=== PATIENT | female | born 1945 | race Caucasian/White ===

== ENCOUNTER 2025-03-27 14:20 | Observation (INO) | payer OTHER, MEDICARE ==
--- OUTSIDE RECORDS SUMMARY | 2025-03-27 14:30 | XMS REPORT | Continuity of Care Document ---
Author Name Unknown Address [address] [facility] [address] [place] [address] [facility] [address] [facility] [address] [place] [address] Care Team Providers Care Chief Of Party Name Role Phone Marva Rice DO Primary Care Physician [phone] Praveena Garcia Attending Clinician Unavail able Doctor Unassigned, [facility] [place] Attending Clinician U BACILIO Villegas Attending Clinician Unavailable JUAN RAMON WELCH Attending Clinician UnavailBacilio Flowers MD Attending Clinician [phone] Belinda Chang RN Attending Clinician Unavailable LILIANA PÉREZ Attending Clinician Unavailable Wale Corey DO Attending Clinician [phone] Liliana Pérez DO Attending Clinician [phone] Sydni Perez MD Attending Clinician [phone] SYDNI PEREZ Attending Clinician UnavailSYDNI Carson Attending Clinician Unavailabl e Doctor Unassigned, [facility] [place] Attending Clinician U JOSH Iglesias Attending Clinician Unavailable Josh Norwood MD Attending Clinician [phone] CARITO DOYLE Attending Clinician Unavailable Jason [employer]BER, Rosie Attending Clinician [phone] Juvenal HERMOSILLO, Mac Pino Attending Clinician [phone] Carito Doyle MD Attending Clinician [phone], [facility] Attending Clinician Unavailable Shanel Jefferson Attending Clinician [phone] Dakota FOSTER, Juancarlos Hagan Attending Clinician Unavail able SELIN BALES Attending Clinician Unavailable Garfield Bower MD Attending Clinician [phone] Selin Bales MD Attending Clinician [phone] Jasvir HERMOSILLO, Asha Attending Clinician [phone] SHANEL CANDELARIO Attending Clinician Unavailable ROSELINE GAVIN Attending Clinician Unavailab Roseline Howell Attending Clinician GHAZALA PENN Attending Clinician Unavailab Ghazala Chavez DO Attending Clinician [phone] Brandon Taylor MD Attending Clinician [phone] Nicholas HERMOSILLO, Jenn Ornelas Attending Clinician + Andrey Alvarado MD Attendin g Clinician Yessenia HERMOSILLO, Osman Davis Attending Clinician + Petrona HERMOSILLO, Tello Nova Attending Clinici an Geramine Nagel MD Attending Clinician [phone] Shani Han MD Attending Clinician [phone] Deloris Hoffman MD Attending Clinician [phone] SHANI HAN Attending Clinician Unavailable Physician, No Primary or Family Admitting Clinic marco Unavailable MARVA RICE Admitting Clinician Unavailable LILIANA PÉREZ Admitting Clinician Unavailable Liliana Pérez DO Admitting Clinician [phone] JOSH NORWOOD Admitting Clinician Unavailable MYRA RO Admitting Clinician Unavailable CARITO DOYLE Admitting Clinician Unavailable Yanira HERMOSILLO, Carito Admitting Clinician [phone] SELIN BALES Admitting Clinician Unavailable Selin Bales MD Admitting Clinician [phone] BACILIO DELEON Admitting Clinician Unavailable ROSELINE GAVIN Admitting Clinician Unavailab GHAZALA Chavez Admitting Clinician Unavailab shan Casas MD, Osman Davis Admitting Clinician + Petrona HERMOSILLO, Tello Nova Admitting Clinici an Deloris Hoffman MD Admitting Clinician [phone] DELORIS HOFFMAN Admitting Clinician Unavailable Payers Payer Name Policy Type Policy Number Effective Date Expirati on Date Source MEDICARE PART A \\T\\ B [id number] 1999 00:00:00 [facility] MEDICARE SUPPLEMENT [id number] 2010 00:00:00 Problems Condition Name Condition Details Condition Category Status Onset Date Resolution Date Last Treatment Date Treating Clinician Comments Source Primary hypertensi on Primary hypertensi on Disease Active 04-25 00:00: 00 [facility] 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 Problem Active 04-20 00:00: 00 [facility] Atrophic vaginitis Atrophic Vaginitis Problem Active 04-20 00:00: 00 [facility] Spinal stenosis of lumbar region Spinal Stenosis of Lumbar Region Problem Active 04-20 00:00: 00 [facility] Incontinen ce of feces Incontinen ce of Feces Problem Active 04-20 00:00: 00 [facility] Diarrhea Diarrhea Problem Active 04-20 00:00: 00 [facility] Urge incontinen ce of urine Urge Incontinen ce of Urine Problem Active 04-20 00:00: 00 [facility] Spinal stenosis Spinal Stenosis Problem Active 04-18 00:00: 00 [facility] Low back pain Low Back Pain Problem Active 04-18 00:00: 00 [facility] Hyperlipid emia Hyperlipid emia Problem Active 2024-0 6-05 00:00: 00 [facility] Neuropathy Neuropathy Problem Active 6-05 00:00: 00 [facility] Myocardial infarction Myocardial Infarction Problem Active 6-05 00:00: 00 [facility] Gastroesop hageal reflux disease Gastroesop hageal Reflux Disease Problem Active 6-05 00:00: 00 [facility] UTI (urinary tract infection) UTI (urinary tract infection) Disease Active 2-13 00:00: 00 [facility] Weakness of left lower extremity Weakness of left lower extremity Disease Active 2022-11 2-11 00:00: 00 [facility] Troponin I above reference range Troponin I above reference range Disease Active 2022-11 2- 00:00: 00 [facility] KALYN (acute kidney injury) KALYN (acute kidney injury) Disease Active 2022-11 2- 00:00: 00 [facility] KALYN (acute kidney injury) KALYN (acute kidney injury) Disease Active 2022-11 2- 00:00: 00 [facility] Syncope and collapse Syncope and collapse Disease Active 2022-11 2- 00:00: 00 [facility] LOC (loss of consciousn ess) LOC (loss of consciousn ess) Disease Active 2022-11 2- 00:00: 00 [facility] Pulmonary hypertensi on Pulmonary hypertensi on Disease Active 2022-11 00:00: 00 [facility] HFrEF (heart failure with reduced ejection fraction) HFrEF (heart failure with reduced ejection fraction) Disease Active 2022-11 00:00: 00 [facility] JARRELL (obstructi ve sleep apnea) JARRELL (obstructi ve sleep apnea) Disease Active 2022-11 00:00: 00 [facility] Chest pain, unspecifie d type Chest pain, unspecifie d type Disease Active 07-20 00:00: 00 [facility] NSTEMI (non-ST elevated myocardial infarction ) NSTEMI (non-ST elevated myocardial infarction ) Disease Active 07-20 00:00: 00 [facility] Stenosis of left carotid artery Stenosis of left carotid artery Disease Active 2020-11 0-18 00:00: 00 [facility] Weak pulse Weak pulse Disease Active 3- 00:00: 00 [facility] Morbid obesity Morbid obesity Disease Active 3 00:00: 00 [facility] Coronary artery disease involving [place] coronary artery of [place] heart without angina pectoris Coronary artery disease involving [place] coronary artery of [place] heart without angina pectoris Disease Active 01-20 00:00: 00 [facility] Coronary artery disease involving [place] coronary artery of [place] heart without angina pectoris Coronary artery disease involving [place] coronary artery of [place] heart without angina pectoris Disease Active 01-20 00:00: 00 [facility] Chronic heart failure with preserved ejection fraction Chronic heart failure with preserved ejection fraction Disease Active 01-20 00:00: 00 [facility] PVT (paroxysma l ventricula r tachycardi a) PVT (paroxysma l ventricula r tachycardi a) Disease Active 01-20 00:00: 00 [facility] Chest pain, musculoske letal Chest pain, musculoske letal Disease Active 2019-11 0 00:00: 00 [facility] History of myocardial infarction History of myocardial infarction Disease Active 2019-11 024 00:00: 00 [facility] 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 Disease Active 2019-11 024 00:00: 00 [facility] Chest pain Chest pain Disease Active 2019-11 0 00:00: 00 [facility] Non-sustai bo ventricula r tachycardi a Non-sustai bo ventricula r tachycardi a Disease Active 2019-11 0- 00:00: 00 [facility] Edema, unspecifie d Edema, unspecifie d Disease Active 2019-11 008 00:00: 00 [facility] Chronic kidney disease, stage 3 unspecifie d Chronic kidney disease, stage 3 unspecifie d Disease Active 2019-11 0- 00:00: 00 [facility] Cough Cough Disease Active 2019-11 0 00:00: 00 [facility] Candidiasi s, unspecifie d Candidiasi s, unspecifie d Disease Active 08-11 00:00: 00 [facility] Pain, unspecifie d Pain, unspecifie d Disease Active 9 00:00: 00 [facility] Nausea with vomiting, unspecifie d Nausea with vomiting, unspecifie d Disease Active 08-04 00:00: 00 [facility] Allergic rhinitis, unspecifie d Allergic rhinitis, unspecifie d Disease Active 18 00:00: 00 [facility] Constipati on, unspecifie d Constipati on, unspecifie d Disease Active 08-01 00:00: 00 [facility] Essential (primary) hypertensi on Essential (primary) hypertensi on Disease Active 08-01 00:00: 00 [facility] Gastro-eso phageal reflux disease without esophagiti s Gastro-eso phageal reflux disease without esophagiti s Disease Active 08-01 00:00: 00 [facility] Hyperlipid emia, unspecifie d Hyperlipid emia, unspecifie d Disease Active 08-01 00:00: 00 [facility] Other specified disorders of bladder Other specified disorders of bladder Disease Active 08-01 00:00: 00 [facility] Urinary tract infection, site not specified Urinary tract infection, site not specified Disease Active 08-01 00:00: 00 [facility] Body mass index (BMI) 45.0-49.9, adult Body mass index (BMI) 45.0-49.9, adult Disease Active 07-31 00:00: 00 [facility] Muscle weakness (generaliz ed) Muscle weakness (generaliz ed) Disease Active 07-31 00:00: 00 [facility] Other abnormalit ies of gait and mobility Other abnormalit ies of gait and mobility Disease Active 07-31 00:00: 00 [facility] Other lack of coordinati on Other lack of coordinati on Disease Active 07-31 00:00: 00 [facility] Age-relate d osteoporos is without current pathologic al fracture Age-relate d osteoporos is without current pathologic al fracture Disease Active 07-26 00:00: 00 [facility] Anemia, unspecifie d Anemia, unspecifie d Disease Active 07-26 00:00: 00 [facility] Cardiac arrest due to underlying cardiac condition Cardiac arrest due to underlying cardiac condition Disease Active 07-26 00:00: 00 [facility] Chronic pain disorder Chronic pain disorder Disease Active 07-26 00:00: 00 [facility] Fibromyalg ia Fibromyalg ia Disease Active 07-26 00:00: 00 [facility] 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 Disease Active 07-26 00:00: 00 [facility] Encounter for surgical aftercare following surgery on the placement specialist y system Encounter for surgical aftercare following surgery on the placement specialist y system Disease Active 07-26 00:00: 00 [facility] Hypertensi ve heart and chronic kidney disease with heart failure and stage 1 through stage 4 chronic kidney disease, or unspecifie d chronic kidney disease Hypertensi ve heart and chronic kidney disease with heart failure and stage 1 through stage 4 chronic kidney disease, or unspecifie d chronic kidney disease Disease Active 07-26 00:00: 00 [facility] Klebsiella pneumoniae (k. pneumoniae ) as the cause of diseases classified elsewhere Klebsiella pneumoniae (k. pneumoniae ) as the cause of diseases classified elsewhere Disease Active 07-26 00:00: 00 [facility] Lymphedema , not elsewhere classified Lymphedema , not elsewhere classified Disease Active 07-26 00:00: 00 [facility] Peptic ulcer, site unspecifie d, unspecifie d as acute or chronic, without hemorrhage or perforatio n Peptic ulcer, site unspecifie d, unspecifie d as acute or chronic, without hemorrhage or perforatio n Disease Active 07-26 00:00: 00 [facility] Rheumatoid arthritis, unspecifie d Rheumatoid arthritis, unspecifie d Disease Active 07-26 00:00: 00 [facility] Secondary osteoarthr itis, right shoulder Secondary osteoarthr itis, right shoulder Disease Active 07-26 00:00: 00 [facility] Spinal stenosis, site unspecifie d Spinal stenosis, site unspecifie d Disease Active 07-26 00:00: 00 [facility] STEMI (ST elevation myocardial infarction ) STEMI (ST elevation myocardial infarction ) Disease Active 07-26 00:00: 00 [facility] Choledocho lithiasis Choledocho lithiasis Disease Active 03-31 00:00: 00 [facility] 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 Disease Active 18 00:00: 00 [facility] Deep vein thrombosis Deep vein thrombosis Disease Active 2015-11 0 00:00: 00 [facility] Leg pain Leg pain Disease Active 08-13 00:00: 00 [facility] Allergies, Adverse Reactions, Alerts Allergy Name Allergy Type Status Severity Reaction(s) Onset Date Inactive Date Treating Clinician Comments Source Penicill ins DA Active SV 06-11 00:00: 00 [facility] codeine DA Active SV 06-11 00:00: 00 [facility] Penicill ins DA Active SV RASH 06-11 00:00: 00 [facility] codeine DA Active SV SHORTNESS OF BREATH 06-11 00:00: 00 [facility] CODEINE DRUG INGREDI Active SOB 05-28 00:00: 00 [facility] PENICILL IN DRUG INGREDI Active Rash 05-28 00:00: 00 [facility] Codeine Propensi ty to adverse reaction s Active Shortness of Breath 05-28 00:00: 00 [facility] Penicill in Propensi ty to adverse reaction s Active Rash 05-28 00:00: 00 [facility] PENICILL INS Allergy to substanc e Active [facility] Social History Social Habit Start Date Stop Date Quantity Comments Source [facility] History of Social function 2024-04-25 00:00:00 2024-04-25 00:00:00 [facility] Exposure to SARS-CoV-2 (event) 2023-02-14 00:00:00 2023-02-24 09:06:00 Not sure [facility] Tobacco use and exposure 2016-08-13 00:00:00 2016-08-13 00:00:00 Smokeless tobacco non-user [facility] Sex assigned at 1945 00:00:00 1945 00:00:00 [facility] Smoking Status Start Date Stop Date Source Never smoked tobacco [facility] Medications Ordered Medication Name Filled Medication Name Start Date Stop Date Current Medication? Ordering Clinician Indication Dosage Frequency Signature (SIG) Comments Components Source mirabegron (MYRBETRIQ) 50 mg tablet 12-29 15:27: 11 Yes 50mg Take 1 tablet by mouth in the morning. [facility] URSODIOL ORAL 12-29 15:27: 11 Yes Take by mouth. [facility] ondansetron (ZOFRAN (PF)) injection 4 mg 12-29 03:08: 13 Yes 4mg 4 mg, Slow IV Push, Q6HPRN, Nausea and Vomiting (N/V), Starting on Tue12/28/23 at 2108
Do ses of ondansetro n 16 mg and above need to be administer ed via IV piggyback. For Dose >=24mg ECG monitoring is advisable.
[facility] atorvastati n (LIPITOR) tablet 40 mg 12-29 03:00: 00 Yes 40mg 40 mg, Oral, QHS, First dose on Tue12/28/23 at 2100, Until Discontinu ed, Routine [facility] NaCl 0.9% (NS) bolus infusion 250 mL 12-28 18:15: 00 12-28 23:15 :00 No 250mL at 50 mL/hr, 250 mL, IV Piggyback, ONCE, 1 dose, On Tue12/28/23 at 1215, STAT [facility] metoprolol succinate XL (TOPROL XL) tablet 50 mg 12-28 15:00: 00 Yes 50mg 50 mg, Oral, DAILY, First dose on Tue12/28/23 at 0900, Until Discontinu ed, Routine [facility] aspirin chewable tablet 81 mg 12-28 15:00: 00 Yes 81mg 81 mg, Oral, DAILY, First dose on Tue12/28/23 at 0900, Until Discontinu ed, Routine [facility] enoxaparin (LOVENOX) injection 40 mg 12-28 15:00: 00 Yes 40mg 40 mg, Subcutaneo us, DAILY, First dose on Tue12/28/23 at 0900, Until Discontinu ed, Routine [facility] cefTRIAXone (ROCEPHIN) 1,000 mg in NaCl 0.9% (NS) 100 mL MINI-BAG 12-28 05:45: 00 01-01 05:44 :00 No 1000mg 1,000 mg, IV Piggyback, Q24H ABX, 4 doses, First dose on Tue12/27/23 at 2345, Last dose on Tue12/30/23 at 2345, Administer over 30 Minutes, 100 mL
Reas on for Anti-Infec tive: Documented Infection< br>Documen angela Infection Site: Urine
D uration of Therapy: 7 days [facility] temazepam (RESTORIL) capsule 15 mg 12-28 04:36: 03 Yes 15mg 15 mg, Oral, QHSPRN, Starting on Tue12/27/23 at 2236, Until Discontinu ed, Routine, Insomnia [facility] HYDROcodone -acetaminop hen (NORCO) 10-325 mg tablet 1 tablet 12-28 04:27: 13 Yes 1{tbl} 1 tablet, Oral, Q6HPRN, Starting on Tue12/27/23 at 2227, Until Discontinu ed, Pain (scale 4-6) [facility] acetaminoph en (TYLENOL) tablet 650 mg 12-28 00:27: 53 Yes 650mg 650 mg, Oral, Q6HPRN, Starting on Tue12/27/23 at 1827, Until Discontinu ed, Routine, Pain (scale 1-3) [facility] methocarbam oL (ROBAXIN) tablet 500 mg 12-28 00:00: 00 12-27 23:18 :00 No 500mg 500 mg, Oral, ONCE, 1 dose, On Tue12/27/23 at 1800, Routine [facility] HYDROcodone -acetaminop hen (NORCO) 10-325 mg tablet 1 tablet 12-28 00:00: 00 12-27 23:18 :00 No 1{tbl} 1 tablet, Oral, ONCE, 1 dose, On Tue12/27/23 at 1800, Routine [facility] piperacilli n-tazobacta m (ZOSYN) 3.375 g in NaCl 0.9% (NS) 100 mL MINI-BAG 12-27 23:00: 00 12-27 23:51 :00 No 3.375g 3.375 g, IV Piggyback, ONCE, 1 dose, On Tue12/27/23 at 1700, Administer over 30 Minutes, 100 mL
Reas on for Anti-Infec tive: Empiric Therapy for Suspected Infection< br>Empiric Therapy Site: Urine
D uration of therapy: Once (ED) [facility] mirabegron (MYRBETRIQ) 50 mg tablet 12-27 22:29: 16 Yes 50mg Take 1 tablet by mouth in the morning. [facility] URSODIOL ORAL 12-27 22:29: 16 Yes Take by mouth. [facility] triamcinolo ne acetonide (KENALOG) injection 40 mg 12-21 21:30: 00 12-21 20:45 :00 No [id number] 40mg [facility] acetaminoph en (TYLENOL) tablet 650 mg 11-26 06:30: 00 11-26 06:41 :00 No 650mg 650 mg, Oral, ONCE, 1 dose, On Tue11/26/23 at 0030, MIRNA [facility] atorvastati n (LIPITOR) tablet 40 mg 2022-11 03:00: 00 Yes 40mg 40 mg, Oral, QHS, First dose on Tue10/24/23 at 2100, Until Discontinu ed, [facility] enoxaparin (LOVENOX) injection 30 mg 2022-11 23:00: 00 Yes 30mg 30 mg, Subcutaneo us, DAILY, First dose on Tue10/24/23 at 1700, Until Discontinu ed, Routine [facility] URSODIOL ORAL 2022-11 17:16: 48 Yes Take by mouth. [facility] mirabegron (MYRBETRIQ) 50 mg tablet 2022-11 17:16: 48 Yes 50mg Take 1 tablet by mouth in the morning. [facility] sulfur hexafluorid e microsphr (LUMASON) injection 5 mL 2022-11 16:30: 00 10-24 16:30 :00 No [id number] 5mL 5 mL, Intravenou s, ONCE, 1 dose, On Tue10/24/23 at 1030, Routine
multiple launch rocket system crewmember approving Restricted medication : EVANS THOMAS [facility] aspirin chewable tablet 81 mg 2022-11 15:00: 00 Yes 81mg 81 mg, Oral, DAILY, First dose on Tue10/24/23 at 0900, Until Discontinu ed, Routine [facility] docusate (COLACE) capsule 100 mg 2022-11 15:00: 00 Yes 100mg 100 mg, Oral, DAILY, First dose on Tue10/24/23 at 0900, Until Discontinu ed, Routine [facility] ursodioL (ACTIGALL) capsule 300 mg 2022-11 14:00: 00 Yes 300mg 300 mg, Oral, BID, First dose on Tue10/24/23 at 0800, Until Discontinu ed [facility] NaCl 0.9% (NS) IV infusion 1,000 mL 2022-11 07:15: 00 Yes 1000mL at 50 mL/hr, IV Infusion, CONTINUOUS , Starting on Tue10/24/23 at 0115, Until Discontinu ed, Routine [facility] ondansetron (ZOFRAN (PF)) injection 4 mg 2022-11 06:56: 14 Yes 4mg 4 mg, Slow IV Push, Q6HPRN, Starting on Tue10/24/23 at 0056, Until Discontinu ed, Routine, Nausea and Vomiting (N/V) [facility] FENTanyl PF (SUBLIMAZE (PF)) injection 25 mcg 2022-11 06:56: 05 10-25 06:55 :05 No 25ug 25 mcg, Slow IV Push, Q6HPRN, Starting on Tue10/24/23 at 0056, Until Tue10/25/23 at 0055, Routine, Pain (scale 7-10) [facility] HYDROcodone -acetaminop hen (NORCO 5) 5-325 mg tablet 1 tablet 2022-11 06:55: 56 10-26 06:54 :56 No 1{tbl} 1 tablet, Oral, Q6HPRN, Starting on Tue10/24/23 at 0055, Until Tue10/26/23 at 0054, Routine, Pain (scale 4-6) [facility] acetaminoph en (TYLENOL) tablet 650 mg 2022-11 06:55: 47 Yes 650mg 650 mg, Oral, Q6HPRN, Starting on Tue10/24/23 at 0055, Until Discontinu ed, Routine, Pain (scale 1-3) [facility] zolpidem (AMBIEN CR) 12.5 mg CR tablet 2022-11 06:51: 58 10-24 00:00 :00 No 12.5mg Take 12.5 mg by mouth at bedtime as needed for Sleep. [facility] sodium chloride (NS) injection 5 mL 2022-11 2-11 03:14: 32 Yes 5mL 5 mL, Intravenou s, PRN, Starting on Tue10/23/23 at 2114, Until Discontinu ed, Routine, IV line flushing [facility] zolpidem (AMBIEN CR) 12.5 mg CR tablet 07-24 15:24: 28 Yes 12.5mg Take 12.5 mg by mouth at bedtime as needed for Sleep. [facility] mirabegron (MYRBETRIQ) 50 mg tablet 07-24 15:24: 28 Yes 1{tbl} Take 1 tablet by mouth daily. [facility] URSODIOL ORAL 07-24 15:24: 28 Yes Take by mouth. [facility] LORazepam 1 mg tablet 07-24 13:21: 57 07-24 00:00 :00 No 1mg Take 1 mg by mouth. [facility] heparin (porcine) injection 5,000 Units 07-24 12:30: 00 Yes 5000U 5,000 Units, Subcutaneo us, Q8H, First dose on Tue07/24/23 at 0730, Until Discontinu ed, Routine [facility] OMEPRAZOLE, BULK, MISC 07-24 12:24: 45 07-24 00:00 :00 No 40{tbl} 40 tablets 2 (two) times daily. [facility] magnesium sulfate in water 2 gram/50 mL (4 %) infusion 2 g 07-24 12:00: 00 07-24 15:27 :00 No 2g 2 g, IV Piggyback, Administer over 60 Minutes, ONCE, 1 dose, On Tue07/24/23 at 0700, Routine [facility] KCL (KLOR-CON M20) tablet 40 mEq 07-24 12:00: 00 07-24 13:59 :00 No 40meq 40 mEq, Oral, ONCE, 1 dose, On Tue07/24/23 at 0700, Routine [facility] LOR[facility]epam 1 mg tablet 07-24 00:00: 00 10-24 00:00 :00 No 1mg Take 1 tablet by mouth at bedtime as needed for Anxiety or Agitation. [facility] clopidogreL (PLAVIX) 300 mg tablet 300 mg 07-23 22:00: 00 07-23 21:55 :00 No 300mg 300 mg, Oral, ONCE NOW, 1 dose, On 07/23/23 at 1700, Routine [facility] pantoprazol e (PROTONIX) EC tablet 40 mg 07-23 14:00: 00 Yes 40mg 40 mg, Oral, DAILY, First dose on 07/23/23 at 0900, Until Discontinu ed, Routine [facility] KCL (KLOR-CON M20) tablet 20 mEq 07-23 12:30: 00 07-23 13:41 :00 No 20meq 20 mEq, Oral, ONCE, 1 dose, On [facility] 07/23/23 at 0730, Routine [facility] furosemide (LASIX) injection 40 mg 07-23 01:00: 00 Yes 40mg 40 mg, Slow IV Push, Q12H, First dose on Tue07/22/23 at 2000, Until Discontinu ed, Routine [facility] furosemide (LASIX) injection 40 mg 07-22 13:00: 00 07-22 14:51 :07 No 40mg 40 mg, Slow IV Push, TID, First dose on Tue07/22/23 at 0800, Until Discontinu ed, MIRNA [facility] ticagrelor (BRILINTA) tablet 90 mg 07-22 01:00: 00 Yes 90mg 90 mg, Oral, BID, First dose on Jackelyn 07/21/23 at 2000, Until Discontinu ed, Routine [facility] sulfur hexafluorid e microsphr (LUMASON) injection 5 mL 07-21 20:45: 00 07-21 20:45 :00 No [id number] 5mL 5 mL, Intravenou s, ONCE, 1 dose, On Jackelyn 9/7/23 at 1545, Routine
multiple launch rocket system crewmember approving Restricted medication : JOCELYNE DENTON [facility] [facility] iodixanol (VISIPAQUE 320-100 mL) injection 07-21 18:49: 28 07-21 19:18 :22 No ONCE INTRA PROCEDURE, Starting on Jackelyn 07/21/23 at 1349, Until Jackelyn 07/21/23 at 1418, Routine, CV Intraproce dure [facility] adenosine 6 mg/1000 mL INTRACORONA RY injection for LOSS PREVENTION SUPERVISOR 07-21 18:04: 22 07-21 19:18 :22 No ONCE INTRA PROCEDURE, Starting on Jackelyn 07/21/23 at 1304, Until Jackelyn 07/21/23 at 1418, Routine, [facility]ce [facility] nitroglycer in (TRIDIL) 2 mg in 10 mL D5W for Cardiac Cath 07-21 17:56: 07 07-21 19:18 :22 No ONCE INTRA PROCEDURE, Starting on Jackelyn 07/21/23 at 1256, Until Jackelyn 07/21/23 at 1418, Routine, CV Intraproce dure [facility] ticagrelor (BRILINTA) tablet 07-21 17:38: 42 07-21 19:18 :22 No ONCE INTRA PROCEDURE, Starting on Jackelyn 07/21/23 at 1238, Until Jackelyn 07/21/23 at 1418, Routine, CV [facility] heparin 1,000 unit/mL injection 07-21 17:18: 00 07-21 19:18 :22 No ONCE INTRA PROCEDURE, Starting on Jackelyn 07/21/23 at 1218, Until Jackelyn 07/21/23 at 1418, Routine, CV Intraproce dure [facility] lidocaine 1% (PF) (XYLOCAINE) injection 07-21 16:18: 46 07-21 19:18 :22 No ONCE INTRA PROCEDURE, Starting on Jackelyn 07/21/23 at 1118, Until Jackelyn 07/21/23 at 1418, Routine, CV Intraproce dure [facility] midazolam (VERSED) injection 07-21 16:05: 12 07-21 19:18 :22 No ONCE INTRA PROCEDURE, Starting on Jackelyn 07/21/23 at 1105, Until Jackelyn 07/21/23 at 1418, Routine, CV Intraproce dure [facility] FENTanyl PF (SUBLIMAZE (PF)) injection 07-21 16:05: 01 07-21 19:18 :22 No ONCE INTRA PROCEDURE, Starting on Jackelyn 07/21/23 at 1105, Until Jackelyn 07/21/23 at 1418, Routine, CV Intraproce dure [facility] Lidocaine (LIDOCARE) 4 % patch 1 Patch 07-21 14:45: 00 07-22 08:00 :00 No 1{patch } 1 Patch, Topical, Administer over 12 Hours, ONCE, 1 dose, On Jackelyn 07/21/23 at 0945, Routine [facility] methocarbam oL (ROBAXIN) tablet 500 mg 07-21 14:15: 00 Yes 500mg 500 mg, Oral, BID, First dose (after last modificati on) on Jackelyn 07/21/23 at 0915, Until Discontinu ed, Routine [facility] docusate (COLACE) capsule 100 mg 07-21 14:00: 00 Yes 100mg 100 mg, Oral, DAILY, First dose on Jackelyn 07/21/23 at 0900, Until Discontinu ed, Routine [facility] sennosides- docusate sodium (SENOKOT-S) 8.6-50 mg per tablet 1 tablet 07-21 14:00: 00 Yes 1{tbl} 1 tablet, Oral, DAILY, First dose on Jackelyn 07/21/23 at 0900, Until Discontinu ed, Routine [facility] aspirin chewable tablet 81 mg 07-21 14:00: 00 Yes 81mg 81 mg, Oral, DAILY, First dose on Jackelyn 07/21/23 at 0900, Until Discontinu ed, Routine [facility] omeprazole (PRILOSEC) capsule 20 mg 07-21 14:00: 00 07-22 14:55 :38 No 20mg 20 mg, Oral, DAILY, First dose on Tue07/21/23 at 0900, Until Discontinu ed, Routine [facility] HYDROcodone -acetaminop hen (NORCO) 10-325 mg tablet 1 tablet 07-21 13:34: 58 Yes 1{tbl} 1 tablet, Oral, Q6HPRN, Starting on Tue07/21/23 at 0834, Until Discontinu ed, Routine, Pain (scale 7-10), Pain (scale 4-6) [facility] mirtazapine (REMERON) tablet 15 mg 07-21 06:17: 35 Yes 15mg 15 mg, Oral, QHSPRN, Starting on Tue07/21/23 at 0117, Until Discontinu ed, Routine, Insomnia, sleeping difficulti es [facility] acetaminoph en-codeine (TYLENOL #3) 300-30 mg tablet 1 tablet 07-21 02:03: 52 07-21 13:35 :18 No 1{tbl} 1 tablet, Oral, Q6HPRN, Starting on Tue07/20/23 at 2103, Until Tue07/21/23 at 0835, Routine, Pain (scale 4-6) [facility] acetaminoph en (TYLENOL) tablet 650 mg 07-21 02:03: 49 Yes 650mg 650 mg, Oral, Q6HPRN, Starting on Tue07/20/23 at 2103, Until Discontinu ed, Routine, Pain (scale 1-3) [facility] FENTanyl PF (SUBLIMAZE (PF)) injection 12.5 mcg 07-21 00:00: 00 07-20 23:06 :00 No 12.5ug 12.5 mcg, Slow IV Push, ONCE, 1 dose, On Tue07/20/23 at 1900, STAT [facility] iopamidol (ISOVUE 370-500 mL) injection 80 mL 07-20 22:15: 00 07-20 22:20 :00 No [id number] 80mL 80 mL, Intravenou s, ONCE, 1 dose, On Tue07/20/23 at 1715, Routine [facility] zolpidem (AMBIEN CR) 12.5 mg CR tablet 07-20 21:05: 26 Yes 12.5mg Take 12.5 mg by mouth at bedtime as needed for Sleep. [facility] mirabegron (MYRBETRIQ) 50 mg tablet 07-20 21:05: 26 Yes 1{tbl} Take 1 tablet by mouth daily. [facility] URSODIOL ORAL 07-20 21:05: 26 Yes Take by mouth. [facility] OMEPRAZOLE, BULK, MISC 07-20 21:05: 26 Yes 40{tbl} 40 tablets 2 (two) times daily. [facility] LORazepam 1 mg tablet 07-20 21:05: 26 Yes 1mg Take 1 mg by mouth. [facility] HEPARIN SODIUM (PORCINE) 1,000 UNIT/ML BOLUS ACS ORDER SET 07-20 20:30: 00 07-20 23:31 :00 No 4000U 4,000 Units, IV Push, ONCE, 1 dose, On Tue07/20/23 at 1530, [facility] heparin 25,000 Units/250 mL (Premixed Bag) in 0.45 % NS 07-20 20:21: 20 07-22 13:53 :49 No 0U/h 0-3,200 Units/hr (0-32 mL/hr), IV Infusion, TITRATE, Parameters in Admin. Instr., Starting on Tue07/20/23 at 1521
In itiate dosing:&nb sp; & nbsp;&nbsp ; -Patient 83 kg or under: 1,000 Units/hr (Calculate d dose at 12 units/kg/h r) &n bsp; &nbs p; -Patient over 83 k,000 units/hr&n bsp;DO NOT Exceed the MAXIMUM 1,000 units/hr for initiation of heparin drip.&nbsp ; CAU TION - If LMWH given in ER, AVOID bolus and start next dose/drip 12 hrs after ER dosage.&nb sp; M ust program rate using programmab le infusion pump.&nbsp ; Leanne ck with the ordering provider first prior to any administra tion should the patient be on existing/a dditional anticoagul ant therapy.&n bsp; Range, Dosing and Testing&nb sp; - aPTT < 40: & nbsp;Bolus 3000 units, increase rate 100 units/hr.& nbsp;- aPTT 40-49:&nbs p; In crease rate 50 units/hr. - aPTT 50-70:&nbs p; NO CHANGE.&nb sp;- aPTT 71-85:&nbs p; De crease rate 50 units/hr.& nbsp;- aPTT 86-100:&nb sp; H old 30 minutes, decrease rate 100 units/hr.& nbsp;- aPTT 101-150:&n bsp; Hold 60 minutes, decrease rate 150 units/hr.& nbsp;- aPTT > 150: Hold 60 minutes, decrease rate 300 units/hr.& nbsp;&nbsp ;Check aPTT 6 hours after initiation , then Q6H after every change, aPTT Q12H once therapeuti c levels are reached.&n bsp; DO NOT ADJUST INITIAL BOLUS OR INITIAL INFUSION RATE.
[facility] heparin (1,000 unit/mL, 10 mL vial) for Rebolusing 07-20 20:21: 15 Yes 3000U FOR REBOLUSING , Starting on Tue07/20/23 at 1521, Until Discontinu ed, Routine
Dosing based on aPPT testing parameters (refer to continuous heparin drip order).
[facility] ondansetron (ZOFRAN (PF)) injection 4 mg 07-20 18:45: 00 07-20 18:07 :00 No 4mg 4 mg, Slow IV Push, ONCE, 1 dose, On Tue07/20/23 at 1345, [facility] FENTanyl PF (SUBLIMAZE (PF)) injection 75 mcg 07-20 18:45: 00 07-20 18:07 :00 No 75ug 75 mcg, Slow IV Push, ONCE, 1 dose, On Tue07/20/23 at 1345, STAT [facility] sulfur hexafluorid e microsphr (LUMASON) injection 5 mL 07-06 17:00: 00 07-06 16:53 :00 No [id number] 02 5mL 5 mL, Intravenou s, ONCE, 1 dose, On Tue07/06/23 at 1200, Routine
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 [facility] NaCl 0.9% (NS) bolus infusion 1,000 mL 02-24 15:15: 00 02-24 17:05 :00 No 1000mL at 999 mL/hr, 1,000 mL, IV Infusion, ONCE, 1 dose, On Tue02/24/23 at 1015, [facility] zolpidem (AMBIEN CR) 12.5 mg CR tablet 04-22 14:53: 25 Yes 12.5mg Take 12.5 mg by mouth at bedtime as needed for Sleep. [facility] OMEPRAZOLE, BULK, MISC 04-22 14:53: 25 Yes 40{tbl} 40 tablets 2 (two) times daily. [facility] LORazepam 1 mg tablet 04-22 14:53: 25 Yes 1mg Take 1 mg by mouth. [facility] mirabegron (MYRBETRIQ) 50 mg tablet 2020-11 11:01: 54 Yes 1{tbl} Take 1 tablet by mouth daily. [facility] HYDROcodone -acetaminop hen (NORCO) 10-325 mg tablet 2020-11 11:01: 54 Yes 1{tbl} Take 1 tablet by mouth every 6 (six) hours. [facility] URSODIOL ORAL 01-20 14:09: 48 Yes Take by mouth. [facility] aspirin 81 mg chewable tablet 08-01 00:00: 00 Yes 81mg Take 1 tablet by mouth in the morning. [facility] atorvastati n 40 mg tablet atorvastati n 40 mg tablet No atorvastat in 40 mg tablet [facility] cefdinir 300 mg capsule cefdinir 300 mg capsule No cefdinir 300 mg capsule [facility] celecoxib 200 mg capsule celecoxib 200 mg capsule No celecoxib 200 mg capsule [facility] ciprofloxac in 500 mg tablet ciprofloxac in 500 mg tablet No ciprofloxa nba 500 mg tablet [facility] clopidogrel 75 mg tablet clopidogrel 75 mg tablet No clopidogre l 75 mg tablet [facility] estradiol 0.01% (0.1 mg/gram) vaginal cream Insert 0.5 g 3 times a week by vaginal route at bedtime for 90 days. estradiol 0.01% (0.1 mg/gram) vaginal cream Insert 0.5 g 3 times a week by vaginal route at bedtime for 90 days. No .5g Q56H estradiol 0.01% (0.1 mg/gram) vaginal cream Insert 0.5 g 3 times a week by vaginal route at bedtime for 90 days. [facility] estradiol 10 mcg vaginal tablet estradiol 10 mcg vaginal tablet No estradiol 10 mcg vaginal tablet [facility] fluconazole 150 mg tablet fluconazole 150 mg tablet No fluconazol e 150 mg tablet [facility] folic acid 1 mg tablet folic acid 1 mg tablet No folic acid [address] [facility] furosemide 20 mg tablet furosemide 20 mg tablet No furosemide 20 mg tablet [facility] furosemide 40 mg tablet furosemide 40 mg tablet No furosemide 40 mg tablet [facility] gabapentin 800 mg tablet gabapentin 800 mg tablet No gabapentin 800 mg tablet [facility] hydrocodone 7.5 mg-acetamin ophen 325 mg tablet hydrocodone 7.5 mg-acetamin ophen 325 mg tablet No hydrocodon e 7.5 mg-acetami nophen 325 mg tablet [facility] ketoconazol e 2 % topical cream ketoconazol e 2 % topical cream No ketoconazo le 2 % topical cream [facility] lorazepam 0.5 mg tablet lorazepam 0.5 mg tablet No lorazepam 0.5 mg tablet [facility] Macrobid 100 mg capsule Take 1 capsule every day by oral route for 90 days. Macrobid 100 mg capsule Take 1 capsule every day by oral route for 90 days. No 1capsul e(s) Q1D Macrobid 100 mg capsule Take 1 capsule every day by oral route for 90 days. [facility] metoprolol succinate ER 25 mg tablet,exte nded release 24 hr metoprolol succinate ER 25 mg tablet,exte nded release 24 hr No metoprolol succinate ER 25 mg tablet,ext ended release 24 hr [facility] Myrbetriq 50 mg tablet,exte nded release Take 1 tablet every day by oral route for 30 days. Myrbetriq 50 mg tablet,exte nded release Take 1 tablet every day by oral route for 30 days. No 1 Q1D Myrbetriq 50 mg tablet,ext ended release Take 1 tablet every day by oral route for 30 days. [facility] omeprazole omeprazole No omeprazole [facility] omeprazole 40 mg capsule,del ayed release omeprazole 40 mg capsule,del ayed release No omeprazole 40 mg capsule,de layed release [facility] prednisone 10 mg tablet prednisone 10 mg tablet No prednisone 10 mg tablet [facility] Restasis 0.05 % eye drops in a dropperette Restasis 0.05 % eye drops in a dropperette No Restasis 0.05 % eye drops in a dropperett e [facility] sulfamethox azole 800 mg-trimetho prim 160 mg tablet sulfamethox azole 800 mg-trimetho prim 160 mg tablet No sulfametho xazole 800 mg-trimeth oprim 160 mg tablet [facility] tazarotene tazarotene No tazarotene [facility] trazodone 50 mg tablet trazodone 50 mg tablet No trazodone 50 mg tablet [facility] triamcinolo ne acetonide 0.1 % topical ointment triamcinolo ne acetonide 0.1 % topical ointment No triamcinol one acetonide 0.1 % topical ointment [facility] Immunizations Ordered Immunization Name Filled Immunization Name Date Status Comments Source Zoster Vaccine Recombinant 2019-11-08 00:00:00 Completed [facility] Zoster Vaccine Recombinant 2019-11-08 00:00:00 Completed [facility] Zoster Vaccine Recombinant 2019-11-08 00:00:00 Completed [facility] Zoster Vaccine Recombinant 2019-11-08 00:00:00 Completed [facility] Zoster Vaccine Recombinant 2019-11-08 00:00:00 Completed [facility] Zoster Vaccine Recombinant 2019-11-08 00:00:00 Completed [facility] Zoster Vaccine Recombinant 2019-11-08 00:00:00 Completed [facility] Zoster Vaccine Recombinant 2019-11-08 00:00:00 Completed [facility] Zoster Vaccine Recombinant 2019-11-08 00:00:00 Completed [facility] Zoster Vaccine Recombinant 2019-11-08 00:00:00 Completed [facility] Zoster Vaccine Recombinant 2019-11-08 00:00:00 Completed [facility] Zoster Vaccine Recombinant 2019-11-08 00:00:00 Completed [facility] Zoster Vaccine Recombinant 2019-11-08 00:00:00 Completed [facility] Zoster Vaccine Recombinant 2019-11-08 00:00:00 Completed [facility] Zoster Vaccine Recombinant 2019-11-08 00:00:00 Completed [facility] Zoster Vaccine Recombinant 2019-11-08 00:00:00 Completed [facility] Zoster Vaccine Recombinant 2019-11-08 00:00:00 Completed [facility] Zoster Vaccine Recombinant 2019-11-08 00:00:00 Completed [facility] Zoster Vaccine Recombinant 2019-11-08 00:00:00 Completed [facility] Zoster Vaccine Recombinant 2019-11-08 00:00:00 Completed Pneumococcal Polysaccharide, PPSV23 (PNEUMOVAX) 2019-08-25 00:00:00 Completed [facility] Zoster Vaccine Recombinant 2019-08-25 00:00:00 Completed [facility] Pneumococcal Polysaccharide, PPSV23 (PNEUMOVAX) 2019-08-25 00:00:00 Completed [facility] Zoster Vaccine Recombinant 2019-08-25 00:00:00 Completed [facility] Pneumococcal Polysaccharide, PPSV23 (PNEUMOVAX) 2019-08-25 00:00:00 Completed [facility] Zoster Vaccine Recombinant 2019-08-25 00:00:00 Completed [facility] Pneumococcal Polysaccharide, PPSV23 (PNEUMOVAX) 2019-08-25 00:00:00 Completed [facility] Zoster Vaccine Recombinant 2019-08-25 00:00:00 Completed [facility] Pneumococcal Polysaccharide, PPSV23 (PNEUMOVAX) 2019-08-25 00:00:00 Completed [facility] Zoster Vaccine Recombinant 2019-08-25 00:00:00 Completed [facility] Pneumococcal Polysaccharide, PPSV23 (PNEUMOVAX) 2019-08-25 00:00:00 Completed [facility] Zoster Vaccine Recombinant 2019-08-25 00:00:00 Completed [facility] Pneumococcal Polysaccharide, PPSV23 (PNEUMOVAX) 2019-08-25 00:00:00 Completed [facility] Zoster Vaccine Recombinant 2019-08-25 00:00:00 Completed [facility] Pneumococcal Polysaccharide, PPSV23 (PNEUMOVAX) 2019-08-25 00:00:00 Completed [facility] Zoster Vaccine Recombinant 2019-08-25 00:00:00 Completed [facility] Pneumococcal Polysaccharide, PPSV23 (PNEUMOVAX) 2019-08-25 00:00:00 Completed [facility] Zoster Vaccine Recombinant 2019-08-25 00:00:00 Completed [facility] Pneumococcal Polysaccharide, PPSV23 (PNEUMOVAX) 2019-08-25 00:00:00 Completed [facility] Zoster Vaccine Recombinant 2019-08-25 00:00:00 Completed [facility] Pneumococcal Polysaccharide, PPSV23 (PNEUMOVAX) 2019-08-25 00:00:00 Completed [facility] Zoster Vaccine Recombinant 2019-08-25 00:00:00 Completed [facility] Pneumococcal Polysaccharide, PPSV23 (PNEUMOVAX) 2019-08-25 00:00:00 Completed [facility] Zoster Vaccine Recombinant 2019-08-25 00:00:00 Completed [facility] Pneumococcal Polysaccharide, PPSV23 (PNEUMOVAX) 2019-08-25 00:00:00 Completed [facility] Zoster Vaccine Recombinant 2019-08-25 00:00:00 Completed [facility] Pneumococcal Polysaccharide, PPSV23 (PNEUMOVAX) 2019-08-25 00:00:00 Completed [facility] Zoster Vaccine Recombinant 2019-08-25 00:00:00 Completed [facility] Pneumococcal Polysaccharide, PPSV23 (PNEUMOVAX) 2019-08-25 00:00:00 Completed [facility] Zoster Vaccine Recombinant 2019-08-25 00:00:00 Completed [facility] Pneumococcal Polysaccharide, PPSV23 (PNEUMOVAX) 2019-08-25 00:00:00 Completed [facility] Zoster Vaccine Recombinant 2019-08-25 00:00:00 Completed [facility] Pneumococcal Polysaccharide, PPSV23 (PNEUMOVAX) 2019-08-25 00:00:00 Completed [facility] Zoster Vaccine Recombinant 2019-08-25 00:00:00 Completed [facility] Pneumococcal Polysaccharide, PPSV23 (PNEUMOVAX) 2019-08-25 00:00:00 Completed [facility] Zoster Vaccine Recombinant 2019-08-25 00:00:00 Completed [facility] Pneumococcal Polysaccharide, PPSV23 (PNEUMOVAX) 2019-08-25 00:00:00 Completed [facility] Zoster Vaccine Recombinant 2019-08-25 00:00:00 Completed [facility] Pneumococcal Polysaccharide, PPSV23 (PNEUMOVAX) 2019-08-25 00:00:00 Completed [facility] Zoster Vaccine Recombinant 2019-08-25 00:00:00 Completed Pneumococcal Polysaccharide, PPSV23 (PNEUMOVAX) Unknown Completed [facility] Zoster Vaccine Recombinant Unknown Completed [facility] Pneumococcal Polysaccharide, PPSV23 (PNEUMOVAX) Unknown Completed [facility] Zoster Vaccine Recombinant Unknown Completed [facility] Pneumococcal Polysaccharide, PPSV23 (PNEUMOVAX) Unknown Completed [facility] Zoster Vaccine Recombinant Unknown Completed [facility] Pneumococcal Polysaccharide, PPSV23 (PNEUMOVAX) Unknown Completed [facility] Zoster Vaccine Recombinant Unknown Completed [facility] Pneumococcal Polysaccharide, PPSV23 (PNEUMOVAX) Unknown Completed [facility] Zoster Vaccine Recombinant Unknown Completed [facility] Pneumococcal Polysaccharide, PPSV23 (PNEUMOVAX) Unknown Completed [facility] Zoster Vaccine Recombinant Unknown Completed [facility] Pneumococcal Polysaccharide, PPSV23 (PNEUMOVAX) Unknown Completed [facility] Zoster Vaccine Recombinant Unknown Completed [facility] Pneumococcal Polysaccharide, PPSV23 (PNEUMOVAX) Unknown Completed [facility] Zoster Vaccine Recombinant Unknown Completed [facility] Pneumococcal Polysaccharide, PPSV23 (PNEUMOVAX) Unknown Completed [facility] Zoster Vaccine Recombinant Unknown Completed [facility] Pneumococcal Polysaccharide, PPSV23 (PNEUMOVAX) Unknown Completed [facility] Zoster Vaccine Recombinant Unknown Completed [facility] Pneumococcal Polysaccharide, PPSV23 (PNEUMOVAX) Unknown Completed [facility] Zoster Vaccine Recombinant Unknown Completed [facility] Pneumococcal Polysaccharide, PPSV23 (PNEUMOVAX) Unknown Completed [facility] Zoster Vaccine Recombinant Unknown Completed [facility] Pneumococcal Polysaccharide, PPSV23 (PNEUMOVAX) Unknown Completed [facility] Zoster Vaccine Recombinant Unknown Completed [facility] Pneumococcal Polysaccharide, PPSV23 (PNEUMOVAX) Unknown Completed [facility] Zoster Vaccine Recombinant Unknown Completed [facility] Pneumococcal Polysaccharide, PPSV23 (PNEUMOVAX) Unknown Completed [facility] Zoster Vaccine Recombinant Unknown Completed [facility] Pneumococcal Polysaccharide, PPSV23 (PNEUMOVAX) Unknown Completed [facility] Zoster Vaccine Recombinant Unknown Completed [facility] Pneumococcal Polysaccharide, PPSV23 (PNEUMOVAX) Unknown Completed [facility] Zoster Vaccine Recombinant Unknown Completed [facility] Pneumococcal Polysaccharide, PPSV23 (PNEUMOVAX) Unknown Completed [facility] Zoster Vaccine Recombinant Unknown Completed [facility] Pneumococcal Polysaccharide, PPSV23 (PNEUMOVAX) Unknown Completed [facility] Zoster Vaccine Recombinant Unknown Completed [facility] Pneumococcal Polysaccharide, PPSV23 (PNEUMOVAX) Unknown Completed [facility] Zoster Vaccine Recombinant Unknown Completed [facility] Pneumococcal Polysaccharide, PPSV23 (PNEUMOVAX) Unknown Completed [facility] Zoster Vaccine Recombinant Unknown Completed [facility] Vital Signs Vital Name Observation Time Observation Value Comments S ource Systolic blood pressure 2024-04-25 15:50:00 113 mm[Hg] [facility] Diastolic blood pressure 2024-04-25 15:50:00 63 mm[Hg] [facility] Heart rate 2024-04-25 15:50:00 47 /min [facility] Respiratory rate 2024-04-25 15:50:00 17 /min [facility] Body height 2024-04-25 15:50:00 160 cm [facility] Body weight 2024-04-25 15:50:00 99.338 kg [facility] BMI 2024-04-25 15:50:00 38.79 kg/m2 [facility] Oxygen saturation in Arterial blood by Pulse oximetry 2024-04-25 15:50:00 99 /min [facility] BP Systolic 2024-04-18 00:00:00 141 mm[Hg] [facility] Body Weight 2024-04-18 00:00:00 224 [lb_av] [facility] BP Diastolic 2024-04-18 00:00:00 97 mm[Hg] [facility] Systolic blood pressure 2023-12-29 17:25:00 118 mm[Hg] [facility] Diastolic blood pressure 2023-12-29 17:25:00 63 mm[Hg] [facility] Heart rate 2023-12-29 17:25:00 62 /min [facility] Body temperature 2023-12-29 17:25:00 36.28 Ceci [facility] Respiratory rate 2023-12-29 17:25:00 16 /min [facility] Oxygen saturation in Arterial blood by Pulse oximetry 2023-12-29 17:25:00 99 /min [facility] Body weight 2023-12-29 09:12:00 105.461 kg [facility] BMI 2023-12-29 09:12:00 39.89 kg/m2 [facility] Body height 2023-12-28 03:42:00 162.6 cm [facility] Body height 2023-12-21 20:26:00 160 cm [facility] Body weight 2023-12-21 20:26:00 114.76 kg [facility] BMI 2023-12-21 20:26:00 44.82 kg/m2 [facility] Systolic blood pressure 2023-12-14 15:58:00 131 mm[Hg] [facility] Diastolic blood pressure 2023-12-14 15:58:00 76 mm[Hg] [facility] Heart rate 2023-12-14 15:58:00 70 /min [facility] Respiratory rate 2023-12-14 15:58:00 22 /min [facility] Body height 2023-12-14 15:58:00 160 cm [facility] Body weight 2023-12-14 15:58:00 114.76 kg [facility] BMI 2023-12-14 15:58:00 44.82 kg/m2 [facility] Oxygen saturation in Arterial blood by Pulse oximetry 2023-12-14 15:58:00 100 /min [facility] Systolic blood pressure 2023-11-26 09:00:00 116 mm[Hg] [facility] Diastolic blood pressure 2023-11-26 09:00:00 50 mm[Hg] [facility] Heart rate 2023-11-26 09:00:00 70 /min [facility] Respiratory rate 2023-11-26 09:00:00 18 /min [facility] [facility] in Arterial blood by Pulse oximetry 2023-11-26 09:00:00 91 /min [facility] Body temperature 2023-11-26 06:16:00 36.83 Ceci [facility] Body height 2023-11-26 06:16:00 160 cm [facility] Body weight 2023-11-26 06:16:00 115.214 kg [facility] BMI 2023-11-26 06:16:00 44.99 kg/m2 [facility] Heart rate 2023-10-24 17:27:00 50 /min [facility] Oxygen saturation in Arterial blood by Pulse oximetry 2023-10-24 17:27:00 97 /min [facility] Systolic blood pressure 2023-10-24 17:26:00 109 mm[Hg] [facility] Diastolic blood pressure 2023-10-24 17:26:00 46 mm[Hg] [facility] Body temperature 2023-10-24 17:26:00 36.17 Cec[facility] Respiratory rate 2023-10-24 13:22:00 18 /min [facility] Body weight 2023-10-24 09:07:00 118.48 kg [facility] BMI 2023-10-24 09:07:00 46.27 kg/m2 [facility] Body height 2023-10-24 06:29:00 160 cm [facility] Systolic blood pressure 2023-09-14 14:52:00 106 mm[Hg] [facility] Diastolic blood pressure 2023-09-14 14:52:00 64 mm[Hg] [facility] Heart rate 2023-09-14 14:52:00 69 /min [facility] Body height 2023-09-14 14:52:00 165.1 cm [facility] Body weight 2023-09-14 14:52:00 116.484 kg [facility] BMI 2023-09-14 14:52:00 42.73 kg/m2 [facility] Oxygen saturation in Arterial blood by Pulse oximetry 2023-09-14 14:52:00 92 /min [facility] Body temperature 2023-07-24 17:14:00 36.44 Ceci [facility] Respiratory rate 2023-07-24 17:14:00 18 /min [facility] Systolic blood pressure 2023-07-24 17:12:00 115 mm[Hg] [facility] Diastolic blood pressure 2023-07-24 17:12:00 67 mm[Hg] [facility] Heart rate 2023-07-24 11:58:00 64 /min [facility] Oxygen saturation in Arterial blood by Pulse oximetry 2023-07-24 11:58:00 96 /min [facility] Body height 2023-07-21 01:54:00 160 cm [facility] Body weight 2023-07-21 01:54:00 130.5 kg [facility] BMI 2023-07-21 01:54:00 50.96 kg/m2 [facility] Systolic blood pressure 2023-07-21 17:30:21 134 mm[Hg] [facility] Diastolic blood pressure 2023-07-21 17:30:21 69 mm[Hg] [facility] Respiratory rate 2023-07-21 17:30:21 16 /min [facility] Oxygen saturation in Arterial blood by Pulse oximetry 2023-07-21 17:30:21 99 /min [facility] Heart rate 2023-07-21 15:59:39 73 /min [facility] Body temperature 2023-07-21 12:27:00 37.17 Ceci [facility] Body height 2023-07-21 01:54:00 160 cm [facility] Body weight 2023-07-21 01:54:00 130.5 kg [facility] BMI 2023-07-21 01:54:00 50.96 kg/m2 [facility] Body height 2023-06-01 18:14:00 162.6 cm [facility] Body weight 2023-06-01 18:14:00 124.286 kg [facility] BMI 2023-06-01 18:14:00 47.03 kg/m2 [facility] Systolic blood pressure 2023-05-17 18:03:51 173 mm[Hg] [facility] Diastolic blood pressure 2023-05-17 18:03:51 87 mm[Hg] [facility] Heart rate 2023-05-17 18:03:51 73 /min [facility] Respiratory rate 2023-05-17 18:03:51 15 /min [facility] Oxygen saturation in Arterial blood by Pulse oximetry 2023-05-17 18:03:51 98 /min [facility] Body temperature 2023-05-17 16:30:00 36.17 Ceci [facility] Body height 2023-05-17 16:30:00 162.6 cm [facility] Body weight 2023-05-17 16:30:00 124.286 kg [facility] BMI 2023-05-17 16:30:00 47.03 kg/m2 [facility] Systolic blood pressure 2023-04-25 18:58:00 122 mm[Hg] [facility] Diastolic blood pressure 2023-04-25 18:58:00 76 mm[Hg] [facility] Heart rate 2023-04-25 18:58:00 73 /min [facility] Body temperature 2023-04-25 18:58:00 35.56 Ceci [facility] Respiratory rate 2023-04-25 18:58:00 18 /min [facility] Body height 2023-04-25 18:58:00 160 cm [facility] Body weight 2023-04-25 18:58:00 124.15 kg [facility] BMI 2023-04-25 18:58:00 48.48 kg/m2 [facility] Oxygen saturation in Arterial blood by Pulse oximetry 2023-04-25 18:58:00 96 /min [facility] Respiratory rate 2023-02-24 17:00:00 21 /min [facility] Oxygen saturation in Arterial blood by Pulse oximetry 2023-02-24 17:00:00 95 /min [facility] Systolic blood pressure 2023-02-24 16:22:00 119 mm[Hg] [facility] Diastolic blood pressure 2023-02-24 16:22:00 59 mm[Hg] [facility] Heart rate 2023-02-24 16:22:00 74 /min [facility] Body temperature 2023-02-24 14:09:00 36.94 Ceci [facility] Body height 2023-02-24 14:09:00 160 cm [facility] Body weight 2023-02-24 14:09:00 124.286 kg [facility] BMI 2023-02-24 14:09:00 48.54 kg/m2 [facility] Systolic blood pressure 2022-04-22 19:57:00 170 mm[Hg] [facility] Diastolic blood pressure 2022-04-22 19:57:00 89 mm[Hg] [facility] Heart rate 2022-04-22 19:57:00 63 /min [facility] Oxygen saturation in Arterial blood by Pulse oximetry 2022-04-22 19:57:00 93 /min [facility] Body temperature 2022-04-22 19:55:00 35.89 Ceci [facility] Respiratory rate 2022-04-22 19:55:00 16 /min [facility] Body height 2022-04-22 19:55:00 162.6 cm [facility] Body weight 2022-04-22 19:55:00 128.141 kg [facility] BMI 2022-04-22 19:55:00 48.49 kg/m2 [facility] Procedures Procedure Date / Time Performed Performing Clinician Source EKG (SCANNED DOCUMENTS) 2024-12-04 18:22:33 Doct or Unassigned, [facility] US, transvaginal 2024-04-20 00:00:00 [facility] US TRANSVAGINAL 2024-04-20 00:00:[address], abdomen + pelvis, w/wo contrast 2024-04-18 00:00:00 [facility] (SCANNED) DOCUMENTS 2024-03-13 17:48:20 Doctor Unassigned, [facility] MAGNESIUM 2023-12-29 09:43:00 Isabel Tejeda [facility] BASIC METABOLIC PANEL (NA, K, CL, CO2, GLUCOSE, BUN, CREATININE, CA) 2023-12-29 09:43:00 Isbael Tejeda [facility] LACTIC ACID WHOLE BLOOD 2023-12-28 03:43:00 Lillian Sanford mmad [facility] LACTIC ACID WHOLE BLOOD 2023-12-27 23:04:00 [facility] URINE CULTURE 2023-12-27 22:59:00 Singer [facility] XR CHEST 1 VW 2023-12-27 22:09:18 Singer [facility] URINALYSIS 2023-12-27 22:03:00 [facility] LACTIC ACID WHOLE BLOOD 2023-12-27 20:14:00 , [facility] COMP. METABOLIC PANEL (19968) 2023-12-27 20:13:00 Singer [facility] CBC WITH DIFF 2023-12-27 20:13:00 Singer [facility] AUTHORIZATION TO RELEASE PHI TO [facility] 2023-12-14 06:01:00 Doctor Unassigned, [facility] BASIC METABOLIC PANEL (NA, K, CL, CO2, GLUCOSE, BUN, CREATININE, CA) 2023-11-26 06:56:00 Josh Norwood [facility] CBC WITH DIFF 2023-11-26 06:56:00 Josh [facility] HOME HEALTH - OTHER 2023-11-02 06:01:00 Doctor Keli mancuso, [facility] POCT GLUCOSE (AUTOMATED) 2023-10-24 17:18:00 Cornelius Doyle [facility] TRANSTHORACIC ECHO (TTE) COMPLETE W/ CONTRAST 2023-10-24 15:25:00 Mac Sanford [facility] POCT GLUCOSE (AUTOMATED) 2023-10-24 13:55:00 Rhonda Sanford [facility] PHOSPHORUS 2023-10-24 12:49:00 Mac Sanford Uni [facility] FREE T4 2023-10-24 12:49:00 Mac Sanford [facility] BASIC METABOLIC PANEL (NA, K, CL, CO2, GLUCOSE, BUN, CREATININE, CA) 2023-10-24 12:49:00 Brittnee Vazquez [facility] IRON PANEL 2023-10-24 12:49:00 [facility] 2023-10-24 12:47:00 Mac Sanford [facility] URIC ACID 2023-10-24 12:47:00 Mac Sanford Uni [facility] MAGNESIUM 2023-10-24 12:47:00 Mac Sanford [facility] FERRITIN SERUM 2023-10-24 12:47:00 [facility] VITAMIN B12, LEVEL 2023-10-24 12:47:00 Mac Sanford [facility] FOLATE 2023-10-24 12:47:00 Mac Sanford [facility] TROPONIN I 2023-10-24 12:47:00 Mac Sanford [facility] THYROID STIMULATING HORMONE 2023-10-24 12:47:00 Mac Sanford [facility] LIPID PANEL (14347)(TOTAL CHOLESTEROL, TRIGLYCERIDES, HDL) 2023-10-24 12:47:00 Mac Sanford [facility] RETICULOCYTES AUTOMATED 2023-10-24 12:47:00 Lillian Sanford mmad [facility] N-TERMINAL PRO-BNP 2023-10-24 12:47:00 Mac Sanford [facility] CT TRAUMA HEAD WO CONTRAST 2023-10-24 03:59:08 Kary Gomez [facility] XR CHEST 1 VW 2023-10-24 03:49:00 [facility] NOTICE OF PRIVACY PRACTICES 2023-10-24 03:30:24 Doctor Unassigned, [facility] CONSENT/REFUSAL FOR DIAGNOSIS AND TREATMENT 2023-10-24 03:28:45 Doctor Unassigned, [facility] LIPASE 2023-10-24 03:19:[facility]23-10-24 03:19:00 Rosie Gomez [facility] COMP. METABOLIC PANEL ([id number]) 2023-10-24 03:19:00 Rosie Gomez [facility] CBC WITH DIFF 2023-10-24 03:19:00 Rosie Gomez [facility] N-TERMINAL PRO-BNP 2023-10-24 03:19:00 Jason [facility] CT HEAD WO CONTRAST 2023-07-24 16:59:07 [facility] 2023-07-24 09:21:00 Jose Martin [facility] BASIC METABOLIC PANEL (NA, K, CL, CO2, GLUCOSE, BUN, CREATININE, CA) 2023-07-24 09:21:00 Jose Martin [facility] CBC WITH DIFF 2023-07-24 09:21:00 Jose Martin [facility] N-TERMINAL PRO-BNP 2023-07-24 09:21:00 Liliana Keen [facility] MAGNESIUM 2023-07-23 09:01:00 [facility]OLIC PANEL (NA, K, CL, CO2, GLUCOSE, BUN, CREATININE, CA) 2023-07-23 09:01:00 [facility] WITH DIFF 2023-07-23 09:01:00 Fabio Rivera [facility] ACTIVATED PARTIAL THRMPLAS VILMA 2023-07-22 15:05:00 Wili Anderson [facility] ACTIVATED PARTIAL THRMPLAS VILMA 2023-07-22 15:05:00 Wili Anderson [facility] HB ECG ROUTINE & RHYTHM STRIP 2023-07-22 13:39:06 Jenn Santoro [facility] MAGNESIUM 2023-07-22 05:41:00 Jono Morris [facility] BASIC METABOLIC PANEL (NA, K, CL, CO2, GLUCOSE, BUN, CREATININE, CA) 2023-07-22 05:41:00 Arturo, Leander [facility] CBC WITHOUT DIFF 2023-07-22 05:41:00 Rudy Morris [facility] ACTIVATED PARTIAL THRMPLAS VILMA 2023-07-22 05:41:00 Wili Anderson [facility] MAGNESIUM 2023-07-22 05:41:00 Jono Morris [facility] BASIC METABOLIC PANEL (NA, K, CL, CO2, GLUCOSE, BUN, CREATININE, CA) 2023-07-22 05:41:00 Leander Morris [facility] CBC WITHOUT DIFF 2023-07-22 05:41:00 Rudy Morris [facility] ACTIVATED PARTIAL THRMPLAS VILMA 2023-07-22 05:41:00 [facility] TRANSTHORACIC ECHO (TTE) LIMITED W/ CONTRAST 2023-07-21 20:43:39 [facility] TRANSTHORACIC ECHO (TTE) LIMITED W/ CONTRAST 2023-07-21 20:43:39 Wili Anderson [facility] CARDIAC CATHETERIZATION 2023-07-21 18:55:36 Albaeni, A [facility] CARDIAC CATHETERIZATION 2023-07-21 18:55:36 Albaeni, A [facility] CARDIAC CATHETERIZATION 2023-07-21 18:55:36 Albaeni, A [facility] CARDIAC CATHETERIZATION 2023-07-21 18:55:36 Albaeni, A [facility] CARDIAC CATHETERIZATION 2023-07-21 18:55:36 Albaeni, A [facility] CARDIAC CATHETERIZATION 2023-07-21 18:55:36 Albaeni, A [facility] CARDIAC CATHETERIZATION 2023-07-21 18:55:36 Albaeni, A [facility] CARDIAC CATHETERIZATION 2023-07-21 18:55:36 Albaeni, A [facility] CARDIAC CATHETERIZATION 2023-07-21 18:55:36 Albaeni, A [facility] CARDIAC CATHETERIZATION 2023-07-21 18:55:36 Albaeni, A [facility] CARDIAC CATHETERIZATION 2023-07-21 18:55:36 Albaeni, A [facility] CARDIAC CATHETERIZATION 2023-07-21 18:55:36 Amairani, Bentley [facility] CARDIAC CATHETERIZATION 2023-07-21 18:55:36 Amairani, Bentley [facility] CARDIAC CATHETERIZATION 2023-07-21 18:55:36 Amairani, Bentley [facility] CARDIAC CATHETERIZATION 2023-07-21 18:55:36 Amairani, Bentley [facility] CARDIAC CATHETERIZATION 2023-07-21 18:55:36 Amairnai, Bentley [facility] POCT ACT LOW RANGE 2023-07-21 18:46:00 Amairani [facility] POCT ACT LOW RANGE 2023-07-21 18:46:00 Amairani [facility] POCT ACT LOW RANGE 2023-07-21 18:17:00 Amairani [facility] POCT ACT LOW RANGE 2023-07-21 18:17:00 Amairani [facility] POCT ACT LOW RANGE 2023-07-21 17:21:00 Amairani [facility] POCT ACT LOW RANGE 2023-07-21 17:21:00 Amairani [facility] HB ECG ROUTINE & RHYTHM STRIP 2023-07-21 13:12:30 [facility] HB ECG ROUTINE & RHYTHM STRIP 2023-07-21 13:12:30 [facility] TROPONIN I 2023-07-21 13:10:00 Wili Anderson [facility] ACTIVATED PARTIAL THRMPLAS VILMA 2023-07-21 13:10:00 [facility] TROPONIN I 2023-07-21 13:10:00 [facility] ACTIVATED PARTIAL THRMPLAS VILMA 2023-07-21 13:10:00 [facility] MAGNESIUM 2023-07-21 06:05:00 Wili Anderson [facility] TROPONIN I 2023-07-21 06:05:00 Wili Anderson [facility] BASIC METABOLIC PANEL (NA, K, CL, CO2, GLUCOSE, BUN, CREATININE, CA) 2023-07-21 06:05:00 Wili Anderson [facility] CBC WITH DIFF 2023-07-21 06:05:00 Wili Anderson [facility] ACTIVATED PARTIAL THRMPLAS VILMA 2023-07-21 06:05:00 [facility] MAGNESIUM 2023-07-21 06:05:00 Wili Anderson [facility] TROPONIN I 2023-07-21 06:05:00 Wili Anderson [facility] BASIC METABOLIC PANEL (NA, K, CL, CO2, GLUCOSE, BUN, CREATININE, CA) 2023-07-21 06:05:00 [facility] CBC WITH DIFF 2023-07-21 06:05:00 Wili Anderson [facility] ACTIVATED PARTIAL THRMPLAS VILMA 2023-07-21 06:05:00 [facility] HB ECG ROUTINE & RHYTHM STRIP 2023-07-21 05:50:57 [facility] HB ECG ROUTINE & RHYTHM STRIP 2023-07-21 05:50:57 [facility] MAGNESIUM 2023-07-20 23:04:00 Wili Anderson [facility] TROPONIN I 2023-07-20 23:04:00 Garfield [facility]ower [facility] MAGNESIUM 2023-07-20 23:04:00 Wili Anderson [facility] TROPONIN I 2023-07-20 23:04:00 Garfield [facility]ower [facility] CT ABDOMEN PELVIS W CONTRAST 2023-07-20 22:44:00 Garfield Bower [facility] CT ABDOMEN PELVIS W CONTRAST 2023-07-20 22:44:00 Garfield Bower [facility] CT ANGIOGRAM CHEST 2023-07-20 22:29:38 Garfield Bower [facility] CT ANGIOGRAM CHEST 2023-07-20 22:29:38 Garfield Bower [facility] COVID-19 (ID NOW RAPID TESTING) 2023-07-20 20:24:00 Garfield Bower [facility] LAB ONLY COVID INTERPRETATION 2023-07-20 20:24:00 Garfield Bower [facility] COVID-19 (ID NOW RAPID TESTING) 2023-07-20 20:24:00 Garfield Bower [facility] LAB ONLY COVID INTERPRETATION 2023-07-20 20:24:00 Garfield Bower [facility] LIPASE 2023-07-20 19:02:00 Garfield Boewr [facility] COMP. METABOLIC PANEL ([id number]) 2023-07-20 19:02:00 Garfield Bower [facility] CBC WITH DIFF 2023-07-20 19:02:00 Garfield Bower [facility] PROTHROMBIN TIME / INR 2023-07-20 19:02:00 Surya Bower [facility] ACTIVATED PARTIAL THRMPLAS VILMA 2023-07-20 19:02:00 Garfield Bower [facility] LIPASE 2023-07-20 19:02:00 Garfield Bower [facility] COMP. METABOLIC PANEL ([id number]) 2023-07-20 19:02:00 Garfield Bower [facility] CBC WITH DIFF 2023-07-20 19:02:00 Garfield Bower [facility] PROTHROMBIN TIME / INR 2023-07-20 19:02:00 Surya Bower [facility] ACTIVATED PARTIAL THRMPLAS VILMA 2023-07-20 19:02[facility]-20 18:06:00 Garfield Bower [facility] N-TERMINAL PRO-BNP 2023-07-20 18:06:00 Garfield Bower [facility] TROPONIN I 2023-07-20 18:06:00 Garfield Bower [facility] N-TERMINAL PRO-BNP 2023-07-20 18:06:00 Garfield Bower [facility] XR CHEST 1 VW 2023-07-20 17:47:50 Garfield Bower [facility] XR CHEST 1 VW 2023-07-20 17:47:50 Garfield Bower [facility] HB ECG ROUTINE & RHYTHM STRIP 2023-07-20 17:21:23 Garfield Bower [facility] HB ECG ROUTINE & RHYTHM STRIP 2023-07-20 17:21:23 Garfield Bower [facility] CRITICAL CARE 2023-07-20 17:17:00 Garfield Bower [facility] CRITICAL CARE 2023-07-20 17:17:00 Garfield Bower [facility] HOSPITAL ADMISSION 2023-07-20 05:01:00 Doctor Un assigned, [facility] TRANSTHORACIC ECHO (TTE) COMPLETE W/ CONTRAST 2023-07-06 17:08:00 Bacilio Deleon [facility] XR SHOULDER 2+ VW RIGHT 2023-06-01 18:32:58 Fariha Candelario [facility] CONSENT/REFUSAL FOR DIAGNOSIS AND TREATMENT 2023-04-25 18:48:10 Doctor Unassigned, [facility] EKG-12 LEAD 2023-02-24 15:59:56 [facility] 2023-02-24 15:05:18 Criss Penn ra [facility] CT TRAUMA CERVICAL SPINE WO CONTRAST 2023-02-24 15:05:18 Ghazala Penn [facility] URINALYSIS 2023-02-24 14:49:00 Ghazala Penn [facility] TROPONIN I 2023-02-24 14:27:00 Ghazala Penn [facility] COMP. METABOLIC PANEL ([id number]) 2023-02-24 14:27:00 Ghazala Penn [facility] CBC WITH DIFF 2023-02-24 14:27:00 [facility] LACT[facility] WHOLE BLOOD 2023-02-24 14:26:00 Ghazala Penn [facility] Total Hysterectomy with Removal of Both Tubes and Ovaries 1993-02-12 00:00:00 [facility] Stapling of Stomach 1979-11-14 00:00:00 [facility] En[facility] Start Date/Time End Date/Time Encounter Type Admission Type Attending Clinicians Care Facility Care Department Encounter ID Source 2021-09-12 00:16:52 Emergency [facility] [id number] [facility] 2021-09-11 17:12:50 Emergency [facility] [id number] [facility] 2019-11-23 07:00:00 Inpatient Praveena Garcia [facility] ENDO [id number] [facility] 2024-12-04 00:00:00 2024-12-29 06:16:37 Orders Only Doctor Unassigned, [place] Doctor Unassigned, [facility] [id number] [id number] [id number] [facility] 2024-03-13 00:00:00 2024-12-29 02:08:46 Orders Only Doctor Unassigned, [facility] [place] Doctor Unassigned, [facility] [place] [facility] [id number] [id number] [id number] [id number] [facility] 2024-10-25 14:00:00 2024-10-25 14:00:00 Outpatient BACILIO RAMESH [facility] [id number] [facility] 2024-05-22 00:00:00 2024-05-22 00:00:00 Outpatient JUAN RAMON FUNES [facility] [id number] [facility] 2024-04-30 00:00:00 2024-04-30 00:00:00 SACHIN Moya: [address] [place] [address] Dr [address], [place] [address], [place] [address] , Ph. [facility] - GC_GCBZW_[facility]* [id number] [facility] 2024-04-27 00:00:00 2024-04-27 00:00:00 Outpatient JUAN RAMON FUNES [facility] [id number] [facility] 2024-04-25 11:00:00 2024-04-25 11:05:28 Outpatient BACILIO RAMESH [facility] [id number] [facility] 2024-04-25 11:00:00 2024-04-25 11:05:28 [facility] [id number] [id number] 4.2.7.2.686 [id number] [facility] 2024-04-20 00:00:00 2024-04-20 00:00:00 Juan Ramon Welch MD: [address], [facility] [address] [id number] , Ph. [facility] - GC[facility]BZW_[facility]* [id number] [facility] 2024-04-18 00:00:00 2024-04-18 00:00:00 Juan Ramon Welch MD: [address], [facility] [address], [place] [phone] , Ph. [facility] - GC[facility]BZ[facility]* [id number] [facility] 2024-03-26 00:00:00 2024-03-26 00:00:00 Outpatient R [facility] [id number] [facility] 2024-03-22 00:00:00 2024-03-22 00:00:00 Outpatient R [facility] [id number] [facility] 2024-03-12 00:00:00 2024-03-12 00:00:00 [facility]phone [facility] [id number] 350.1.13.10 4.2.7.2.686 [id number] [facility] 2024-03-09 00:00:00 2024-03-09 00:00:00 [facility]phone [facility] [id number] 350.1.13.10 4.2.7.2.686 [id number] [facility] 2024-03-09 00:00:00 2024-03-09 00:00:00 Telephone Pancho [facility] BUILDING [id number] 350.1.13.10 4.2.7.2.686 [id number] [facility] 2024-03-05 00:00:00 2024-03-05 00:00:00 [facility] [id number] 350.1.13.10 4.2.7.2.686 [id number] [facility] 2023-12-30 00:00:00 2023-12-30 00:00:00 Transition of Care Belinda Chang [facility] [id number] 350.1.13.10 4.2.7.2.686 [id number] [facility] 2023-12-27 13:30:00 2023-12-29 15:03:00 Outpatient X LILIANA P[facility]REZ [facility] [id number] [facility] 2023-12-27 13:30:00 2023-12-29 15:03:00 Emergency Wale Corey [facility] [id number] 350.1.13.10 4.2.7.2.686 [id number] [facility] 2023-12-21 14:36:46 2023-12-21 23:59:00 Hospital Encounter Sydni Perez [facility] [id number] 350.1.13.10 4.2.7.2.686 [id number] [facility] 2023-12-21 14:30:00 2023-12-21 15:08:25 Outpatient R SYDNI PEREZ CRAIG [facility] [id number] [facility] 2023-12-21 14:30:00 2023-12-21 15:08:25 Office Visit Sydni Perez [facility] 1.2.840.114 350.1.13.10 4.2.7.2.686 [id number] [facility] 2023-12-14 10:00:00 2023-12-14 10:17:57 Outpatient R PANCHO [facility] [id number] [facility] 2023-12-14 10:00:00 2023-12-14 10:17:57 Office Visit Pancoh [facility] 1.2.840.114 350.1.13.10 4.2.7.2.686 [id number] 059 [id number] [facility] 2023-12-14 00:00:00 2023-12-14 00:00:00 [facility] 1.2.840.114 350.1.13.10 4.2.7.2.686 [id number] [facility] 2023-12-14 00:00:00 2023-12-14 00:00:00 Orders Only Doctor Unassigned, [facility] 1.2.840.114 350.1.13.10 4.2.7.2.686 [id number] [facility] 2023-12-08 13:15:00 2023-12-08 13:15:00 Outpatient R SYDNI PEREZ CRAIG [facility] [id number] [facility] 2023-11-26 00:26:00 2023-11-26 04:18:00 Emergency X JOSH NORWOOD [facility] ERT [id number] [facility] 2023-11-26 00:26:00 2023-11-26 04:18:00 Emergency Josh Norwood [facility] 1.2.840.114 350.1.13.10 4.2.7.2.686 [id number] [facility] 2023-11-26 00:19:00 2023-11-26 00:19:00 Emergency X [facility] ERT [id number] [facility] 2023-11-24 14:00:00 2023-11-24 14:00:00 Outpatient R SYDNI PEREZ [facility] [id number] [facility] 2023-11-18 11:00:00 2023-11-18 11:00:00 Outpatient R SYDNI PREEZ [facility] [id number] [facility] 2023-11-17 00:00:00 2023-11-17 00:00:00 Outpatient R JOR[facility]FORM[facility] [id number] [facility] 2023-11-16 00:00:00 2023-11-16 00:00:00 [facility] 1..840.114 350.1.13.10 4.2.7.2.686 [id number] [facility] 2023-11-02 00:00:00 2023-11-02 00:00:00 Outpatient R [facility] [id number] [facility] 2023-11-02 00:00:00 2023-11-02 00:00:00 Orders Only Doctor Unassigned, [facility] 1..840.114 350.1.13.10 4.2.7.2.686 [id number] [facility] 2023-10-23 21:02:00 2023-10-24 16:30:00 Inpatient X RENZO DOYLELANI [facility] JOSÉ MIGUEL [id number] [facility] 2023-10-23 21:02:00 2023-10-24 16:30:00 Hospital Encounter Rosie Gomez Mohammad A. Oville, Carito [facility] 1.2.840.114 350.1.13.10 4.2.7.2.686 [id number] 081 [id number] [facility] 2023-09-15 00:00:00 2023-09-15 00:00:00 Telephone Pancho [facility] BUILDING 1.2.840.114 350.1.13.10 4.2.7.2.686 [id number] [facility] 2023-09-14 10:30:00 2023-09-14 10:38:04 [employer] Visit 2, Adc Lab Pancho [facility] BUILDING 1.2.840.114 350.1.13.10 4.2.7.2.686 [id number] [facility] 2023-09-14 10:00:00 2023-09-14 10:09:30 Outpatient R [facility] [id number] [facility] 2023-09-14 10:00:00 2023-09-14 10:09:30 Office Visit Pancho [facility] 1.2.840.114 350.1.13.10 4.2.7.2.686 [id number] [facility] 2023-09-09 00:00:00 2023-09-09 00:00:00 Shanel Gamboa [facility] 1.2.840.114 350.1.13.10 4.2.7.2.686 [id number] [facility] 2023-08-05 15:40:00 2023-08-05 15:40:00 Outpatient R PANCHO [facility] [id number] [facility] 2023-08-04 00:00:00 2023-08-04 00:00:00 [facility]phone [facility] 1.2.840.114 350.1.13.10 4.2.7.2.686 [id number] [facility] 2023-07-29 00:00:00 2023-07-29 00:00:00 Telephone Pancho [facility] 1.2.840.114 350.1.13.10 4.2.7.2.686 [id number] 059 [id number] [facility] 2023-07-26 00:00:00 2023-07-26 00:00:00 Transition of Care Juancarlos [facility] 1.2.840.114 350.1.13.10 4.2.7.2.686 [id number] [facility] 2023-07-20 12:20:00 2023-07-24 15:24:00 [id number] 2023-07-20 12:20:00 2023-07-24 15:24:00 [facility] 1.2.840.114 350.1.13.10 4.2.7.2.686 [id number] [facility] 2023-07-21 10:35:00 2023-07-21 12:35:00 Surgery Jasvir, jorge [facility] 1.2.840.114 350.1.13.10 4.2.7.2.686 [id number] [facility] 2023-07-07 00:00:00 2023-07-07 00:00:00 Telephone Pancho [facility] 1.2.840.114 350.1.13.10 4.2.7.2.686 [id number] [facility] 2023-07-06 11:00:00 2023-07-06 23:59:00 Outpatient R PANCHO [facility] [id number] [facility] 2023-07-06 11:00:00 2023-07-06 23:59:00 Hospital Encounter Pancho [facility] BUILDING 1..840.114 350.1.13.10 4.2.7.2.686 [id number] [facility] 2023-06-27 00:00:00 2023-06-27 00:00:00 Telephone Pancho [facility] BUILDING 1..840.114 350.1.13.10 4.2.7.2.686 [id number] [facility] 2023-06-01 13:22:39 2023-06-01 23:59:00 Outpatient R [facility]REE [facility] [id number] [facility] 2023-06-01 13:22:39 2023-06-01 23:59:00 [facility] 1.2.840.114 350.1.13.10 4.2.7.2.686 [id number] [facility] 2023-06-01 13:30:00 2023-06-01 14:00:00 Office Visit Andree [facility] 1..840.114 350.1.13.10 4.2.7.2.686 [id number] [facility] 2023-05-17 11:32:00 2023-05-17 13:55:00 Emergency X ROSELINE GAVIN [facility] ERT [id number] [facility] 2023-05-17 11:32:00 2023-05-17 13:55:00 Emergency Roseline Gavin [facility] 1.2840.114 350.1.13.10 4.2.7.2.686 [id number] [facility] 2023-05-12 13:00:00 2023-05-12 13:00:00 Outpatient R JORGE [facility]ONFORMERLY [facility] [id number] [facility] 2023-05-12 00:00:00 2023-05-12 00:00:00 Telephone Pancho [facility] BUILDING 1.2840.114 350.1.13.10 4.2.7.2.686 [id number] [facility] 2023-04-25 14:00:00 2023-04-25 14:13:34 Outpatient R PANCHO [facility] [id number] [facility] 2023-04-25 14:00:00 2023-04-25 14:13:34 Office Visit Pancho [facility] 1.2840.114 350.1.13.10 4.2.7.2.686 [id number] [facility] 2023-04-25 00:00:00 2023-04-25 00:00:00 Orders Only Doctor Unassigned, [facility] 1.2840.114 350.1.13.10 4.2.7.2.686 [id number] [facility] 2023-02-24 09:07:00 2023-02-24 13:04:00 Emergency X GHAZALA PENN [facility] ERT [id number] [facility] 2023-02-24 09:07:00 2023-02-24 13:04:00 Emergency Ghazala Penn [facility] 1.2840.114 350.1.13.10 4.2.7.2.686 [id number] [facility] 2022-12-09 00:00:00 2022-12-09 00:00:00 [facility] 1.2.840.114 350.1.13.10 4.2.7.2.686 [id number] [facility] 2022-12-07 00:00:00 2022-12-07 00:00:00 [facility] 1.2.840.114 350.1.13.10 4.2.7.2.686 [id number] [id number] [facility] 2022-12-07 00:00:00 2022-12-07 00:00:00 [facility] 1.2.840.114 350.1.13.10 4.2.7.2.686 [id number] [facility] 2022-11-01 00:00:00 2022-11-01 00:00:00 [facility] 1.2.840.114 350.1.13.10 4.2.7.2.686 [id number] [facility] 2022-05-31 11:00:00 2022-05-31 11:00:00 [facility] [id number] [facility] 2022-05-31 11:00:00 2022-05-31 11:00:00 [facility] [id number] [facility] 2022-05-10 14:00:00 2022-05-10 23:59:00 [facility] [id number] [facility] 2022-04-22 14:40:00 2022-04-22 15:00:00 [facility] 1.2.840.114 350.1.13.10 4.2.7.2.686 [id number] [facility] 2022-04-22 14:40:00 2022-04-22 14:40:00 Outpatient R PANCHO, [facility]FORMERLY [facility] [id number] [facility] 2022-04-22 14:40:00 2022-04-22 14:40:00 Outpatient R PANCHO, [facility]FORMERLY [facility] [id number] [facility] 2022-04-22 14:40:00 2022-04-22 14:40:00 Outpatient R PAN[facility] [id number] [facility] 2022-04-22 00:00:00 2022-04-22 00:00:00 Orders Only Doctor Unassigned, [facility] 1.2.840.114 350.1.13.10 4.2.7.2.686 [id number] [facility] 2022-03-18 00:00:00 2022-03-18 00:00:00 Telephone Pancho [facility] 1.2.840.114 350.1.13.10 4.2.7.2.686 [id number] [facility] 2021-08-31 10:51:10 2021-08-31 11:31:17 Office Visit Pancho [facility] 1.2.840.114 350.1.13.10 4.2.7.2.686 [id number] [facility] 2021-08-31 11:00:00 2021-08-31 11:00:00 Outpatient R JORGE [facility]ONFORMERLY [facility] [id number] [facility] 2021-07-31 00:00:00 2021-07-31 00:00:00 [facility] 1.2.840.114 350.1.13.10 4.2.7.2.686 [id number] [facility] 2021-03-12 00:00:00 2021-03-12 00:00:00 [facility] 1.2840.114 350.1.13.10 4.2.7.2.686 [id number] [id number] [facility] 2021-01-23 13:00:00 2021-01-23 13:00:00 Outpatient R [facility]OR[facility]FORM[facility] [id number] [facility] 2021-01-21 13:00:00 2021-01-21 13:00:00 Outpatient R JORGE [facility]ONFORM[facility]LY [facility] [id number] [facility] 2021-01-20 13:18:39 2021-01-20 14:29:08 [facility] 1.2840.114 350.1.13.10 4.2.7.2.686 [id number] [facility] 2021-01-20 13:20:00 2021-01-20 13:20:00 Outpatient R JORGE [facility]FORM[facility] [id number] [facility] 2021-01-20 00:00:00 2021-01-20 00:00:00 Orders Only Doctor Unassigned, [facility] 1.2840.114 350.1.13.10 4.2.7.2.686 [id number] [facility] 2020-10-20 10:56:53 2020-10-20 11:45:51 [facility] 1.2840.114 350.1.13.10 4.2.7.2.686 [id number] [facility] 2020-10-20 11:00:00 2020-10-20 11:00:00 Outpatient R BACILIO DELEON [facility] [id number] [facility] 2020-09-26 00:00:00 2020-09-26 00:00:00 Outpatient [facility] [id number] [facility] 2020-09-26 00:00:00 2020-09-26 00:00:00 Orders Only Doctor Unassigned, [facility] 1.2840.114 350.1.13.10 4.2.7.2.686 [id number] [facility] 2020-09-17 00:00:00 2020-09-17 00:00:00 Orders Only Doctor Unassigned, [facility] 1.2.840.114 350.1.13.10 4.2.7.2.686 [id number] [facility] 2020-09-09 00:00:00 2020-09-09 00:00:00 Transition of Care Chang BelindaRosendo [address] 1.2840.114 350.1.13.10 4.2.7.2.686 [id number] [facility] 2020-09-03 14:15:00 2020-09-07 13:38:00 Hospital Encounter Garfield Bower, Garfield Bryant, Andrey Vasquez, Os[facility] 1.2840.114 350.1.13.10 4.2.7.2.686 [id number] [facility] 2020-09-03 00:00:00 2020-09-03 00:00:00 Telephone [facility] 1.2840.114 350.1.13.10 4.2.7.2.686 [id number] [facility] 2020-08-28 00:00:00 2020-08-28 00:00:00 [facility] 1.2.840.114 350.1.13.10 4.2.7.2.686 [id number] [id number] [facility] 2020-08-20 13:35:30 2020-08-20 14:32:43 [facility] 1.2.840.114 350.1.13.10 4.2.7.2.686 [id number] [facility] 2020-08-20 13:40:00 2020-08-20 13:40:00 Outpatient R [facility] [id number] [facility] 2020-08-20 00:00:00 2020-08-20 00:00:00 [facility] 1.2.840.114 350.1.13.10 4.2.7.2.686 [id number] 059 [id number] [facility] 2020-08-14 00:00:00 2020-08-14 00:00:00 Orders Only Doctor Unassigned, [facility] 1.2.840.114 350.1.13.10 4.2.7.2.686 [id number] [facility] 2020-07-26 12:05:00 2020-07-31 19:15:00 Hospital Encounter Garfield Bower, [facility] 1.2.840.114 350.1.13.10 4.2.7.2.686 [id number] [facility] 2020-06-19 00:00:00 2020-06-19 00:00:00 Orders Only Doctor Unassigned, [facility] 1.2.840.114 350.1.13.10 4.2.7.2.686 [id number] [facility] 2020-04-23 00:00:00 2020-04-23 00:00:00 Orders Only Doctor Unassigned, [facility] 1.2.840.114 350.1.13.10 4.2.7.2.686 [id number] [facility] 2020-04-04 00:00:00 2020-04-04 00:00:00 Transition of Care Belinda Chang 1.2.840.114 350.1.13.10 4.2.7.2.686 [id number] [facility] 2020-03-30 18:29:50 2020-04-03 16:09:00 Hospital Encounter Germaine Nagel Mukaila Hoffman, Deloris Gonzales [facility] 1.2.840.114 350.1.13.10 4.2.7.2.686 [id number] [facility] 2020-03-30 18:29:50 2020-04-03 16:09:00 Inpatient X SHANI HAN [facility] [id number] [facility] Results Test Description Test Time Test Comments Results Resul t Comments Source EKG (SCANNED DOCUMENTS) 2024-12-04 18:22:33 Ordered by an unspecified provider. [facility] HOME HEALTH (SCANNED) DOCUMENTS 2024-03-13 17:48:20 [facility] by an unspecified provider. [facility] (NA, K, CL, CO2, GLUCOSE, BUN, CREATININE, CA)2023-12-29 11:08:03* Test Item Value Reference Range Interpretation Comme nts NA (test code = 4665100621) 133 mmol/L 135-145 L K (test code = 1379735953) 4.3 mmol/L 3.5-5.0 CL (test code = 0528349603) 105 mmol/L 98-108 CO2 TOTAL (test code = 4335725366) 22 mmol/L 23-31 L AGAP (test code = 8777886960) 6 2-16 BUN (test code = 9804863916) 26 mg/dL 7-23 H GLUCOSE (test code = 7023750322) 96 mg/dL 70-110 CREATININE (test code = 2160-0) 1.57 mg/dL 0.50-1.04 H CALCIUM (test code = 7811801916) 8.2 mg/dL 8.6-10.6 L eGFR (test code = 63602-9) 33.4 mL/min/1.73m2 CKD-EPI eGFR (2020). Assuming creatinine has been stable day-to-day for at least three months, the eGFR indicates Category G3b (30 - 44 mL/min/1.73 m2) Lab Interpretation (test code = 13903-7) Abnormal [facility] Whole [id number] 03:54:52* Test Item Value Reference Range Interpretation Comme nts LACTIC ACID (test code = 3511382794) 2.27 mmol/L 0.50-2.20 H Lab Interpretation (test cod e = 07093-3) [facility]normal [facility] 1 [id number] 23:25:46EXAM: XR CHEST 1 VW COMPARISON: Chest x-ray on 10/23/2023 HISTORY: shortness of breath FINDINGS:Lungs: Decreased aeration of right lung. Elevation of the righthemidiaphragm, unchanged. No focal opacities or pleural abnormality. Heart/Mediastinum: The cardiac silhouette appears normal accounting fortechnique and degree of inspiration. Calcified aortic knob. Bones and soft tissues: No osseous abnormality is visualized. Surgicalstaples are present in the left lateral chest wall.[facility] CenterL[facility] Whole Blood 2023-12-27 23:11:50* Test Item Value Reference Range Interpretation Comme nts LACTIC ACID (test code = 0994168601) 2.33 mmol/L 0.50-2.20 H Lab Interpretation (test cod e = 28843-0) Abnormal [facility] CenterL[facility] Whole [id number] 20:20:27* Test Item Value Reference Range Interpretation Comme nts LACTIC ACID (test code = 5260002696) 3.04 mmol/L 0.50-2.20 H Lab Interpretation (test cod e = 85518-9) Abnormal [facility] Center[facility]an[facility] echo (TTE)2023-10-24 18:35:55* Test Item Value Reference Range Interpretation Comme nts Height (test code = 1860089508) 63 in Weight (test code = 8756907018) 269 lbs Systolic BP (test code = 2103818440) 114 mmHg Diastolic BP (test code = 4096860897) 47 mmHg Heart Rate (test code = 8202239141) 55 bpm BSA (test code = 3148743867) 2.19 m2 Ao root diam (test code = 4993941373) 3.00 cm Aortic root (test code = 7039017066) 3.0 cm Ao root annulus (test code = 1860107254) 3.0 cm LVOT diameter (test code = 4156605805) 1.96 cm LVOT area (test code = 7273690969) 3.00 cm2 LA size (test code = 6743227358) 4.6 cm Pulmonic Regurgitant End Max Velocity (test code = 4889632076) 107.5 cm/s LAV(MOD-sp4) (test code = 1214459678) 86.20 mL E wave decelartion time (test code = 2630353617) 0.31 s MV Peak E Kenyatta (test code = 0921290181) 96.6 cm/s MV stenosis pressure 1/2 time (test code = 0422737972) 94.5 ms MV Peak A Kenyatta (test code = 6424269545) 114.1 cm/s E/A ratio (test code = 0600075428) 0.85 ratio MV Prop V (test code = 4220238043) 53.90 cm/s MV E/e' septal (test code = 7445595933) 10.2 cm/s TR Peak Kenyatta (test code = 1609356810) 255.1 cm/s Triscuspid Valve Regurgitation Peak Gradient (test code = 9011924005) 26.0 mmHg Tapse (test code = 7754490897) 2.44 cm LVOT stroke volume (test code = 6959319440) 103.40 cm3 LVOT peak kenyatta (test code = 3068861654) 162.7 cm/s LVOT mn grad (test code = 6049037602) 4.9 mmHg AV LVOT peak gradient (test code = 9255340600) 10.6 mmHg LVOT peak VTI (test code = 2867661019) 34.3 cm LV V1 mean (test code = 4558903322) 103.60 cm/s Aortic valve mean velocity (test code = 8289306012) 158.6 cm/s Ao peak kenyatta (test code = 1459697996) 244.8 cm/s Ao VTI (test code = 7558104109) 54.2 cm AV area by cont VTI (test code = 5660078944) 1.9 cm2 AV area peak kenyatta (test code = 0068029368) 2.0 cm2 Ao max PG (test code = 3250298099) 24.00 mm[Hg] AV peak gradient (test code = 3934055761) 24.0 mmHg AV valve area (test code = 2706207379) 1.91 cm2 AV mean gradient (test code = 1795514914) 11.2 mmHg AV regurgitation pressure 1/2 time (test code = 2975761671) 445.3 ms AI dec slope (test code = 7969093145) 235.00 cm/s2 AI max kenyatta (test code = 3570602732) 357.40 cm/s AI max PG (test code = 1867885337) 51.10 mm[Hg] LVIDD (test code = 1089874047) 3.90 cm Left Ventricular End Diastolic Volume by Teichholz Method (test code = 0492385) 66.0 mL IVS (test code = 7850254968) 1.39 cm Interventricular Septum Diastolic Thickness by 2D (test code = 6832352) 1.39 cm LVPWD (test code = 9179828675) 1.37 cm PW (test code = 4348069477) 1.37 cm 0.6-1.1 EF(Teich) (test code = 5398271854) 48.70 % LVIDS (test code = 2735165201) 3.00 cm Left Ventricular End Systolic Volume by Teichholz Method (test code = 8663294) 33.8 mL FS (test code = 2473814892) 24 % EF - 2D (test code = 59264501) 48.70 % Radiology Study observation (narrative) (test code = 54783-2) DARIUS (test code = DARIUS) ?Left?Ventricle: Left ventricle size is normal. Mildly increased wall thickness. See diagram for wall motion findings. Moderately reduced systolic function with a visually estimated EF of 40 - 45%. Unable to assess diastolic function due to limited study. ?Left?Atrium: Left atrium is mildly dilated. ?Tricuspid?Valve: Mild transvalvular regurgitation. Right ventricular systolic pressure is 25-30 mmHg. ?RA pressure is 0-5 mmHg. ?Mitral?Valve: Mild transvalvular regurgitation. Left VentricleLeft ventricle size is normal. Mildly increased wall thickness. See diagram for wall motion findings. Moderately reduced systolic function with a visually estimated EF of 40 - 45%. Unable to assess diastolic function due to limited study.Right VentricleRight ventricle size is normal. Normal systolic function.Left AtriumLeft atrium is mildly dilated.Right AtriumRight atrium size is normal.IVC/SVCRA pressure is 0-5 mmHg.Mitral ValveMild mitral annular calcification. Mild transvalvular regurgitation.Tricusp id ValveTricuspid valve structure is normal. Mild transvalvular regurgitation. Right ventricular systolic pressure is 25-30 mmHg. RA pressure is 0-5 mmHg.Aortic ValveAortic valve opens well. Trace transvalvular regurgitation.Pulmoni c ValveNot well visualized. Trace transvalvular regurgitation.Ascendi ng AortaNormal sized aortic root.PericardiumNo pericardial effusion.Study DetailsStudy quality was adequate. A complete echocardiogram was performed using 2D, color flow Doppler and spectral Doppler. 5 mL of Lumason ultrasound enhancing agent used.Wall Scoring BaselineScore Index: 2.63The following segments are akinetic: mid anteroseptal, mid inferoseptal, apical anterior, apical septal and apex.The following segments are hypokinetic: basal inferoseptal, mid inferior and apical inferior.Other segments could not be evaluated. [facility] GLUCOSE (AUTOMATED)2023-10-24 17:19:35* Test Item Value Reference Range Interpretation [facility] POCT GLU (test code = 4965042342) 89 mg/dL 70-110 Lab Interpretation (test cod e = 02279-6) Normal [facility] GLUCOSE (AUTOMATED)2023-10-24 13:56:17* Test Item Value Reference Range Interpretation Comme nts POCT GLU (test code = 2907320196) 89 mg/dL 70-110 Lab Interpretation (test cod e = 99592-0) Normal [facility] ACT LOW [id number] 18:55:03* Test Item Value Reference Range Interpretation Comme nts ACTLR (test code = 3925176505) 230 See_Comment H [Automated messa ge] The system which generated this result transmitted reference range: 89 - 169 Seconds. The reference range was not used to interpret this result as normal/abnormal. Lab Interpretation (test code = 31263-1) Abnormal [facility] ACT LOW [id number] 18:55:03* Test Item Value Reference Range Interpretation Comme nts ACTLR (test code = [id number]) 230 See_Comment H [Automated messa ge] The system which generated this result transmitted reference range: 89 - 169 Seconds. The reference range was not used to interpret this result as normal/abnormal. Lab Interpretation (test code = 86776-4) Abnormal [facility] ACT LOW [id number] 18:38:28* Test Item Value Reference Range Interpretation Comme nts ACTLR (test code = [id number]) 239 See_Comment H [Automated messa ge] The system which generated this result transmitted reference range: 89 - 169 Seconds. The reference range was not used to interpret this result as normal/abnormal. Lab Interpretation (test code = 23424-0) Abnormal [facility] ACT LOW [id number] 18:38:28* Test Item Value Reference Range Interpretation Comme nts ACTLR (test code = [id number]) 239 See_Comment H [Automated messa ge] The system which generated this result transmitted reference range: 89 - 169 Seconds. The reference range was not used to interpret this result as normal/abnormal. Lab Interpretation (test code = 39082-0) Abnormal [facility] ACT LOW [id number] 17:27:45* Test Item Value Reference Range Interpretation Comme nts ACTLR (test code = 6783634015) 327 See_Comment H [Automated messa ge] The system which generated this result transmitted reference range: 89 - 169 Seconds. The reference range was not used to interpret this result as normal/abnormal. Lab Interpretation (test code = 78257-3) [facility] [id number] 17:27:45* Test Item Value Reference Range Interpretation Comme nts ACTLR (test code = 7608472014) 327 See_Comment H [Automated messa ge] The system which generated this result transmitted reference range: 89 - 169 Seconds. The reference range was not used to interpret this result as normal/abnormal. Lab Interpretation (test code = 45873-6) [facility]14[facility]47* Test Item Value Reference Range Interpretation Comme nts MAGNESIUM (test code = 5497278843) 1.9 mg/dL 1.7-2.4 Lab Interpretation (test cod e = 51225-4) Normal [facility]2023-09-07 03:14:47* Test Item Value Reference Range Interpretation Comme nts MAGNESIUM (test code = 8684933430) 1.9 mg/dL 1.7-2.4 Lab Interpretation (test cod e = 44622-5) Normal [facility] [id number] 00:19:19* Test Item Value Reference Range Interpretation Comme nts TROPONIN I (test code = 5390778356) 0.043 ng/mL <=0.034 H DARIUS (test code = DARIUS) Reference (Normal) Range (defined by the 99th percentile reference limit): <= 0.034 ng/mL Note: Cardiac troponin begins to rise 3-4 hours after the onset of ischemia. Repeat in 4-6 hours if the sample was drawn within 3-4 hours of the onset of the symptom and found normal. Diagnosis of myocardial injury is made with acute changes in cTn concentrations with at least one serial sample above the 99th percentile upper reference limit (URL), taken together with the patient's clinical presentation. Biotin has been reported to cause a negative bias, interpret results relative to patient's use of biotin. Lab Interpretation (test code = 44232-6) Abnormal [facility] [id number] 00:19:19* Test Item Value Reference Range Interpretation Comme nts TROPONIN I (test code = 8360495724) 0.043 ng/mL <=0.034 H DARIUS (test code = DARIUS) Reference (Normal) Range (defined by the 99th percentile reference limit): <= 0.034 ng/mL Note: Cardiac troponin begins to rise 3-4 hours after the onset of ischemia. Repeat in 4-6 hours if the sample was drawn within 3-4 hours of the onset of the symptom and found normal. Diagnosis of myocardial injury is made with acute changes in cTn concentrations with at least one serial sample above the 99th percentile upper reference limit (URL), taken together with the patient's clinical presentation. Biotin has been reported to cause a negative bias, interpret results relative to patient's use of biotin. Lab Interpretation (test code = 48215-5) Abnormal [facility] WITH [id number] 19:59:28* Test Item Value Reference Range Interpretation Comme nts WBC (test code = 6690-2) 10.98 See_Comment [Automated message] The system which generated this result transmitted reference range: 4.30 - 11.10 10*3/?L. The reference range was not used to interpret this result as normal/abnormal. RBC (test code = 789-8) 3.65 See_Comment L [Automated message] The system which generated this result transmitted reference range: 3.93 - 5.25 10*6/?L. The reference range was not used to interpret this result as normal/abnormal. HGB (test code = 718-7) 11.3 g/dL 11.6-15.0 L HCT (test code = 4544-3) 36.0 % 35.7-45.2 MCV (test code = 787-2) 98.6 fL 80.6-95.5 H MCH (test code = 785-6) 31.0 pg 25.9-32.8 MCHC (test code = 786-4) 31.4 g/dL 31.6-35.1 L RDW-SD (test code = 94596-7) 53.0 fL 39.0-49.9 H RDW-CV (test code = 788-0) 14.6 % 12.0-15.5 PLT (test code = 777-3) 201 See_Comment [Automated message] The system which generated this result transmitted reference range: 166 - 358 10*3/?L. The reference range was not used to interpret this result as normal/abnormal. MPV (test code = 98917-9) 9.9 fL 9.5-12.9 NRBC/100 WBC (test code = 0382055081) 0.0 See_Comment [Automated message] The system which generated this result transmitted reference range: 0.0 - 10.0 /100 WBCs. The reference range was not used to interpret this result as normal/abnormal. NRBC x10^3 (test code = 4463908457) See_Comment [Automated message] The system which generated this result transmitted reference range: 10*3/?L. The reference range was not used to interpret this result as normal/abnormal. GRAN MAT (NEUT) % (test code = 770-8) 96.6 % IMM GRAN % (test code = 2055160128) 0.30 % LYMPH % (test code = 736-9) 1.7 % MONO % (test code = 5905-5) 1.1 % EOS % (test code = 713-8) 0.1 % BASO % (test code = 706-2) 0.2 % GRAN MAT x10^3(ANC) (test code = 1073877966) 10.61 10*3/uL 1.88-7.09 H IMM GRAN x10^3 (test code = 8133501113) 0.03 10*3/uL 0.00-0.06 LYMPH x10^3 (test code = 731-0) 0.19 10*3/uL 1.32-3.29 L MONO x10^3 (test code = 742-7) 0.12 10*3/uL 0.33-0.92 L EOS x10^3 (test code = 711-2) 0.03-0.39 L BASO x10^3 (test code = 704-7) 0.01-0.07 BANDS (test code = 2486114883) Increased A TOXIC CHANGES (test code = 803-7) Present A Lab Interpretation (test code = 80870-8) Abnormal [facility] WITH [id number] 19:59:28* Test Item Value Reference Range Interpretation Comme nts WBC (test code = 6690-2) 10.98 See_Comment [Automated message] The system which generated this result transmitted reference range: 4.30 - 11.10 10*3/?L. The reference range was not used to interpret this result as normal/abnormal. RBC (test code = 789-8) 3.65 See_Comment L [Automated message] The system which generated this result transmitted reference range: 3.93 - 5.25 10*6/?L. The reference range was not used to interpret this result as normal/abnormal. HGB (test code = 718-7) 11.3 g/dL 11.6-15.0 L HCT (test code = 4544-3) 36.0 % 35.7-45.2 MCV (test code = 787-2) 98.6 fL 80.6-95.5 H MCH (test code = 785-6) 31.0 pg 25.9-32.8 MCHC (test code = 786-4) 31.4 g/dL 31.6-35.1 L RDW-SD (test code = 29416-8) 53.0 fL 39.0-49.9 H RDW-CV (test code = 788-0) 14.6 % 12.0-15.5 PLT (test code = 777-3) 201 See_Comment [Automated message] The system which generated this result transmitted reference range: 166 - 358 10*3/?L. The reference range was not used to interpret this result as normal/abnormal. MPV (test code = 93537-6) 9.9 fL 9.5-12.9 NRBC/100 WBC (test code = 4535818207) 0.0 See_Comment [Automated message] The system which generated this result transmitted reference range: 0.0 - 10.0 /100 WBCs. The reference range was not used to interpret this result as normal/abnormal. NRBC x10^3 (test code = 7585129900) See_Comment [Automated message] The system which generated this result transmitted reference range: 10*3/?L. The reference range was not used to interpret this result as normal/abnormal. GRAN MAT (NEUT) % (test code = 770-8) 96.6 % IMM GRAN % (test code = 0817365931) 0.30 % LYMPH % (test code = 736-9) 1.7 % MONO % (test code = 5905-5) 1.1 % EOS % (test code = 713-8) 0.1 % BASO % (test code = 706-2) 0.2 % GRAN MAT x10^3(ANC) (test code = 5432907164) 10.61 10*3/uL 1.88-7.09 H IMM GRAN x10^3 (test code = 5726077931) 0.03 10*3/uL 0.00-0.06 LYMPH x10^3 (test code = 731-0) 0.19 10*3/uL 1.32-3.29 L MONO x10^3 (test code = 742-7) 0.12 10*3/uL 0.33-0.92 L EOS x10^3 (test code = 711-2) 0.03-0.39 L BASO x10^3 (test code = 704-7) 0.01-0.07 BANDS (test code = 5721149803) Increased A TOXIC CHANGES (test code = 803-7) Present A Lab Interpretation (test code = 87643-9) [facility] [id number] 19:54:19* Test Item Value Reference Range Interpretation Comme [facility] (test code = 3173-2) 25 See_Comment [Automated message] The system which generated this result transmitted reference range: 23 - 38 Seconds. The reference range was not used to interpret this result as normal/abnormal. DARIUS (test code = DARIUS) The [facility] patient population mean normal value for aPTT is 30 seconds. Lab Interpretation (test code = 06312-8) Normal [facility] [id number] 19:54:19* Test Item Value Reference Range Interpretation Comme nts APTT Patient (test code = 3173-2) 25 See_Comment [Automated message] The system which generated this result transmitted reference range: 23 - 38 Seconds. The reference range was not used to interpret this result as normal/abnormal. DARIUS (test code = DARIUS) The [facility] patient population mean normal value for aPTT is 30 seconds. Lab Interpretation (test code = 34768-4) Normal [facility] / [id number] 19:52:19* Test Item Value Reference Range Interpretation Comme [facility] PROTIME PATIENT (test code = 5964-2) 13.2 See_Comment [Automated MyClasses[employer] Diversion] The system which generated this result transmitted reference range: 12.0 - 14.7 Seconds. The reference range was not used to interpret this result as normal/abnormal. INR (test code = 6301-6) 1.1 Normal INR <1.1; Warfarin Therapeutic range 2.0 to 3.0 or 2.5 to 3.5, depending upon the indications. Lab Interpretation (test code = 06998-8) Normal [facility] / [id number] 19:52:19* Test Item Value Reference Range Interpretation Comme nts PROTIME PATIENT (test code = 5964-2) 13.2 See_Comment [Automated [employer] Diversion] The system which generated this result transmitted reference range: 12.0 - 14.7 Seconds. The reference range was not used to interpret this result as normal/abnormal. INR (test code = 6301-6) 1.1 Normal INR <1.1; Warfarin Therapeutic range 2.0 to 3.0 or 2.5 to 3.5, depending upon the indications. Lab Interpretation (test code = 96329-7) Normal [facility]OL[facility] (82704)2023-07-20 19:43:31* Test Item Value Reference Range Interpretation Comme nts NA (test code = 9215384783) 138 mmol/L 135-145 K (test code = 3483778441) 4.2 mmol/L 3.5-5.0 CL (test code = 6484993597) 104 mmol/L 98-108 CO2 TOTAL (test code = 8621437964) 29 mmol/L 23-31 AGAP (test code = 3447657528) 5 2-16 BUN (test code = 3669705034) 24 mg/dL 7-23 H GLUCOSE (test code = 3590196306) 127 mg/dL 70-110 H CREATININE (test code = 1699772009) 1.30 mg/dL 0.50-1.04 H TOTAL BILI (test code = 0527029134) 0.8 mg/dL 0.1-1.1 CALCIUM (test code = 7635245651) 8.8 mg/dL 8.6-10.6 T PROTEIN (test code = 7614680654) 6.4 g/dL 6.3-8.2 ALBUMIN (test code = 3109153910) 3.3 g/dL 3.5-5.0 L ALK PHOS (test code = 1088608298) 106 U/L 34-122 ALTv (test code = 1742-6) 25 U/L 5-35 AST(SGOT) (test code = 9107636062) 107 U/L 13-40 H eGFR (test code = 2722851119) 39.6 mL/min/1.73m2 DARIUS (test code = DARIUS) Association of Glomerular Filtration Rate (GFR) and Staging of Kidney Disease* + --+ --+ ------+| GFR (mL/min/1.73 m2) ?| With Kidney Damage ?| ?Without Kidney Damage+ --------+ --------+ +| ?>90 ?| ?Stage one ?| ? Normal ?+ ---+ ---+ -------+| ?60-89 ?| ?Stage two ?| ? Decreased GFR ? + --+ --+ ------+| ?30-59 ?| ?Stage three ?| ? Stage three ? + --+ --+ ------+| ?15-29 ?| ?Stage four ? | ? Stage four ?+ ---+ ---+ -------+| ?<15 (or dialysis) ? ?| ?Stage five ? | ? Stage five ?+ ---+ ---+ -------+ *Each stage assumes the associated GFR level has been in effect for at least three months. ?Stages 1 to 5, with or without kidney disease, indicate chronic kidney disease. Notes: Determination of stages one and two (with eGFR >59mL/min/1.73 m2) requires estimation of kidney damage for at least three months as defined by structural or functional abnormalities of the kidney, manifested by either:Pathological abnormalities or Markers of kidney damage (including abnormalities in the composition of the blood or urine or abnormalities in imaging tests). Lab Interpretation (test code = 52022-3) Abnormal [facility]. METABOLIC PANEL (25269)2023-07-20 19:43:31* Test Item Value Reference Range Interpretation Comme nts NA (test code = 6676818042) 138 mmol/L 135-145 K (test code = 7445345953) 4.2 mmol/L 3.5-5.0 CL (test code = 9342819811) 104 mmol/L 98-108 CO2 TOTAL (test code = 3238287531) 29 mmol/L 23-31 AGAP (test code = 5912666958) 5 2-16 BUN (test code = 9594183187) 24 mg/dL 7-23 H GLUCOSE (test code = 9617325416) 127 mg/dL 70-110 H CREATININE (test code = 3724935927) 1.30 mg/dL 0.50-1.04 H TOTAL BILI (test code = 4144728020) 0.8 mg/dL 0.1-1.1 CALCIUM (test code = 4660610151) 8.8 mg/dL 8.6-10.6 T PROTEIN (test code = 6316999924) 6.4 g/dL 6.3-8.2 ALBUMIN (test code = 4490867708) 3.3 g/dL 3.5-5.0 L ALK PHOS (test code = 7802103986) 106 U/L 34-122 ALTv (test code = 1742-6) 25 U/L 5-35 AST(SGOT) (test code = 7638056632) 107 U/L 13-40 H eGFR (test code = 0319213542) 39.6 mL/min/1.73m2 DARIUS (test code = DARIUS) Association of Glomerular Filtration Rate (GFR) and Staging of Kidney Disease* + --+ --+ ------+| GFR (mL/min/1.73 m2) ?| With Kidney Damage ?| ?Without Kidney Damage+ --------+ --------+ +| ?>90 ?| ?Stage one ?| ? Normal ?+ ---+ ---+ -------+| ?60-89 ?| ?Stage two ?| ? Decreased GFR ? + --+ --+ ------+| ?30-59 ?| ?Stage three ?| ? Stage three ? + --+ --+ ------+| ?15-29 ?| ?Stage four ? | ? Stage four ?+ ---+ ---+ -------+| ?<15 (or dialysis) ? ?| ?Stage five ? | ? Stage five ?+ ---+ ---+ -------+ *Each stage assumes the associated GFR level has been in effect for at least three months. ?Stages 1 to 5, with or without kidney disease, indicate chronic kidney disease. Notes: Determination of stages one and two (with eGFR >59mL/min/1.73 m2) requires estimation of kidney damage for at least three months as defined by structural or functional abnormalities of the kidney, manifested by either:Pathological abnormalities or Markers of kidney damage (including abnormalities in the composition of the blood or urine or abnormalities in imaging tests). Lab Interpretation (test code = 94489-4) [facility]normal [facility] 19:43:11* Test Item Value Reference Range Interpretation Comme nts LIPASE (test code = 8579726204) 37 U/L 0-220 Lab Interpretation (test cod e = 09034-9) Normal [facility]2023-09-06 19:43:11* Test Item Value Reference Range Interpretation Comme nts LIPASE (test code = 1122044437) 37 U/L 0-220 Lab Interpretation (test cod e = 45470-5) Normal [facility] [id number] 19:09:29* Test Item Value Reference Range Interpretation Comme nts TROPONIN I (test code = 0830930961) 0.042 ng/mL <=0.034 H DARIUS (test code = DARIUS) Reference (Normal) Range (defined by the 99th percentile reference limit): <= 0.034 ng/mL Note: Cardiac troponin begins to rise 3-4 hours after the onset of ischemia. Repeat in 4-6 hours if the sample was drawn within 3-4 hours of the onset of the symptom and found normal. Diagnosis of myocardial injury is made with acute changes in cTn concentrations with at least one serial sample above the 99th percentile upper reference limit (URL), taken together with the patient's clinical presentation. Biotin has been reported to cause a negative bias, interpret results relative to patient's use of biotin. Lab Interpretation (test code = 44546-1) Abnormal [facility] [id number] 19:09:29* Test Item Value Reference Range Interpretation Comme nts TROPONIN I (test code = 3225472386) 0.042 ng/mL <=0.034 H DARIUS (test code = DARIUS) Reference (Normal) Range (defined by the 99th percentile reference limit): <= 0.034 ng/mL Note: Cardiac troponin begins to rise 3-4 hours after the onset of ischemia. Repeat in 4-6 hours if the sample was drawn within 3-4 hours of the onset of the symptom and found normal. Diagnosis of myocardial injury is made with acute changes in cTn concentrations with at least one serial sample above the 99th percentile upper reference limit (URL), taken together with the patient's clinical presentation. Biotin has been reported to cause a negative bias, interpret results relative to patient's use of biotin. Lab Interpretation (test code = 49852-1) Abnormal [facility] [id number] 19:07:05* Test Item Value Reference Range Interpretation Comme [facility] NT-proBNP (test code = 01689-1) 82632 pg/mL <=125 H DARIUS (test code = DARIUS) Positive: Heart Failure Likely Lab Interpretation (test code = 77469-4) Abnormal [facility] [id number] 19:07:05* Test Item Value Reference Range Interpretation Comme nts NT-proBNP (test code = 78606-2) 41300 pg/mL <=125 H DARIUS (test code = DARIUS) Positive: Heart Failure Likely Lab Interpretation (test code = 29735-7) Abnormal [facility] ([facility]2023-[facility]-07 02:36:18* Test Item Value Reference Range Interpretation Comme nts Height (test code = 3047686832) 64 in Weight (test code = 3246292069) 274 lbs Systolic BP (test code = 9259132847) 108 mmHg Diastolic BP (test code = 2234116650) 66 mmHg Heart Rate (test code = 0714854821) 64 bpm MR max PG (test code = 3137294033) 96.10 mm[Hg] MR max kenyatta (test code = 7029779861) 490.20 cm/s Ao root diam (test code = 7582210815) 2.80 cm Mr max kenyatta (test code = 6499112557) 490.2 m/s Aortic root (test code = 2755478011) 2.8 cm Ao root annulus (test code = 9165239384) 2.8 cm BSA (test code = 8428142050) 2.24 m2 LVOT diameter (test code = 1495074729) 1.95 cm LVOT area (test code = 2001026668) 3.00 cm2 LA size (test code = 8745610142) 4.9 cm ACS (test code = 6096460679) 2.09 cm PV PEAK VELOCITY (test code = 8725433294) 105.3 cm/s PV peak gradient (test code = 9810107775) 4.4 mmHg LAV(MOD-sp4) (test code = 6591364951) 62.60 mL MV E-F slope (test code = 2894593580) 49.80 cm/s MV Peak E Kenyatta (test code = 4070536213) 127.3 cm/s MV valve area p 1/2 method (test code = 5853028042) 2.49 cm2 MV dec slope (test code = 1113545481) 423.50 cm/s2 MV P1/2t max kenyatta (test code = 5731622331) 127.90 cm/s MV Peak A Kenyatta (test code = 8866854099) 63.9 cm/s E/A ratio (test code = 5754975770) 1.99 ratio LVOT stroke volume (test code = 3676455464) 83.10 cm3 LVOT peak kenyatta (test code = 4315347026) 117.4 cm/s LVOT mn grad (test code = 1446203567) 2.6 mmHg AV LVOT peak gradient (test code = 7083116324) 5.5 mmHg LVOT peak VTI (test code = 6646971542) 27.7 cm LV V1 mean (test code = 8432591702) 72.80 cm/s Aortic valve mean velocity (test code = 2723348078) 122.1 cm/s Ao peak kenyatta (test code = 6285990204) 211.6 cm/s Ao VTI (test code = 1306164993) 42.9 cm AV area by cont VTI (test code = 3051437064) 1.9 cm2 AV area peak kenyatta (test code = 1854928455) 1.7 cm2 Ao max PG (test code = 1932603496) 17.90 mm[Hg] AV peak gradient (test code = 4518272241) 17.9 mmHg AV valve area (test code = 2861534218) 1.94 cm2 AV mean gradient (test code = 3633578412) 7.2 mmHg AV regurgitation pressure 1/2 time (test code = 4222050621) 472.1 ms AI dec slope (test code = 7822841083) 208.10 cm/s2 AI max kenyatta (test code = 7556330486) 335.50 cm/s AI max PG (test code = 2323266053) 45.00 mm[Hg] LA Volume Index (BP) (test code = 7547349126) 27.4 mL/m2 LA volume (BP) (test code = 8468269297) 61.3 mL LAV(MOD-sp2) (test code = 6075989728) 57.30 mL LVIDD (test code = 9509198131) 5.80 cm Left Ventricular End Diastolic Volume by Teichholz Method (test code = 3497861) 169.3 mL IVS (test code = 8244812514) 0.96 cm Interventricular Septum Diastolic Thickness by 2D (test code = 3504584) 0.96 cm LVPWD (test code = 7782457896) 0.78 cm PW (test code = 6704010488) 0.78 cm 0.6-1.1 EF(Teich) (test code = 1964914318) 15.80 % LVIDS (test code = 4218671814) 5.40 cm Left Ventricular End Systolic Volume by Teichholz Method (test code = 8382071) 142.6 mL FS (test code = 6927577206) 7 % EF - 2D (test code = 96918842) 15.80 % TR Peak Kenyatta (test code = 1937272942) 405.3 cm/s Triscuspid Valve Regurgitation Peak Gradient (test code = 6647409727) 65.7 mmHg Radiology Study observation (narrative) (test code = 51635-7) DARIUS (test code = DARIUS) ?Left?Ventricle: Left ventricle is mildly dilated. Normal wall thickness. See diagram for wall motion findings. Severely reduced systolic function with a visually estimated EF of 20 - 25%. Diastolic dysfunction. ?Left?Atrium: Left atrium is mildly dilated. ?Right?Ventricle: Mildly reduced systolic function. ?Mitral?Valve: Mild transvalvular regurgitation. ?Tricuspid?Valve: Moderate transvalvular regurgitation. Right ventricular systolic pressure is greater than 60 mmHg. ?RA pressure is 5-10 mmHg. ?Aorta: Borderline enlarged ascending aorta 3.1cm. Left VentricleLeft ventricle is mildly dilated. Normal wall thickness. See diagram for wall motion findings. Severely reduced systolic function with a visually estimated EF of 20 - 25%. Diastolic dysfunction.Right VentricleRight ventricle size is normal. Mildly reduced systolic function.Left AtriumLeft atrium is mildly dilated.Right AtriumRight atrium size is normal.IVC/SVCRA pressure is 5-10 mmHg.Mitral ValveMildly calcified leaflets. Mild mitral annular calcification. Mild transvalvular regurgitation.Tricuspi d ValveTricuspid valve structure is grossly normal. Moderate transvalvular regurgitation. Right ventricular systolic pressure is greater than 60 mmHg. RA pressure is 5-10 mmHg.Aortic ValveMildly calcified cusps.Pulmonic ValveNot well visualized. Trace transvalvular regurgitation.Ascendin g AortaBorderline enlarged ascending aorta 3.1cm.PericardiumNo pericardial effusion.Study DetailsStudy quality was adequate. A complete echocardiogram was performed using 2D, color flow Doppler and spectral Doppler. 5 mL of Lumason ultrasound enhancing agent used.Wall Scoring BaselineScore Index: 2.25The following segments are akinetic: apical septal and apex.The following segments are hypokinetic: mid anteroseptal, mid inferoseptal, mid inferolateral, apical anterior, apical inferior and apical lateral.Other segments could not be evaluated. [facility] CenterL[facility] Whole [id number] 14:34:16* Test Item Value Reference Range Interpretation Comme nts LACTIC ACID (test code = 6173232804) 2.34 mmol/L 0.50-2.20 H Lab Interpretation (test cod e = 52583-3) Abnormal [facility]- XR [id number] 08:25:00Name: KERRY SAMUEL Left Hand : 1945 Age/S: 74 / F [address] Unit #: [id number] Loc: [place] [address] Phys: Praveena Garcia MD Acct: [id number] Dis Date: Status[place] [facility] [place] #: [phone] Exam Date: 11/23/2019 4377 FAX #: Reason: ERCP EXAMS: CPT: [id number] XR ERCP 38831 Fluoro Time: 55 SEC DAP (Gy m2): Air Kerma (mGy): ERCP INDICATION: Common bile duct calculi Comparison to prior from 07/10/2019 Multiple spot intraoperative fluoroscopic images demonstrate retrograde cannulation of the common duct, which is mildly distended. Tapering of the distal CBD noted. Contrast visualized within small bowel loops. Please refer to operative report for further details. Fluoroscopy time utilized 55.9 seconds [id number] Reported and signed by: Oliverio Oates M.D. CC: Praveena Garcia MD PAGE 1 Signed Report Name: KERRY SAMUEL Vivi [facility] : 1945 Age/S: 74 / F [address] Unit #: [id number] Loc: [place] [address] Phys: Praveena Garcia MD Acct: [id number] Dis Date: Status: REG SDCPHONE #: [phone] Exam Date: 11/23/2019 2319 FAX #: Reason: ERCP EXAMS: CPT: [id number] XR ERCP 14371 Fluoro Time: 55 SEC DAP (Gy m2): Air Kerma (mGy): (Continued) Technologist: RT Neda(R) Trnscb Date/Time: 11/23/2019 (824) t.RK5 Orig Print D/T: S: 11/23/2019 (827) PAGE 2 Signed Report- XR [id number] 15:39:00Name: MARK SAMUELANIKET Trinidad [facility] : 1945 Age/S: 73 / F [address] Unit #: [id number] Loc: [place] [address] Phys: Praveena Garcia MD Acct: [id number] Dis Date: Status: REG SDC PHONE #: [phone] Exam Date: 07/10/2019 1350 FAX #: Reason: ERCP EXAMS: CPT: [id number] XR ERCP 39700 Fluoro Time: 142 SEC DAP (Gy m2): Air Kerma (mGy): C3 TIME OF STUDY: 07/10/2019 7:04 AM REASON FOR EXAM: ERCP COMPARISON: ERCP 06/14/2019 FINDINGS: 9 coned-down intraoperative fluoroscopic views of the abdomen demonstrate postoperative changes of ERCP and biliary stent placement The soft tissues and osseous structures are suboptimally evaluated secondary to fluoroscopic technique. Fluoroscopy time: 142 seconds. IMPRESSION: Intraoperative fluoroscopic views of ERCP. Please see operative report. at 1539 Reported and signed by:Hector Eugene M.D. CC: Praveena Garcia MD PAGE 1 Signed Report Name: KERRY SAMUEL NANCYClint [place] : 1945 Age/S: 73 / F [id number] Unit #: [id number] Loc: [place] [address] Phys: Praveena Garcia MD Acct: [id number] Dis Date: Status: REG [employer] PHONE #: [phone] Exam Date: 07/10/2019 1350 FAX #: Reason: ERCP EXAMS: CPT: [id number] XR ERCP [id number] Fluoro Time: 142 SEC DAP (Gy m2): Air Kerma (mGy): (Continued) Technologist: Ifrah Sin RT(R) Trnscb Date/Time: 07/10/2019 (1539) [email or web address] Orig Print D/T: S: 07/10/2019 (0885) PAGE 2 Signed Report- XR [id number] 09:09:00Name: KERRY SAMUEL [facility] : 1945 Age/S: 73 / F [id number] [address] Unit #: [id number] Loc: [place] [address] Phys: Praveena Garcia MD Acct: [id number] Dis Date: Status: REG [employer] PHONE #: [phone] Exam Date: 06/14/2019 0820 FAX #: Reason: ERCP EXAMS: CPT: [id number] XR ERCP 40068 Fluoro Time: 95 SEC DAP (Gy m2): Air Kerma (mGy): ERCP LOCATION: R16 CLINICAL HISTORY: ERCP. COMMENT: The ERCP was performed by Dr. Garcia. Fluoroscopic assistance was provided using a C-arm unit. 10 views from the C-arm unit are available for evaluation. Fluoroscopy time = 95 seconds. In the available views, the common bile duct and common hepatic duct are dilated. A balloon sweep was performed. The cystic duct is not seen. A small amount of contrast is noted in the duodenum. IMPRESSION: Status post balloon sweep. at 0909 Reported and signed by: Parisa Good M.D. CC: Praveena Garcia MD PAGE 1 Signed Report Name: KERRY SAMUEL : 1945 Age/S: 73 / F [id number] [address] Unit #: [id number] Loc: [place] [address] Phys: Praveena Garcia MD Acct: [id number] Dis Date: Status: [place] [facility] [place]ONE #: [phone] Exam Date: 06/14/2019819 FAX #: Reason: ERCP EXAMS: CPT: [id number] XR ERCP [id number] Fluoro Time: 95 SEC DAP (Gy m2): Air Kerma (mGy): (Continued) Technologist: Ifrah Sin, RT(R);Monica Claudio, RT(R) Trnscb Date/Time: 06/14/2019 (908) [email or web address] Orig Print D/T: S: 06/14/2019 (911) PAGE 2 Signed Report Consult Notes Date/Time Note Provider Source 2023-12-28 14:59:30 Associated Order(s): CONSULT ADULT PHYSICAL THERAPY Patient agreeable to working with physical therapy. Patient met semi reclined in bed. Recommend nursing staff utilize mod A to safely assist patient with mobility out of the bed or chair. PHYSICAL THERAPY EVALUATION Consult received, chart reviewed and evaluation complete this date. Patient is referred to PT for evaluation and treatment. Patient is a 78 year old female who presents to hospital for UTI (urinary tract infection) [N39.0] . Discharge Recommendations: Therapy Needs and Potential: Patient would benefit from continued physical therapy services to address: decline in bed mobility decline in transfers decline in gait and/or balance decreased strength decreased range of motion decreased endurance Patient exhibits limited activity tolerance. Pt will benefit from home health PT to improve strength, gait, and balance. Challenges to Home Transition: increased risk of falls decreased caregiver availability decreased safety awareness Equipment recommendations: Patient has or access to necessary equipment Current Functional Status and/or Treatment: AM-PAC 6 Clicks (Raw Score 0=Dependent, 24=Independent; Low function Raw Score 0= Dependent, 32=Independent): Raw Score - Basic Mobility : 12 T-Scale Score - Basic Mobility : 32.23 Bed Mobility: Rolling: Minimal Assistance Bridging: Minimal Assistance Sitting balance Fair+ Scooting to edge of bed: Minimal Assistance Transfers: Sit to stand: Moderate Assistance using Rolling Walker Stand to sit: Moderate Assistance using Rolling Walker Ambulation: Assisted patient with ambulation as follows: 5 feet using Rolling Walker and Maximum Assistance. For safety purposes. Therapeutic exercise: patient educated in Fall prevention and General strengthening. After session, patient semi reclined in bed. Call button provided. PLAN OF CARE: While in the hospital, PT will follow patient at least 2 times per week,once or twice a day, per patient's tolerance and needs. See below for complete details. Admit Date: 12/27/2023 Hospital Diagnosis:UTI (urinary tract infection) [N39.0] PT Diagnosis: Difficulty walking, Weakness, Malaise/fatigue, Pain, and Abnormality of gait and balance Weight Bearing Precaution: WBAT General Precautions: Fall,Purewick catheter, IV Bracing/Cast present or required:N/A PMH: Past Medical History: Diagnosis Date Fibromyalgia Osteoporosis Rheumatoid arthritis Spinal stenosis STEMI (ST elevation myocardial infarction) 07/26/2020 PSH: Past Surgical History: Procedure Laterality Date ENDOSCOPIC RETROGRADE CHOLANGIOPANCRETOGRAPHY N/A 03/31/2020 Surgeon: Jose Armando rWight MD; Location: Endoscopy ([facility]) OR Location [place] ANES NERVE MUSC TENDON FASCIA&BURSA KNEE&/POPLT Right STENT PLACEMENT (SHX) x3 Prior Living Situation: lives with their family and in a house, DME: Rolling Walker Prior level of Mobility: house hold ambulation, ambulates with Rolling Walker Suspected ischemic or hemorraghic stroke:No Subjective: Pt reported coming into the hospital for a UTI. Pt states she fell about a month ago and has been having B LE pain every since. She received an injection in L knee but did not help. She also states she has had 3 R TKA. Patient/Family Goals: Be able to go home. Patient/Family verbalizes understanding of condition: Yes PAIN: -Pain Description: constant -Pain Location: right leg and left leg -Pain rating before treatment: 7, After treatment: 7 -Pain Management: Reports taking pain meds COMMUNICATION Primary Language: Peruvian Able to Verbalize needs: Yes Vision:good; no issues reported Hearing:good; no issues reported ORIENTATION/COGNITION: Oriented to: person, place, date/time, and situation Awake: Yes Alert: Yes Dizzy: No Follows Commands: Yes 1-Step Yes Multi-Step Yes Inconsistent: No NEUROLOGICAL Light Touch: within functional limits bilateral LE BALANCE: Sitting: Static: Good Dynamic: Fair+ Standing: Static: Poor+ Dynamic: Poor+ RANGE OF MOTION: deficit: R >L bilateral LE, STRENGTH: 4-/5 (G-), bilateral LE ENDURANCE: Fair SKIN INTEGRITY: intact PROBLEM LIST: Decline in bed mobility, Decline in gait, Decline in transfers, Decreased strength, Decreased endurance, Decreased balance, and Pain ASSESSMENT: Patient is a 78 year old female seen secondary to the above listed diagnosis. Patient would benefit from continued PT to address the above listed deficits to maximize independence and safety with functional mobility. Rehabilitation Potential: fair Goals: The following goals are to maximize independence and safety with functional mobility to eventually return to prior living situation and prior functional status. Upon discharge, patient and/or family will demonstrate the followin. Rolling: Supervision Bridging: Supervision Sitting balance Good Scooting to edge of bed: Supervision 2. Sit to stand: Minimal Assistance using Rolling Walker Stand to sit: Minimal Assistance using Rolling Walker 3. Minimal Assistance with ambulation, Feet: 20 using least assistive device. 4. Demonstrate or verbalize understanding of home exercise program in order to continue with their rehab on their own. Treatment Plan: Gait training, Therapeutic exercise, Transfer training, Balance training, Bed mobility training, Safety education, patient/caregiver education, and Pain management PATIENT EDUCATION: Patient provided with preferred teaching of verbal information on role of PT, plan of care. Shows readiness to learn. Verbal instruction teaching provided. Individual is able to read and verbalizes understanding of teaching provided and accurately returns demonstration of skill. Total Time Tx Codes in Minutes: 15 min Total Treatment Time in Minutes: 25 min Cammie Hinkle PT [place] PT License [id number] [facility] Rehabilitation Services Department (phone) (fax) [facility] History and Physical Notes Date/Time Note Provider Source 2023-12-27 22:24:33 [facility] Hospitalist Admission H&P Date of Service: 12/27/2023 CHIEF COMPLAINT: Altered mental status HISTORY OF PRESENT ILLNESS Kerry Samuel is a 78 year old female who presents with altered mental status. She states about 3 weeks ago she was told she had a urinary tract infection. She was given antibiotics, but she was getting worse that she started having hallucinations. She also was unable to walk or ambulate to her the kitchen without having difficulty with her gait. She was having difficulty getting her pain medications from her pain specialist, Dr Bradley. She came into the hospital for further evaluation. In the emergency room, patient had urinanalysis which revealed a urinary tract infection. Patient's mentation is improved with IV fluids and antibiotics. PAST MEDICAL HISTORY Past Medical History: Diagnosis Date Fibromyalgia Osteoporosis Rheumatoid arthritis Spinal stenosis STEMI (ST elevation myocardial infarction) 07/26/2020 PAST SURGICAL HISTORY Past Surgical History: Procedure Laterality Date ENDOSCOPIC RETROGRADE CHOLANGIOPANCRETOGRAPHY N/A 03/31/2020 Surgeon: Jose Armando Wright MD; Location: Endoscopy ([facility]) [place] Location [place] ANES NERVE MUSC TENDON FASCIA&BURSA KNEE&/POPLT Right STENT PLACEMENT (SHX) x3 ALLERGIES Allergies Allergen Reactions Codeine Shortness of Breath Penicillin Rash MEDICATIONS Current home medication list reviewed: Current Discharge Medication List STOP taking these medications HYDROcodone-acetaminophen 7.5-325 mg per tablet Comments: Reason for Stopping: LORazepam 0.5 mg tablet Comments: Reason for Stopping: metoprolol succinate XL 25 mg 24 hr tablet Comments: Reason for Stopping: atorvastatin 40 mg tablet Comments: Reason for Stopping: clopidogreL 75 mg tablet Comments: Reason for Stopping: CELECOXIB 200 mg capsule Comments: Reason for Stopping: furosemide 40 mg tablet Comments: Reason for Stopping: aspirin 81 mg chewable tablet Comments: Reason for Stopping: URSODIOL ORAL Comments: Reason for Stopping: gabapentin 800 mg tablet Comments: Reason for Stopping: mirabegron (MYRBETRIQ) 50 mg tablet Comments: Reason for Stopping: FAMILY HISTORY No family history on file. SOCIAL HISTORY Social History Socioeconomic History Marital status: Tobacco Use Smoking status: Never Smokeless tobacco: Never Social History Narrative Patient lives by herself in a house. His son lives in [place] about 20 miles away, but works at a location about 3 miles from her house. Patient reports worsening of her back pain from spinal stenosis since beginning of March 2020. 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 She would like a helper to visit weekly if possible. Social Determinants of Health Financial Resource Strain: Low Risk (10/24/2023) Overall Financial Resource Strain (CARDIA) Difficulty of Paying Living Expenses: Not hard at all Food Insecurity: No Food Insecurity (10/24/2023) Hunger Vital Sign Worried About Running Out of Food in the Last Year: Never true Ran Out of Food in the Last Year: Never true Transportation Needs: No Transportation Needs (10/24/2023) PRAPARE - Transportation Lack of Transportation (Medical): No Lack of Transportation (Non-Medical): No Physical Activity: Inactive (10/24/2023) Exercise Vital Sign Days of Exercise per Week: 0 days Minutes of Exercise per Session: 0 min Social Connections: Unknown (10/24/2023) Social Connection and Isolation Panel [NHANES] Frequency of Communication with Friends and Family: More than three times a week Marital Status: Housing Stability: Low Risk (10/24/2023) Housing Stability Vital Sign Unable to Pay for Housing in the Last Year: No Number of Places Lived in the Last Year: 1 Unstable Housing in the Last Year: No REVIEW OF SYSTEMS 10 systems negative except per HPI PHYSICAL EXAMINATION BP 138/76 | Pulse 75 | Temp 35.5 ?C (95.9 ?F) | Resp 16 | Ht 1.626 m (5' 4.02") | Wt 103.4 kg (228 lb) | SpO2 96% | BMI 39.12 kg/m? General: No acute distress HEENT: Normal oral mucosa, anicteric sclerae, NCAT Cardiovascular: RRR Lungs: Symmetric expansion, clear bilaterally Abdomen: Soft, NTND Musculoskeletal: No synovitis, normal muscle mass Genitourinary: Normal Skin: No rash, no skin lesions Extremities: No clubbing, no cyanosis, no lower extremity edema Neuro: AAOx3, no focal deficits Psych: Normal affect LABS - reviewed pertinent labs as below: CBC BMP PT/INR WBC (10*3/?L) Date Value 12/27/2023 12.03 (H) NA (mmol/L) Date Value 12/27/2023 139 No results found for: "PT" RBC (10*6/?L) Date Value 12/27/2023 4.22 K (mmol/L) Date Value 12/27/2023 4.4 INR (no units) Date Value 07/20/2023 1.1 PLT (10*3/?L) Date Value 12/27/2023 223 CALCIUM (mg/dL) Date Value 12/27/2023 8.8 HGB (g/dL) Date Value 12/27/2023 13.0 CL (mmol/L) Date Value 12/27/2023 108 aPTT HCT (%) Date Value 12/27/2023 41.1 BUN (mg/dL) Date Value 12/27/2023 27 (H) APTT Patient (Seconds) Date Value 07/22/2023 27 CREATININE (mg/dL) Date Value 12/27/2023 1.41 (H) IMAGING - reviewed, pertinent results as below: Hospital Encounter on 12/27/23 XR CHEST 1 VW Narrative EXAM: XR CHEST 1 VW COMPARISON: Chest x-ray on 10/23/2023 HISTORY: shortness of breath FINDINGS: Lungs: Decreased aeration of right lung. Elevation of the right hemidiaphragm, unchanged. No focal opacities or pleural abnormality. Heart/Mediastinum: The cardiac silhouette appears normal accounting for technique and degree of inspiration. Calcified aortic knob. Bones and soft tissues: No osseous abnormality is visualized. Surgical maddie are present in the left lateral chest wall. Impression No radiographic evidence of acute cardiopulmonary process. Preliminary Report Dictated by Resident: Monica Pablo MD., have reviewed this study and agree with the above report. ASSESSMENT: 1. Urinary tract infection 2. Toxic encephalopathy 3. CHF with ejection fraction of 40 to 45% 4. Leukocytosis 5. History of hypertension 6. History of hyperlipidemia 7. History of osteoarthritis 8. History of neuropathy 9. Urinary stress incontinence PLAN: 1. Urinary tract infection with toxic encephalopathy; continue with IV fluids and IV antibiotic therapy. We will need to monitor volume status closely. Patient with a history of congestive heart failure, systolic dysfunction with an ejection fraction of 40 to 45%. Will continue with Lasix for the time being as well. If patient's volume status is appropriate then we can hold off on IV fluids in the morning. 2. History of hypertension; resume antihypertensives 3. History of hyperlipidemia; continue with statin therapy 4. History of urinary stress incontinence; continue with myrbetriq 5. History of osteoarthritis; hold Celebrex pending cardiac workup 6. GI DVT prophylaxis DVT prophylaxis: enoxaparin Stress ulcer prophylaxis: pantoprazole Code status: FULL Advanced Care Planning (Z71.89) Above assessment and plan discussed at length with patient, patient expressed full understanding. Questions and concerned addressed. Surrogate decision maker: NO Level of care expected after discharge: HOME Time spent: 3 minutes discussing the advanced care plan Smoking Cessation: (Z71.6) Tobacco user?: NO Patient will require inpatient stay of 2 midnights or more given high risk of morbidity and mortality. [place] [employer] [address] SQL DEVELOPER was verified during stay Mac Sanford MD [facility] 2023-07-21 10:40:16 Formatting of this n ote might be different from the original. Pre-Procedure Sedation Evaluation Kerry Samuel is a 77 year old female with a PMH of RA, OA, Fibromyalgia, PUD, Lymphedema, GERD, Hx Cardiac arrest, with diffuse CAD who presents with NSTEMI. She is hypervolemic. Plan: RHC/LHC and coronary angiography. Current medications. Allergies were reviewed. NPO Status Solids: >6 hours Clear liquids: >2 hours History History of anesthesia/sedation complications: No History of difficult airway: No History of neck problems, craniofacial abnormalities, head/neck surgery: No Increased risk for airway obstruction, sleep apnea, morbid obesity: No Focused Physical Exam Heart: documented in H&P Normal Lung: documented in H&P Normal Airway Mallampati: II (full visibility of soft palate and part of uvula) Mouth opening: Normal Range of motion neck: Normal Dentition: Normal Assessment: ASA III Plan: Moderate sedation The risks, benefits, and treatment options of sedation were discussed with the patient/guardian and they desire to proceed. The consent form was completed and signed. 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 2023-07-20 21:23:15 Formatting of this n ote is different from the original. ALLYN DE LEÓN Admit H&P PCP: PATIENT DOES NOT HAVE A PCP Date of Service: 07/20/2023 CHIEF COMPLAINT: CP HISTORY OF PRESENT ILLNESS Kerry Samuel is a 77 year old female with a PMH of RA, OA, Fibromyalgia, PUD, Lymphedema, GERD, Hx Cardiac arrest, with diffuse CAD who presents for chest pain. Transferred from [facility]. Patient reports substernal chest pain with radiation to her back starting this morning. EMS was called; patient's pain mildly relieved by nitro x 2. She was loaded with aspirin 324 mg and brought to [facility]. At [facility]: VS: AF, HR 77, BP 145/70, RR 18, 98% on RA. Notable Labs: Troponin 0.042 -> 0.043; NT-proBNP 17,600 (2,050 in 2019); Cr 1.3 (around her baseline) Img: CT chest showed no aortic dissection Interventions: EKG negative for ischemic changes; no STEMI. Did show multiple PVCs. CP not relieved by nitro but relieved with narcotics. Started on heparin gtt. Accepted for transfer to [facility] for further ischemic workup, ACS protocol. Past medical history: has a past medical history of Fibromyalgia, Osteoporosis, Rheumatoid arthritis, Spinal stenosis, and STEMI (ST elevation myocardial infarction) (07/26/2020). Past surgical history: has a past surgical history that includes endoscopic retrograde cholangiopancretography (N/A, 03/31/2020); stent placement (shx); and [address] - [place] ANES NERVE MUSC TENDON FASCIA&BURSA KNEE&/POPLT (Right). Social history: reports that she has never smoked. She has never used smokeless tobacco. Family history: family history is not on file. Allergies: Allergies Allergen Reactions Codeine Shortness of Breath Penicillin Rash MEDICATIONS Prior to Admission medications Medication Sig Start Date End Date Taking? Authorizing Provider celecoxib (CELEBREX) 200 mg capsule Take 1 capsule by mouth in the morning for 90 days. 06/01/23 08/30/23 Shanel Candelario PAC clopidogreL 75 mg tablet Take 1 tablet by mouth in the morning. 12/07/22 Bacilio Deleon MD LORazepam 1 mg tablet Take 1 mg by mouth. Doctor Unassigned, [facility] furosemide 20 mg tablet 40 mg daily as needed for leg swelling 01/20/21 Bacilio Deleon MD OMEPRAZOLE, BULK, MISC 40 tablets 2 (two) times daily. Doctor Unassigned, [facility] aspirin 81 mg chewable tablet Take 1 tablet by mouth in the morning. 08/01/20 Marvin Mancilla MD URSODIOL ORAL Take by mouth. Doctor Unassigned, [facility] gabapentin 800 mg tablet Take 1 tablet by mouth daily. Doctor Unassigned, [facility] mirabegron (MYRBETRIQ) 50 mg tablet Take 1 tablet by mouth daily. Doctor Unassigned, [facility] zolpidem (AMBIEN CR) 12.5 mg CR tablet Take 12.5 mg by mouth at bedtime as needed for Sleep. Doctor Unassigned, [facility] REVIEW OF SYSTEMS (-)=Negative,(+)=Positive General: negative Skin: negative HEENT: negative Neck: negative Heme: negative Resp: negative Cardio: (+) chest pain GI: negative : negative Endo: negative Neuro: negative Back: (+) pain ROMERO: negative Psych: negative PHYSICAL EXAMINATION Vitals: 07/20/23 1800 07/20/23 1806 07/20/23 1830 07/20/23 2054 BP: 101/62 101/62 108/69 103/56 Pulse: 99 91 88 84 Resp: Temp: 36.7 ?C (98.1 ?F) TempSrc: Oral SpO2: 97% 91% Weight: 130.5 kg (287 lb 11.2 oz) Height: 1.6 m (5' 3") General: patient alert and oriented x 4, and in no acute distress Eyes: EOMI Cardiovascular: Heart regular, rate, rhythm, no murmurs; 3+ pitting edema to thighs on LLE; 1+ pitting edema RLE Respiratory: clear to auscultation bilaterally, no respiratory distress Skin: intact and warm, dry Neuro: power grossly intact all over, no focal deficits Psych: cooperative and mood/affect normal LABS - reviewed pertinent labs as below: Recent Results (from the past 24 hour(s)) N-TERMINAL PRO-BNP Collection Time: 07/20/23 1:06 PM Result Value Ref Range NT-proBNP 17,600 (H) <=125 pg/mL TROPONIN I Collection Time: 07/20/23 1:06 PM Result Value Ref Range TROPONIN I 0.042 (H) <=0.034 ng/mL CBC WITH DIFF Collection Time: 07/20/23 2:02 PM Result Value Ref Range WBC 10.98 4.30 - 11.10 10*3/?L RBC 3.65 (L) 3.93 - 5.25 10*6/?L HGB 11.3 (L) 11.6 - 15.0 g/dL HCT 36.0 35.7 - 45.2 % MCV 98.6 (H) 80.6 - 95.5 fL MCH 31.0 25.9 - 32.8 pg MCHC 31.4 (L) 31.6 - 35.1 g/dL RDW-SD 53.0 (H) 39.0 - 49.9 fL RDW-CV 14.6 12.0 - 15.5 % PLT 201 166 - 358 10*3/?L MPV 9.9 9.5 - 12.9 fL NRBC/100 WBC 0.0 0.0 - 10.0 /100 WBCs NRBC x10^3 <0.01 10*3/?L GRAN MAT (NEUT) % 96.6 % IMM GRAN % 0.30 % LYMPH % 1.7 % MONO % 1.1 % EOS % 0.1 % BASO % 0.2 % GRAN MAT x10^3(ANC) 10.61 (H) 1.88 - 7.09 10*3/uL IMM GRAN x10^3 0.03 0.00 - 0.06 10*3/uL LYMPH x10^3 0.19 (L) 1.32 - 3.29 10*3/uL MONO x10^3 0.12 (L) 0.33 - 0.92 10*3/uL EOS x10^3 <0.03 (L) 0.03 - 0.39 10*3/uL BASO x10^3 <0.03 0.01 - 0.07 10*3/uL BANDS Increased (A) TOXIC CHANGES Present (A) PROTHROMBIN TIME / INR Collection Time: 07/20/23 2:02 PM Result Value Ref Range PROTIME PATIENT 13.2 12.0 - 14.7 Seconds INR 1.1 ACTIVATED PARTIAL THRMPLAS VILMA Collection Time: 07/20/23 2:02 PM Result Value Ref Range APTT Patient 25 23 - 38 Seconds COMP. METABOLIC PANEL (88368) Collection Time: 07/20/23 2:02 PM Result Value Ref Range NA 138 135 - 145 mmol/L K 4.2 3.5 - 5.0 mmol/L CL 104 98 - 108 mmol/L CO2 TOTAL 29 23 - 31 mmol/L AGAP 5 2 - 16 BUN 24 (H) 7 - 23 mg/dL GLUCOSE 127 (H) 70 - 110 mg/dL CREATININE 1.30 (H) 0.50 - 1.04 mg/dL TOTAL BILI 0.8 0.1 - 1.1 mg/dL CALCIUM 8.8 8.6 - 10.6 mg/dL T PROTEIN 6.4 6.3 - 8.2 g/dL ALBUMIN 3.3 (L) 3.5 - 5.0 g/dL ALK PHOS 106 34 - 122 U/L ALTv 25 5 - 35 U/L AST(SGOT) 107 (H) 13 - 40 U/L eGFR 39.6 mL/min/1.73m2 LIPASE Collection Time: 07/20/23 2:02 PM Result Value Ref Range LIPASE 37 0 - 220 U/L COVID-19 (ID NOW TESTING) Collection Time: 07/20/23 3:24 PM Specimen: NASOPHARYNGEAL SWAB Result Value Ref Range SARS-CoV-2 Rapid ID NOW Not Detected Not Detected TROPONIN I Collection Time: 07/20/23 6:04 PM Result Value Ref Range TROPONIN I 0.043 (H) <=0.034 ng/mL IMAGING - reviewed, pertinent results as below: Hospital Encounter on 07/20/23 CT ABDOMEN PELVIS W CONTRAST Narrative ORDERING PHYSICIAN: GARFIELD BOWER HISTORY: Acute aortic syndrome (AAS) suspected TECHNIQUE: CT angiography chest, abdomen and pelvis with intravenous contrast. Maximum intensity projections (MIPS) were performed for CTA.. This examination was performed according to ALARA principles. CT ANGIOGRAM CHEST, CT ABDOMEN PELVIS W CONTRAST COMPARISON: None. FINDINGS: Visualized lower neck: Within normal limits. Mediastinum: No lymphadenopathy, cardiomegaly, or pericardial effusion. Coronary artery calcification is present. Vascular: Aorta is within normal limits. No aortic dissection. No filling defects in the pulmonary arteries. Pulmonary arteries are dilated compatible with pulmonary artery hypertension Lungs and pleura: No consolidation, pleural effusion, or pneumothorax. Bones: No acute abnormality. Abdomen and pelvis: Liver is normal in size. There is pneumobilia evident in the setting of prior cholecystectomy. Findings likely relate to prior biliary intervention such as a sphincterotomy. Spleen is normal in size. The pancreas is grossly unremarkable. Adrenal glands are unremarkable. Kidneys are normal in size without hydronephrosis. The urinary bladder is grossly normal. Uterus is surgically absent. No evidence of acute colitis or intestinal obstruction. Hiatal hernia is present. The aorta is normal in caliber. No aortic dissection. Old appearing fracture of the L3 superior endplate is noted. Impression No evidence of aortic dissection. Pneumobilia. This is presumably related to prior cholecystectomy. End of Report ANGIOGRAM CHEST Narrative ORDERING PHYSICIAN: GARFIELD BOWER HISTORY: Acute aortic syndrome (AAS) suspected TECHNIQUE: CT angiography chest, abdomen and pelvis with intravenous contrast. Maximum intensity projections (MIPS) were performed for CTA.. This examination was performed according to ALARA principles. CT ANGIOGRAM CHEST, CT ABDOMEN PELVIS W CONTRAST COMPARISON: None. FINDINGS: Visualized lower neck: Within normal limits. Mediastinum: No lymphadenopathy, cardiomegaly, or pericardial effusion. Coronary artery calcification is present. Vascular: Aorta is within normal limits. No aortic dissection. No filling defects in the pulmonary arteries. Pulmonary arteries are dilated compatible with pulmonary artery hypertension Lungs and pleura: No consolidation, pleural effusion, or pneumothorax. Bones: No acute abnormality. Abdomen and pelvis: Liver is normal in size. There is pneumobilia evident in the setting of prior cholecystectomy. Findings likely relate to prior biliary intervention such as a sphincterotomy. Spleen is normal in size. The pancreas is grossly unremarkable. Adrenal glands are unremarkable. Kidneys are normal in size without hydronephrosis. The urinary bladder is grossly normal. Uterus is surgically absent. No evidence of acute colitis or intestinal obstruction. Hiatal hernia is present. The aorta is normal in caliber. No aortic dissection. Old appearing fracture of the L3 superior endplate is noted. Impression No evidence of aortic dissection. Pneumobilia. This is presumably related to prior cholecystectomy. End of Report CHEST 1 VW Narrative Indication: chest pain Comparison: None RL: [id number] ORDERING PHYSICIAN: GARFIELD BOWER TECHNIQUE: Single view of the chest. FINDINGS: There are interstitial opacities throughout both lungs. There is elevation of the right hemidiaphragm. Cardiomediastinal silhouette is within normal limits. No pneumothorax. The bony structures are intact. Impression 1. Interstitial opacities throughout both lungs could be related to pulmonary edema versus atypical pneumonia. : pending. CHART REVIEW: pertinent information as below: TTE 07/06/23: Left Ventricle Left ventricle is mildly dilated. Normal wall thickness. See diagram for wall motion findings. Severely reduced systolic function with a visually estimated EF of 20 - 25%. Diastolic dysfunction. Right Ventricle Right ventricle size is normal. Mildly reduced systolic function. Left Atrium Left atrium is mildly dilated. Right Atrium Right atrium size is normal. IVC/SVC RA pressure is 5-10 mmHg. Mitral Valve Mildly calcified leaflets. Mild mitral annular calcification. Mild transvalvular regurgitation. Tricuspid Valve Tricuspid valve structure is grossly normal. Moderate transvalvular regurgitation. Right ventricular systolic pressure is greater than 60 mmHg. RA pressure is 5-10 mmHg. Aortic Valve Mildly calcified cusps. Pulmonic Valve Not well visualized. Trace transvalvular regurgitation. Ascending Aorta Borderline enlarged ascending aorta 3.1cm. Pericardium No pericardial effusion. Cor Angio 07/26/2020: FINDINGS: LEFT CORONARYARTERY: Left Main Artery: Patent LAD: Distal 70% stenosis, vessel is very tortuous, proximal 20% Circumflex: Luminal irregularities, no obstructive disease RIGHT CORONARYARTERY: RCA: Proximal to mid ulcerated lesion 95% with thrombus and TIMI1 to 2 flow LV FINDINGS: LVNormal EDP : 8 mmHg LVEDP 8 INTERVENTION IMPRESSION: - STEMI inferior , RCAculprit - Successful PCI of Mid to Proximal RCA with JB's ASSESSMENT/PLAN Kerry Samuel is a 77 year old female with PMH as listed above, admitted to the hospital with: NSTEMI CAD s/p PCI of Mid to Proximal RCA with BJ's (07/2020) Hx Vfib/Arrest w/ ROSC - 2019 HFrEF (20-25%, 06/2023) HLD Morbid Obesity Patient presents with NSTEMI and significant cardiac risk factors, as above. Will benefit from additional ischemic workup and ACS rule-out. Will also benefit from starting on GDMT given reduced EF on recent TTE. - Admit to [facility] - C/w heparin gtt - Holding Plavix - Trend troponins to peak - EKG - Pre-procedure clears past MN for possible stress vs LHC in AM - c/w aspirin 81 mg daily Chronic Issues GERD - omeprazole CKD3b Lymphedema - stable/chronic issues OA - PRN analgesics, as below DIET: PPCLD DVT ppx- on therapeutic AC: Heparin gtt Bowel reg: Sennokot and Docusate GI ppx: Not indicated Therapy: Not indicated PAIN: Tylenol, T3 Code Status: FULL Wili Anderson DO 07/20/2023 9:23 PM Principal Problem: Chest pain, unspecified type Associated attestation - Selin Bales MD - 07/21/2023 3:41 PM CDT I personally examined the patient on the date of service as stated and agree with Dr. Anderson's resident note I actively participated in the decision-making process. Please see the resident's note for additional details. [facility] Procedure Notes Date/Time Note Provider Source 2023-07-21 10:41:43 Formatting of this n ote might be different from the original. Left Heart Cath/Coronary Angiography/PCI/IVUS Date of Service: 07/21/2023 10:41 AM Indication/Diagnosis: 77 y F with PMH of CAD ( possible inf STEMI and VT arrest with PCI to heavily calcified RCA), RA, fibromyalgia, RA who p/w 1 day of CP. Trop 0.6. Of note, she recent had a TTE by Dr Deleon which showed EF 20-25% and severe PH (EF was normal in 2019). She had a CTA done yesterday. Fellow: Dr Hussein Santoro Time out completed: yes Aseptic technique: Chlorprep Local Anesthesia: 1% lidocaine without epinephrine Sedation: fentanyl 100 mcg, Versed 4 mg Access site: right femoral artery Closure Method: Mynx and Perclose Complications: none Procedure Details: RHC 7 Fr RFV TD swan LHC 5 Fr RFA Slightly high access but high bifurcation 5 Fr JL4 to LM 5 Fr Jr4 to LV (LVEDP and pullback across aortic valve), RCA PCI 6 Fr RFA 6 Fr EBU 3.5 RT with finecross able to cross [facility] Intraluminal LAD confirmed with MC injection Predil with 2.0 x 20 NC, 2.5 x 15 angiosculpt did not deliver, 2.5 x 15 NC, 3.0 x 15 NC Angiogram and IVUS showed diffuse disease, distal 2.5, prox 3.5 Wire to D1 Stent with 2.5 x 33 mm xience Postdil with 2.75 x 15 NC, prox with 3.5 x 6 NC IVUS showed MSA 5.1, mid undersized area Postdil with 3.5 x 6 NC again Final angiogram Angioseal RFA Perclose RFV 150 cc contrast Post-Procedure Sedation Addendum Immediately prior to start of sedation, the patient was evaluated and there was no change from the pre-procedure evaluation. I was present and directed medical care. The patient underwent moderate sedation for the procedure. The medications administered were recorded in the MAR; oxygenation, ventilation and circulation were monitored continuously and were recorded in the EMR. I evaluated the patient after the procedure. The patient was evaluated immediately as recovering from sedation. Complications: none Findings: Right Heart Catheterization: RA 14/12 RV 55/2/14 PA 55/21/34 PCWP //18 RA sat 65% PA sat 61% CO/CI (Mignon): 5.6/2.3 CO/CI (Thermodilution): 4.99/2.21 Coronary dominance: right Left main: MLI LAD: Prox LAD 100% ([facility] vs subacute) s/p PCI Post PCI, mid/distal LAD had severe diffuse athero D1: Mild athero LCX: Mid Lcx 30% diffuse OM2: Small sized OM3: Mild athero RCA: Mid RCA 50% ISR Distal RCA 40-50% diffuse PDA: Mild athero LVEDP: 20 Right External Iliac angiogram: EIA MLI ASPARAGUS BUNCHER MLI High bifurcation Impression: Prox LAD 100% calcified ([facility] vs subacute) s/p PCI Mid/distal LAD has residual severe diffuse athero RCA stent patent with 50% mid RCA ISR Mildly elevated left and right sided filling pressures Mildly reduced cardiac index Plan: Bedrest 4 hours Aspirin 81 daily lifelong Ticagrelor 90 bid 1 year (can switch to plavix if affordability is an issue) Aggressive medical Rx and RF modification (consider PCSK9 inhibitor). Findings and plan discussed with pt and primary team (DR Bales). I performed this procedure and supervised the fellow. I was present for the entire duration of the procedure. Asha Tay MD 07/21/2023 10:41 AM IM-INTERVENTIONAL CARDIOLOGY STAFF [facility] Notes Date/Time Note Provider Source 2024-03-12 14:40:59 Client Coordination Note Report received via fax from [facility], signed by Dr Deleon and faxed back to [facility]. Forms scanned into chart along with fax confirmation. Jalyn Baum MA [facility] 2024-03-12 13:42:[address] Deleon. Furosemide 20 mg refill was sent to patient's pharmacy. Patient needs to follow up with PCP regarding her labs for further refills of furosemide. Or can have lab results sent to Dr. Deleon for review. Suzy Prado RN [facility] 2024-03-09 17:04:04 Addended by: SUZY PRADO RN on: 03/09/2024 05:04 PM Modules accepted: Orders T [facility] 2024-03-09 16:58:09 Patient called back stating that Dr. Rice's office is closed today. Unable to get refill of lasix. Spoke with Dr. Deleon and discussed situation. Ok to send one time refill of lasix 20 mg. Patient was advised to call back if swelling does not improve. [facility] 2024-03-09 16:53:49 Copied from [facility] #[id number]. Topic: Clinical - Order >> Mar 09, 2024 4:[address] Tech wrote: Kerry Samuel is a 78 year old female Pt was calling back to see if Dr Deleon could refill her furosemide 40 mg tablet. She said due to her swelling her nurse wants her to take it. Nurse Suzy said she will be asking Dr Deleon for the okay. Abril Overton [facility] 2024-03-09 13:34:39 Spoke with patient and her home health nurse, Carrington who is currently with patient. Reporting leg swelling and weight gain. States that patient ran out of lasix recently and has not been taking. Patient was taking 20 mg lasix daily. Last refilled by PCP (per our chart we have 40 mg). Patient denies any other symptoms. Clarified that Dr. Deleon said to hold lasix only if SBP <90. Patient recently had labs done with PCP. Advised to contact PCP and have labs sent for review or have PCP refill furosemide. Patient was advised to call clinic if no improvement or worsening in symptoms after restarting the lasix. Suzy Prado RN [facility] 2024-03-09 13:20:15 Copied from [facility] #[id number]. Topic: Clinical - Medical Advice >> Mar 09, 2024 1:[address] Tech wrote: Kerry Samuel is a 78 year old female Pt nurse with [facility] calling and states she is with pt at this moment and wanting clarification on rx furosemide 40 mg tablet (LASIX) due to pt having swelling in lower extremities and weight gain. Caller states weight last week was 235.8 and now it is 243.4. BP 122/64 HR 70 Please advise Call pt at [phone] (home) Em Baum [facility] 2024-03-06 13:24:48 Spoke with patient. She verbalized understanding via teach back. Will notify her home health nurse of changes. She also purchased a BP monitor last night and will start keeping a home log. She had no further questions or concerns at this time. Suzy Prado RN [facility] 2024-03-06 09:22:[address] Deleon's instructions. Also to call back to verbalize understanding. We also need nurse information to call them with med updates. Stop metoprolol Hold lasix if BP < 90 F/u PCP closely [facility] 2024-03-05 17:01:47 Stop metoprolol Hold lasix if BP < 90 F/u PCP closely T [facility] 2024-03-05 16:45:49 Spoke with patient. She states for the past couple of months she has been feeling weak and fatigued. She has been having trouble getting around her house and doing her normal activities. This began after hospitalization back in 12/2023 UTI. Symptoms are not worsening over time but she doesn't seem to be improving. She denies pain, shortness of breath, palpitations or other symptoms. I asked patient about her blood pressure and heart rates and she states she does not have a machine to check at home. She states that the 81/30 BP was taken at a doctor's visit last . She states they rechecked and her BP improved and sent her home. She felt very weak at the time. States that she had not been eating and drinking last week due to a stomach bug so possibly was dehydrated. She states her home health nurse checks her BP and hasn't mentioned anything about low BP. She checked vitals on Tuesday and nothing abnormal was noted. I asked patient why she is calling now since symptoms have been going on for >1 month and she states she is primarily calling to notify Dr. Deleon that she is stopping the metoprolol to see if it will help with her symptoms. She does live with her grandson. I strongly advised patient to go to ER for any fevers, low BP, palpitations or chest discomfort, shortness of breath, change in mental status, or weakness and dizziness. She verbalized understanding. Patient did not sound to be in distress on the phone. She is scheduled to see her PCP tomorrow and for labs. She states she has notified her PCP of symptoms as well. [facility] 2024-03-05 16:24:56 Kerry Smauel is a 78 year old female Pt is calling and stating that her Bp has been low last reading was 81/30 having dizziness and extremely tired Gina Evangelista [facility] 2023-12-30 15:22:56 TRANSITIONAL CARE MANAGEMENT ASSESSMENT 12/30/2023 Kerry Samuel [id number] Kerry Samuel is a 78 year old /White female was admitted on 12/27/23 to [facility]. She was discharged on 12/29/23 with discharge disposition of HR- Routine Discharge. Admitting Physician: Liliana Pérez Discharge Diagnosis: Acute toxic encephalopathy Complicated cystitis Weakness Chronic pain syndrome Linked Episodes Type: Episode: Status: Noted: Resolved: Last update: Updated by: TRANSITION OF CARE TCM Active 12/30/2023 12/30/2023 11:44 AM Belinda Chang RN Comments: SONALI Fac-kwke-px-face outreach documentation: Discharge Assessment Chart Assessed: 12/30/23 Future Appointments: Future Appointments Provider Department Dept Phone 04/25/2024 11:00 AM Bacilio Deleon MD [facility] [phone] Transition CM attempted to contact patient x2. CM left a discreet voicemail explaining purpose of call and call back information. Belinda Chang RN, MSN, MEDSURG-BC, CCRN, CCM Transitions of Manager Transportation Proficient [employer] Machinery Service Engineer [employer] Executive Producer Management Office: [phone] [facility] 2023-12-30 11:44:56 CM LVM to return call. Will attempt again at a later time. [facility] 2023-12-29 14:05:53 Problem: Falls, Risk of Goal: Absence of falls Outcome: Adequate for discharge Problem: Skin integrity Impaired (Risk or Actual) Goal: Prevention of new skin breakdown Outcome: Adequate for discharge Problem: Venous Thromboembolism, (actual or risk of) Goal: Absence of venous thromboembolism (Risk) Outcome: Adequate for discharge Problem: Infection Risk Goal: Absence of infection Outcome: Adequate for discharge Problem: Discharge Planning Goal: Adequate for discharge Outcome: Adequate for discharge Goal: Effective communication Outcome: Adequate for discharge Problem: Pain Goal: Control of pain at or below patient's documented comfort goal Outcome: Adequate for discharge Goal: Reduction in pain sensation Outcome: Adequate for discharge IDEA Brown RN [facility] 2023-12-29 02:59:31 Problem: Falls, Risk of Goal: Absence of falls Outcome: Progressing as expected Problem: Skin integrity Impaired (Risk or Actual) Goal: Prevention of new skin breakdown Outcome: Progressing as expected Problem: Venous Thromboembolism, (actual or risk of) Goal: Absence of venous thromboembolism (Risk) Outcome: Progressing as expected Problem: Infection Risk Goal: Absence of infection Outcome: Progressing as expected Problem: Discharge Planning Goal: Adequate for discharge Outcome: Progressing as expected Goal: Effective communication Outcome: Progressing as expected Problem: Pain Goal: Control of pain at or below patient's documented comfort goal Outcome: Progressing as expected Goal: Reduction in pain sensation Outcome: Progressing as expected IDEA Gallardo RN [facility] 2023-12-28 18:08:03 Progressing as expected IDEA Lancaster RN [facility] 2023-12-28 18:06:26 Progressing as expected [facility] 2023-12-28 01:14:24 Patients lactic acid came back at 2.33, pt is a hard stick and refused for us to draw labs again. Dr Sanford notified. IDEA Mckeon RN [facility] 2023-12-28 00:58:08 Problem: Falls, Risk of Goal: Absence of falls Outcome: Progressing as expected Problem: Skin integrity Impaired (Risk or Actual) Goal: Prevention of new skin breakdown Outcome: Progressing as expected Problem: Venous Thromboembolism, (actual or risk of) Goal: Absence of venous thromboembolism (Risk) Outcome: Progressing as expected Problem: Infection Risk Goal: Absence of infection Outcome: Progressing as expected Problem: Discharge Planning Goal: Adequate for discharge Outcome: Progressing as expected Goal: Effective communication Outcome: Progressing as expected Problem: Pain Goal: Control of pain at or below patient's documented comfort goal Outcome: Progressing as expected Goal: Reduction in pain sensation Outcome: Progressing as expected ROCK DRILL OPERATOR [facility] 2023-12-27 20:14:39 Nurse Report Report given to Nikki FOSTER at [facility]. Chief complaint, assessment findings, infusion verify and orders reviewed. Plan of care discussed with nurse. Yara Moyer RN ROCK DRILL OPERATOR Yara Moyer RN [facility] 2023-12-27 15:07:00 Gave report to Comfort FOSTER. ROCK DRILL OPERATOR Ramona Salinas RN [facility] 2023-12-27 14:15:41 RT paged for lactic. IDEA Sneed RN [facility] 2023-12-27 13:27:14 Kerry Samuel is a 78 year old female states her home health nurse saw her yesterday and wanted her to go to ER for her urine infection that has not gone away, pt alert in no distress ROCK DRILL OPERATOR Rasheeda Robertson RN [facility] 2023-12-27 13:22:00 [facility] Emergency Department Note Patient Name: Kerry Samuel Date of : 1945 78 year old female Treatment Room: [address] [place], [place] [address] Primary Care Physician: Marva Rice Patient Escorted by: Family [5] Mode of Arrival: Personal means [1] EMS Treatment Prior to ED Arrival: TRAFFIC LINE PAINTER treatment: None Travel and Exposure Screening: Symptoms Does patient have any of these symptoms?: (not recorded) Exposure Screening Has patient had contact with someone with a communicable disease in the last month?: (not recorded) Diseases exposed to:: (not recorded) Is Patient ?: (not recorded) Exposure Date: (not recorded) Chief Complaint: Chief Complaint Patient presents with Other Sent by PCP ED Triage Notes Rasheeda Robertson, RN 12/27/2023 13:29 Kerry Samuel is a 78 year old female states her home health nurse saw her yesterday and wanted her to go to ER for her urine infection that has not gone away, pt alert in no distress History of Present Illness: Kerry Samuel is a 78 year old female with suspected UTI from home health nurse. No complaints in ED. Reportedly finished abx therapy for UTI previously. Past Medical History/Immunizations: Past Medical History: Diagnosis Date Fibromyalgia Osteoporosis Rheumatoid arthritis Spinal stenosis STEMI (ST elevation myocardial infarction) 07/26/2020 Tetanus received in last 5 years: Yes Allergies: Allergies Allergen Reactions Codeine Shortness of Breath Penicillin Rash Past Social History: Tobacco Use Never smoked or used smokeless tobacco. Past Surgical History: Past Surgical History: Procedure Laterality Date ENDOSCOPIC RETROGRADE CHOLANGIOPANCRETOGRAPHY N/A 03/31/2020 Surgeon: Jose Armando Wright MD; Location: Endoscopy ([facility]) OR Location [place] ANES NERVE MUSC TENDON FASCIA&BURSA KNEE&/POPLT Right STENT PLACEMENT (SHX) x3 Review of Systems: Review of Systems Constitutional: Negative for chills, fatigue and fever. HENT: Negative for sore throat. Eyes: Negative for pain. Respiratory: Negative for cough, chest tightness, shortness of breath and stridor. Breasts: Negative for pain. Cardiovascular: Negative for chest pain and palpitations. Gastrointestinal: Negative for abdominal pain, constipation and diarrhea. Genitourinary: Negative for bladder incontinence and difficulty urinating. Musculoskeletal: Negative for back pain. Skin: Negative for color change. Neurological: Negative for dizziness, seizures, weakness, light-headedness and headaches. Physical Exam: ED Triage Vitals [12/27/23 1328] Weight 115.2 kg (254 lb) Actual or estimated Estimated by patient/family report Height 1.626 m (5' 4") BP 110/78 Pulse 75 Resp 14 Temp 36.8 ?C (98.2 ?F) Temp source Oral SpO2 97 % Measured on Room air Physical Exam Vitals and nursing note reviewed. Constitutional: General: She is not in acute distress. Appearance: She is well-developed. She is not diaphoretic. HENT: Head: Normocephalic and atraumatic. Right Ear: External ear normal. Left Ear: External ear normal. Nose: Nose normal. Eyes: General: No scleral icterus. Conjunctiva/sclera: Conjunctivae normal. Pupils: Pupils are equal, round, and reactive to light. Cardiovascular: Rate and Rhythm: Normal rate and regular rhythm. Heart sounds: Normal heart sounds. Pulmonary: Effort: Pulmonary effort is normal. Breath sounds: Normal breath sounds. Abdominal: General: Bowel sounds are normal. Palpations: Abdomen is soft. Tenderness: There is no abdominal tenderness. Musculoskeletal: General: Normal range of motion. Cervical back: Normal range of motion and neck supple. Skin: General: Skin is warm and dry. Neurological: Mental Status: She is alert and oriented to person, place, and time. Cranial Nerves: No cranial nerve deficit. Deep Tendon Reflexes: Reflexes are normal and symmetric. Psychiatric: Behavior: Behavior normal. Thought Content: Thought content normal. Radiology: XR CHEST 1 VW Final Result EXAM: XR CHEST 1 VW COMPARISON: Chest x-ray on 10/23/2023 HISTORY: shortness of breath FINDINGS: Lungs: Decreased aeration of right lung. Elevation of the right hemidiaphragm, unchanged. No focal opacities or pleural abnormality. Heart/Mediastinum: The cardiac silhouette appears normal accounting for technique and degree of inspiration. Calcified aortic knob. Bones and soft tissues: No osseous abnormality is visualized. Surgical maddie are present in the left lateral chest wall. IMPRESSION No radiographic evidence of acute cardiopulmonary process. Preliminary Report Dictated by Resident: Damien Celis I, Monica Myers MD., have reviewed this study and agree with the above report. Lab Results: Lab Results URINALYSIS - Abnormal Result Value Ref Range APPEARANCE Cloudy (*) Clear COLOR Ruchi (*) Yellow PH 5.0 4.8 - 8.0 SP GRAVITY 1.023 1.003 - 1.030 GLU U QUAL Normal Normal BLOOD 2+ (*) Negative KETONES Negative Negative PROTEIN 30 mg/dL (*) Negative UROBILIN 2.0 mg/dL (*) Normal BILIRUBIN Negative Negative NITRITE Negative Negative LEUK TOSIN 250/uL (*) Negative RBC/HPF 31 (*) 0 - 3 HPF WBC/HPF >182 (*) 0 - 5 HPF BACTERIA Many (*) Negative MUCOUS Marked (*) Negative LPF SQ EPITH 1 HPF WBC CLUMPS 31 (*) <=1 HPF HYAL CAST 4 (*) <=2 LPF CBC WITH DIFF - Abnormal WBC 12.03 (*) 4.30 - 11.10 10*3/?L RBC 4.22 3.93 - 5.25 10*6/?L HGB 13.0 11.6 - 15.0 g/dL HCT 41.1 35.7 - 45.2 % MCV 97.4 (*) 80.6 - 95.5 fL MCH 30.8 25.9 - 32.8 pg MCHC 31.6 31.6 - 35.1 g/dL RDW-SD 59.7 (*) 39.0 - 49.9 fL RDW-CV 16.7 (*) 12.0 - 15.5 % PLT 223 166 - 358 10*3/?L MPV 11.4 9.5 - 12.9 fL NRBC/100 WBC 0.0 0.0 - 10.0 /100 WBCs NRBC x10 3 <0.01 10*3/?L GRAN MAT (NEUT) % 53.1 % IMM GRAN % 0.60 % LYMPH % 32.9 % MONO % 10.2 % EOS % 2.8 % BASO % 0.4 % GRAN MAT x10 3 (ANC) 6.38 1.88 - 7.09 10*3/uL IMM GRAN x10 3 0.07 (*) 0.00 - 0.06 10*3/uL LYMPH x10 3 3.96 (*) 1.32 - 3.29 10*3/uL MONO x10 3 1.23 (*) 0.33 - 0.92 10*3/uL EOS x10 3 0.34 0.03 - 0.39 10*3/uL BASO x10 3 0.05 0.01 - 0.07 10*3/uL COMP. METABOLIC PANEL (53895) - Abnormal NA 139 135 - 145 mmol/L K 4.4 3.5 - 5.0 mmol/L CL 108 98 - 108 mmol/L CO2 TOTAL 26 23 - 31 mmol/L AGAP 5 2 - 16 BUN 27 (*) 7 - 23 mg/dL GLUCOSE 106 70 - 110 mg/dL CREATININE 1.41 (*) 0.50 - 1.04 mg/dL TOTAL BILI 1.4 (*) 0.1 - 1.1 mg/dL CALCIUM 8.8 8.6 - 10.6 mg/dL T PROTEIN 6.5 6.3 - 8.2 g/dL ALBUMIN 3.2 (*) 3.5 - 5.0 g/dL ALK PHOS 69 34 - 122 U/L ALTv 14 5 - 35 U/L AST(SGOT) 41 (*) 13 - 40 U/L eGFR 38.0 mL/min/1.73m2 LACTIC ACID WHOLE BLOOD - Abnormal LACTIC ACID 3.04 (*) 0.50 - 2.20 mmol/L LACTIC ACID WHOLE BLOOD - Abnormal LACTIC ACID 2.33 (*) 0.50 - 2.20 mmol/L URINE CULTURE EKG: If EKG completed, see Procedure Note. Orders and Treatments: Orders Placed This Encounter Procedures XR CHEST 1 VW Urinalysis Cbc with Diff Comp. Metabolic Panel (64752) Lactic Acid Whole Blood Lactic Acid Whole Blood Lactic Acid Whole Blood Urine Culture Lactic Acid Whole Blood Lactic Acid Whole Blood Basic Metabolic Panel (NA, K, CL, CO2, GLUCOSE, BUN, CREATININE, CA) Magnesium Cbc with Diff Consult Adult Physical Therapy Orders Placed This Encounter Medications piperacillin-tazobactam (ZOSYN) 3.375 g in NaCl 0.9% (NS) 100 mL MINI-BAG HYDROcodone-acetaminophen (NORCO) 10-325 mg tablet 1 tablet methocarbamoL (ROBAXIN) tablet 500 mg enoxaparin (LOVENOX) injection 40 mg acetaminophen (TYLENOL) tablet 650 mg aspirin chewable tablet 81 mg atorvastatin (LIPITOR) tablet 40 mg DISCONTD: celecoxib (CELEBREX) capsule 200 mg clopidogreL (PLAVIX) 75 mg tablet 75 mg DISCONTD: furosemide (LASIX) tablet 40 mg gabapentin (NEURONTIN) tablet 800 mg HYDROcodone-acetaminophen (NORCO) 10-325 mg tablet 1 tablet LORazepam (ATIVAN) tablet 0.5 mg metoprolol succinate XL (TOPROL XL) tablet 50 mg DISCONTD: ursodioL (ACTIGALL) capsule 300 mg cefTRIAXone (ROCEPHIN) 1,000 mg in NaCl 0.9% (NS) 100 mL MINI-BAG temazepam (RESTORIL) capsule 15 mg NaCl 0.9% (NS) bolus infusion 250 mL ondansetron (ZOFRAN (PF)) injection 4 mg First Provider Eval: ED Events Date/Time Event User Comments 12/27/23 1346 Medical Screening Begins WALE COREY -- 12/27/23 1346 First Provider Evaluation WALE COREY -- ED COURSE ED Course as of 12/28/232208Dec 27, 2023 1646 BACTERIA(!): Many [PS] 1646 WBC/HPF(!): >182 [PS] 1645 LEUK TOSIN(!): 250/uL [PS] ED Course User Index [PS] Wale Corey DO Diagnosis/Impression as of 12/28/232208 Dysuria Complicated UTI (urinary tract infection) Procedures: Procedures MDM: Medical Decision Making Kerry Samuel is a 78 year old female with complicated UTI. Failed OP tx. Lactic acidosis. Admitted for further evaluation and management. IVF and abx started. Problems Addressed: Complicated UTI (urinary tract infection): acute illness or injury Dysuria: acute illness or injury Amount and/or Complexity of Data Reviewed Labs: ordered. Decision-making details documented in ED Course. Radiology: ordered. Risk Prescription drug management. Flowsheet Documentation: Scoring Tools: No data recorded Disposition/Condition: ED Disposition ED Disposition Admit - Observation Condition -- Comment Treatment Team: [facility] [[id number]] Discharge Medications: Current Discharge Medication List STOP taking these medications HYDROcodone-acetaminophen 7.5-325 mg per tablet Comments: Reason for Stopping: LORazepam 0.5 mg tablet Comments: Reason for Stopping: metoprolol succinate XL 25 mg 24 hr tablet Comments: Reason for Stopping: atorvastatin 40 mg tablet Comments: Reason for Stopping: clopidogreL 75 mg tablet Comments: Reason for Stopping: CELECOXIB 200 mg capsule Comments: Reason for Stopping: furosemide 40 mg tablet Comments: Reason for Stopping: aspirin 81 mg chewable tablet Comments: Reason for Stopping: URSODIOL ORAL Comments: Reason for Stopping: gabapentin 800 mg tablet Comments: Reason for Stopping: mirabegron (MYRBETRIQ) 50 mg tablet Comments: Reason for Stopping: Follow-up: Electronically signed by: Wale Corey DO 12/28/232211 [facility] 2023-12-14 10:48:25 With patient's written consent, patient's granddaughter in law wanted to discuss patient's health history that she wasn't sure if it was discussed during today's appointment. She states patient had a heart attack in 07/2023. At that time patient was informed of abnormal blood count results but had checked herself out AMA. She did not follow up with her doctors after her heart attack. Around 09/2023 patient started to have falls at home so her grandson and have moved in with her and are now assisting with doctors appointments/medications. She states patient has some pain that she sees Dr. Bradley for. However, they are needing medical records. Advised they bo to sign a medical records release through Dr. Bradley's office if they are needing records of hospitalizations. IDEA Prado RN [facility] 2023-11-26 04:16:21 Pt given printed and verbal discharge instructions regarding fall, encouraged hydration, Discussed ibuprofen and to take with food to avoid GI distress. Pt verbalized understanding of instructions, pt awake alert oriented, resp reg unlabored, skin w/d, color appropriate for race, moves all ext well,pt encouraged to follow up with pcp Advised to seek medical attention for new/prolonged/worsening of symptoms No adverse reaction to meds given in ER noted upon discharge PIV d'cd, dressing to site, catheter in tact. Awake, alert oriented, resp reg unlabored, skin w/d, pt leaving on stretcher with [facility], in no apparent distress, IDEA Quesada RN [facility] 2023-11-26 01:15:00 Shannan care done-Purwick applied. Patient voided clear yellow urine. IDEA Hernandez RN [facility] 2023-11-26 00:56:38 Old bruising scattered across thighs, forearms. Patient states they are not from this fall. Patient takes plavix [employer] [facility] 2023-11-26 00:25:00 [facility] Emergency Department Note Patient Name: Kerry Samuel Date of : 1945 78 year old female Treatment Room: [place] [address] Primary Care Physician: PATIENT DOES NOT HAVE A PCP Patient Escorted by: Self [9] Mode of Arrival: EMS - [place] [[id number]] EMS Treatment Prior to ED Arrival: TRAFFIC LINE PAINTER treatment: None Travel and Exposure Screening: Symptoms Does patient have any of these symptoms?: (not recorded) Exposure Screening Has patient had contact with someone with a communicable disease in the last month?: (not recorded) Diseases exposed to:: (not recorded) Is Patient ?: (not recorded) Exposure Date: (not recorded) Chief Complaint: Chief Complaint Patient presents with Fall History of Present Illness: 78 y.o. female with morbid obesity, s/p fall this morning, now via EMS with c/o left knee and left hip pain. Patient reports initially able to walk on it all day, but increased left knee pain tonight, prompting EMS call. Patient also report being on Plavix and "an antibiotic for UTI." Past Medical History/Immunizations: Past Medical History: Diagnosis Date Fibromyalgia Osteoporosis Rheumatoid arthritis Spinal stenosis STEMI (ST elevation myocardial infarction) 07/26/2020 Tetanus received in last 5 years: Unknown Childhood immunizations: Up-to-date Allergies: Allergies Allergen Reactions Codeine Shortness of Breath Penicillin Rash Past Social History: Tobacco Use Never smoked or used smokeless tobacco. Past Surgical History: Past Surgical History: Procedure Laterality Date ENDOSCOPIC RETROGRADE CHOLANGIOPANCRETOGRAPHY N/A 03/31/2020 Surgeon: Jose Armando Wright MD; Location: Endoscopy ([facility]) OR Location [place] ANES NERVE MUSC TENDON FASCIA&BURSA KNEE&/POPLT Right STENT PLACEMENT (SHX) x3 Review of Systems: Review of Systems Constitutional: Negative for chills, diaphoresis, fatigue and fever. HENT: Negative. Eyes: Negative. Respiratory: Negative. Breasts: Negative. Cardiovascular: Negative. Gastrointestinal: Negative. Genitourinary: Negative. Musculoskeletal: Positive for arthralgias and myalgias. Left hip and left knee pain Skin: Negative. Neurological: Negative. Psychiatric/Behavioral: Negative. Endocrine: Endocrine negative Physical Exam: ED Triage Vitals [11/26/23 0016] Weight 115.2 kg (254 lb) Actual or estimated Estimated by patient/family report Height 1.6 m (5' 3") BP (!) 145/63 Pulse 75 Resp 20 Temp 36.8 ?C (98.3 ?F) Temp source Oral SpO2 97 % Measured on Room air Physical Exam Vitals and nursing note reviewed. Constitutional: General: She is not in acute distress. Appearance: Normal appearance. She is not ill-appearing, toxic-appearing or diaphoretic. HENT: Head: Normocephalic. Cardiovascular: Rate and Rhythm: Normal rate. Pulses: Normal pulses. Pulmonary: Effort: Pulmonary effort is normal. No respiratory distress. Abdominal: General: There is no distension. Palpations: Abdomen is soft. Tenderness: There is no abdominal tenderness. There is no guarding. Musculoskeletal: General: Swelling and tenderness present. No deformity or signs of injury. Right lower leg: No edema. Left lower leg: No edema. Comments: Multiple bruises at different stages noted, mild TTP over left hip and +painful ROM left knee. Skin: General: Skin is warm. Capillary Refill: Capillary refill takes less than 2 seconds. Neurological: General: No focal deficit present. Mental Status: She is alert. Psychiatric: Mood and Affect: Mood normal. Behavior: Behavior normal. Radiology: XR KNEE 3 VW LEFT Preliminary Result EXAM: XR KNEE 3 VW LEFT COMPARISON: Radiographs dated 08/28/2015. HISTORY: 78 years old Female with fall, left knee pain FINDINGS: Radiographs of the left knee demonstrate no acute fractures or dislocations. There is severe tricompartmental loss of joint space with [id number] appearance, subchondral sclerosis and marginal osteophytes. The soft tissues appear unremarkable. Osseous demineralization is seen. IMPRESSION No acute fracture or dislocation. Severe tricompartmental osteoarthrosis. Preliminary Report Dictated by Resident: Chapin Colon XR HIPS 3 VW LEFT Preliminary Result EXAM: XR HIPS 3 VW LEFT HISTORY: 78 years old Female with fall, left hip/pelvic pain COMPARISON: CT abdomen and pelvis dated 07/20/2023. FINDINGS: Radiographs of the left hip demonstrate no acute fractures or dislocations. Joint spaces are preserved. Alignment is within normal limits. The soft tissues are unremarkable. Diffuse osseous demineralization. Lumbosacral spine degenerative change. IMPRESSION No acute bony abnormality. Preliminary Report Dictated by Resident: Chapin Colon Lab Results: Lab Results CBC WITH DIFF - Abnormal Result Value Ref Range WBC 7.53 4.30 - 11.10 10*3/?L RBC 3.47 (*) 3.93 - 5.25 10*6/?L HGB 10.8 (*) 11.6 - 15.0 g/dL HCT 34.8 (*) 35.7 - 45.2 % MCV 100.3 (*) 80.6 - 95.5 fL MCH 31.1 25.9 - 32.8 pg MCHC 31.0 (*) 31.6 - 35.1 g/dL RDW-SD 62.4 (*) 39.0 - 49.9 fL RDW-CV 17.3 (*) 12.0 - 15.5 % PLT 148 (*) 166 - 358 10*3/?L MPV 10.0 9.5 - 12.9 fL NRBC/100 WBC 0.0 0.0 - 10.0 /100 WBCs NRBC x10 3 <0.01 10*3/?L GRAN MAT (NEUT) % 50.2 % IMM GRAN % 0.40 % LYMPH % 32.7 % MONO % 13.7 % EOS % 2.3 % BASO % 0.7 % GRAN MAT x10 3 (ANC) 3.79 1.88 - 7.09 10*3/uL IMM GRAN x10 3 0.03 0.00 - 0.06 10*3/uL LYMPH x10 3 2.46 1.32 - 3.29 10*3/uL MONO x10 3 1.03 (*) 0.33 - 0.92 10*3/uL EOS x10 3 0.17 0.03 - 0.39 10*3/uL BASO x10 3 0.05 0.01 - 0.07 10*3/uL BASIC METABOLIC PANEL (NA, K, CL, CO2, GLUCOSE, BUN, CREATININE, CA) - Abnormal NA 138 135 - 145 mmol/L K 5.1 (*) 3.5 - 5.0 mmol/L CL 111 (*) 98 - 108 mmol/L CO2 TOTAL 21 (*) 23 - 31 mmol/L AGAP 6 2 - 16 BUN 26 (*) 7 - 23 mg/dL GLUCOSE 85 70 - 110 mg/dL CREATININE 1.94 (*) 0.50 - 1.04 mg/dL CALCIUM 9.1 8.6 - 10.6 mg/dL eGFR 25.9 mL/min/1.73m2 EKG: If EKG completed, see Procedure Note. Orders and Treatments: Orders Placed This Encounter Procedures XR KNEE 3 VW LEFT XR HIPS 3 VW LEFT Cbc with Diff Basic Metabolic Panel (NA, K, CL, CO2, GLUCOSE, BUN, CREATININE, CA) Orders Placed This Encounter Medications acetaminophen (TYLENOL) tablet 650 mg First Provider Eval: ED Events None ED COURSE Diagnosis/Impression as of 11/26/23 0322 Fall, initial encounter Procedures: Procedures MDM: Medical Decision Making Amount and/or Complexity of Data Reviewed Labs: ordered. Radiology: ordered. Risk OTC drugs. A) Mechanical Fall-subacute(this morning at 0830), Contusions-Left Hip and Left Knee Disposition/Condition: Home, Fall Precautions, Tylenol as needed for pain ED Disposition None Discharge Medications: Patient's Medications START taking these medications No medications on file CONTINUE taking these medications which have NOT CHANGED ASPIRIN 81 MG CHEWABLE TABLET Take 1 tablet by mouth in the morning. ATORVASTATIN 40 MG TABLET Take 1 tablet by mouth at bedtime. CELECOXIB 200 MG CAPSULE TAKE ONE CAPSULE BY MOUTH IN THE MORNING CLOPIDOGREL 75 MG TABLET Take 1 tablet by mouth in the morning. FUROSEMIDE 40 MG TABLET Take 1 tablet by mouth in the morning. GABAPENTIN 800 MG TABLET Take 1 tablet by mouth in the morning. MIRABEGRON (MYRBETRIQ) 50 MG TABLET Take 1 tablet by mouth in the morning. URSODIOL ORAL Take by mouth. START taking Modified Medications as Prescribed No medications on file STOP taking these medications No medications on file Follow-up: PCP Electronically signed by: Josh Norwood MD 11/26/23 0322 [facility] 2023-11-26 00:18:23 Pt to ER via [place] [facility] from home with c/o fall this morning before 8AM after "bending down beside the toilet to get a maxi pad", family help patient up from the floor. Denies hitting head, denies LOC. Takes Plavix. C/O left hip and knee pain. IDEA Sneed RN [facility] 2023-11-16 13:46:01 Patient has a history of heart failure, CAD, and recent hospitalization in 10/2023. Attempted to contact patient to discuss reason for request to change to telehealth appointment. LVM advising her to return call to clinic. If patient is unable to make tomorrow's appointment, we can assist her to reschedule. ROCK DRILL OPERATOR Suzy Prado RN [facility] 2023-11-16 13:22:23 Kerry Samuel is a 78 year old female Patient is calling and asking if her appointment for tomorrow can be a telehealth appointment. Please call at [phone] [facility] 2023-07-29 12:47:16 Formatting of this n ote might be different from the original. Received call from patient regarding missing a medication.Stated that she could not find it after she arrived home. She had picked up her prescriptions but could not find that one. Plavix 90 day rx refilled. Sent to [place], [place] - [address] [facility] 2023-07-26 10:19:26 Formatting of this n ote is different from the original. TRANSITIONAL CARE MANAGEMENT ASSESSMENT 07/26/2023 Kerry Samuel [id number] Kerry Samuel is a 77 year old /White female was admitted on 07/20/[address] She was discharged on 07/24/23 with discharge disposition of HR- Routine Discharge. Admitting Physician: Selin Bales Discharge Diagnosis: NSTEMI Type I s/p PCI of LAD (07/21/23) Linked Episodes Type: Episode: Status: Noted: Resolved: Last update: Updated by: TRANSITION OF CARE TCM Active 07/24/2023 07/26/2023 9:56 AM Juancarlos Duncan RN Comments: TCM Ktd-rgms-br-face outreach documentation: Discharge Assessment Chart Assessed: 07/26/23 TCM Outreach Completed: 07/26/23 Do you have a few minutes to speak with me about how you are doing at home?: Yes ("If it's only a few questions, I'm expecting other calls". Pt states she is "still weak".) Discharge Instructions Do you understand your at-home instructions?: Yes (Denies questions.) Medications Have you filled your prescriptions and do you have them in your home? : See comments (Pt has not picked up yet. States she called [facility], and "they had never heard of me". Called pharmacy. Medications are ready to fruit picker.) Do you know how to take your medications?: Yes Supplies Did you receive applicable home medical supplies/equipment?: N/A Follow Up Appointment Has a follow up appointment been scheduled?: Yes (Pt states she has an outside PCP, but does not know her name.) Do you have any questions about your follow up appointments?: Yes (Reviewed appointment date, time and location. Provided clinic phone number to patient.) Are you able to get to your appointment? Who will be taking you?: Yes (Pt states she may be able to get a ride. Pt encouraged to call the clinic if assistance is needed.) Home Health Assistance Has the home health nurse contacted you since you've been home?: N/A Survey - Recognition Is there anything you would like to share about your recent hospitalization, or anyone you would like to recognize?: Yes (Pt states she had issues with nurse interactions and answering call light. Discussed Patient Services. Pt declined.) Future Appointments: Future Appointments Provider Department Dept Phone 08/05/2023 3:40 PM Bacilio Deleon MD [facility] [phone] 04/25/2024 11:00 AM Bacilio Deleon MD [facility] [phone] Your COVID 19 test results were negative. You may return to work or school when you are feeling better and have not had a fever for 24 hours or more without taking fever reducing medications, such as acetaminophen or ibuprofen. Juancarlos Duncan RN [facility] 2023-07-24 13:14:14 Formatting of this n ote might be different from the original. Problem: Procedure Routine Goal: Absence of post-procedure complications 07/24/20231313 by Shawn Collins RN Outcome: Adequate for discharge 07/24/2023 1054 by Shawn Collins RN Outcome: Progressing as expected Goal: Knowledge of procedure 07/24/20231313 by Shawn Collins RN Outcome: Adequate for discharge 07/24/2023 1054 by Shawn Collins RN Outcome: Progressing as expected Problem: Activity Intolerance Goal: Improved activity tolerance 07/24/20231313 by Shawn Collins RN Outcome: Adequate for discharge 07/24/2023 1054 by Shawn Collins RN Outcome: Progressing as expected Problem: Falls, Risk of Goal: Absence of falls 07/24/20231313 by Shawn Collins RN Outcome: Adequate for discharge 07/24/2023 1054 by Shawn Collins RN Outcome: Progressing as expected Problem: Discharge Planning Goal: Adequate for discharge 07/24/2023 131 by Shawn Collins RN Outcome: Adequate for discharge 07/24/2023 1054 by Shawn Collins RN Outcome: Progressing as expected Goal: Adequate to move to next level of care 07/24/2023 131 by Shawn Collins RN Outcome: Adequate for discharge 07/24/2023 1054 by Shawn Collins RN Outcome: Progressing as expected Problem: Discharge Planning Goal: Adequate for discharge 07/24/2023 1314 by Shawn Collins RN Outcome: Adequate for discharge 07/24/2023 1054 by Shawn Collins RN Outcome: Progressing as expected Goal: Effective communication 07/24/2023 1314 by Shawn Collins RN Outcome: Adequate for discharge 07/24/2023 1054 by Shawn Collins RN Outcome: Progressing as expected Shawn Collins RN [facility] 2023-07-24 06:58:00 Formatting of this n ote might be different from the original. Problem: Procedure Routine Goal: Absence of post-procedure complications Outcome: Progressing as expected Goal: Knowledge of procedure Outcome: Progressing as expected Problem: Activity Intolerance Goal: Improved activity tolerance Outcome: Progressing as expected Problem: Falls, Risk of Goal: Absence of falls Outcome: Progressing as expected Problem: Discharge Planning Goal: Adequate for discharge Outcome: Progressing as expected Goal: Adequate to move to next level of care Outcome: Progressing as expected Problem: Discharge Planning Goal: Adequate for discharge Outcome: Progressing as expected Goal: Effective communication Outcome: Progressing as expected T [facility] 2023-07-23 23:24:10 Formatting of this n ote might be different from the original. Problem: Procedure Routine Goal: Absence of post-procedure complications Outcome: Progressing as expected Goal: Knowledge of procedure Outcome: Progressing as expected Problem: Activity Intolerance Goal: Improved activity tolerance Outcome: Progressing as expected Problem: Falls, Risk of Goal: Absence of falls Outcome: Progressing as expected Problem: Discharge Planning Goal: Adequate for discharge Outcome: Progressing as expected Goal: Adequate to move to next level of care Outcome: Progressing as expected Problem: Discharge Planning Goal: Adequate for discharge Outcome: Progressing as expected Goal: Effective communication Outcome: Progressing as expected Mariana Raya RN [facility] 2023-07-23 12:59:51 Formatting of this n ote might be different from the original. O2 Saturation at REST on Room Air = % O2 Saturation at REST on LPM of Oxygen = % If room air Saturations on Room Air are 88% or below STOP as no further testing is needed EXERTION TEST O2 Saturation at Rest on Room Air = 97% O2 Saturation being Exerted on Room Air = 88% O2 Saturation being Exerted on LPM of Oxygen = % Cathie Babcock RN [facility] 2023-07-23 02:43:01 Formatting of this n ote might be different from the original. Problem: Procedure Routine Goal: Absence of post-procedure complications Outcome: Progressing as expected Goal: Knowledge of procedure Outcome: Progressing as expected Problem: Activity Intolerance Goal: Improved activity tolerance Outcome: Progressing as expected Problem: Falls, Risk of Goal: Absence of falls Outcome: Progressing as expected Problem: Discharge Planning Goal: Adequate for discharge Outcome: Progressing as expected Goal: Adequate to move to next level of care Outcome: Progressing as expected [facility] 2023-07-22 08:08:48 Formatting of this n ote might be different from the original. Problem: Procedure Routine Goal: Absence of post-procedure complications Outcome: Progressing as expected Goal: Knowledge of procedure Outcome: Progressing as expected Problem: Activity Intolerance Goal: Improved activity tolerance Outcome: Progressing as expected Problem: Falls, Risk of Goal: Absence of falls Outcome: Progressing as expected Problem: Discharge Planning Goal: Adequate for discharge Outcome: Progressing as expected Goal: Adequate to move to next level of care Outcome: Progressing as expected [facility] 2023-07-21 19:55:50 Formatting of this n ote might be different from the original. Problem: Procedure Routine Goal: Absence of post-procedure complications Outcome: Progressing as expected Problem: Activity Intolerance Goal: Improved activity tolerance Outcome: Progressing as expected Problem: Falls, Risk of Goal: Absence of falls Outcome: Progressing as expected Problem: Discharge Planning Goal: Adequate for discharge Outcome: Progressing as expected ong Campbell RN [facility] 2023-07-21 14:36:31 Formatting of this n ote might be different from the original. 1800 ambulation time, 1 stent to LAD, right groin site sheath pulled in laborer hoisting Mesha Staley RN [facility] 2023-07-21 08:02:13 Formatting of this n ote might be different from the original. Problem: Procedure Routine Goal: Knowledge of procedure Outcome: Progressing as expected Problem: Activity Intolerance Goal: Improved activity tolerance Outcome: Progressing as expected Problem: Falls, Risk of Goal: Absence of falls Outcome: Progressing as expected Problem: Discharge Planning Goal: Adequate for discharge Outcome: Progressing as expected Goal: Adequate to move to next level of care Outcome: Progressing as expected [facility] 2023-07-20 19:35:46 Formatting of this n ote might be different from the original. Patient transferred to [facility] for diagnosis of Chest pain and NSTEMI. Patient agrees to transfer, discussed plan of care with patient and family. Patient is awake, A&Ox 4, RR even and unlabored on RA. Color appropriate for race. PIV intact x 1. No adverse reaction to medications administered while in ED. Belongings with patient to unit. Yara Jorgensen RN [facility] 2023-07-20 19:10:00 Formatting of this n ote might be different from the original. Pt leaving ED, patient care transferred to EMS staff at this time. [facility] 2023-07-20 19:00:00 Formatting of this n ote might be different from the original. Unable to place second IV at this time. EMS attempting to place second line. [facility] 2023-07-20 18:53:07 Formatting of this n ote might be different from the original. [facility] arrived on scene to transport patient to [facility]. Pt report given to EMS staff at this time. [facility] 2023-07-20 18:32:49 Formatting of this n ote might be different from the original. Called [facility] ambulance @1832, new ETA is 25-[address] [facility] 2023-07-20 17:28:57 Formatting of this n ote might be different from the original. Nurse Report Report given to Evangelina FOSTER. Chief complaint, assessment findings, infusion verify and orders reviewed. Yara Jorgensen RN [facility] 2023-07-20 14:43:56 Formatting of this n ote might be different from the original. Patient mentions to Sathish HERMOSILLO that she does not want to stay and she would like to check out AMA. elementary vocal music teacher at bedside with provider talking to patient about risks of leaving AMA to see if patient changes her mind. Lucero Figueroa RN [facility] 2023-07-20 12:25:00 Formatting of this n ote is different from the original. Patient's name and verified with patient. Chief Complaint Patient presents with Chest Pain Patient brought by EMS, no acute distress while patient is on stretcher. On O2 via nasal cannula 2 LPM for comfort. Patient is conscious and alert, with normal/unlabored breathing, and normal color/tone for ethnicity -oriented to name, time, place, and situation. GCS 15. Patient reports she began feeling chest pain this morning ~0730hrs - pain radiates to mid upper back "between shoulder blades", per patient. Patient also complains of nausea with pain and shortness of breath. Patient denies recent illness, diarrhea, and vomiting. Past Medical History: Diagnosis Date Fibromyalgia Osteoporosis Rheumatoid arthritis Spinal stenosis STEMI (ST elevation myocardial infarction) 07/26/2020 Allergies to penicillin and codeine. Vitals obtained. Assessment performed. IV in place and patent. Placed on continuous spo2/cardiac monitoring, HR 78 Bed low and locked, secured with two rails, call light within reach. Belongings at bedside. Patient aware of plan of care. Lucero Figueroa RN [facility] 2023-07-20 12:23:31 Formatting of this n ote might be different from the original. Pt arrived via [place] [facility] with c/o chest pain that started this morning when she woke up. She received nirto x2 and asa 324mg by ems. Zee Marcus RN [facility] 2023-07-20 12:17:00 Formatting of this n ote is different from the original. EMERGENCY DEPARTMENT ENCOUNTER [facility] Patient Name: Kerry Samuel Date of : 1945 77 year old Exam Room:8/8 Primary Care Physician: PATIENT DOES NOT HAVE A PCP Pre- Hospital Patient Escorted by: Self [9] Mode of Arrival: EMS - [place] [47] EMS Treatment Prior to ED Arrival: SL nitro TRAFFIC LINE PAINTER treatment: Aspirin;NTG TRAFFIC LINE PAINTER treatment comments: see triage note ED Events Date/Time Event User Comments 07/20/23 1226 Medical Screening Begins GARFIELD BOWER MD -- 07/20/23 1226 First Provider Evaluation GARFIELD BOWER MD -- Chief Complaint Chief Complaint Patient presents with Chest Pain ED Triage Notes Zee Marcus RN 07/20/2023 12:25 Pt arrived via [place] [facility] with c/o chest pain that started this morning when she woke up. She received nirto x2 and asa 324mg by ems. HPI History provided by: Patient Chest Pain Pain location: Substernal area Pain quality: pressure Pain radiates to: Mid back Pain severity: Moderate Onset quality: Gradual Duration: 5 hours Timing: Constant Progression: Worsening Chronicity: New Relieved by: Nothing Worsened by: Nothing Ineffective treatments: Nitroglycerin Associated symptoms: diaphoresis and shortness of breath Associated symptoms: no abdominal pain, no cough, no dizziness, no fatigue, no fever, no headache, no nausea, no palpitations and no vomiting Risk factors: coronary artery disease and obesity Past Medical History / Immunizations Past Medical History: Diagnosis Date Fibromyalgia Osteoporosis Rheumatoid arthritis Spinal stenosis STEMI (ST elevation myocardial infarction) 07/26/2020 Tetanus received in last 5 years: No Childhood immunizations: Up-to-date Past Surgical History Past Surgical History: Procedure Laterality Date ENDOSCOPIC RETROGRADE CHOLANGIOPANCRETOGRAPHY N/A 03/31/2020 Surgeon: Jose Armando Wright MD; Location: Endoscopy ([facility]) OR Location [place] ANES NERVE MUSC TENDON FASCIA&BURSA KNEE&/POPLT Right STENT PLACEMENT (SHX) x3 Allergies Allergies Allergen Reactions Codeine Shortness of Breath Penicillin Rash Social History Tobacco Use Never smoked or used smokeless tobacco. Review of Systems Review of Systems Constitutional: Positive for diaphoresis. Negative for chills, fatigue, fever and unexpected weight change. HENT: Negative. Eyes: Negative. Negative for discharge and itching. Respiratory: Positive for shortness of breath. Negative for cough, chest tightness and wheezing. Cardiovascular: Positive for chest pain. Negative for palpitations. Gastrointestinal: Negative. Negative for abdominal distention, abdominal pain, nausea and vomiting. Genitourinary: Negative. Negative for dysuria, urgency, frequency and flank pain. Musculoskeletal: Negative. Skin: Negative. Negative for color change, pallor and wound. Neurological: Negative. Negative for dizziness, syncope, light-headedness and headaches. Psychiatric/Behavioral: Negative. Negative for agitation and behavioral problems. All other systems reviewed and are negative. Endocrine: Endocrine negative Physical Exam ED Triage Vitals [07/20/23 1224] Weight 122.5 kg (270 lb) Actual or estimated Estimated by patient/family report Height 1.6 m (5' 3") BP (!) 145/70 Pulse 77 Resp 18 Temp 36.7 ?C (98 ?F) Temp source Oral SpO2 98 % Measured on On oxygen Physical Exam Vitals reviewed. Constitutional: Appearance: She is well-developed. She is obese. HENT: Head: Normocephalic and atraumatic. Eyes: Conjunctiva/sclera: Conjunctivae normal. Cardiovascular: Rate and Rhythm: Normal rate and regular rhythm. Heart sounds: Normal heart sounds. Pulmonary: Effort: Pulmonary effort is normal. No respiratory distress. Breath sounds: Normal breath sounds. No stridor. No wheezing or rales. Abdominal: General: Bowel sounds are normal. There is no distension. Palpations: Abdomen is soft. Tenderness: There is no abdominal tenderness. There is no guarding or rebound. Musculoskeletal: General: Normal range of motion. Cervical back: Neck supple. Right lower leg: Edema present. Left lower leg: Edema present. Skin: General: Skin is warm and dry. Neurological: Mental Status: She is alert and oriented to person, place, and time. Cranial Nerves: No cranial nerve deficit. Sensory: No sensory deficit. Psychiatric: Behavior: Behavior normal. Thought Content: Thought content normal. Judgment: Judgment normal. Labs Lab Results CBC WITH DIFF - Abnormal Result Value Ref Range WBC 10.98 4.30 - 11.10 10*3/?L RBC 3.65 (*) 3.93 - 5.25 10*6/?L HGB 11.3 (*) 11.6 - 15.0 g/dL HCT 36.0 35.7 - 45.2 % MCV 98.6 (*) 80.6 - 95.5 fL MCH 31.0 25.9 - 32.8 pg MCHC 31.4 (*) 31.6 - 35.1 g/dL RDW-SD 53.0 (*) 39.0 - 49.9 fL RDW-CV 14.6 12.0 - 15.5 % PLT 201 166 - 358 10*3/?L MPV 9.9 9.5 - 12.9 fL NRBC/100 WBC 0.0 0.0 - 10.0 /100 WBCs NRBC x10^3 <0.01 10*3/?L GRAN MAT (NEUT) % 96.6 % IMM GRAN % 0.30 % LYMPH % 1.7 % MONO % 1.1 % EOS % 0.1 % BASO % 0.2 % GRAN MAT x10^3(ANC) 10.61 (*) 1.88 - 7.09 10*3/uL IMM GRAN x10^3 0.03 0.00 - 0.06 10*3/uL LYMPH x10^3 0.19 (*) 1.32 - 3.29 10*3/uL MONO x10^3 0.12 (*) 0.33 - 0.92 10*3/uL EOS x10^3 <0.03 (*) 0.03 - 0.39 10*3/uL BASO x10^3 <0.03 0.01 - 0.07 10*3/uL BANDS Increased (*) TOXIC CHANGES Present (*) COMP. METABOLIC PANEL (43022) - Abnormal NA 138 135 - 145 mmol/L K 4.2 3.5 - 5.0 mmol/L CL 104 98 - 108 mmol/L CO2 TOTAL 29 23 - 31 mmol/L AGAP 5 2 - 16 BUN 24 (*) 7 - 23 mg/dL GLUCOSE 127 (*) 70 - 110 mg/dL CREATININE 1.30 (*) 0.50 - 1.04 mg/dL TOTAL BILI 0.8 0.1 - 1.1 mg/dL CALCIUM 8.8 8.6 - 10.6 mg/dL T PROTEIN 6.4 6.3 - 8.2 g/dL ALBUMIN 3.3 (*) 3.5 - 5.0 g/dL ALK PHOS 106 34 - 122 U/L ALTv 25 5 - 35 U/L AST(SGOT) 107 (*) 13 - 40 U/L eGFR 39.6 mL/min/1.73m2 N-TERMINAL PRO-BNP - Abnormal NT-proBNP 17,600 (*) <=125 pg/mL TROPONIN I - Abnormal TROPONIN I 0.042 (*) <=0.034 ng/mL PROTHROMBIN TIME / INR - Normal PROTIME PATIENT 13.2 12.0 - 14.7 Seconds INR 1.1 ACTIVATED PARTIAL THRMPLAS VILMA - Normal APTT Patient 25 23 - 38 Seconds LIPASE - Normal LIPASE 37 0 - 220 U/L COVID-19 (ID NOW RAPID TESTING) - Normal SARS-CoV-2 Rapid ID NOW Not Detected Not Detected TROPONIN I Imaging CT ABDOMEN PELVIS W CONTRAST Final Result ORDERING PHYSICIAN: GARFIELD BOWER HISTORY: Acute aortic syndrome (AAS) suspected TECHNIQUE: CT angiography chest, abdomen and pelvis with intravenous contrast. Maximum intensity projections (MIPS) were performed for CTA.. This examination was performed according to ALARA principles. CT ANGIOGRAM CHEST, CT ABDOMEN PELVIS W CONTRAST COMPARISON: None. FINDINGS: Visualized lower neck: Within normal limits. Mediastinum: No lymphadenopathy, cardiomegaly, or pericardial effusion. Coronary artery calcification is present. Vascular: Aorta is within normal limits. No aortic dissection. No filling defects in the pulmonary arteries. Pulmonary arteries are dilated compatible with pulmonary artery hypertension Lungs and pleura: No consolidation, pleural effusion, or pneumothorax. Bones: No acute abnormality. Abdomen and pelvis: Liver is normal in size. There is pneumobilia evident in the setting of prior cholecystectomy. Findings likely relate to prior biliary intervention such as a sphincterotomy. Spleen is normal in size. The pancreas is grossly unremarkable. Adrenal glands are unremarkable. Kidneys are normal in size without hydronephrosis. The urinary bladder is grossly normal. Uterus is surgically absent. No evidence of acute colitis or intestinal obstruction. Hiatal hernia is present. The aorta is normal in caliber. No aortic dissection. Old appearing fracture of the L3 superior endplate is noted. IMPRESSION No evidence of aortic dissection. Pneumobilia. This is presumably related to prior cholecystectomy. End of Report ANGIOGRAM CHEST Final Result ORDERING PHYSICIAN: GARFIELD BOWER HISTORY: Acute aortic syndrome (AAS) suspected TECHNIQUE: CT angiography chest, abdomen and pelvis with intravenous contrast. Maximum intensity projections (MIPS) were performed for CTA.. This examination was performed according to ALARA principles. CT ANGIOGRAM CHEST, CT ABDOMEN PELVIS W CONTRAST COMPARISON: None. FINDINGS: Visualized lower neck: Within normal limits. Mediastinum: No lymphadenopathy, cardiomegaly, or pericardial effusion. Coronary artery calcification is present. Vascular: Aorta is within normal limits. No aortic dissection. No filling defects in the pulmonary arteries. Pulmonary arteries are dilated compatible with pulmonary artery hypertension Lungs and pleura: No consolidation, pleural effusion, or pneumothorax. Bones: No acute abnormality. Abdomen and pelvis: Liver is normal in size. There is pneumobilia evident in the setting of prior cholecystectomy. Findings likely relate to prior biliary intervention such as a sphincterotomy. Spleen is normal in size. The pancreas is grossly unremarkable. Adrenal glands are unremarkable. Kidneys are normal in size without hydronephrosis. The urinary bladder is grossly normal. Uterus is surgically absent. No evidence of acute colitis or intestinal obstruction. Hiatal hernia is present. The aorta is normal in caliber. No aortic dissection. Old appearing fracture of the L3 superior endplate is noted. IMPRESSION No evidence of aortic dissection. Pneumobilia. This is presumably related to prior cholecystectomy. End of Report CHEST 1 VW Final Result Indication: chest pain Comparison: None RL: [id number] ORDERING PHYSICIAN: GARFIELD BOWER TECHNIQUE: Single view of the chest. FINDINGS: There are interstitial opacities throughout both lungs. There is elevation of the right hemidiaphragm. Cardiomediastinal silhouette is within normal limits. No pneumothorax. The bony structures are intact. IMPRESSION 1. Interstitial opacities throughout both lungs could be related to pulmonary edema versus atypical pneumonia. Orders and Treatments Orders Placed This Encounter Procedures XR CHEST [address] ABDOMEN PELVIS W CONTRAST CBC WITH DIFF PROTHROMBIN TIME / INR ACTIVATED PARTIAL THRMPLAS VILMA COMP. METABOLIC PANEL (94370) LIPASE N-TERMINAL PRO-BNP TROPONIN I COVID-19 (ID NOW TESTING) LAB ONLY COVID INTERPRETATION TROPONIN I Orders Placed This Encounter Medications FENTanyl PF (SUBLIMAZE (PF)) injection 75 mcg ondansetron (ZOFRAN (PF)) injection 4 mg HEPARIN SODIUM (PORCINE) 1,000 UNIT/ML BOLUS ACS ORDER SET heparin (1,000 unit/mL, 10 mL vial) for Rebolusing heparin 25,000 Units/250 mL (Premixed Bag) in 0.45 % NS iopamidol (ISOVUE 370-500 mL) injection 80 mL FENTanyl PF (SUBLIMAZE (PF)) injection 12.5 mcg Procedures EKG Time 1221 Rate 77 Normal sinus [place] normal Intervals normal ST T wave changes in lateral leads PVC's Abnormal EKG Notes & MDM Patient was evaluated for an emergency medical condition related to Chest Pain . History and/or review of systems is limited by:History limited: None. ED Course as of 07/20/231855Jul 20, 2023 1549 D [DN] 1522 Transfer initiated with PPC [DN] ED Course User Index [DN] Garfield Bower MD Diagnosis/Impression as of 07/20/231855 Chest pain, unspecified type NSTEMI (non-ST elevated myocardial infarction) Medical Decision Making Problems Addressed: Chest pain, unspecified type: acute illness or injury NSTEMI (non-ST elevated myocardial infarction): acute illness or injury Amount and/or Complexity of Data Reviewed Labs: ordered. Decision-making details documented in ED Course. Radiology: ordered and independent interpretation performed. ECG/medicine tests: ordered and independent interpretation performed. Risk Prescription drug management. Parenteral controlled substances. Limitations to patient care and compliance: none. Assessment/Summary: The patient is a 77-year-old female who presents for chest pressure that radiates to her back. She has history of obesity and coronary disease. The patient also has two coronary stents. EKG does not demonstrate a STEMI. She does have multiple PVCs on EKG. The patient's chest pain was not relieved by nitro. She was given narcotics with some improvement of her symptoms. CT of the chest did not demonstrate any dissection. She was given aspirin during EMS transport to the ED. The patient was started on a heparin bolus and drip. Troponin was elevated at 0.042 chemistry studies demonstrated a creatinine 1.3 otherwise labs are within acceptable range. Hematological studies did demonstrated the patient have a bandemia but a normal white count. Patient was excepted by cardiology in [place]. She was transferred in stable condition. History, physical exam findings, results of visit, differential diagnosis, medication regimens and plan of future care have been considered. Additional MDM may be found in the ED course. Differential diagnosis considered and final disposition made based on information gathered during evaluation and may not be completely ruled out or specifically listed. Vital signs were rechecked before final disposition. Diagnosis Final diagnoses: [R07.9] Chest pain, unspecified type (Primary) [I21.4] NSTEMI (non-ST elevated myocardial infarction) Disposition & Follow Up ED Disposition None Patient's Medications START taking these medications No medications on file CONTINUE taking these medications which have NOT CHANGED ASPIRIN 81 MG CHEWABLE TABLET Take 1 tablet by mouth in the morning. CELECOXIB (CELEBREX) 200 MG CAPSULE Take 1 capsule by mouth in the morning for 90 days. CLOPIDOGREL 75 MG TABLET Take 1 tablet by mouth in the morning. FUROSEMIDE 20 MG TABLET 40 mg daily as needed for leg swelling GABAPENTIN 800 MG TABLET Take 1 tablet by mouth daily. LORAZEPAM 1 MG TABLET Take 1 mg by mouth. MIRABEGRON (MYRBETRIQ) 50 MG TABLET Take 1 tablet by mouth daily. OMEPRAZOLE, BULK, MISC 40 tablets 2 (two) times daily. URSODIOL ORAL Take by mouth. ZOLPIDEM (AMBIEN CR) 12.5 MG CR TABLET Take 12.5 mg by mouth at bedtime as needed for Sleep. START taking Modified Medications as Prescribed No medications on file STOP taking these medications No medications on file Future Appointments In 2 weeks Bacilio Deleon MD [facility], [facility] In 9 months Bacilio Deleon MD [facility], [facility] Garfield Bower Jr., MD Clinical Garnisher [facility] Emergency Department [employer] is used frequently and may produce errors. Promptly contact for obvious discrepancies. Garfield Bower MD 07/20/23 1909 [facility] 2023-07-20 12:17:00 Associated Order(s): Critical Care Critical Care Performed by: Garfield Bower MD Authorized by: Garfield Bower MD Critical care provider statement: Critical care time (minutes): 45 Critical care time was exclusive of: Separately billable procedures and treating other patients and teaching time Critical care was necessary to treat or prevent imminent or life-threatening deterioration of the following conditions: Cardiac failure Critical care was time spent personally by me on the following activities: Development of treatment plan with patient or surrogate, evaluation of patient's response to treatment, examination of patient, obtaining history from patient or surrogate, ordering and performing treatments and interventions, ordering and review of laboratory studies, ordering and review of radiographic studies, pulse oximetry, re-evaluation of patient's condition and review of old charts Care discussed with: admitting provider Comments: Due to a high probability of clinically significant, life threatening deterioration, the patient required my highest level of preparedness to intervene emergently and I personally spent this critical care time directly and personally managing the patient. This critical care time included obtaining a history; examining the patient; pulse oximetry; ordering and review of studies; arranging urgent treatment with development of a management plan; evaluation of patient's response to treatment; frequent reassessment; and, discussions with other providers. This critical care time was performed to assess and manage the high probability of imminent, life-threatening deterioration that could result in multi-organ failure. It was exclusive of separately billable procedures and treating other patients. [facility] 2023-07-07 11:00:12 Formatting of this n ote might be different from the original. Images from the original note were not included. Results and recommendations shared with Ms Jimmie Bacilio Deleon MD P Cardiology Nurse Echocardiogram showed severely reduced ejection fraction and severe pulmonary hypertension. Please make a follow-up appointment to discuss heart cath and heart failure medications. Patient has multiple questions, agrees to follow up visit with Dr Deleon to discuss options Routed to [facility] for scheduling Melina Dorsey RN [facility] 2023-06-28 08:12:13 Formatting of this n ote might be different from the original. Contacted patient and scheduled her for 07/06/2023. Mitra Contreras [facility] 2023-06-27 22:36:35 Formatting of this n ote might be different from the original. Ordered [facility] 2023-06-27 09:49:34 Formatting of this n ote might be different from the original. Patient had an order for an echo but it has . She would like to reschedule it but we would need new orders. Please advise. [facility] 2023-04-25 14:00:00 Addended by: BACILIO DELEON MD on: 06/27/2023 10:36 PM Modules accepted: Orders [facility] 2019-11-26 07:32:00 [id number] [place] [address] PATIENT NAME: KERRY SAMUEL ADMIT DATE: 11/23/19 ACCOUNT NO: [id number] ROOM NO: AGE: 74 REPORT TYPE: OPERATIVE REPORT SEX: F ADMITTING PHYSICIAN: ATTENDING PHYSICIAN: Praveena Garcia MD OPERATION DATE: 11/23/2019 PREOPERATIVE DIAGNOSIS: PROCEDURES: 1. ERCP. 2. Stent removal. 3. Dilation of the papilla. 4. Extension of the papillotomy for stone removal. 5. Multiple stone removal. 6. Intraoperative supervision and interpretation of biliary x-ray fluoroscopy, total fluoroscopic time 55 seconds. SURGEON: Praveena Garcia MD SCOW HAND: ANESTHESIA: Administered by department of anesthesia. INDICATION: Preop severe complicated choledocholithiasis, suspected retained stone, stent in situ. COMPLEXITY: Very complex procedure by very nature. TOLERANCE TO ANESTHESIA: Excellent POSTOPERATIVE DIAGNOSES: Gastric retention, gastroparesis, possible esophageal stenosis. PROCEDURE IN DETAIL: Procedure, possible complication, alternatives including but not limited to possibility of very high risk due to patient's body habitus, 5-50% incidence of acute pancreatitis related to the procedure itself, bleeding, tear perforation, infection, sepsis, need for surgery, need for blood transfusion, and anesthesia related complications including but not limited to rare fatalities all explained to the patient and informed consent obtained. Due to severe obesity and comorbid condition, the patient could not be positioned in the appropriate position of ERCP. Therefore, this procedure was done in partial left lateral position. After appropriate level of anesthesia, scope was passed. Esophageal and gastric mucosa is not visualized properly due to side view nature of the scope; however, PATIENT NAME: KERRY SAMUEL she possibly has an esophageal stenosis along with hiatal hernia and gastroparesis with significant gastric retention. This, additionally, limited the visualization in addition to natural limitation of side view ERCP scope. Duodenal bulb, duodenal angle, and duodenal part 2 appeared to be within normal range and in the duodenal part 2, the old stent was noted, which is probably blocked. This was removed with a snare. After this, selective cannulation was obtained. Common bile duct and common hepatic duct was still dilated with multiple filling defect. Intrahepatic ducts have reduced in diameter compared within the past. Drainage was minimal. At this time, deep cannulation was obtained with the help of a guidewire and papillotomy was extended considering more retained stone. This was further dilated; after this balloon was used and with serial balloon passage multiple stone and fragments were removed. At this time, good bile drainage noted. Having done the above procedure in safe, diligent, and satisfactory manner, endoscope and rest of the endoscopic accessories were removed. The patient's oropharyngeal area cleaned out in respectful manner. The patient has been sent in excellent condition to postop recovery, from there to home. IMPRESSION: Severe complicated choledocholithiasis post-stent removal, post-dilation, post-papillotomy extension. COMPLICATIONS: None immediately. The patient tolerated the procedure well. DISPOSITION: As above. Future plan followup in office in 2 weeks. Continue on Sergo, low residue diet due to possible gastroparesis. RECOMMENDATIONS: Future EGD will be considered given above. Dictated By: Praveena Garcia MD WT: OP:L.CHEVY/RAMIREZ/NTS Conf#: [id number]/DID#: [id number] Authenticated by Praveena Garcia MD On 11/29/2019 07:28:29 AM at 0728 PATIENT NAME: KERRY SAMUEL [facility] 2019-11-23 08:49:00 [facility] ([facility]) Post Anesthesia Evaluation REPORT#:[id number] REPORT STATUS: Signed DATE:11/23/19 TIME:0849 PATIENT: KERRY SAMUEL UNIT #: [id number] ROOM/BED: : 44 AGE: 74 SEX: F ATTEND: Praveena Garcia MD ADM AUTHOR: Carmela Mccoy CRNA * ALL edits or amendments must be made on the electronic/computer document * Post Anesthesia Evaluation Anes. changes from pre-op eval ORM Surgeries: Surgery Date and Time: 11/23/2019 0700 Primary Procedure: ENDO RETROGRADE CHOLANGIOPANCREATOGRAPHY Anesthetic: TIVA Date: 11/23/19 Level of consciousness: no change, patient awake, able to answer questions, participate in this eval. Vital signs: Vital Signs: Date Time Temp Pulse Resp B/P B/P Pulse O2 O2 Flow FiO2 Mean Ox Delivery Rate 11/23 814 36.2 63 19 131/62 93 Room air 11/23 809 36.2 62 19 159/67 92 Room air 11/23 807 36.2 70 18 137/62 96 Room air 01/10 0800 63 15 140/62 Room air 11/23 0755 65 24 139/74 Room air 11/23 0750 Nasal 2.657962 cannula 11/23 0750 36.3 66 15 Nasal 2.733687 cannula 11/23 0618 36.2 88 18 138/88 98 Room air Cardiovascular: no change, CV system stable, vital signs stable Respiratory/Airway: respiratory system stable, maintains without support Pain: adequately controlled Hydration: adequate Temp status: normothermic Presence of N/V: no Anesthesia complications: no Other changes requiring f/u: none Conclusions: no apparent anes. issues at 0850 RPT #: [id number] END OF REPORT [facility] 2019-07-10 15:28:00 [facility] ([facility]) Post Anesthesia Evaluation REPORT#:[id number] REPORT STATUS: Signed DATE:07/10/19 TIME:152 PATIENT: KERRY SAMUEL UNIT #: [id number] ROOM/BED: : 44 AGE: 73 SEX: F ATTEND: Praveena Garcia MD ADM AUTHOR: Sujatha Patricia CRNA * ALL edits or amendments must be made on the electronic/computer document * Post Anesthesia Evaluation Anes. changes from pre-op eval Level of consciousness: patient awake Vital signs: Last Documented: Result Date Time Pulse Ox 100 07/10 1424 B/P 157/68 07/10 1424 O2 Delivery Room air 07/10 1424 Temp 36.2 07/10 1424 Pulse 63 07/10 1424 Resp 15 07/10 1424 O2 Flow Rate 3.227715 07/10 1417 BP: [ ] HR: [ ] bpm RR: [ ] / min SP02: [ ] % Respiratory/Airway: maintains without support Pain: adequately controlled Hydration: euvolemic Presence of N/V: no Anesthesia complications: no Other changes requiring f/u: none Conclusions: no apparent anes. issues at 1529 RPT #: [id number] END OF REPORT [facility] 2019-07-10 14:02:00 [id number] [facility] [id number] [place] [id number] PATIENT NAME: KERRY SAMUEL ADMIT DATE: 07/10/19 ACCOUNT NO: [id number] ROOM NO: AGE: 73 REPORT TYPE: OPERATIVE REPORT SEX: F ADMITTING PHYSICIAN: ATTENDING PHYSICIAN: Praveena Garcia MD OPERATION DATE: 07/10/2019 PREOPERATIVE DIAGNOSIS: POSTOPERATIVE DIAGNOSIS: PROCEDURES: 1. ERCP. 2. Extension of papillotomy. 3. Dilation of the papilla. 4. Spyglass direct cholangioscopy. 5. Destruction of stone. 6. Removal of stone by using balloon method. 7. Stent placement 8.5-Spanish 5 cm long. 8. Intraoperative supervision and interpretation of biliary x-ray fluoroscopy. Total fluoroscopic time 1.42 minutes. 9. Anesthesia by department of anesthesia. SURGEON: Praveena Garcia M.D. SCOW HAND: ANESTHESIA: INDICATIONS: 1. Retained and difficult biliary stone. 2. Abnormal papilla. COMPLEXITY: Very complex procedure by nature. PROCEDURE IN DETAIL: Procedure, possible complication, alternatives including 5% to 50% incidence of acute pancreatitis related to procedure itself, bleeding, tear, perforation, infection, sepsis, need for surgery, need for blood transfusion, anesthesia related problem including rare fatality and specifically high risk of all of the above due to patient's body habitus, which leads to lack of positioning and comorbidities were all explained to the patient. She was willing to take the risk. After the patient was placed in left lateral position because she cannot be placed into the left prone position because of her body habitus, side view ERCP scope was passed. Esophageal and gastric mucosa was not visualized properly due to side view of the scope; however, she does have a large hiatal hernia that also makes the procedure difficult. Duodenum mucosa was also redundant and papilla could never be brought enface. At first existing PATIENT NAME: KERRY SAMUEL stent was removed. Injection was achieved. Bile duct diameter of less than before, however, multiple filling defects consistent with stone was noted. At this time, papillotomy extension was done and further extension was done by dilation with a biliary balloon from the biliary side. After this wire was cannulated, SpyGlass cholangioscopy was inserted. After this, multiple stone was located. The largest stone was broken down by using electrohydraulic lithotripsy. After this device was removed and balloon was used and pieces were removed. Due to her difficult anatomy and difficult procedure to ensure biliary drainage and to reduce the risk of cholangitis, a stent was replaced 8.5-Spanish 5 cm leading to very good return and immediate decompression. Having done the above procedure in safe, diligent, and satisfactory manner, rest of the endoscopic accessories were removed. The patient's oropharyngeal area cleaned out in respectful manner. The patient has been sent in excellent condition to postoperative recovery, from there to home. IMPRESSION: Severe choledocholithiasis, difficult anatomy as dictated above. Post-cholangioscopy and see the above procedure. COMPLICATIONS: None. The patient tolerated the procedure well. DISPOSITION: As above. Total fluoroscopic time used 1.42 minutes. Dictated By: Praveena Garcia MD WT: OP:LLESVIA/RAMIREZ/OMID Conf#: [id number]/DID#: [id number] Authenticated by Praveena Garcia MD On 07/11/2019 07:58:34 AM at 0758 PATIENT NAME: KERRY SAMUEL [facility] 2019-06-14 10:04:00 [id number] [address] PATIENT NAME: KERRY SAMUEL ADMIT DATE: 06/14/19 ACCOUNT NO: [id number] ROOM NO: AGE: 73 REPORT TYPE: OPERATIVE REPORT SEX: F ADMITTING PHYSICIAN: ATTENDING PHYSICIAN: Praveena Garcia MD OPERATION DATE: 06/14/2019 PROCEDURES: 1. ERCP. 2. Papillotomy of the pancreatic sphincter. 3. Papillotomy of the biliary sphincter. 4. Stent placement 8.5-Spanish 5 cm. 5. Intraoperative supervision and interpretation of biliary/pancreatic x-ray. PREOPERATIVE DIAGNOSIS: POSTOPERATIVE DIAGNOSIS: SURGEON: SCOW HAND: FLUOROSCOPY: Total fluoroscopic time 1.35 minutes. INDICATION: 1. Dilated biliary tree. 2. Biliary colic. ANESTHESIA: By department of anesthesia. PROCEDURE IN DETAIL: The patient's body habitus was very detrimental to proper positioning. Therefore, in her case left prone position could not be positioned and we had to accept this limitation. She was in left lateral position. After appropriate level of anesthesia, scope was passed. Esophageal and gastric mucosa was not visualized due to side view nature of the scope; however, in the limited visualization there appeared to be some gastritis. Duodenal bulb, duodenal angle, and duodenal part two was also quite redundant. The folds appeared to be quite redundant and the papilla was hidden under redundant fold. This was exposed; however, could never be brought enface. With this limitation cannulation was attempted. Precut papillotomy was done both the pancreatic and biliary sphincter area from the best judgment after this cannulation could be made. Distal part of the pancreas appeared to be within normal range. At this time, the cannula got dislodged. Therefore, consultation was given on selective cannulation of the bile duct and was obtained. The distal area of the common bile duct showed 3 to 4 mm filling defect consistent with stone. Bile duct and common hepatic duct was borderline dilated. The contour was smooth. Intrahepatic ducts appeared to be within normal range. Drainage was PATIENT NAME: KERRY SAMUEL nonexistent. As a result using a regular papillotome, papillotomy was enlarged. However, due to her body habitus and anatomy she is a very risky patient. She needed a lot bigger papillotomy that I do not feel comfortable at this time to make it in one attempt. Instead of that to overcome the blockage an 8.5-Spanish 5 cm stent was placed. Good drainage was noted immediately with decompression. She will be put on Sergo, hopefully this will reduce the stone and SpyGlass cholangioscopy also will be arranged during that time to break up the stone. Having done the above procedure in this risky patient without any problem up until this point, endoscope and rest of the endoscopic accessories were removed. The patient's oropharyngeal area cleaned out in respectful manner. The patient has been sent in excellent condition to postop recovery, from there to home. IMPRESSION: Choledocholithiasis, abnormal anatomy, and abnormal body habitus as elaborated above. COMPLICATIONS: None. The patient tolerated the procedure well. DISPOSITION: As above. Follow up in GI office in 1 to 2 weeks. Dictated By: Praveena Garcia MD WT: OP:LLESVIA/RAMIREZ/NTS Conf#: [id number]/DID#: [id number] Authenticated by Praveena Garcia MD On 06/17/2019 09:36:31 AM at 0936 PATIENT NAME: KERRY SAMUEL [facility] 2019-06-14 08:37:00 [facility] ([facility]) Post Anesthesia Evaluation REPORT#:[id number] REPORT STATUS: Signed DATE:06/14/19 TIME:836 PATIENT: KERRY SAMUEL UNIT #: [id number] ROOM/BED: : 44 AGE: 73 SEX: F ATTEND: Praveena Garcia MD [facility] AUTHOR: Carmela Mccoy CRNA * ALL edits or amendments must be made on the electronic/computer document * Post Anesthesia Evaluation Anes. changes from pre-op eval ORM Surgeries: Surgery Date and Time: 06/14/2019 0730 Proposed Primary Procedure: ENDO RETROGRADE CHOLANGIOPANCREATOGRAPHY Anesthetic: TIVA Date: 06/14/19 Level of consciousness: no change, patient awake, able to answer questions, participate in this eval. Vital signs: Vital Signs: Date Time Temp Pulse Resp B/P B/P Pulse O2 O2 Flow FiO2 Mean Ox Delivery Rate 06/14 0831 60 14 112/68 99 06/14 0829 36.7 81 12 113/55 100 Nasal 2.547603 cannula 06/14 617 36.6 53 18 193/88 99 Room air 0.538442 Cardiovascular: no change, CV system stable, vital signs stable Respiratory/Airway: respiratory system stable, maintains without support Pain: adequately controlled Hydration: adequate Temp status: normothermic Presence of N/V: no Anesthesia complications: no Other changes requiring f/u: none Conclusions: no apparent anes. issues at 0838 RPT #: [id number] END OF REPORT [facility]
[2025-03-27 15:51] LABS: Absolute Basophils 0.3 K/uL (0-0.5); Absolute Lymphocytes (CBC) 4.9 K/uL (0.7-4.9); Absolute Neutrophil 7.6 K/uL (1.8-8.0); Eosinophils % 0.3 % (0-4.4); Hematocrit 40.4 % (36.0-45.0); Hemoglobin 13.3 g/dL (12.0-15.0); Lymphocytes % 35.5 % (15.3-44.8); MCH 33.3 pg (27.0-35.0); MCHC 32.9 g/dL (32.0-36.0); MCV 101.1 fL (80-100); MPV 7.4 fL (7.6-11.3); Monocytes % 7.5 % (3.3-12.3); Neutrophils % 54.7 % (41.7-73.7); Nucleated Red Blood Cells % 0.1 % (0-0); Platelets 302 thou/uL (152-406); Red Cell Distribution Width 14.1 % (12.1-15.2)
--- NOTE | 2025-03-27 16:24 | RAD REPORT ---
EXAMINATION: ONE VIEW CHEST XR CLINICAL INDICATION: Female, 79 years old.,COUGH TECHNIQUE: Frontal chest projection is submitted. Examination is limited by patient positioning and t echnique. COMPARISON: 08/23/2016 FINDINGS: The lungs are well inflated and clear. Elevation of the right hemidiaphragm again seen. No pneumotho rax or sizable effusion. The heart is normal in size. Mediastinal contours are unremarkable. IMPRESSION: No acute intrathoracic abnormalities.
[2025-03-27] MEDS ORDERED: CEFTRIAXONE 1000 MG/VIAL ONE (17:15)
[2025-03-27] MEDS ORDERED: AZITHROMYCIN 500 MG INJ IVPB ONE (17:16)
[2025-03-27] MEDS ORDERED: NA CHLORIDE 0.9% 500 ML ONE (17:16)
[2025-03-27 17:31] LABS: Specific Gravity 1.014 (1.005-1.030); Urine Bilirubin NEGATIVE (Negative); Urine Blood Negative (Negative); Urine Clarity Clear (Clear); Urine Color Light-Yellow (Yellow); Urine Glucose NEGATIVE (Negative); Urine Ketones NEGATIVE (Negative); Urine Microscopic Reflex YN NO UMIC; Urine Nitrite NEGATIVE (Negative); Urine Protein NEGATIVE (Negative); Urine Urobilinogen Normal (Normal); Urine pH 5.5 (5.0-7.0)
[2025-03-27] MEDS ORDERED: ONDANSETRON 4 MG/2 ML VIAL ONE (17:42)
[2025-03-27] MEDS ORDERED: MORPHINE 2 MG/ML SYR ONE (17:42)
[2025-03-27 17:51] LABS: ALT/SGPT < 14 U/L (13-56); AST/SGOT 11 U/L (15-37); Albumin/Globulin Ratio 0.8 (1.1-1.8); Alkaline Phosphatase 73 U/L (45-117); Anion Gap 11.1 mEq/L (5.0-15.0); BUN Blood Urea Nitrogen 18 mg/dL (7-18); Bicarbonate 23 mEq/L (21-32); Bilirubin Direct < 0.2 mg/dL (0-0.2); Bilirubin Indirect, Calculated 0.2 mg/dL (0.2-0.8); Bilirubin Total 0.4 mg/dL (0.2-1.0); Globulin 3.8 g/dL (2.3-3.5); Glomerular Filtration Rate 28 ml/min (=/>90); Glucose Level 101 mg/dL (74-106); Lipase 31 U/L (13-75); NT PRO-BNP 3219 pg/mL (<450); Potassium 4.1 mEq/L (3.5-5.1); Protein, Total 6.8 g/dL (6.4-8.2); Sodium Level 138 mEq/L (136-145); Troponin High Sensitivity 55.9 pg/mL (<58.9)
--- NOTE | 2025-03-27 18:20 | EDPHYS ---
Physician Documentation [facility] Name: Sandra Samuel Age: 79 yrs Sex: Female : 1945 Arrival Date: 03/27/2025 Time: 14:20 Bed 20 Private MD: Brenden Escudero HPI: 03/27 16:35 This 79 yrs old Unknown Female presents to ER via Wheelchair with complaints of Back tracy Pain, Shortness Of Breath. 16:35 The patient presents with pain that is acute, with no known mechanism of injury. The tracy symptoms are located in the low back, thoracic area and lumbar area. Onset: The symptoms/episode began/occurred 2 day(s) ago. The pain does not radiate. Associated signs and symptoms: The patient has no apparent associated signs or symptoms. The problem was sustained from unknown cause. Modifying factors: The patient symptoms are alleviated by nothing, the patient symptoms are aggravated by any movement. Severity of symptoms: At their worst the symptoms were mild, in the emergency department the symptoms are unchanged. The patient has not experienced similar symptoms in the past. Historical: - Allergies: 14:44 PENICILLINS; me1 14:44 Codeine; me1 - PMHx: 14:44 DVT; Myocardial infarction; Coronary atherosclerosis; me1 - PSHx: 14:44 Total abdominal hysterectomy; Ligation of fallopian tube; gastric bypass; Operative me1 procedure on knee; ankle surgery; wrist surgery; - Immunization history:: Adult Immunizations up to date. - Infectious Disease History:: Denies. - Social history:: Smoking status: Patient denies any tobacco usage or history of. - Family history:: not pertinent. ROS: 16:35 Constitutional: Negative for fever, chills, and weight loss, Eyes: Negative for injury, tracy pain, redness, and discharge, ENT: Negative for injury, pain, and discharge, Neck: Negative for injury, pain, and swelling, Cardiovascular: Negative for chest pain, palpitations, and edema, Abdomen/GI: Negative for abdominal pain, nausea, vomiting, diarrhea, and constipation, Back: Negative for injury and pain, : Negative for injury, bleeding, discharge, and swelling, MS/Extremity: Negative for injury and deformity, Skin: Negative for injury, rash, and discoloration, Neuro: Negative for headache, weakness, numbness, tingling, and seizure, Psych: Negative for depression, anxiety, suicide ideation, homicidal ideation, and hallucinations, Allergy/Immunology: Negative for hives, rash, and allergies, Endocrine: Negative for neck swelling, polydipsia, polyuria, polyphagia, and marked weight changes, Hematologic/Lymphatic: Negative for swollen nodes, abnormal bleeding, and unusual bruising, 16:35 Respiratory: Positive for cough, with no reported sputum, Exam: 16:35 Constitutional: This is a well developed, well nourished patient who is awake, alert, tracy and in no acute distress. Head/Face: Normocephalic, atraumatic. Eyes: Pupils equal round and reactive to light, extra-ocular motions intact. Lids and lashes normal. Conjunctiva and sclera are non-icteric and not injected. Cornea within normal limits. Periorbital areas with no swelling, redness, or edema. ENT: Nares patent. No nasal discharge, no septal abnormalities noted. Tympanic membranes are normal and external auditory canals are clear. Oropharynx with no redness, swelling, or masses, exudates, or evidence of obstruction, uvula midline. Mucous membranes moist. Neck: Trachea midline, no thyromegaly or masses palpated, and no cervical lymphadenopathy. Supple, full range of motion without nuchal rigidity, or vertebral point tenderness. No Meningismus. Chest/axilla: Normal chest wall appearance and motion. Nontender with no deformity. No lesions are appreciated. Cardiovascular: Regular rate and rhythm with a normal S1 and S2. No gallops, murmurs, or rubs. Normal PMI, no JVD. No pulse deficits. Respiratory: Lungs have equal breath sounds bilaterally, clear to auscultation and percussion. No rales, rhonchi or wheezes noted. No increased work of breathing, no retractions or nasal flaring. Abdomen/GI: Soft, non-tender, with normal bowel sounds. No distension or tympany. No guarding or rebound. No evidence of tenderness throughout. Back: No spinal tenderness. No costovertebral tenderness. Full range of motion. Skin: Warm, dry with normal turgor. Normal color with no rashes, no lesions, and no evidence of cellulitis. MS/ Extremity: Pulses equal, no cyanosis. Neurovascular intact. Full, normal range of motion., bilateral aka Neuro: Awake and alert, GCS 15, oriented to person, place, time, and situation. Cranial nerves II-XII grossly intact. Motor strength 5/5 in all extremities. Sensory grossly intact. Cerebellar exam normal. Normal gait. Psych: Awake, alert, with orientation to person, place and time. Behavior, mood, and affect are within normal limits. 16:35 ECG was reviewed by the Attending Physician. 17:00 ECG was reviewed by the Attending Physician. [facility] Vital Signs: 14:40 BP 130 / 75; Pulse 68; Resp 20; Temp 98.4; Pulse Ox 93% ; Weight 86.18 kg; Height 5 ft. me1 4 in. ; Pain 8/10; 17:29 BP 155 / 64; Pulse 101; Resp 16; Pulse Ox 97% ; bp 19:00 BP 120 / 102; Pulse 76; Resp 17; Pulse Ox 97% ; jj7 20:07 BP 121 / 60; Pulse 74; Resp 18; Pulse Ox 100% ; jj7 21:00 BP 110 / 63; Pulse 67; Resp 20; Pulse Ox 97% ; jj7 14:40 Body Mass Index 32.61 (86.18 kg, 162.56 cm) me1 14:40 Pain Scale: Adult me1 MDM: 14:33 Medical Screening Exam initiated tracy 14:42 Medical Screening Exam initiated tracy 16:38 Differential diagnosis: Cholelithiasis chronic back pain, Hydronephrosis Metastatic tracy Disease Neoplasm Obesity Osteoporosis Perforated Ulcer Pyelonephritis ruptured disc, sickle cell crisis, spinal injury, sprain, Ureterolithiasis. Data reviewed: vital signs, nurses notes, lab test result(s), EKG, radiologic studies, plain films. Consideration of Admission/Observation Escalation of care including admission/observation considered. I considered the following discharge prescriptions or medication management in the emergency department Medications were administered in the Emergency Department. See MAR. Independent interpretation of the following test(s) in the Emergency Department EKG: See my EKG interpretation above. Test considered but Not performed: Ultrasound NO ABD USG. Historians other than the Patient: PT WELL INFORMED. Care significantly affected by the following chronic conditions: RI, DVT,CAD. 03/27 14:41 Order name: Basic Metabolic Panel; Complete Time: 18:15 [facility] 03/27 14:41 Order name: CBC with Diff; Complete Time: 16:34 [facility] 03/27 14:41 Order name: LFT's; Complete Time: 18:15 [facility] 03/27 14:41 Order name: Magnesium; Complete Time: 18:15 [facility] 03/27 14:41 Order name: NT PRO-BNP; Complete Time: 18:15 [facility] 03/27 14:41 Order name: Troponin HS; Complete Time: 18:15 [facility] 03/27 14:41 Order name: Lipase; Complete Time: 18:15 [facility] 03/27 14:41 Order name: UA Rfx Sergio Cult if indicated; Complete Time: 17:42 [facility] 03/27 16:25 Order name: Blood Culture Adult (2) [facility] 03/27 21:40 Order name: CBC with Automated Diff [facility] 03/27 21:40 Order name: CBC with Automated Diff [facility] 03/27 21:40 Order name: Comprehensive Metabolic Panel [facility] 03/27 21:40 Order name: Comprehensive Metabolic Panel [facility] 03/27 14:41 Order name: XRAY Chest (1 view); Complete Time: 16:34 [facility] 03/27 18:07 Order name: Chest Abd Pelvis Wo Con; Complete Time: 19:18 [facility] 03/27 21:40 Order name: Physical Therapy Consult [facility] 03/27 14:41 Order name: Cardiac monitoring; Complete Time: 17:29 [facility] 03/27 14:41 Order name: EKG - Nurse/Tech; Complete Time: 17:29 [facility] 03/27 14:41 Order name: IV Saline Lock; Complete Time: 15:42 [facility] 03/27 14:41 Order name: Labs collected and sent; Complete Time: 15:42 [facility] 03/27 14:41 Order name: O2 Per Protocol; Complete Time: 15:27 [facility] 03/27 14:41 Order name: O2 Sat Monitoring; Complete Time: 15:27 [facility] 03/27 15:58 Order name: Labs - recollect needed: recollect green top; Complete Time: 17:26 bd EC:00 Rate is 78 beats/min. Rhythm is regular. QRS [place] is Normal. CA interval is normal. QRS tracy interval is normal. QT interval is normal. No Q waves. T waves are Normal. No ST changes noted. Clinical impression: NSR w/ Non-specific ST/T Changes and No evidence of ischemia. Interpreted by me. Reviewed by me. Administered Medications: 15:35 Drug: NS 0.9% IV 500 ml 500 ml IV at 1 bolus once Volume: 500 ml; Route: IV; Rate: 1 bp bolus; Site: right forearm; 17:10 Drug: Rocephin IV 1 grams IV at per protocol once; Given slow IV push per pharmacy bp instructions Route: IV; Rate: per protocol; Site: right forearm; 17:10 Drug: Zithromax IVPB 500 mg IVPB once over 1 hrs; mix in 250 mL NS Route: IVPB; Infused bp Over: 1 hrs; Site: right forearm; 17:45 Drug: morphine IVP or IV 2 mg IVP once over 4 mins Route: IVP; Infused Over: 4 mins; bp Site: right antecubital; 18:33 Follow up: Response: No adverse reaction bp 17:45 Drug: Ondansetron IVP 4 mg IVP once; over 2 minutes Route: IVP; Site: right antecubital;bp 18:33 Follow up: Response: No adverse reaction bp 18:32 Drug: Aspirin PO Chewable Tablet 162 mg PO once Route: PO; bp 18:33 Follow up: Response: No adverse reaction bp Disposition Summary: 03/27/25 18:19 Hospitalization Ordered Notes: Hospitalization Status: Observation tracy Provider: Mac Sanford cha Location: Telemetry/MedSur (observation) tracy Condition: Stable tracy Problem: new tracy Symptoms: have improved tracy Bed/Room Type: Standard [facility] Room Assignment: 232(03/27/25 19:29) kmf Diagnosis - Dyspnea tracy - Chronic kidney disease, unspecified tracy - Obesity, unspecified tracy - Elevated white blood cell count tracy Discharge Instructions: - Discharge Summary Sheet tracy - Cool Mist Vaporizer tracy - Upper Respiratory Infection, Adult, [id number] tracy - Cough, Adult, Jhrz-se-Xkjs tracy - Cough, Adult tracy Forms: - Medication Reconciliation Form tracy - SBAR form tracy - Leadership Thank You Letter [facility] Prescriptions: - Tessalon Perles 100 mg Oral capsule - take 2 capsule ORAL route every 8 hours As needed; 30 capsule; Refills: 0, tracy Product Selection Permitted - Zithromax 500 mg Oral Tablet - take 1 tablet ORAL route once daily for 5 days; 5 tablet; Refills: 0, Product tracy Selection Permitted Signatures: Dispatcher [employer] Monique Silverman Corey, MD MD cha Peltier, Brian, RN RN bp Eddleman, Michelle, RN RN wi1 Ritika Lozano kmf Corrections: (The following items were deleted from the chart) 14:42 14:42 BASIC METABOLIC PANEL+C.LAB.BRZ ordered. EDMS EDMS 14:42 14:42 CBC+H.LAB.BRZ ordered. EDMS EDMS 14:42 14:42 HEPATIC FUNCTION+C.LAB.BRZ ordered. EDMS EDMS 14:42 14:42 MAGNESIUM+C.LAB.BRZ ordered. EDMS EDMS 14:42 14:42 PROBNP+C.LAB.BRZ ordered. EDMS EDMS 14:42 14:42 Troponin High Sensitivity+C.LAB.BRZ ordered. EDMS EDMS 14:42 14:42 LIPASE+C.LAB.BRZ ordered. EDMS EDMS 14:42 14:42 UA Rfx Sergio Cult if indicated+U.LAB.BRZ ordered. EDMS EDMS 14:42 14:42 Chest Single View+RAD.RAD.BRZ ordered. EDMS EDMS 14:42 14:42 Angio Aorta For Dissection+CT.RAD.BRZ ordered. EDMS EDMS 16:26 16:26 BLOOD CULTURE*+BA.LAB.BRZ ordered. EDMS EDMS 18:23 18:19 Anemia, unspecified tracy tracy 19:29 18:19 tracy kmf
--- NOTE | 2025-03-27 18:20 | ER ---
Nurse's Notes [facility] Name: Sandra Samuel Age: 79 yrs Sex: Female : 1945 Arrival Date: 03/27/2025 Time: 14:20 Bed 20 Private MD: Diagnosis: Dyspnea;Chronic kidney disease, unspecified;Obesity, unspecified;Elevated white blood cell count Presentation: 03/27 14:40 Chief complaint: Patient states: Sent by Dr's office (Dr Alvarez Cabrera) for lower back pain, me1 spasms to left posterior shoulder that radiate to posterior right shoulder. Visual and auditory hallucinations that have been associated with a UTI that are still happening. Concern for 10 pound weight loss in past 2 months without trying. Coronavirus screen: Vaccine status: Patient reports being unvaccinated. Ebola Screen: No symptoms or risks identified at this time. Initial Sepsis Screen: Does the patient meet any 2 criteria? No. Patient's initial sepsis screen is negative. Does the patient have a suspected source of infection? No. Patient's initial sepsis screen is negative. Risk Assessment: Do you want to hurt yourself or someone else? Patient reports no desire to harm self or others. Onset of symptoms is unknown. 14:40 Method Of Arrival: [place] [facility]:40 Acuity: CLARA 3 me1 Triage Assessment: 14:45 General: Appears in no apparent distress. Behavior is cooperative, appropriate for age, bp anxious. Pain: Complains of pain in back. EENT: No deficits noted. Neuro: Level of Consciousness is awake, alert, obeys commands, Oriented to Appropriate for age. Cardiovascular: Rhythm is sinus tachycardia. Respiratory: No deficits noted. GI: No signs and/or symptoms were reported involving the gastrointestinal system. : No signs and/or symptoms were reported regarding the genitourinary system. Derm: No deficits noted. Musculoskeletal: Reports pain in back. Historical: - Allergies: 14:44 PENICILLINS; me1 14:44 Codeine; me1 - PMHx: 14:44 DVT; Myocardial infarction; Coronary atherosclerosis; me1 - PSHx: 14:44 Total abdominal hysterectomy; Ligation of fallopian tube; gastric bypass; Operative me1 procedure on knee; ankle surgery; wrist surgery; - Immunization history:: Adult Immunizations up to date. - Infectious Disease History:: Denies. - Social history:: Smoking status: Patient denies any tobacco usage or history of. - Family history:: not pertinent. Screenin:30 [facility] ED Fall Risk Assessment (Adult) History of falling in the last 3 months, bp including since admission No falls in past 3 months (0 pts) Confusion or Disorientation No (0 pts) Intoxicated or Sedated No (0 pts) Impaired Gait Yes (1 pt) Mobility Assist Device Used No (0 pt) Altered Elimination No (0 pt) Score/Fall Risk Level 0 - 2 = Low Risk Oriented to surroundings. Abuse screen: Denies threats or abuse. Denies injuries from another. Nutritional screening: No deficits noted. Tuberculosis screening: No symptoms or risk factors identified. Assessment: 14:45 General: SEE TRIAGE NOTE. bp 17:00 Reassessment: No changes from previously documented assessment. Patient is alert, bp oriented x 3, equal unlabored respirations, skin warm/dry/pink. Pain: Complains of pain in back. Neuro: Level of Consciousness is awake, alert, obeys commands, Oriented to Appropriate for age. 19:00 Reassessment: Patient is alert, oriented x 3, equal unlabored respirations, skin jj7 warm/dry/pink. ASSUMED CARE OF PT. PT SITTING IN BED. NO DISTRESS NOTED. CALL LUGO IN REACH. General: Appears in no apparent distress. comfortable, Behavior is calm, cooperative, appropriate for age. Musculoskeletal: Reports pain in back, anterior aspect of right shoulder, posterior aspect of right shoulder and left arm. 20:00 Reassessment: PT GOT BED ASSIGNMENT WITHOUT PHYS ICAN ORDERS .MD JUST LEFT PT'S ROOM. jj7 Vital Signs: 14:40 BP 130 / 75; Pulse 68; Resp 20; Temp 98.4; Pulse Ox 93% ; Weight 86.18 kg; Height 5 ft. me1 4 in. ; Pain 8/10; 17:29 BP 155 / 64; Pulse 101; Resp 16; Pulse Ox 97% ; bp 19:00 BP 120 / 102; Pulse 76; Resp 17; Pulse Ox 97% ; jj7 20:07 BP 121 / 60; Pulse 74; Resp 18; Pulse Ox 100% ; jj7 21:00 BP 110 / 63; Pulse 67; Resp 20; Pulse Ox 97% ; jj7 14:40 Body Mass Index 32.61 (86.18 kg, 162.56 cm) me1 14:40 Pain Scale: Adult me1 ED Course: 14:24 Patient arrived in ED. cj3 14:33 Brenden Mccullough MD is Attending Physician. [facility] 14:44 Triage completed. me1 14:44 Arm band placed on Patient placed in waiting room. me1 14:59 XRAY Chest (1 view) In Process Unspecified. EDMS 15:16 Radiology exam delayed due to IV insertion attempt and/or patient not having nj appropriate IV at this time. 15:16 Radiology exam delayed due to lab results not completed at this time. (BUN/Creatinine). nj 15:27 Merrill Patterson, RN is Primary Nurse. bp 15:43 Initial lab(s) drawn, by ri, sent to lab. Inserted saline lock: 22 gauge in right bp forearm, using aseptic technique. Blood collected. Flushed with 10 mL NS. 15:54 Radiology exam delayed due to lab results not completed at this time. (BUN/Creatinine). nj 17:00 Radiology exam delayed due to lab results not completed at this time. (BUN/Creatinine). ls3 17:30 Patient has correct armband on for positive identification. bp 17:38 Radiology exam delayed due to lab results not completed at this time. (BUN/Creatinine). ls3 18:18 Chest Abd Pelvis Wo Con In Process Unspecified. EDMS 18:18 Mac Sanford MD is Hospitalizing Provider. [facility] 20:00 Provided Education on: USE OF CALL LUGO. [facility] 21:40 No provider procedures requiring assistance completed. Patient admitted, IV remains in jj7 place. Administered Medications: 15:35 Drug: NS 0.9% IV 500 ml 500 ml IV at 1 bolus once Volume: 500 ml; Route: IV; Rate: 1 bp bolus; Site: right forearm; 17:10 Drug: Rocephin IV 1 grams IV at per protocol once; Given slow IV push per pharmacy bp instructions Route: IV; Rate: per protocol; Site: right forearm; 17:10 Drug: Zithromax IVPB 500 mg IVPB once over 1 hrs; mix in 250 mL NS Route: IVPB; Infused bp Over: 1 hrs; Site: right forearm; 17:45 Drug: morphine IVP or IV 2 mg IVP once over 4 mins Route: IVP; Infused Over: 4 mins; bp Site: right antecubital; 18:33 Follow up: Response: No adverse reaction bp 17:45 Drug: Ondansetron IVP 4 mg IVP once; over 2 minutes Route: IVP; Site: right antecubital;bp 18:33 Follow up: Response: No adverse reaction bp 18:32 Drug: Aspirin PO Chewable Tablet 162 mg PO once Route: PO; bp 18:33 Follow up: Response: No adverse reaction bp Medication: 20:00 VIS not applicable for this client. jRobin Outcome: 18:19 Decision to Hospitalize by Provider. tracy 21:40 Admitted to Med/surg accompanied by tech, via wheelchair, room 232, Report called to gennaRobin SBAR TUBES TO SECOND FLOOR 21:40 Condition: improved 21:48 Patient left the ED. lg3 Signatures: Dispatcher [employer] Brenden Miller MD MD cha Jordan, Nathan nj Peltier, Brian, RN Deric Thibodeaux ls3 Karen Dye RN RN lg3 Xavier Barrera RN RN jj7 Eddleman, Michelle RN RN me1 Jeannie Barrera 3
[2025-03-27] MEDS ORDERED: ASPIRIN 81 MG CHEWABLE TABLET ONE (18:29)
--- NOTE | 2025-03-27 18:58 | RAD REPORT ---
EXAM: CT CHEST, ABDOMEN AND PELVIS WITHOUT CONTRAST CLINICAL INDICATION: Female, 79 years old. HS MAIN ABD PAIN Bed Name: IW3 TECHNIQUE: CT chest, abdomen and pelvis was performed, without IV contrast, as per department protoco l. Axial, sagittal and coronal reconstructions were obtained. One or more of the following dose reduction techniques were used: Automated exposure control, adjustment of the mA and/or kV according to the patient size, and/or iterative reconstruction. Unless otherwise specified, incidental findings do not require dedicated imaging follow-up. COMPARISON: No prior exam. FINDINGS: The lack of intravenous contrast limits the sensitivity of this exam for evaluation of solid visceral organs, vascular structures, and retroperitoneum. Chest: LOWER NECK/CHEST WALL: Visualized thyroid gland and soft tissues are normal. LUNGS AND AIRWAYS: Airways are clear. No evidence of airspace or interstitial process. 5 mm left apic al nodule. No other suspicious nodules. PLEURA: No pleural effusion. No pneumothorax. Hemidiaphragms are normally positioned. MEDIASTINUM AND LYMPH NODES: No mediastinal mass or fluid collection. Normal size mediastinal, hilar, and axillary lymph nodes. THORACIC AORTA: Normal caliber and configuration. PULMONARY ARTERIES: Normal caliber. HEART: Unremarkable. Abdomen/Pelvis LIVER: Normal in size and contour. No focal lesion. GALLBLADDER/BILE DUCTS: Status post cholecystectomy. Limited pneumobilia, may relate to an incompeten t sphincter of Oddi. PANCREAS: No mass, ductal dilation, or nolan-pancreatic fluid. SPLEEN: Normal size. No focal lesion. ADRENALS: Normal; no mass. KIDNEYS AND URETERS: Normal size and contour. No hydronephrosis. GASTROINTESTINAL TRACT: Stomach is non-dilated. Small bowel has normal course and caliber. No colonic wall thickening or pericolonic inflammatory changes. PERITONEUM: No free fluid. LYMPH NODES: No lymphadenopathy. ABDOMINAL AORTA AND OTHER VESSELS: Normal caliber aorta and IVC. URINARY BLADDER: Normal contour. REPRODUCTIVE ORGANS: No pathologic process. MUSCULOSKELETAL: Superior endplate compression deformity at L3, could be chronic. Multiple rib deform ities suggesting healing or healed rib fractures. ADDITIONAL FINDINGS: None IMPRESSION: Superior endplate compression deformity at L3, could be chronic although ultimately of indeterminate age. Multiple rib deformities suggesting healing or healed rib fractures. No other acute findings in the chest, abdomen, or pelvis.
[2025-03-27] MEDS ORDERED: ALBUTEROL 2.5 MG/3 ML NEB SOL NEB PRN (21:35)
[2025-03-27] MEDS ORDERED: ACETAMINOPHEN 325 MG TABLET PO PRN (21:35)
[2025-03-27 22:08] VITALS: O2SAT 100
[2025-03-27 22:20] VITALS: BMI 36.7
[2025-03-27] MEDS: HYDROCODONE/APAP 7.5/325 MG TAB PO PRN (22:57)
[2025-03-28] MEDS: MORPHINE 4 MG/ML SYR IV PRN (01:24)
[2025-03-28] MEDS: ZOLPIDEM TARTRATE 5 MG TABLET PO PRN (01:24)
[2025-03-28 07:51] LABS: Absolute Basophils 0.1 K/uL (0-0.5); Absolute Eosinophils 0.2 K/uL (0-0.5); Absolute Lymphocytes (CBC) 3.7 K/uL (0.7-4.9); Absolute Monocytes 0.8 K/uL (0.1-1.3); Absolute Neutrophil 3.6 K/uL (1.8-8.0); Basophils % 1.2 % (0-1.3); Eosinophils % 2.7 % (0-4.4); Hematocrit 34.5 % (36.0-45.0); Hemoglobin 11.4 g/dL (12.0-15.0); Lymphocytes % 43.4 % (15.3-44.8); MCH 33.6 pg (27.0-35.0); MCV 101.8 fL (80-100); MPV 6.9 fL (7.6-11.3); Monocytes % 9.6 % (3.3-12.3); Neutrophils % 43.1 % (41.7-73.7); Nucleated Red Blood Cells % 0.1 % (0-0); Platelets 226 thou/uL (152-406); RBC Red Blood Cell Count 3.39 M/uL (3.86-4.86); Red Cell Distribution Width 13.8 % (12.1-15.2)
[2025-03-28 08:14] LABS: ALT/SGPT < 14 U/L (13-56); AST/SGOT < 10 U/L (15-37); Albumin 2.5 g/dL (3.4-5.0); Albumin/Globulin Ratio 0.8 (1.1-1.8); Alkaline Phosphatase 63 U/L (45-117); Anion Gap 8.1 mEq/L (5.0-15.0); BUN Blood Urea Nitrogen 23 mg/dL (7-18); Bicarbonate 27 mEq/L (21-32); Bilirubin Total 0.2 mg/dL (0.2-1.0); Globulin 3.2 g/dL (2.3-3.5); Glomerular Filtration Rate 29 ml/min (=/>90); Glucose Level 74 mg/dL (74-106); Potassium 4.1 mEq/L (3.5-5.1); Protein, Total 5.7 g/dL (6.4-8.2); Sodium Level 139 mEq/L (136-145)
--- NOTE | 2025-03-28 09:01 | P.HP ---
Certification for Inpatient With expected LOS: <2 Midnights Patient will require the following post-hospital care: Home Health Services Practitioner: I am a practitioner with admitting privileges, knowledge of patient current condition, hospital course, and medical plan of care. Services: Services provided to patient in accordance with Admission requirements found in Title 42 Section 412.3 of the Code of Federal Regulations Patient History Date of Service: 03/28/25 Reason for admission: Deconditioning, acute on chronic back pain and left shoulder pain. History of Present Illness: Patient is an 79 years old female with past medical history of anxiety, hypothyroidism, inguinal hernia, pulmonary emphysema, UTI, CAD with 2 stents, chronic back pain and shoulder pain, who is currently on hydrocodone for chronic pain management at home, patient brought to ER today complaining of worsening upper back pain, left shoulder pain with no associated chest pain or shortness of breath. Patient states she usually have pain in her upper back and her left shoulder, but she states today the pain has increased. Patient had multiple radiographic studies including x-ray shoulder, CT head, cervical spine, chest abdomen and pelvis all with no acute process identified. On admission assessment, patient denies of any chest pain, shortness of breath, but endorses pain in her left shoulder upper back, with body weakness. Allergies codeine [Codeine] Allergy (Severe, Verified 06/23/12 22:21) SOB Penicillins Allergy (Intermediate, Verified 06/23/12 22:21) Rash Home Medications: Cholecalciferol (Vitamin D3) [Vitamin D 10,000 UNIT CAP] 50,000 unit PO DAILY 06/24/12 Folic Acid 2 mg PO DAILY 06/24/12 Zolpidem Tartrate [Ambien Cr] 12.5 mg PO BEDTIME 08/23/16 Gabapentin 800 mg PO BID 03/27/25 Hydrocodone Bit/Acetaminophen [[place] 7.5-325 Tablet] 7.5 mg PO Q5H PRN 03/27/25 Mirabegron [Myrbetriq] 25 mg PO DAILY 03/27/25 - Past Medical/Surgical History Has patient received pneumonia vaccine in the past: Yes Diabetic: No -: DVT -: insomnia -: [place] -: Chronic back pain -: R KNEE SX -: L ROTATOR CUFF -: L WRIST SX -: R TOE SX -: APPENDECTOMY - Family History Sister -: Diabetes Brother -: Heart disease, Cancer - Social History Smoking Status: Never smoker Alcohol use: No CD- Drugs: No Caffeine use: Yes Place of Residence: Home Review of Systems 10-point ROS is otherwise unremarkable Musculoskeletal: Back Pain, Other (Left shoulder pain) Neurological: Weakness Physical Examination - Vital Signs Temperature: 97.1 F Blood Pressure: 131/66 Pulse: 76 Respirations: 16 Pulse Ox (%): 95 - Physical Exam General: Alert, In no apparent distress, Oriented x3 HEENT: Atraumatic, Normocephalic, PERRLA, Mucous membr. moist/pink, Sclerae nonicteric Neck: Supple, 2+ carotid pulse no bruit, JVD not distended, No Thyromegaly Respiratory: Clear to auscultation bilaterally, Normal air movement, Diminished Cardiovascular: No edema, Normal pulses, Regular rate/rhythm, No gallops, No rubs, No murmurs Capillary refill: <2 Seconds Gastrointestinal: Normal bowel sounds, Hypoactive, No ascites, No tenderness, No masses, No guarding Musculoskeletal: No clubbing, No swelling, No contractures, No erythema, No tenderness, No warmth Integumentary: No rashes, No erythema, No warmth, No cyanosis Neurological: Normal speech, Normal tone, Normal reflexes 2+, Normal affect Lymphatics: No axilla or inguinal lymphadenopathy - Studies Laboratory Data (last 24 hrs) 03/27/25 03/27/25 17:24 15:42 WBC 13.90 H Hgb 13.3 Hct 40.4 Plt Count 302 Sodium 138 Potassium 4.1 BUN 18 Creatinine 1.83 H Glucose 101 Magnesium 2.0 Total Bilirubin 0.4 AST 11 L ALT < 14 Alkaline Phosphatase 73 Lipase 31 Female Exam - Female Pelvic Cervix: Non-tender Assessment and Plan - Plan Patient is a 79-year-old female who presents to the ER today complaining of increased upper back pain, left shoulder, with no associated chest pain or shortness of breath. Patient has history of chronic kidney disease states she is still able to void. Patient respirations even and unlabored. Lungs b ilateral with no adventitious breath sounds. (1)Acute on chronic upper back pain, and left shoulder. -Consult physical therapy for endurance and strengthening. -Continue home medication for pain management. -Review of CT chest and abdomen/pelvis, chest x-ray, impression with no acute process identified. -Patient will benefit from home physical therapy on discharge. Inquire from the patient if she would be willing to go to rehab for PT, patient refused. Patient currently has home health nurse visiting her. (2)Explained the entire treatment plan to the patient, solicit questions answered and voiced understanding. Discharge Plan: Home Plan to discharge in: 48 Hours - Advance Directives Does patient have a Living Will: No Does patient have a Durable POA for Healthcare: No - Code Status/Comfort Care Code Status: Full Code Critical Care: No Time Spent Managing Pts Care (In Minutes): 55
[2025-03-28] MEDS: ENOXAPARIN 30 MG/0.3 ML SQ SCH (09:24)
[2025-03-28] MEDS ORDERED: ALBUTEROL 2.5 MG/3 ML NEB SOL NEB PRN (11:05)
[2025-03-28 13:04] VITALS: TEMP 97.5
[2025-03-28 17:03] VITALS: BP 114/70
[2025-03-28] MEDS: HYDROCODONE/APAP 5/325 MG TAB PO ONE (18:29)
[2025-03-28] MEDS: dexAMETHasone 4 MG/ML VIAL IV ONE (18:30)
[2025-03-29] MEDS ORDERED: ENSURE MAX PROTEIN 330 ML LIQUID PO SCH (09:00)
--- NOTE | 2025-04-01 17:01 | EKG ---
Test Date: 2025-03-27 Test Time: 16:13:44 [employer] Head: CATARINO MEASUREMENT RESULTS: Intervals: Rate: 78 LA: 204 QRSD: 88 QT: 374 QTc: 426 [place]: P: 66 LA: 204 QRS: 44 T: 97 INTERPRETIVE STATEMENTS: Sinus rhythm with premature supraventricular complexes Anteroseptal infarct, age undetermined Abnormal ECG Compared to ECG 08/22/2016 17:41:54 Atrial premature complex(es) now present Myocardial infarct finding now present Electronically Signed On 04-01-25 16:55:54 CDT by Skip Moses
== END 2025-03-28 19:53 | disposition home or self-care (01) ==
LOC: ER 14:20 → 2ND 21:31
PROVIDERS: ADMIT Hospitalist; ATTEND Hospitalist
DX: M25.512 Pain in left shoulder (principal); M54.9 Dorsalgia, unspecified; N18.9 Chronic kidney disease, unspecified; I25.2 Old myocardial infarction; I25.10 Atherosclerotic heart disease of native coronary artery without angina pectoris; G89.29 Other chronic pain; F41.9 Anxiety disorder, unspecified; E03.9 Hypothyroidism, unspecified; E66.9 Obesity, unspecified; Z95.5 Presence of coronary angioplasty implant and graft; Z88.0 Allergy status to penicillin; Z88.5 Allergy status to narcotic agent; Z68.32 Body mass index [BMI] 32.0-32.9, adult
CPT/HCPCS: 93005; 87040 ×2; 85025 ×2; 80048; 36415; 83735; 80076; 81003; 84484; 83690; 80053; 83880; 71250; 74176; 71045; 97161; 97530; 99285; J1100; J1650; J2270; J2405; J7040; J0696; G0378 ×3

== ENCOUNTER 2025-04-05 10:57 | Emergency (ER) | payer OTHER, MEDICARE ==
--- OUTSIDE RECORDS SUMMARY | 2025-04-05 11:08 | XMS REPORT | Continuity of Care Document ---
Author Name Unknown Address [address] [place] [address] [facility] Address [address] [place] [address] Care Team Providers Care Quality Control Analyst Name Role Phone Deborah Marva ADAMS Primary Care Physician [phone] Praveena Garcia Attending Clinician Unavail able Doctor Unassigned, [place] Attending Clinician U BACILIO Villegas Attending Clinician Unavailable JUAN RAMON WELCH Attending Clinician Belia Deleon MD, Bacilio Attending Clinician [phone] Belinda Chang RN Attending Clinician Unavailable LILIANA PÉREZ Attending Clinician Unavailable Wale Corey DO Attending Clinician [phone] Liliana Pérez DO Attending Clinician [phone] Sydni Perez MD Attending Clinician [phone] SYDNI PEREZ Attending Clinician UnavailSYDNI Carson Attending Clinician Unavailjacqueline e Doctor Unassigned, [place] Attending Clinician U JOSH Iglesias Attending Clinician Unavailable Josh Norwood MD Attending Clinician [phone] CARITO DOYLE Attending Clinician Unavailable Rosie Gomez NP Attending Clinician [phone] Juvenal HERMOSILLO, Mac Pino Attending Clinician [phone] Carito Doyle MD Attending Clinician [phone], [facility] Attending Clinician Unavailable Shanel Jefferson Attending Clinician [phone] Dakota FOSTER, Juancarlos Hagan Attending Clinician Unavail able SELIN BALES Attending Clinician Unavailable Garfield Bower MD Attending Clinician [phone] Selin Bales MD Attending Clinician [phone] Asha Tay MD Attending Clinician [phone] SHANEL CANDELARIO Attending Clinician Unavailable ROSELINE GAVIN Attending Clinician Unavailab Roseline Howell Attending Clinician + [phone] GHAZALA PENN Attending Clinician Unavailab Ghazala Chavez DO Attending Clinician [phone] Claudia HERMOSILLO, Brandon Attending Clinician [phone] Nicholas HERMOSILLO, Jenn Ornelas Attending Clinician + Jenny HERMOSILLO, Andrey Santoro Attendin g Clinician Yessenia HERMOSILLO, Osman Davis Attending Clinician + Tello Russ MD Attending Clinici an Germaine Nagel MD Attending Clinician [phone] Shani Han MD Attending Clinician [phone] Deloris Hoffman MD Attending Clinician [phone] SHANI HAN Attending Clinician Unavailable Physician, No Primary or Family Admitting Clinic marco Unavailable MARVA RICE Admitting Clinician Unavailable LILIANA PÉREZ Admitting Clinician Unavailable Liliana Pérez DO Admitting Clinician [phone] JOSH NORWOOD Admitting Clinician Unavailable MYRA RO Admitting Clinician Unavailable CARITO DOYLE Admitting Clinician Unavailable Carito Doyle MD Admitting Clinician [phone] SELIN BALES Admitting Clinician Unavailable Amairani HERMOSILLO, Selin Admitting Clinician BACILIO DELEON Admitting Clinician Unavailable ROSELINE GAVIN Admitting Clinician Unavailab GHAZALA Chavez Admitting Clinician Unavailab shan Casas MD, Osman Davis Admitting Clinician + Petrona HERMOSILLO, Tello Nova Admitting Clinici an Yasmin HERMOSILLO, Deloris Admitting Clinician [phone] DELORIS HOFFMAN Admitting Clinician Unavailable Payers Payer Name Policy Type Policy Number Effective Date Expirati on Date Source MEDICARE PART A \\T\\ B [id number] 1999 00:00:00 [facility] MEDICARE SUPPLEMENT [id number] 2010 00:00:00 Problems Condition Name Condition Details Condition Category Status Onset Date Resolution Date Last Treatment Date Treating Clinician Comments Source Primary hypertensi on Primary hypertensi on Disease Active 04-25 00:00: 00 [facility] Atrophy of skeletal muscle of pelvis Atrophy [...] Medical Hyperlipid emia Hyperlipid emia Problem Active 04-18 00:00: 00 [facility] Neuropathy Neuropathy Problem Active 04-18 00:00: 00 [facility] Myocardial infarction Myocardial Infarction Problem Active 6-05 00:00: 00 [facility] Gastroesop hageal reflux disease Gastroesop hageal Reflux Disease Problem Active 6-05 00:00: 00 [facility] UTI (urinary tract infection) UTI (urinary tract infection) Disease Active 2-13 00:00: 00 [facility] Weakness of left lower extremity Weakness of left lower extremity Disease Active 2022-11 2-11 00:00: 00 [facility] Troponin I above reference range Troponin I above reference range Disease Active 2022-11 2- 00:00: 00 [facility] KALYN (acute kidney injury) KALYN (acute kidney injury) Disease Active 2022-11 2- 00:00: 00 [facility] KALYN (acute kidney injury) KALYN (acute kidney injury) Disease Active 2022-11 2- 00:00: 00 [facility] Syncope and collapse Syncope and collapse Disease Active 2022-11 2- 00:00: 00 [facility] LOC (loss of consciousn ess) LOC (loss of consciousn ess) Disease Active 2022-11 2- 00:00: 00 [facility] Pulmonary hypertensi on Pulmonary hypertensi on Disease Active 2022-11 00:00: 00 [facility] HFrEF (heart failure with reduced ejection fraction) HFrEF (heart failure with reduced ejection fraction) Disease Active 2022-11 00:00: 00 [facility] JARRELL (obstructi ve sleep apnea) JARRELL (obstructi ve sleep apnea) Disease Active 2022-11 00:00: 00 [facility] Chest pain, unspecifie d type Chest pain, unspecifie d type Disease Active 07-20 00:00: 00 [facility] NSTEMI (non-ST elevated myocardial infarction ) NSTEMI (non-ST elevated myocardial infarction ) Disease Active 07-20 00:00: 00 [facility] Stenosis of left carotid artery Stenosis of left carotid artery Disease Active 2020-11 0-18 00:00: 00 [facility] Weak pulse Weak pulse Disease Active 3- 00:00: 00 [facility] Morbid obesity Morbid obesity Disease Active 3- 00:00: 00 [facility] 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 pectoris Disease Active 3- 00:00: 00 [facility] 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 pectoris Disease Active 01-20 00:00: 00 [facility] Chronic heart failure with preserved ejection fraction Chronic heart failure with preserved ejection fraction Disease Active 01-20 00:00: 00 [facility] PVT (paroxysma l ventricula r tachycardi a) PVT (paroxysma l ventricula r tachycardi a) Disease Active 01-20 00:00: 00 [facility] Chest pain, musculoske letal Chest pain, musculoske letal Disease Active 2019-11 024 00:00: 00 [facility] History of myocardial infarction History of myocardial infarction Disease Active 2019-11 0-24 00:00: 00 [facility] 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 Disease Active 2019-11 024 00:00: 00 [facility] Chest pain Chest pain Disease Active 2019-11 0- 00:00: 00 [facility] Non-sustai bo ventricula r tachycardi a Non-sustai bo ventricula r tachycardi a Disease Active 2019-11 0-21 00:00: 00 [facility] Edema, unspecifie d Edema, unspecifie d Disease Active 2019-11 0-08 00:00: 00 [facility] Chronic kidney disease, stage 3 unspecifie d Chronic kidney disease, stage 3 unspecifie d Disease Active 2019-11 0- 00:00: 00 [facility] Cough Cough Disease Active 2019-11 0- 00:00: 00 [facility] Candidiasi s, unspecifie d Candidiasi s, unspecifie d Disease Active 08-11 00:00: 00 [facility] Pain, unspecifie d Pain, unspecifie d Disease Active 08-06 00:00: 00 [facility] Nausea with vomiting, unspecifie d Nausea with vomiting, unspecifie d Disease Active 08-04 00:00: 00 [facility] Allergic rhinitis, unspecifie d Allergic rhinitis, unspecifie d Disease Active 08-01 00:00: 00 [facility] Constipati on, unspecifie d Constipati on, unspecifie d Disease Active 08-01 00:00: 00 [facility] Essential (primary) hypertensi on Essential (primary) hypertensi on Disease Active 08-01 00:00: 00 [facility] Gastro-eso phageal reflux disease without esophagiti s Gastro-eso phageal reflux disease without esophagiti s Disease Active 08-01 00:00: 00 [facility] Hyperlipid emia, unspecifie d Hyperlipid emia, unspecifie d Disease Active 08-01 00:00: 00 [facility] Other specified disorders of bladder Other specified disorders of bladder Disease Active 08-01 00:00: 00 [facility] Urinary tract infection, site not specified Urinary tract infection, site not specified Disease Active 08-01 00:00: 00 [facility] Body mass index (BMI) 45.0-49.9, adult Body mass index (BMI) 45.0-49.9, adult Disease Active 07-31 00:00: 00 [facility] Muscle weakness (generaliz ed) Muscle weakness (generaliz ed) Disease Active 07-31 00:00: 00 [facility] Other abnormalit ies of gait and mobility Other abnormalit ies of gait and mobility Disease Active 07-31 00:00: 00 [facility] Other lack of coordinati on Other lack of coordinati on Disease Active 07-31 00:00: 00 [facility] Age-relate d osteoporos is without current pathologic al fracture Age-relate d osteoporos is without current pathologic al fracture Disease Active 07-26 00:00: 00 [facility] Anemia, unspecifie d Anemia, unspecifie d Disease Active 07-26 00:00: 00 [facility] Cardiac arrest due to underlying cardiac condition Cardiac arrest due to underlying cardiac condition Disease Active 07-26 00:00: 00 [facility] Chronic pain disorder Chronic pain disorder Disease Active 07-26 00:00: 00 [facility] Fibromyalg ia Fibromyalg ia Disease Active 07-26 00:00: 00 [facility] 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 Disease Active 07-26 00:00: 00 [facility] Encounter for surgical aftercare following surgery on the supervisor fishing y system Encounter for surgical aftercare following surgery on the supervisor fishing y system Disease Active 07-26 00:00: 00 [facility] Hypertensi ve heart and chronic kidney disease with heart failure and stage 1 through stage 4 chronic kidney disease, or unspecifie d chronic kidney disease Hypertensi ve heart and chronic kidney disease with heart failure and stage 1 through stage 4 chronic kidney disease, or unspecifie d chronic kidney disease Disease Active 07-26 00:00: 00 [facility] Klebsiella pneumoniae (k. pneumoniae ) as the cause of diseases classified elsewhere Klebsiella pneumoniae (k. pneumoniae ) as the cause of diseases classified elsewhere Disease Active 07-26 00:00: 00 [facility] Lymphedema , not elsewhere classified Lymphedema , not elsewhere classified Disease Active 07-26 00:00: 00 [facility] Peptic ulcer, site unspecifie d, unspecifie d as acute or chronic, without hemorrhage or perforatio n Peptic ulcer, site unspecifie d, unspecifie d as acute or chronic, without hemorrhage or perforatio n Disease Active 07-26 00:00: 00 [facility] Rheumatoid arthritis, unspecifie d Rheumatoid arthritis, unspecifie d Disease Active 07-26 00:00: 00 [facility] Secondary osteoarthr itis, right shoulder Secondary osteoarthr itis, right shoulder Disease Active 07-26 00:00: 00 [facility] Spinal stenosis, site unspecifie d Spinal stenosis, site unspecifie d Disease Active 07-26 00:00: 00 [facility] STEMI (ST elevation myocardial infarction ) STEMI (ST elevation myocardial infarction ) Disease Active 07-26 00:00: 00 [facility] Choledocho lithiasis Choledocho lithiasis Disease Active 18 00:00: 00 [facility] 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 Disease Active 18 00:00: 00 [facility] Deep vein thrombosis Deep vein thrombosis Disease Active 2015-11 0 00:00: 00 [facility] Leg pain Leg pain Disease Active 08-13 00:00: 00 [facility] Allergies, Adverse Reactions, Alerts Allergy Name Allergy Type Status Severity Reaction(s) Onset Date Inactive Date Treating Clinician Comments Source Penicill ins DA Active SV 06-11 00:00: 00 [facility] codeine DA Active SV 06-11 00:00: 00 [facility] Penicill ins DA Active SV RASH 06-11 00:00: 00 [facility] codeine DA Active SV SHORTNESS OF BREATH 06-11 00:00: 00 [facility] CODEINE DRUG INGREDI Active SOB 05-28 00:00: 00 [facility] PENICILL IN DRUG INGREDI Active Rash 05-28 00:00: 00 [facility] Codeine Propensi ty to adverse reaction s Active Shortness of Breath 05-28 00:00: 00 [facility] Penicill in Propensi ty to adverse reaction s Active Rash 05-28 00:00: 00 [facility] PENICILL INS Allergy to substanc e Active [facility] Social History Social Habit Start Date Stop Date Quantity Comments Source Gender [facility] History of Social function 2024-04-25 00:00:00 2024-04-25 00:00:00 [facility] Exposure to SARS-CoV-2 (event) 2023-02-14 00:00:00 2023-02-24 09:06:00 Not sure [facility] Tobacco use and exposure 2016-08-13 00:00:00 2016-08-13 00:00:00 Smokeless tobacco non-user [facility] Sex assigned at 1945 00:00:00 1945 00:00:00 [facility] Smoking Status Start Date Stop Date Source Never smoked tobacco [facility] Medications Ordered Medication Name Filled Medication Name Start Date Stop Date Current Medication? Ordering Clinician Indication Dosage Frequency Signature (SIG) Comments Components Source mirabegron (MYRBETRIQ) 50 mg tablet 12-29 15:27: 11 Yes 50mg Take 1 tablet by mouth in the morning. [facility] URSODIOL ORAL 12-29 15:27: 11 Yes Take by mouth. [facility] ondansetron (ZOFRAN (PF)) injection 4 mg 12-29 03:08: 13 Yes 4mg 4 mg, Slow IV Push, Q6HPRN, Nausea and Vomiting (N/V), Starting on Tue12/28/23 at 2108
Do ses of ondansetro n 16 mg and above need to be administer ed via IV piggyback. For Dose >=24mg ECG monitoring is advisable.
[facility] atorvastati n (LIPITOR) tablet 40 mg 12-29 03:00: 00 Yes 40mg 40 mg, Oral, QHS, First dose on Tue12/28/23 at 2100, Until Discontinu ed, Routine [facility] NaCl 0.9% (NS) bolus infusion 250 mL 12-28 18:15: 00 12-28 23:15 :00 No 250mL at 50 mL/hr, 250 mL, IV Piggyback, ONCE, 1 dose, On Tue12/28/23 at 1215, STAT [facility] metoprolol succinate XL (TOPROL XL) tablet 50 mg 12-28 15:00: 00 Yes 50mg 50 mg, Oral, DAILY, First dose on Tue12/28/23 at 0900, Until Discontinu ed, Routine [facility] aspirin chewable tablet 81 mg 12-28 15:00: 00 Yes 81mg 81 mg, Oral, DAILY, First dose on Tue12/28/23 at 0900, Until Discontinu ed, Routine [facility] enoxaparin (LOVENOX) injection 40 mg 12-28 15:00: 00 Yes 40mg 40 mg, Subcutaneo us, DAILY, First dose on Tue12/28/23 at 0900, Until Discontinu ed, Routine [facility] cefTRIAXone (ROCEPHIN) 1,000 mg in NaCl 0.9% (NS) 100 mL MINI-BAG 12-28 05:45: 00 01-01 05:44 :00 No 1000mg 1,000 mg, IV Piggyback, Q24H ABX, 4 doses, First dose on Tue12/27/23 at 2345, Last dose on Tue12/30/23 at 2345, Administer over 30 Minutes, 100 mL
Reas on for Anti-Infec tive: Documented Infection< br>Documen angela Infection Site: Urine
D uration of Therapy: 7 days [facility] temazepam (RESTORIL) capsule 15 mg 12-28 04:36: 03 Yes 15mg 15 mg, Oral, QHSPRN, Starting on Tue12/27/23 at 2236, Until Discontinu ed, Routine, Insomnia [facility] HYDROcodone -acetaminop hen (NORCO) 10-325 mg tablet 1 tablet 12-28 04:27: 13 Yes 1{tbl} 1 tablet, Oral, Q6HPRN, Starting on Tue12/27/23 at 2227, Until Discontinu ed, Pain (scale 4-6) [facility] acetaminoph en (TYLENOL) tablet 650 mg 12-28 00:27: 53 Yes 650mg 650 mg, Oral, Q6HPRN, Starting on Tue12/27/23 at 1827, Until Discontinu ed, Routine, Pain (scale 1-3) [facility] methocarbam oL (ROBAXIN) tablet 500 mg 12-28 00:00: 00 12-27 23:18 :00 No 500mg 500 mg, Oral, ONCE, 1 dose, On Tue12/27/23 at 1800, Routine [facility] HYDROcodone -acetaminop hen (NORCO) 10-325 mg tablet 1 tablet 12-28 00:00: 00 12-27 23:18 :00 No 1{tbl} 1 tablet, Oral, ONCE, 1 dose, On Tue12/27/23 at 1800, Routine [facility] piperacilli n-tazobacta m (ZOSYN) 3.375 g in NaCl 0.9% (NS) 100 mL MINI-BAG 12-27 23:00: 00 12-27 23:51 :00 No 3.375g 3.375 g, IV Piggyback, ONCE, 1 dose, On Tue12/27/23 at 1700, Administer over 30 Minutes, 100 mL
Reas on for Anti-Infec tive: Empiric Therapy for Suspected Infection< br>Empiric Therapy Site: Urine
D uration of therapy: Once (ED) [facility] mirabegron (MYRBETRIQ) 50 mg tablet 12-27 22:29: 16 Yes 50mg Take 1 tablet by mouth in the morning. [facility] URSODIOL ORAL 12-27 22:29: 16 Yes Take by mouth. [facility] triamcinolo ne acetonide (KENALOG) injection 40 mg 12-21 21:30: 00 12-21 20:45 :00 No [id number] 40mg [facility] acetaminoph en (TYLENOL) tablet 650 mg 11-26 06:30: 00 11-26 06:41 :00 No 650mg 650 mg, Oral, ONCE, 1 dose, On 11/26/23 at 0030, MIRNA [facility] atorvastati n (LIPITOR) tablet 40 mg 2022-11 03:00: 00 Yes 40mg 40 mg, Oral, QHS, First dose on Tue10/24/23 at 2100, Until Discontinu ed, [facility]ine [facility] enoxaparin (LOVENOX) injection 30 mg 2022-11 23:00: 00 Yes 30mg 30 mg, Subcutaneo us, DAILY, First dose on Tue10/24/23 at 1700, Until Discontinu ed, Routine [facility] mirabegron (MYRBETRIQ) 50 mg tablet 2022-11 17:16: 48 Yes 50mg Take 1 tablet by mouth in the morning. [facility] URSODIOL ORAL 2022-11 17:16: 48 Yes Take by mouth. [facility] sulfur hexafluorid e microsphr (LUMASON) injection 5 mL 2022-11 16:30: 00 10-24 16:30 :00 No [id number] 02 5mL 5 mL, Intravenou s, ONCE, 1 dose, On Tue10/24/23 at 1030, Routine
geosciences faculty member approving Restricted medication : EVANS THOMAS [facility] aspirin chewable tablet 81 mg 2022-11 15:00: 00 Yes 81mg 81 mg, Oral, DAILY, First dose on Tue10/24/23 at 0900, Until Discontinu ed, Routine [facility] docusate (COLACE) capsule 100 mg 2022-11 15:00: 00 Yes 100mg 100 mg, Oral, DAILY, First dose on Tue10/24/23 at 0900, Until Discontinu ed, Routine [facility] ursodioL (ACTIGALL) capsule 300 mg 2022-11 14:00: 00 Yes 300mg 300 mg, Oral, BID, First dose on Tue10/24/23 at 0800, Until Discontinu ed [facility] NaCl 0.9% (NS) IV infusion 1,000 mL 2022-11 07:15: 00 Yes 1000mL at 50 mL/hr, IV Infusion, CONTINUOUS , Starting on Tue10/24/23 at 0115, Until Discontinu ed, Routine [facility] ondansetron (ZOFRAN (PF)) injection 4 mg 2022-11 06:56: 14 Yes 4mg 4 mg, Slow IV Push, Q6HPRN, Starting on Tue10/24/23 at 0056, Until Discontinu ed, Routine, Nausea and Vomiting (N/V) [facility] FENTanyl PF (SUBLIMAZE (PF)) injection 25 mcg 2022-11 06:56: 05 10-25 06:55 :05 No 25ug 25 mcg, Slow IV Push, Q6HPRN, Starting on Tue10/24/23 at 0056, Until Tue10/25/23 at 0055, Routine, Pain (scale 7-10) [facility] HYDROcodone -acetaminop hen (NORCO 5) 5-325 mg tablet 1 tablet 2022-11 06:55: 56 10-26 06:54 :56 No 1{tbl} 1 tablet, Oral, Q6HPRN, Starting on Tue10/24/23 at 0055, Until Tue10/26/23 at 0054, Routine, Pain (scale 4-6) [facility] acetaminoph en (TYLENOL) tablet 650 mg 2022-11 06:55: 47 Yes 650mg 650 mg, Oral, Q6HPRN, Starting on Tue10/24/23 at 0055, Until Discontinu ed, Routine, Pain (scale 1-3) [facility] zolpidem (AMBIEN CR) 12.5 mg CR tablet 2022-11 06:51: 58 10-24 00:00 :00 No 12.5mg Take 12.5 mg by mouth at bedtime as needed for Sleep. [facility] sodium chloride (NS) injection 5 mL 2022-11 03:14: 32 Yes 5mL 5 mL, Intravenou s, PRN, Starting on Tue10/23/23 at 2114, Until Discontinu ed, Routine, IV line flushing [facility] zolpidem (AMBIEN CR) 12.5 mg CR tablet 07-24 15:24: 28 Yes 12.5mg Take 12.5 mg by mouth at bedtime as needed for Sleep. [facility] mirabegron (MYRBETRIQ) 50 mg tablet 07-24 15:24: 28 Yes 1{tbl} Take 1 tablet by mouth daily. [facility] URS[facility]AL 07-24 15:24: 28 Yes Take by mouth. [facility] LORazepam 1 mg tablet 07-24 13:21: 57 07-24 00:00 :00 No 1mg Take 1 mg by mouth. [facility] heparin (porcine) injection 5,000 Units 07-24 12:30: 00 Yes 5000U 5,000 Units, Subcutaneo us, Q8H, First dose on Tue07/24/23 at 0730, Until Discontinu ed, Routine [facility] OMEPRAZOLE, BULK, MISC 07-24 12:24: 45 07-24 00:00 :00 No 40{tbl} 40 tablets 2 (two) times daily. [facility] magnesium sulfate in water 2 gram/50 mL (4 %) infusion 2 g 07-24 12:00: 00 07-24 15:27 :00 No 2g 2 g, IV Piggyback, Administer over 60 Minutes, ONCE, 1 dose, On Tue07/24/23 at 0700, Routine [facility] KCL (KLOR-CON M20) tablet 40 mEq 07-24 12:00: 00 07-24 13:59 :00 No 40meq 40 mEq, Oral, ONCE, 1 dose, On Tue07/24/23 at 0700, Routine [facility] LORazepam 1 mg tablet 07-24 00:00: 00 10-24 00:00 :00 No 1mg Take 1 tablet by mouth at bedtime as needed for Anxiety or Agitation. [facility] clopidogreL (PLAVIX) 300 mg tablet 300 mg 07-23 22:00: 00 07-23 21:55 :00 No 300mg 300 mg, Oral, ONCE NOW, 1 dose, On 07/23/23 at 1700, Routine [facility] pantoprazol e (PROTONIX) EC tablet 40 mg 07-23 14:00: 00 Yes 40mg 40 mg, Oral, DAILY, First dose on 07/23/23 at 0900, Until Discontinu ed, Routine [facility] KCL (KLOR-CON M20) tablet 20 mEq 07-23 12:30: 00 07-23 13:41 :00 No 20meq 20 mEq, Oral, ONCE, 1 dose, On 07/23/23 at 0730, Routine [facility] furosemide (LASIX) injection 40 mg 07-23 01:00: 00 Yes 40mg 40 mg, Slow IV Push, Q12H, First dose on Tue07/22/23 at 2000, Until Discontinu ed, Routine [facility] furosemide (LASIX) injection 40 mg 07-22 13:00: 00 07-22 14:51 :07 No 40mg 40 mg, Slow IV Push, TID, First dose on Tue07/22/23 at 0800, Until Discontinu ed, MIRNA [facility] ticagrelor (BRILINTA) tablet 90 mg 07-22 01:00: 00 Yes 90mg 90 mg, Oral, BID, First dose on Jackelyn 07/21/23 at 2000, Until Discontinu ed, Routine [facility] sulfur hexafluorid e microsphr (LUMASON) injection 5 mL 07-21 20:45: 00 07-21 20:45 :00 No [id number] 5mL 5 mL, Intravenou s, ONCE, 1 dose, On Jackelyn 07/21/23 at 1545, Routine
geosciences faculty member approving Restricted medication : JOCELYNE DENTON [facility] iodixanol (VISIPAQUE 320-100 mL) injection 07-21 18:49: 28 07-21 19:18 :22 No ONCE INTRA PROCEDURE, Starting on Jackelyn 07/21/23 at 1349, Until Jackelyn 07/21/23 at 1418, Routine, CV Intraproce dure [facility] adenosine 6 mg/1000 mL INTRACORONA RY injection for MEDICAL DOCTOR MD/MEDICAL DIRECTOR 07-21 18:04: 22 07-21 19:18 :22 No ONCE INTRA PROCEDURE, Starting on Jackelyn 07/21/23 at 1304, Until Jackelyn 07/21/23 at 1418, Routine, CV Intraproce dure [facility] nitroglycer in (TRIDIL) 2 mg in 10 mL D5W for Cardiac Cath 07-21 17:56: 07 07-21 19:18 :22 No ONCE INTRA PROCEDURE, Starting on Jackelyn 07/21/23 at 1256, Until Jackelyn 07/21/23 at 1418, Routine, CV Intraproce dure [facility] ticagrelor (BRILINTA) tablet 07-21 17:38: 42 07-21 19:18 :22 No ONCE INTRA PROCEDURE, Starting on Jackelyn 07/21/23 at 1238, Until Jackelyn 07/21/23 at 1418, Routine, CV Intraproce dure [facility] heparin 1,000 unit/mL injection 07-21 17:18: 00 07-21 19:18 :22 No ONCE INTRA PROCEDURE, Starting on Jackelyn 07/21/23 at 1218, Until Jackelyn 07/21/23 at 1418, Routine, CV Intraproce dure [facility] lidocaine 1% (PF) (XYLOCAINE) injection 07-21 16:18: 46 07-21 19:18 :22 No ONCE INTRA PROCEDURE, Starting on Jackelyn 07/21/23 at 1118, Until Jackelyn 07/21/23 at 1418, Routine, CV Intraproce dure [facility] midazolam (VERSED) injection 07-21 16:05: 12 07-21 19:18 :22 No ONCE INTRA PROCEDURE, Starting on Jackelyn 07/21/23 at 1105, Until Jackelyn 07/21/23 at 1418, Routine, CV Intraproce dure [facility] FENTanyl PF (SUBLIMAZE (PF)) injection 07-21 16:05: 01 07-21 19:18 :22 No ONCE INTRA PROCEDURE, Starting on Jackelyn 07/21/23 at 1105, Until Jackelyn 07/21/23 at 1418, Routine, CV Intraproce dure [facility] Lidocaine (LIDOCARE) 4 % patch 1 Patch 07-21 14:45: 00 07-22 08:00 :00 No 1{patch } 1 Patch, Topical, Administer over 12 Hours, ONCE, 1 dose, On Tue07/21/23 at 0945, Routine [facility] methocarbam oL (ROBAXIN) tablet 500 mg 07-21 14:15: 00 Yes 500mg 500 mg, Oral, BID, First dose (after last modificati on) on Jackelyn 07/21/23 at 0915, Until Discontinu ed, Routine [facility] docusate (COLACE) capsule 100 mg 07-21 14:00: 00 Yes 100mg 100 mg, Oral, DAILY, First dose on Tue07/21/23 at 0900, Until Discontinu ed, Routine [facility] sennosides- docusate sodium (SENOKOT-S) 8.6-50 mg per tablet 1 tablet 07-21 14:00: 00 Yes 1{tbl} 1 tablet, Oral, DAILY, First dose on Tue07/21/23 at 0900, Until Discontinu ed, Routine [facility] aspirin chewable tablet 81 mg 07-21 14:00: 00 Yes 81mg 81 mg, Oral, DAILY, First dose on Tue07/21/23 at 0900, Until Discontinu ed, Routine [facility] omeprazole (PRILOSEC) capsule 20 mg 07-21 14:00: 00 07-22 14:55 :38 No 20mg 20 mg, Oral, DAILY, First dose on Tue07/21/23 at 0900, Until Discontinu ed, Routine [facility] HYDROcodone -acetaminop hen (NORCO) 10-325 mg tablet 1 tablet 07-21 13:34: 58 Yes 1{tbl} 1 tablet, Oral, Q6HPRN, Starting on Tue07/21/23 at 0834, Until Discontinu ed, Routine, Pain (scale 7-10), Pain (scale 4-6) [facility] mirtazapine (REMERON) tablet 15 mg 07-21 06:17: 35 Yes 15mg 15 mg, Oral, QHSPRN, Starting on Tue07/21/23 at 0117, Until Discontinu ed, Routine, Insomnia, sleeping difficulti es [facility] acetaminoph en-codeine (TYLENOL #3) 300-30 mg tablet 1 tablet 07-21 02:03: 52 07-21 13:35 :18 No 1{tbl} 1 tablet, Oral, Q6HPRN, Starting on Tue07/20/23 at 2103, Until Tue07/21/23 at 0835, Routine, Pain (scale 4-6) [facility] acetaminoph en (TYLENOL) tablet 650 mg 07-21 02:03: 49 Yes 650mg 650 mg, Oral, Q6HPRN, Starting on Tue07/20/23 at 2103, Until Discontinu ed, Routine, Pain (scale 1-3) [facility] FENTanyl PF (SUBLIMAZE (PF)) injection 12.5 mcg 07-21 00:00: 00 07-20 23:06 :00 No 12.5ug 12.5 mcg, Slow IV Push, ONCE, 1 dose, On Tue07/20/23 at 1900, STAT [facility] iopamidol (ISOVUE 370-500 mL) injection 80 mL 07-20 22:15: 00 07-20 22:20 :00 No [id number] 80mL 80 mL, Intravenou s, ONCE, 1 dose, On Tue07/20/23 at 1715, Routine [facility] zolpidem (AMBIEN CR) 12.5 mg CR tablet 07-20 21:05: 26 Yes 12.5mg Take 12.5 mg by mouth at bedtime as needed for Sleep. [facility] mirabegron (MYRBETRIQ) 50 mg tablet 07-20 21:05: 26 Yes 1{tbl} Take 1 tablet by mouth daily. [facility] URSODIOL ORAL 07-20 21:05: 26 Yes Take by mouth. [facility] OMEPRAZOLE, BULK, MISC 07-20 21:05: 26 Yes 40{tbl} 40 tablets 2 (two) times daily. [facility] LORazepam 1 mg tablet 07-20 21:05: 26 Yes 1mg Take 1 mg by mouth. [facility] HEPARIN SODIUM (PORCINE) 1,000 UNIT/ML BOLUS ACS ORDER SET 07-20 20:30: 00 07-20 23:31 :00 No 4000U 4,000 Units, IV Push, ONCE, 1 dose, On Tue07/20/23 at 1530, MIRNA [facility] heparin 25,000 Units/250 mL (Premixed Bag) in [...] ADJUST INITIAL BOLUS OR INITIAL INFUSION RATE.
[facility] heparin (1,000 unit/mL, 10 mL vial) for Rebolusing 07-20 20:21: 15 Yes 3000U FOR REBOLUSING , Starting on Tue07/20/23 at 1521, Until Discontinu ed, Routine
Dosing based on aPPT testing parameters (refer to continuous heparin drip order).
[facility] ondansetron (ZOFRAN (PF)) injection 4 mg 07-20 18:45: 00 07-20 18:07 :00 No 4mg 4 mg, Slow IV Push, ONCE, 1 dose, On Tue07/20/23 at 1345, MIRNA [facility] FENTanyl PF (SUBLIMAZE (PF)) injection 75 mcg 07-20 18:45: 00 07-20 18:07 :00 No 75ug 75 mcg, Slow IV Push, ONCE, 1 dose, On Tue07/20/23 at 1345, STAT [facility] sulfur hexafluorid e microsphr (LUMASON) injection 5 mL 07-06 17:00: 00 07-06 16:53 :00 No [id number] 02 5mL 5 mL, Intravenou s, ONCE, 1 dose, On Tue07/06/23 at 1200, Routine
geosciences faculty member approving Restricted medication : EVANS THOMAS [facility] HYDROcodone -acetaminop hen (NORCO 5) 5-325 mg tablet 1 tablet 05-17 18:00: 00 05-17 18:03 :00 No 1{tbl} 1 tablet, Oral, ONCE, 1 dose, [facility]17/23 at 1300[facility] -[facility]aminop [facility] (NORCO) 10-325 mg tablet 05-17 13:30: 39 05-17 00:00 :00 No 1{tbl} Take 1 tablet by mouth every 6 (six) hours. [facility] NaCl 0.9% (NS) bolus infusion 1,000 mL 02-24 15:15: 00 02-24 17:05 :00 No 1000mL at 999 mL/hr, 1,000 mL, IV Infusion, ONCE, 1 dose, On Tue02/24/23 at 1015, [facility] zolpidem (AMBIEN CR) 12.5 mg CR tablet 04-22 14:53: 25 Yes 12.5mg Take 12.5 mg by mouth at bedtime as needed for Sleep. [facility] OMEPRAZOLE, BULK, MISC 04-22 14:53: 25 Yes 40{tbl} 40 tablets 2 (two) times daily. [facility] LORazepam 1 mg tablet 04-22 14:53: 25 Yes 1mg Take 1 mg by mouth. [facility] mirabegron (MYRBETRIQ) 50 mg tablet 2020-11 11:01: 54 Yes 1{tbl} Take 1 tablet by mouth daily. [facility] HYDROcodone -acetaminop hen (NORCO) 10-325 mg tablet 2020-11 11:01: 54 Yes 1{tbl} Take 1 tablet by mouth every 6 (six) hours. [facility] URSODIOL ORAL 01-20 14:09: 48 Yes Take by mouth. [facility] aspirin 81 mg chewable tablet 08-01 00:00: 00 Yes 81mg Take 1 tablet by mouth in the morning. [facility] atorvastati n 40 mg tablet atorvastati n 40 mg tablet No atorvastat in 40 mg tablet [facility] cefdinir 300 mg capsule cefdinir 300 mg capsule No cefdinir 300 mg capsule [facility] celecoxib 200 mg capsule celecoxib 200 mg capsule No celecoxib 200 mg capsule [facility] ciprofloxac in 500 mg tablet ciprofloxac in 500 mg tablet No ciprofloxa nba 500 mg tablet [facility] clopidogrel 75 mg tablet clopidogrel 75 mg tablet No clopidogre l 75 mg tablet [facility] estradiol 0.01% (0.1 mg/gram) vaginal cream Insert [...] vaginal route at bedtime for 90 days. [facility] estradiol 10 mcg vaginal tablet estradiol 10 mcg vaginal tablet No estradiol 10 mcg vaginal tablet [facility] fluconazole 150 mg tablet fluconazole 150 mg tablet No fluconazol e 150 mg tablet [facility] folic acid 1 mg tablet folic acid 1 mg tablet No folic acid 1 mg tablet [facility] furosemide 20 mg tablet furosemide 20 mg tablet No furosemide 20 mg tablet [facility] furosemide 40 mg tablet furosemide 40 mg tablet No furosemide 40 mg tablet [facility] gabapentin 800 mg tablet gabapentin 800 mg tablet No gabapentin 800 mg tablet [facility] hydrocodone 7.5 mg-acetamin ophen 325 mg tablet hydrocodone 7.5 mg-acetamin ophen 325 mg tablet No hydrocodon e 7.5 mg-acetami nophen 325 mg tablet [facility] ketoconazol e 2 % topical cream ketoconazol e 2 % topical cream No ketoconazo le 2 % topical cream [facility] lorazepam 0.5 mg tablet lorazepam 0.5 mg tablet No lorazepam 0.5 mg tablet [facility] Macrobid 100 mg capsule Take 1 capsule every day by oral route for 90 days. Macrobid 100 mg capsule Take 1 capsule every day by oral route for 90 days. No 1capsul e(s) Q1D Macrobid 100 mg capsule Take 1 capsule every day by oral route for 90 days. [facility] metoprolol succinate ER 25 mg tablet,exte nded release 24 hr metoprolol succinate ER 25 mg tablet,exte nded release 24 hr No metoprolol succinate ER 25 mg tablet,ext ended release 24 hr [facility] Myrbetriq 50 mg tablet,exte nded release Take 1 tablet every day by oral route for 30 days. Myrbetriq 50 mg tablet,exte nded release Take 1 tablet every day by oral route for 30 days. No 1 Q1D Myrbetriq 50 mg tablet,ext ended release Take 1 tablet every day by oral route for 30 days. [facility] omeprazole omeprazole No omeprazole [facility] omeprazole 40 mg capsule,del ayed release omeprazole 40 mg capsule,del ayed release No omeprazole 40 mg capsule,de layed release [facility] prednisone 10 mg tablet prednisone 10 mg tablet No prednisone 10 mg tablet [facility] Restasis 0.05 % eye drops in a dropperette Restasis 0.05 % eye drops in a dropperette No Restasis 0.05 % eye drops in a dropperett e [facility] sulfamethox azole 800 mg-trimetho prim 160 mg tablet sulfamethox azole 800 mg-trimetho prim 160 mg tablet No sulfametho xazole 800 mg-trimeth oprim 160 mg tablet [facility] tazarotene tazarotene No tazarotene [facility] trazodone 50 mg tablet trazodone 50 mg tablet No trazodone 50 mg tablet [facility] triamcinolo ne acetonide 0.1 % topical ointment triamcinolo ne acetonide 0.1 % topical ointment No triamcinol one acetonide 0.1 % topical ointment [facility] Immunizations Ordered Immunization Name Filled Immunization Name Date Status Comments Source Zoster Vaccine Recombinant 2019-11-08 00:00:00 Completed [facility] Zoster Vaccine Recombinant 2019-11-08 00:00:00 Completed [facility] Zoster Vaccine Recombinant 2019-11-08 00:00:00 Completed [facility] Zoster Vaccine Recombinant 2019-11-08 00:00:00 Completed [facility] Zoster Vaccine Recombinant 2019-11-08 00:00:00 Completed [facility] Zoster Vaccine Recombinant 2019-11-08 00:00:00 Completed [facility] Zoster Vaccine Recombinant 2019-11-08 00:00:00 Completed [facility] Zoster Vaccine Recombinant 2019-11-08 00:00:00 Completed [facility] Zoster Vaccine Recombinant 2019-11-08 00:00:00 Completed [facility] Zoster Vaccine Recombinant 2019-11-08 00:00:00 Completed [facility] Zoster Vaccine Recombinant 2019-11-08 00:00:00 Completed [facility] Zoster Vaccine Recombinant 2019-11-08 00:00:00 Completed [facility] Zoster Vaccine Recombinant 2019-11-08 00:00:00 Completed [facility] Zoster Vaccine Recombinant 2019-11-08 00:00:00 Completed [facility] Zoster Vaccine Recombinant 2019-11-08 00:00:00 Completed [facility] Zoster Vaccine Recombinant 2019-11-08 00:00:00 Completed [facility] Zoster Vaccine Recombinant 2019-11-08 00:00:00 Completed [facility] Zoster Vaccine Recombinant 2019-11-08 00:00:00 Completed [facility] Zoster Vaccine Recombinant 2019-11-08 00:00:00 Completed [facility] Zoster Vaccine Recombinant 2019-11-08 00:00:00 Completed Pneumococcal Polysaccharide, PPSV23 (PNEUMOVAX) 2019-08-25 00:00:00 Completed [facility] Zoster Vaccine Recombinant 2019-08-25 00:00:00 Completed [facility] Pneumococcal Polysaccharide, PPSV23 (PNEUMOVAX) 2019-08-25 00:00:00 Completed [facility] Zoster Vaccine Recombinant 2019-08-25 00:00:00 Completed [facility] Pneumococcal Polysaccharide, PPSV23 (PNEUMOVAX) 2019-08-25 00:00:00 Completed [facility] Zoster Vaccine Recombinant 2019-08-25 00:00:00 Completed [facility] Pneumococcal Polysaccharide, PPSV23 (PNEUMOVAX) 2019-08-25 00:00:00 Completed [facility] Zoster Vaccine Recombinant 2019-08-25 00:00:00 Completed [facility] Pneumococcal Polysaccharide, PPSV23 (PNEUMOVAX) 2019-08-25 00:00:00 Completed [facility] Zoster Vaccine Recombinant 2019-08-25 00:00:00 Completed [facility] Pneumococcal Polysaccharide, PPSV23 (PNEUMOVAX) 2019-08-25 00:00:00 Completed [facility] Zoster Vaccine Recombinant 2019-08-25 00:00:00 Completed [facility] Pneumococcal Polysaccharide, PPSV23 (PNEUMOVAX) 2019-08-25 00:00:00 Completed [facility] Zoster Vaccine Recombinant 2019-08-25 00:00:00 Completed [facility] Pneumococcal Polysaccharide, PPSV23 (PNEUMOVAX) 2019-08-25 00:00:00 Completed [facility] Zoster Vaccine Recombinant 2019-08-25 00:00:00 Completed [facility] Pneumococcal Polysaccharide, PPSV23 (PNEUMOVAX) 2019-08-25 00:00:00 Completed [facility] Zoster Vaccine Recombinant 2019-08-25 00:00:00 Completed [facility] Pneumococcal Polysaccharide, PPSV23 (PNEUMOVAX) 2019-08-25 00:00:00 Completed [facility] Zoster Vaccine Recombinant 2019-08-25 00:00:00 Completed [facility] Pneumococcal Polysaccharide, PPSV23 (PNEUMOVAX) 2019-08-25 00:00:00 Completed [facility] Zoster Vaccine Recombinant 2019-08-25 00:00:00 Completed [facility] Pneumococcal Polysaccharide, PPSV23 (PNEUMOVAX) 2019-08-25 00:00:00 Completed [facility] Zoster Vaccine Recombinant 2019-08-25 00:00:00 Completed [facility] Pneumococcal Polysaccharide, PPSV23 (PNEUMOVAX) 2019-08-25 00:00:00 Completed [facility] Zoster Vaccine Recombinant 2019-08-25 00:00:00 Completed [facility] Pneumococcal Polysaccharide, PPSV23 (PNEUMOVAX) 2019-08-25 00:00:00 Completed [facility] Zoster Vaccine Recombinant 2019-08-25 00:00:00 Completed [facility] Pneumococcal Polysaccharide, PPSV23 (PNEUMOVAX) 2019-08-25 00:00:00 Completed [facility] Zoster Vaccine Recombinant 2019-08-25 00:00:00 Completed [facility] Pneumococcal Polysaccharide, PPSV23 (PNEUMOVAX) 2019-08-25 00:00:00 Completed [facility] Zoster Vaccine Recombinant 2019-08-25 00:00:00 Completed [facility] Pneumococcal Polysaccharide, PPSV23 (PNEUMOVAX) 2019-08-25 00:00:00 Completed [facility] Zoster Vaccine Recombinant 2019-08-25 00:00:00 Completed [facility] Pneumococcal Polysaccharide, PPSV23 (PNEUMOVAX) 2019-08-25 00:00:00 Completed [facility] Zoster Vaccine Recombinant 2019-08-25 00:00:00 Completed [facility] Pneumococcal Polysaccharide, PPSV23 (PNEUMOVAX) 2019-08-25 00:00:00 Completed [facility] Zoster Vaccine Recombinant 2019-08-25 00:00:00 Completed [facility] Pneumococcal Polysaccharide, PPSV23 (PNEUMOVAX) 2019-08-25 00:00:00 Completed [facility] Zoster Vaccine Recombinant 2019-08-25 00:00:00 Completed Pneumococcal Polysaccharide, PPSV23 (PNEUMOVAX) Unknown Completed [facility] Zoster Vaccine Recombinant Unknown Completed [facility] Pneumococcal Polysaccharide, PPSV23 (PNEUMOVAX) Unknown Completed [facility] Zoster Vaccine Recombinant Unknown Completed [facility] Pneumococcal Polysaccharide, PPSV23 (PNEUMOVAX) Unknown Completed [facility] Zoster Vaccine Recombinant Unknown Completed [facility] Pneumococcal Polysaccharide, PPSV23 (PNEUMOVAX) Unknown Completed [facility] Zoster Vaccine Recombinant Unknown Completed [facility] Pneumococcal Polysaccharide, PPSV23 (PNEUMOVAX) Unknown Completed [facility] Zoster Vaccine Recombinant Unknown Completed [facility] Pneumococcal Polysaccharide, PPSV23 (PNEUMOVAX) Unknown Completed [facility] Zoster Vaccine Recombinant Unknown Completed [facility] Pneumococcal Polysaccharide, PPSV23 (PNEUMOVAX) Unknown Completed [facility] Zoster Vaccine Recombinant Unknown Completed [facility] Pneumococcal Polysaccharide, PPSV23 (PNEUMOVAX) Unknown Completed [facility] Zoster Vaccine Recombinant Unknown Completed [facility] Pneumococcal Polysaccharide, PPSV23 (PNEUMOVAX) Unknown Completed [facility] Zoster Vaccine Recombinant Unknown Completed [facility] Pneumococcal Polysaccharide, PPSV23 (PNEUMOVAX) Unknown Completed [facility] Zoster Vaccine Recombinant Unknown Completed [facility] Pneumococcal Polysaccharide, PPSV23 (PNEUMOVAX) Unknown Completed [facility] Zoster Vaccine Recombinant Unknown Completed [facility] Pneumococcal Polysaccharide, PPSV23 (PNEUMOVAX) Unknown Completed [facility] Zoster Vaccine Recombinant Unknown Completed [facility] Pneumococcal Polysaccharide, PPSV23 (PNEUMOVAX) Unknown Completed [facility] Zoster Vaccine Recombinant Unknown Completed [facility] Pneumococcal Polysaccharide, PPSV23 (PNEUMOVAX) Unknown Completed [facility] Zoster Vaccine Recombinant Unknown Completed [facility] Pneumococcal Polysaccharide, PPSV23 (PNEUMOVAX) Unknown Completed [facility] Zoster Vaccine Recombinant Unknown Completed [facility] Pneumococcal Polysaccharide, PPSV23 (PNEUMOVAX) Unknown Completed [facility] Zoster Vaccine Recombinant Unknown Completed [facility] Pneumococcal Polysaccharide, PPSV23 (PNEUMOVAX) Unknown Completed [facility] Zoster Vaccine Recombinant Unknown Completed [facility] Pneumococcal Polysaccharide, PPSV23 (PNEUMOVAX) Unknown Completed [facility] Zoster Vaccine Recombinant Unknown Completed [facility] Pneumococcal Polysaccharide, PPSV23 (PNEUMOVAX) Unknown Completed [facility] Zoster Vaccine Recombinant Unknown Completed [facility] Pneumococcal Polysaccharide, PPSV23 (PNEUMOVAX) Unknown Completed [facility] Zoster Vaccine Recombinant Unknown Completed [facility] Pneumococcal Polysaccharide, PPSV23 (PNEUMOVAX) Unknown Completed [facility] Zoster Vaccine Recombinant Unknown Completed [facility] Vital Signs Vital Name Observation Time Observation Value Comments S abilio Systolic blood pressure 2024-04-25 15:50:00 113 mm[Hg] [facility] Diastolic blood pressure 2024-04-25 15:50:00 63 mm[Hg] [facility] Heart rate 2024-04-25 15:50:00 47 /min [facility] Respiratory rate 2024-04-25 15:50:00 17 /min [facility] Body height 2024-04-25 15:50:00 160 cm [facility] Body weight 2024-04-25 15:50:00 99.338 kg [facility] BMI 2024-04-25 15:50:00 38.79 kg/m2 [facility] Oxygen saturation in Arterial blood by Pulse oximetry 2024-04-25 15:50:00 99 /min [facility] BP Systolic 2024-04-18 00:00:00 141 mm[Hg] [facility] Body Weight 2024-04-18 00:00:00 224 [lb_av] [facility] BP Diastolic 2024-04-18 00:00:00 97 mm[Hg] [facility] Systolic blood pressure 2023-12-29 17:25:00 118 mm[Hg] [facility] Diastolic blood pressure 2023-12-29 17:25:00 63 mm[Hg] [facility] Heart rate 2023-12-29 17:25:00 62 /min [facility] Body temperature 2023-12-29 17:25:00 36.28 Ceci [facility] Respiratory rate 2023-12-29 17:25:00 16 /min [facility] Oxygen saturation in Arterial blood by Pulse oximetry 2023-12-29 17:25:00 99 /min [facility] Body weight 2023-12-29 09:12:00 105.461 kg [facility] BMI 2023-12-29 09:12:00 39.89 kg/m2 [facility] Body height 2023-12-28 03:42:00 162.6 cm [facility] Body height 2023-12-21 20:26:00 160 cm [facility] Body weight 2023-12-21 20:26:00 114.76 kg [facility] BMI 2023-12-21 20:26:00 44.82 kg/m2 [facility] Systolic blood pressure 2023-12-14 15:58:00 131 mm[Hg] [facility] Diastolic blood pressure 2023-12-14 15:58:00 76 mm[Hg] [facility] Heart rate 2023-12-14 15:58:00 70 /min [facility] Respiratory rate 2023-12-14 15:58:00 22 /min [facility] Body height 2023-12-14 15:58:00 160 cm [facility] Body weight 2023-12-14 15:58:00 114.76 kg [facility] BMI 2023-12-14 15:58:00 44.82 kg/m2 [facility] Oxygen saturation in Arterial blood by Pulse oximetry 2023-12-14 15:58:00 100 /min [facility] Systolic blood pressure 2023-11-26 09:00:00 116 mm[Hg] [facility] Diastolic blood pressure 2023-11-26 09:00:00 50 mm[Hg] [facility] Heart rate 2023-11-26 09:00:00 70 /min [facility] Respiratory rate 2023-11-26 09:00:00 18 /min [facility] Oxygen saturation in Arterial blood by Pulse oximetry 2023-11-26 09:00:00 91 /min [facility] Body temperature 2023-11-26 06:16:00 36.83 Ceci [facility] Body height 2023-11-26 06:16:00 160 cm [facility] Body weight 2023-11-26 06:16:00 115.214 kg [facility] BMI 2023-11-26 06:16:00 44.99 kg/m2 [facility] Heart rate 2023-10-24 17:27:00 50 /min [facility] Oxygen saturation in Arterial blood by Pulse oximetry 2023-10-24 17:27:00 97 /min [facility] Systolic blood pressure 2023-10-24 17:26:00 109 mm[Hg] [facility] Diastolic blood pressure 2023-10-24 17:26:00 46 mm[Hg] [facility] Body temperature 2023-10-24 17:26:00 36.17 Ceci [facility] Respiratory rate 2023-10-24 13:22:00 18 /min [facility] Body weight 2023-10-24 09:07:00 118.48 kg [facility] BMI 2023-10-24 09:07:00 46.27 kg/m2 [facility] Body height 2023-10-24 06:29:00 160 cm [facility] Systolic blood pressure 2023-09-14 14:52:00 106 mm[Hg] [facility] Diastolic blood pressure 2023-09-14 14:52:00 64 mm[Hg] [facility] Heart rate 2023-09-14 14:52:00 69 /min [facility] Body height 2023-09-14 14:52:00 165.1 cm [facility] Body weight 2023-09-14 14:52:00 116.484 kg [facility] BMI 2023-09-14 14:52:00 42.73 kg/m2 [facility] Oxygen saturation in Arterial blood by Pulse oximetry 2023-09-14 14:52:00 92 /min [facility] Body temperature 2023-07-24 17:14:00 36.44 Ceci [facility] Respiratory rate 2023-07-24 17:14:00 18 /min [facility] Systolic blood pressure 2023-07-24 17:12:00 115 mm[Hg] [facility] Diastolic blood pressure 2023-07-24 17:12:00 67 mm[Hg] [facility] Heart rate 2023-07-24 11:58:00 64 /min [facility] Oxygen saturation in Arterial blood by Pulse oximetry 2023-07-24 11:58:00 96 /min [facility] Body height 2023-07-21 01:54:00 160 cm [facility] Body weight 2023-07-21 01:54:00 130.5 kg [facility] BMI 2023-07-21 01:54:00 50.96 kg/m2 [facility] Systolic blood pressure 2023-07-21 17:30:21 134 mm[Hg] [facility] Diastolic blood pressure 2023-07-21 17:30:21 69 mm[Hg] [facility] Respiratory rate 2023-07-21 17:30:21 16 /min [facility] Oxygen saturation in Arterial blood by Pulse oximetry 2023-07-21 17:30:21 99 /min [facility] Heart rate 2023-07-21 15:59:39 73 /min Unive [facility] Body temperature 2023-07-21 12:27:00 37.17 Ceci [facility] Body height 2023-07-21 01:54:00 160 cm [facility] Body weight 2023-07-21 01:54:00 130.5 kg [facility] BMI 2023-07-21 01:54:00 50.96 kg/m2 [facility] Body height 2023-06-01 18:14:00 162.6 cm [facility] Body weight 2023-06-01 18:14:00 124.286 kg [facility] BMI 2023-06-01 18:14:00 47.03 kg/m2 [facility] Systolic blood pressure 2023-05-17 18:03:51 173 mm[Hg] [facility] Diastolic blood pressure 2023-05-17 18:03:51 87 mm[Hg] [facility] Heart rate 2023-05-17 18:03:51 73 /min Unive [facility] Respiratory rate 2023-05-17 18:03:51 15 /min [facility] Oxygen saturation in Arterial blood by Pulse oximetry 2023-05-17 18:03:51 98 /min [facility] Body temperature 2023-05-17 16:30:00 36.17 Ceci [facility] Body height 2023-05-17 16:30:00 162.6 cm [facility] Body weight 2023-05-17 16:30:00 124.286 kg [facility] BMI 2023-05-17 16:30:00 47.03 kg/m2 [facility] Systolic blood pressure 2023-04-25 18:58:00 122 mm[Hg] [facility] Diastolic blood pressure 2023-04-25 18:58:00 76 mm[Hg] [facility] Heart rate 2023-04-25 18:58:00 73 /min Unive [facility] Body temperature 2023-04-25 18:58:00 35.56 Ceci [facility] Respiratory rate 2023-04-25 18:58:00 18 /min [facility] Body height 2023-04-25 18:58:00 160 cm [facility] Body weight 2023-04-25 18:58:00 124.15 kg [facility] BMI 2023-04-25 18:58:00 48.48 kg/m2 [facility] Oxygen saturation in Arterial blood by Pulse oximetry 2023-04-25 18:58:00 96 /min [facility] Respiratory rate 2023-02-24 17:00:00 21 /min [facility] Oxygen saturation in Arterial blood by Pulse oximetry 2023-02-24 17:00:00 95 /min [facility] Systolic blood pressure 2023-02-24 16:22:00 119 mm[Hg] [facility] Diastolic blood pressure 2023-02-24 16:22:00 59 mm[Hg] [facility] Heart rate 2023-02-24 16:22:00 74 /min [facility] Body temperature 2023-02-24 14:09:00 36.94 Ceci [facility] Body height 2023-02-24 14:09:00 160 cm [facility] Body weight 2023-02-24 14:09:00 124.286 kg [facility] BMI 2023-02-24 14:09:00 48.54 kg/m2 [facility] Systolic blood pressure 2022-04-22 19:57:00 170 mm[Hg] [facility] Diastolic blood pressure 2022-04-22 19:57:00 89 mm[Hg] [facility] Heart rate 2022-04-22 19:57:00 63 /min [facility] Oxygen saturation in Arterial blood by Pulse oximetry 2022-04-22 19:57:00 93 /min [facility] Body temperature 2022-04-22 19:55:00 35.89 Ceci [facility] Respiratory rate 2022-04-22 19:55:00 16 /min [facility] Body height 2022-04-22 19:55:00 162.6 cm [facility] Body weight 2022-04-22 19:55:00 128.141 kg [facility] BMI 2022-04-22 19:55:00 48.49 kg/m2 [facility] Procedures Procedure Date / Time Performed Performing Clinician Source EKG (SCANNED DOCUMENTS) 2024-12-04 18:22:33 Doct or Unassigned, [place] [facility] US, transvaginal 2024-04-20 00:00:00 [facility] US TRANSVAGINAL 2024-04-20 00:00:[address], abdomen + pelvis, w/wo contrast 2024-04-18 00:00:00 [facility] (SCANNED) DOCUMENTS 2024-03-13 17:48:20 Doctor Unassigned, [place] [facility] MAGNESIUM 2023-12-29 09:43:00 Isabel Tejeda [facility] BASIC METABOLIC PANEL (NA, K, CL, CO2, GLUCOSE, BUN, CREATININE, CA) 2023-12-29 09:43:00 Isabel Tejeda [facility] LACTIC ACID WHOLE BLOOD 2023-12-28 03:43:00 Lillian Sanford mmad [facility] LACTIC ACID WHOLE BLOOD 2023-12-27 23:04:00 Corey, Ph [facility] URINE CULTURE 2023-12-27 22:59:00 Singer [facility] XR CHEST 1 VW 2023-12-27 22:09:18 Singer [facility] URINALYSIS 2023-12-27 22:03:00 [facility] LACTIC ACID WHOLE BLOOD 2023-12-27 20:14:00 Ben Corey [facility] COMP. METABOLIC PANEL (81702) 2023-12-27 20:13:00 [facility] CBC WITH DIFF 2023-12-27 20:13:00 [place] [facility] AUTHORIZATION TO RELEASE PHI TO [facility] 2023-12-14 06:01:00 Doctor Unassigned, [place] [facility] BASIC METABOLIC PANEL (NA, K, CL, CO2, GLUCOSE, BUN, CREATININE, CA) 2023-11-26 06:56:00 Josh Norwood [facility] CBC WITH DIFF 2023-11-26 06:56:00 Josh Norwood [facility] HOME HEALTH - OTHER 2023-11-02 06:01:00 Doctor Keli mancuso, [place] [facility] POCT GLUCOSE (AUTOMATED) 2023-10-24 17:18:00 Cornelius Doyle [facility] TRANSTHORACIC ECHO (TTE) COMPLETE W/ CONTRAST 2023-10-24 15:25:00 Mac Sanford [facility] POCT GLUCOSE (AUTOMATED) 2023-10-24 13:55:00 Rhonda Sanford [facility] PHOSPHORUS 2023-10-24 12:49:00 [facility] 2023-10-24 12:49:00 Mac Sanford [facility] BASIC METABOLIC PANEL (NA, K, CL, CO2, GLUCOSE, BUN, CREATININE, CA) 2023-10-24 12:49:00 Brittnee Vazquez [facility] IRON PANEL 2023-10-24 12:49:00 Mac Sanford [facility] PHOSPHORUS 2023-10-24 12:47:00 Mac Sanford [facility] URIC ACID 2023-10-24 12:47:00 Mac Sanford [facility] MAGNESIUM 2023-10-24 12:47:00 Mac Sanford [facility] FERRITIN SERUM 2023-10-24 12:47:00 [facility] VIT[facility] B12, LEVEL 2023-10-24 12:47:00 Mac Sanford [facility] FOLATE 2023-10-24 12:47:00 Mac Sanford [facility] TROPONIN I 2023-10-24 12:47:00 Mac Sanford [facility] THYROID STIMULATING HORMONE 2023-10-24 12:47:00 Mac Sanford [facility] LIPID PANEL (47435)(TOTAL CHOLESTEROL, TRIGLYCERIDES, HDL) 2023-10-24 12:47:00 Mac Sanford [facility] RETICULOCYTES AUTOMATED 2023-10-24 12:47:00 Lillian Sanford mmad [facility] N-TERMINAL PRO-BNP 2023-10-24 12:47:00 Mac Sanford [facility] CT TRAUMA HEAD WO CONTRAST 2023-10-24 03:59:08 Kary Gomez [facility] XR CHEST 1 VW 2023-10-24 03:49:00 Rosie Gomez [facility] NOTICE OF PRIVACY PRACTICES 2023-10-24 03:30:24 Doctor Unassigned, [place] [facility] CONSENT/REFUSAL FOR DIAGNOSIS AND TREATMENT 2023-10-24 03:28:45 Doctor Unassigned, [place] [facility] LIPASE 2023-10-24 03:19:00 Rosie Gomez [facility] TROPONIN I 2023-10-24 03:19:00 Rosie Gomez [facility] COMP. METABOLIC PANEL (52111) 2023-10-24 03:19:00 Rosie Gomez [facility] CBC WITH DIFF 2023-10-24 03:19:00 Rosie Gomez [facility] N-TERMINAL PRO-BNP 2023-10-24 03:19:00 Rosie Gomez [facility] CT HEAD WO CONTRAST 2023-07-24 16:59:07 [facility] 2023-07-24 09:21:00 Jose Martin [facility] BASIC METABOLIC PANEL (NA, K, CL, CO2, GLUCOSE, BUN, CREATININE, CA) 2023-07-24 09:21:00 Jose Martin [facility] CBC WITH DIFF 2023-07-24 09:21:00 Jose Martin [facility] N-TERMINAL PRO-BNP 2023-07-24 09:21:00 Liliana Keen [facility] MAGNESIUM 2023-07-23 09:01:00 DegueFabio conklin [facility] BASIC METABOLIC PANEL (NA, K, CL, CO2, GLUCOSE, BUN, CREATININE, CA) 2023-07-23 09:01:00 [facility] 2023-07-23 09:01:00 DegFabio camacho [facility] ACTIVATED PARTIAL THRMPLAS VILMA 2023-07-22 15:05:00 Wili Anderson [facility] ACTIVATED PARTIAL THRMPLAS VILMA 2023-07-22 15:05:00 Wili Anderson [facility] HB ECG ROUTINE & RHYTHM STRIP 2023-07-22 13:39:06 Jenn Santoro [facility] MAGNESIUM 2023-07-22 05:41:00 Jono Morris [facility] BASIC METABOLIC PANEL (NA, K, CL, CO2, GLUCOSE, BUN, CREATININE, CA) 2023-07-22 05:41:00 Leander Morris [facility] CBC WITHOUT DIFF 2023-07-22 05:41:00 Rudy Morris [facility] ACTIVATED PARTIAL THRMPLAS VILMA 2023-07-22 05:41:00 Wili Anderson [facility] MAGNESIUM 2023-07-22 05:41:00 Jono Morris [facility] BASIC METABOLIC PANEL (NA, K, CL, CO2, GLUCOSE, BUN, CREATININE, CA) 2023-07-22 05:41:00 Leander Morris [facility] CBC WITHOUT DIFF 2023-07-22 05:41:00 Rudy Morris [facility] ACTIVATED PARTIAL THRMPLAS VILMA 2023-07-22 05:41:00 [facility] TRANSTHORACIC ECHO (TTE) LIMITED W/ CONTRAST 2023-07-21 20:43:39 [facility] TRANSTHORACIC ECHO (TTE) LIMITED W/ CONTRAST 2023-07-21 20:43:39 Wili Anderson [facility] CARDIAC CATHETERIZATION 2023-07-21 18:55:36 Albaeni, A [facility] CARDIAC CATHETERIZATION 2023-07-21 18:55:36 Albaeni, A [facility] CARDIAC CATHETERIZATION 2023-07-21 18:55:36 Albaeni, A [facility] CARDIAC CATHETERIZATION 2023-07-21 18:55:36 Albaeni, A [facility] CARDIAC CATHETERIZATION 2023-07-21 18:55:36 Albaeni, A [facility] CARDIAC CATHETERIZATION 2023-07-21 18:55:36 Albaeni, A [facility] CARDIAC CATHETERIZATION 2023-07-21 18:55:36 Albaeni, A [facility] CARDIAC CATHETERIZATION 2023-07-21 18:55:36 Albaeni, A [facility] CARDIAC CATHETERIZATION 2023-07-21 18:55:36 Albaeni, A [facility] CARDIAC CATHETERIZATION 2023-07-21 18:55:36 Albaeni, A [facility] CARDIAC CATHETERIZATION 2023-07-21 18:55:36 Albaeni, A [facility] CARDIAC CATHETERIZATION 2023-07-21 18:55:36 Albaeni, A [facility] CARDIAC CATHETERIZATION 2023-07-21 18:55:36 Amairani, Bentley [facility] CARDIAC CATHETERIZATION 2023-07-21 18:55:36 Amairani, Bentley [facility] CARDIAC CATHETERIZATION 2023-07-21 18:55:36 Amairani, Bentley [facility] CARDIAC CATHETERIZATION 2023-07-21 18:55:36 Bentley Bales [facility] POCT ACT LOW RANGE 2023-07-21 18:46:00 Amairani [facility] POCT ACT LOW RANGE 2023-07-21 18:46:00 Amairani [facility] POCT ACT LOW RANGE 2023-07-21 18:17:00 Amairani [facility] POCT ACT LOW RANGE 2023-07-21 18:17:00 Amairani [facility] POCT ACT LOW RANGE 2023-07-21 17:21:00 Amairani [facility] POCT ACT LOW RANGE 2023-07-21 17:21:00 Amairani [facility] HB ECG ROUTINE & RHYTHM STRIP 2023-07-21 13:12:30 [facility] HB ECG ROUTINE & RHYTHM STRIP 2023-07-21 13:12:30 [facility] TROPONIN I 2023-07-21 13:10:00 Justin [facility] ACTIVATED PARTIAL THRMPLAS VILMA 2023-07-21 13:10:00 [facility] TROPONIN I 2023-07-21 13:10:00 Wili Anderson [facility] ACTIVATED PARTIAL THRMPLAS VILMA 2023-07-21 13:10:00 [facility] MAGNESIUM 2023-07-21 06:05:00 Justin [facility] TROPONIN I 2023-07-21 06:05:00 Wili Anderson [facility] BASIC METABOLIC PANEL (NA, K, CL, CO2, GLUCOSE, BUN, CREATININE, CA) 2023-07-21 06:05:00 [facility] CBC WITH DIFF 2023-07-21 06:05:00 Wili Anderson [facility] ACTIVATED PARTIAL THRMPLAS VILMA 2023-07-21 06:05:00 [facility] MAGNESIUM 2023-07-21 06:05:00 Wili Anderson [facility] TROPONIN I 2023-07-21 06:05:00 Wili Anderson [facility] BASIC METABOLIC PANEL (NA, K, CL, CO2, GLUCOSE, BUN, CREATININE, CA) 2023-07-21 06:05:00 [facility] CBC WITH DIFF 2023-07-21 06:05:00 Wili Anderson [facility] ACTIVATED PARTIAL THRMPLAS VILMA 2023-07-21 06:05:00 [facility] HB ECG ROUTINE & RHYTHM STRIP 2023-07-21 05:50:57 [facility] HB ECG ROUTINE & RHYTHM STRIP 2023-07-21 05:50:57 [facility] MAGNESIUM 2023-07-20 23:04:00 Wili Anderson [facility] TROPONIN I 2023-07-20 23:04:00 Garfield Bower [facility] MAGNESIUM 2023-07-20 23:04:00 AndersonWili [facility] TROPONIN I 2023-07-20 23:04:[address] [facility] CT ABDOMEN PELVIS W CONTRAST 2023-07-20 22:44:00 Garfield Bower [facility] CT ABDOMEN PELVIS W CONTRAST 2023-07-20 22:44:00 Garfield Bower [facility] CT ANGIOGRAM CHEST 2023-07-20 22:29:38 Garfield Bower [facility] CT ANGIOGRAM CHEST 2023-07-20 22:29:38 Garfield Bower [facility] COVID-19 (ID NOW RAPID TESTING) 2023-07-20 20:24:00 Garfield Bower [facility] LAB ONLY COVID INTERPRETATION 2023-07-20 20:24:00 Garfield Bower [facility] COVID-19 (ID NOW RAPID TESTING) 2023-07-20 20:24:00 Garfield Bower [facility] LAB ONLY COVID INTERPRETATION 2023-07-20 20:24:00 Garfield Bower [facility] LIPASE 2023-07-20 19:02:00 Garfield Bower [facility] COMP. METABOLIC PANEL ([id number]) 2023-07-20 19:02:00 Garfield Bower [facility] CBC WITH DIFF 2023-07-20 19:02:00 Garfield Bower [facility] PROTHROMBIN TIME / INR 2023-07-20 19:02:00 Surya Bower [facility] ACTIVATED PARTIAL THRMPLAS VILMA 2023-07-20 19:02:00 Garfield Bower [facility] LIPASE 2023-07-20 19:02:00 Garfield Bower [facility] COMP. METABOLIC PANEL ([id number]) 2023-07-20 19:02:00 Garfield Bower [facility] CBC WITH DIFF 2023-07-20 19:02:00 Garfield Bower [facility] PROTHROMBIN TIME / INR 2023-07-20 19:02:00 Surya Bower [facility] ACTIVATED PARTIAL THRMPLAS VILMA 2023-07-20 19:02:00 Garfield Bower [facility] TROPONIN I 2023-07-20 18:06:00 Garfield Bower [facility] N-TERMINAL PRO-BNP 2023-07-20 18:06:00 Garfield Bower [facility] TROPONIN I 2023-07-20 18:06:00 Garfield Bower [facility] N-TERMINAL PRO-BNP 2023-07-20 18:06:00 Garfield Bower [facility] XR CHEST 1 VW 2023-07-20 17:47:50 Garfield Bower [facility] XR CHEST 1 VW 2023-07-20 17:47:50 Garfield Bower [facility] HB ECG ROUTINE & RHYTHM STRIP 2023-07-20 17:21:23 Garfield Bower [facility] HB ECG ROUTINE & RHYTHM STRIP 2023-07-20 17[facility]21[facility] 17:17:00 Garfield Bower [facility] CRITICAL CARE 2023-07-20 17:17:00 Garfield Bower [facility] HOSPITAL ADMISSION 2023-07-20 05:01:00 Doctor Un assigned, [place] [facility] TRANSTHORACIC ECHO (TTE) COMPLETE W/ CONTRAST 2023-07-06 17:08:00 PanchoJuliusbree [facility] XR SHOULDER 2+ VW RIGHT 2023-06-01 18:32:58 Fariha Candelario [facility] CONSENT/REFUSAL FOR DIAGNOSIS AND TREATMENT 2023-04-25 18:48:10 Doctor Unassigned, [place] [facility] EKG-12 LEAD 2023-02-24 15:59:56 [facility]AST 2023-02-24 15:05:18 Criss Penn ra [facility] CT TRAUMA CERVICAL SPINE WO CONTRAST 2023-02-24 15:05:18 Ghazala Penn [facility] URINALYSIS 2023-02-24 14:49:00 Ghazala Penn [facility] TROPONIN I 2023-02-24 14:27:00 Ghazala Penn [facility] COMP. METABOLIC PANEL ([id number]) 2023-02-24 14:27:00 Ghazala Penn [facility] CBC WITH DIFF 2023-02-24 14:27:00 [facility]ala [facility] LACT[facility] ACID WHOLE BLOOD 2023-02-24 14:26:00 Ghazala Penn [facility] Total Hysterectomy with Removal of Both Tubes and Ovaries 1993-02-12 00:00:00 [facility] Stapling of Stomach 1979-11-14 00:00:00 P [facility] Medical Encounters Start Date/Time End Date/Time Encounter Type Admission Type Attending Clinicians Care Facility Care Department Encounter ID Source 2021-09-12 00:16:52 Emergency [facility] [id number] [facility] 2021-09-11 17:12:50 Emergency [facility] [id number] [facility] 2019-11-23 07:00:00 Inpatient Praveena Garcia [facility] END[facility] [id number] [facility] 2024-12-04 00:00:00 2024-12-29 06:16:37 Orders Only Doctor Unassigned, [place] Doctor Unassigned, [place] [facility] 1.2.840.114 350.1.13.10 4.2.7.2.686 [id number] [facility] 2024-03-13 00:00:00 2024-12-29 02:08:46 Orders Only Doctor Unassigned, [place] Doctor Unassigned, [place] [facility] [id number] 350.1.13.10 4.2.7.2.686 [id number] [facility] 2024-10-25 14:00:00 2024-10-25 14:00:00 [id number] 2024-05-22 00:00:00 2024-05-22 00:00:00 Outpatient JUAN RAMON FUNES [facility] [id number] [facility] 2024-04-30 00:00:00 2024-04-30 00:00:00 SACHIN Moya: [address] [place] [address] Dr [address], [address], [place] [address] , Ph. [facility] GC_GCBZW_[facility]* [id number] [facility] 2024-04-27 00:00:00 2024-04-27 00:00:00 Outpatient JUAN RAMON FUNES [facility] [id number] [facility] 2024-04-25 11:00:00 2024-04-25 11:05:28 Outpatient BACILIO RAMESH [facility] [id number] [facility] 2024-04-25 11:00:00 2024-04-25 11:05:28 [facility] 1.2.840.114 350.1.13.10 4.2.7.2.686 [id number] [facility] 2024-04-20 00:00:00 2024-04-20 00:00:00 Juan Ramon Welch MD: [address], [facility] [address], [place] [id number] , Ph. [facility]* [id number] [facility] 2024-04-18 00:00:00 2024-04-18 00:00:00 Juan Ramon Welch MD: [address], [facility] [address], [place] [id number] , Ph. [facility]* [id number] [facility] 2024-03-26 00:00:00 2024-03-26 00:00:00 Outpatient R [facility] [id number] [facility] 2024-03-22 00:00:00 2024-03-22 00:00:00 Outpatient R [facility] [id number] [facility] 2024-03-12 00:00:00 2024-03-12 00:00:00 [place] [id number] 350.1.13.10 4.2.7.2.686 [id number] [facility] 2024-03-09 00:00:00 2024-03-09 00:00:00 [facility] 1.2.840.114 350.1.13.10 4.2.7.2.686 [id number] [facility] 2024-03-09 00:00:00 2024-03-09 00:00:00 Telephone Pancho, [facility] 1.2.840.114 350.1.13.10 4.2.7.2.686 [id number] [facility] 2024-03-05 00:00:00 2024-03-05 00:00:00 Telephone Pancho [facility] BUILDING 1.2.840.114 350.1.13.10 4.2.7.2.686 [id number] [facility] 2023-12-30 00:00:00 2023-12-30 00:00:00 Transition of Care Belinda Chang [facility] 1.2.840.114 350.1.13.10 4.2.7.2.686 [id number] [facility] 2023-12-27 13:30:00 2023-12-29 15:03:00 Outpatient X LILIANA PÉREZ [facility] [id number] [facility] 2023-12-27 13:30:00 2023-12-29 15:03:00 Emergency Wale Corey [facility] 1.2.840.114 350.1.13.10 4.2.7.2.686 [id number] [facility] 2023-12-21 14:36:46 2023-12-21 23:59:00 Hospital Encounter Sydni Perez [facility] 1.2.840.114 350.1.13.10 4.2.7.2.686 [id number] [facility] 2023-12-21 14:30:00 2023-12-21 15:08:25 Outpatient R SYDNI PEREZ C[facility]IG [facility] [id number] [facility] 2023-12-21 14:30:00 2023-12-21 15:08:25 Office Visit Sydni Perez [facility] 1.2840.114 350.1.13.10 4.2.7.2.686 [id number] [facility] 2023-12-14 10:00:00 2023-12-14 10:17:57 [facility] [id number] [facility] 2023-12-14 10:00:00 2023-12-14 10:17:57 Office Visit Pancho [facility] BUILDING 1.2.840.114 350.1.13.10 4.2.7.2.686 [id number] [facility] 2023-12-14 00:00:00 2023-12-14 00:00:00 Telephone Pancho [facility] BUILDING 1.2.840.114 350.1.13.10 4.2.7.2.686 [id number] [facility] 2023-12-14 00:00:00 2023-12-14 00:00:00 Orders Only Doctor Unassigned, [place] [facility] 1.2.840.114 350.1.13.10 4.2.7.2.686 [id number] [facility] 2023-12-08 13:15:00 2023-12-08 13:15:00 Outpatient R SYDNI PEREZ [facility] [id number] [facility] 2023-11-26 00:26:00 2023-11-26 04:18:00 Emergency X JOSH NORWOOD [facility] ERT [id number] [facility] 2023-11-26 00:26:00 2023-11-26 04:18:00 Emergency Josh Norwood [facility] [id number] [facility] 2023-11-26 00:19:00 2023-11-26 00:19:00 Emergency X [facility] ERT [id number] [facility] 2023-11-24 14:00:00 2023-11-24 14:00:00 Outpatient R SYDNI PEREZ [facility] [id number] [facility] 2023-11-18 11:00:00 2023-11-18 11:00:00 Outpatient R SYDNI PEREZ [facility] [id number] [facility] 2023-11-17 00:00:00 2023-11-17 00:00:00 [id number] 2023-11-16 00:00:00 2023-11-16 00:00:00 [facility] [facility] 1..840.114 350.1.13.10 4.2.7.2.686 [id number] 059 [id number] [facility] 2023-11-02 00:00:00 2023-11-02 00:00:00 Outpatient R [facility] [id number] [facility] 2023-11-02 00:00:00 2023-11-02 00:00:00 Orders Only Doctor Unassigned, [place] [facility] 1..840.114 350.1.13.10 4.2.7.2.686 [id number] [facility] 2023-10-23 21:02:00 2023-10-24 16:30:00 Inpatient X CARITO DOYLE [facility] [id number] [facility] 2023-10-23 21:02:00 2023-10-24 16:30:00 Hospital Encounter Rosie Gomez, Carito Cheney [facility] 1.2.840.114 350.1.13.10 4.2.7.2.686 [id number] [facility] 2023-09-15 00:00:00 2023-09-15 00:00:00 Telephone [facility] BUILDING 1.2.840.114 350.1.13.10 4.2.7.2.686 [id number] [facility] 2023-09-14 10:30:00 2023-09-14 10:38:04 Housing Relocation Visit 2, Adc Lab [facility] BUILDING 1.2.840.114 350.1.13.10 4.2.7.2.686 [id number] [facility] 2023-09-14 10:00:00 2023-09-14 10:09:30 Outpatient R PANCHO [facility] [id number] [facility] 2023-09-14 10:00:00 2023-09-14 10:09:30 Office Visit [facility] BUILDING 1.2.840.114 350.1.13.10 4.2.7.2.686 [id number] 059 [id number] [facility] 2023-09-09 00:00:00 2023-09-09 00:00:00 Shanel Gamboa [facility] 1.2.840.114 350.1.13.10 4.2.7.2.686 [id number] [facility] 2023-08-05 15:40:00 2023-08-05 15:40:00 Outpatient R PANCHO [facility] [id number] [facility] 2023-08-04 00:00:00 2023-08-04 00:00:00 Telephone [facility] BUILDING 1.2.840.114 350.1.13.10 4.2.7.2.686 [id number] 059 [id number] [facility] 2023-07-29 00:00:00 2023-07-29 00:00:00 [facility] 1.2.840.114 350.1.13.10 4.2.7.2.686 [id number] 059 [id number] [facility] 2023-07-26 00:00:00 2023-07-26 00:00:00 Transition of Care Juancarlos Duncan [facility] 1.2.840.114 350.1.13.10 4.2.7.2.686 [id number] [facility] 2023-07-20 12:20:00 2023-07-24 15:24:00 [facility] [id number] 2023-07-20 12:20:00 2023-07-24 15:24:00 Hospital Encounter Garfield Bower [facility] 1.2.840.114 350.1.13.10 4.2.7.2.686 [id number] [facility] 2023-07-21 10:35:00 2023-07-21 12:35:00 Surgery Jasvir jorge [facility] 1.2.840.114 350.1.13.10 4.2.7.2.686 [id number] [facility] 2023-07-07 00:00:00 2023-07-07 00:00:00 [facility] 1.2.840.114 350.1.13.10 4.2.7.2.686 [id number] 059 [id number] [facility] 2023-07-06 11:00:00 2023-07-06 23:59:00 Outpatient R PANCHO [facility] [id number] [facility] 2023-07-06 11:00:00 2023-07-06 23:59:00 Hospital Encounter [facility] BUILDING 1.2.840.114 350.1.13.10 4.2.7.2.686 [id number] [facility] 2023-06-27 00:00:00 2023-06-27 00:00:00 Telephone [facility] BUILDING 1..840.114 350.1.13.10 4.2.7.2.686 [id number] [facility] 2023-06-01 13:22:39 2023-06-01 23:59:00 Outpatient R [facility] [id number] [facility] 2023-06-01 13:22:39 2023-06-01 23:59:00 Hospital Encounter Andree [facility] 1..840.114 350.1.13.10 4.2.7.2.686 [id number] [facility] 2023-06-01 13:30:00 2023-06-01 14:00:00 [facility] 1..840.114 350.1.13.10 4.2.7.2.686 [id number] [facility] 2023-05-17 11:32:00 2023-05-17 13:55:00 Emergency X ROSELINE GAVIN [place] [id number] [facility] 2023-05-17 11:32:00 2023-05-17 13:55:00 Emergency Roseline Gavin [facility] 1.2.840.114 350.1.13.10 4.2.7.2.686 [id number] [facility] 2023-05-12 13:00:00 2023-05-12 13:00:00 [facility] [id number] [facility] 2023-05-12 00:00:00 2023-05-12 00:00:00 Telephone [facility] 1.2.840.114 350.1.13.10 4.2.7.2.686 [id number] 059 [id number] [facility] 2023-04-25 14:00:00 2023-04-25 14:13:34 Outpatient R PANCHO [facility] [id number] [facility] 2023-04-25 14:00:00 2023-04-25 14:13:34 Office Visit [facility] 1.2.840.114 350.1.13.10 4.2.7.2.686 [id number] 059 [id number] [facility] 2023-04-25 00:00:00 2023-04-25 00:00:00 Orders Only Doctor Unassigned, [place] [facility] 1.2.840.114 350.1.13.10 4.2.7.2.686 [id number] [facility] 2023-02-24 09:07:00 2023-02-24 13:04:00 Emergency X GHAZALA [facility] [id number] [facility] 2023-02-24 09:07:00 2023-02-24 13:04:00 Emergency Ghazala Penn [facility] 1.2.840.114 350.1.13.10 4.2.7.2.686 [id number] [facility] 2022-12-09 00:00:00 2022-12-09 00:00:00 [facility] BU[facility] 1.2.840.114 350.1.13.10 4.2.7.2.686 [id number] 059 [id number] [facility] 2022-12-07 00:00:00 2022-12-07 00:00:00 [facility] 1.2.840.114 350.1.13.10 4.2.7.2.686 [id number] 059 [id number] [facility] 2022-12-07 00:00:00 2022-12-07 00:00:00 [facility] 1.2.840.114 350.1.13.10 4.2.7.2.686 [id number] 059 [id number] [facility] 2022-11-01 00:00:00 2022-11-01 00:00:00 [facility] 1.2.840.114 350.1.13.10 4.2.7.2.686 [id number] [facility] 2022-05-31 11:00:00 2022-05-31 11:00:00 [facility] [id number] 2022-05-31 11:00:00 2022-05-31 11:00:00 [facility] [id number] [facility] 2022-05-10 14:00:00 2022-05-10 23:59:00 [facility] [id number] [facility] 2022-04-22 14:40:00 2022-04-22 15:00:00 [facility] 1.2.840.114 350.1.13.10 4.2.7.2.686 [id number] [facility] 2022-04-22 14:40:00 2022-04-22 14:40:00 [facility] [id number] [facility] 2022-04-22 14:40:00 2022-04-22 14:40:00 [facility] [id number] [facility] 2022-04-22 14:40:00 2022-04-22 14:40:00 Outpatient R PANCHO [facility] [id number] [facility] 2022-04-22 00:00:00 2022-04-22 00:00:00 Orders Only Doctor Unassigned, [place] [facility] 1.2.840.114 350.1.13.10 4.2.7.2.686 [id number] [facility] 2022-03-18 00:00:00 2022-03-18 00:00:00 Telephone [facility] BUILDING 1.2.840.114 350.1.13.10 4.2.7.2.686 [id number] [id number] [facility] 2021-08-31 10:51:10 2021-08-31 11:31:17 [facility] 1.2.840.114 350.1.13.10 4.2.7.2.686 [id number] [facility] 2021-08-31 11:00:00 2021-08-31 11:00:00 [facility] [id number] [facility] 2021-07-31 00:00:00 2021-07-31 00:00:00 [facility] 1.2.840.114 350.1.13.10 4.2.7.2.686 [id number] 059 [id number] [facility] 2021-03-12 00:00:00 2021-03-12 00:00:00 [facility] 1.2.840.114 350.1.13.10 4.2.7.2.686 [id number] [facility] 2021-01-23 13:00:00 2021-01-23 13:00:00 [facility] [id number] [facility] 2021-01-21 13:00:00 2021-01-21 13:00:00 [facility] [id number] [facility] 2021-01-20 13:18:39 2021-01-20 14:29:08 [facility] 1.2.840.114 350.1.13.10 4.2.7.2.686 [id number] 059 [id number] [facility] 2021-01-20 13:20:00 2021-01-20 13:20:00 [facility] [id number] [facility] 2021-01-20 00:00:00 2021-01-20 00:00:00 Orders Only Doctor Unassigned, [place] [facility] 1.2840.114 350.1.13.10 4.2.7.2.686 [id number] [facility] 2020-10-20 10:56:53 2020-10-20 11:45:51 [facility] 1.2.840.114 350.1.13.10 4.2.7.2.686 [id number] 059 [id number] [facility] 2020-10-20 11:00:00 2020-10-20 11:00:00 Outpatient R BACILIO DELEON [facility] [id number] [facility] 2020-09-26 00:00:00 2020-09-26 00:00:00 Outpatient [facility] [id number] [facility] 2020-09-26 00:00:00 2020-09-26 00:00:00 Orders Only Doctor Unassigned, [place] [facility] 1.2840.114 350.1.13.10 4.2.7.2.686 [id number] [facility] 2020-09-17 00:00:00 2020-09-17 00:00:00 Orders Only Doctor Unassigned, [place] [facility] 1.2840.114 350.1.13.10 4.2.7.2.686 [id number] [id number] [facility] 2020-09-09 00:00:00 2020-09-09 00:00:00 Transition of Care [address] 1.840.114 350.1.13.10 4.2.7.2.686 [id number] [facility] 2020-09-03 14:15:00 2020-09-07 13:38:00 Hospital Encounter Garfield Bower, Garfield Bryant Ahmed Riyadh Shalaby, Mostafa Helmy Ahmed Mohamed Khalife, Osman [facility] 1.0.114 350.1.13.10 4.2.7.2.686 [id number] [facility] 2020-09-03 00:00:00 2020-09-03 00:00:00 Telephone [facility] [place] [facility] 1.2840.114 350.1.13.10 4.2.7.2.686 [id number] 059 [id number] [facility] 2020-08-28 00:00:00 2020-08-28 00:00:00 [facility] 1.2.840.114 350.1.13.10 4.2.7.2.686 [id number] 059 [id number] [facility] 2020-08-20 13:35:30 2020-08-20 14:32:43 [facility] 1.2.840.114 350.1.13.10 4.2.7.2.686 [id number] 059 [id number] [facility] 2020-08-20 13:40:00 2020-08-20 13:40:00 Outpatient R PANCHO [facility] [id number] [facility] 2020-08-20 00:00:00 2020-08-20 00:00:00 Telephone [facility] 1.2.840.114 350.1.13.10 4.2.7.2.686 [id number] 059 [id number] [facility] 2020-08-14 00:00:00 2020-08-14 00:00:00 Orders Only Doctor Unassigned, [place] [facility] 1.2840.114 350.1.13.10 4.2.7.2.686 [id number] [id number] [facility] 2020-07-26 12:05:00 2020-07-31 19:15:00 Hospital Encounter Garfield Bower, [facility] 1.2840.114 350.1.13.10 4.2.7.2.686 [id number] [id number] [facility] 2020-06-19 00:00:00 2020-06-19 00:00:00 Orders Only Doctor Unassigned, [place] [facility] 1.2840.114 350.1.13.10 4.2.7.2.686 [id number] [id number] [facility] 2020-04-23 00:00:00 2020-04-23 00:00:00 Orders Only Doctor Unassigned, [place] [facility] 1.2.840.114 350.1.13.10 4.2.7.2.686 [id number] [id number] [facility] 2020-04-04 00:00:00 2020-04-04 00:00:00 Transition of Care Belinda Chang 1.2.840.114 350.1.13.10 4.2.7.2.686 [id number] [facility] 2020-03-30 18:29:50 2020-04-03 16:09:00 Hospital Encounter Germaine Nagel Mukaila HoffmanDeloris chi [facility] 1.2.840.114 350.1.13.10 4.2.7.2.686 [id number] [facility] 2020-03-30 18:29:50 2020-04-03 16:09:00 Inpatient X SHANI [facility]AN [facility] [id number] [facility] Results Test Description Test Time Test Comments Results Resul t Comments Source EKG (SCANNED DOCUMENTS) 2024-12-04 18:22:33 Ordered by an unspecified provider. [facility] (SCANNED) DOCUMENTS 2024-03-13 17:48:20 [facility] an unspecified provider. [facility] (NA, K, CL, CO2, GLUCOSE, BUN, CREATININE, CA)2023-12-29 11:08:03* Test Item Value Reference Range Interpretation Comme nts NA (test code = 7210670723) 133 mmol/L 135-145 L K (test code = 6950416414) 4.3 mmol/L 3.5-5.0 CL (test code = 4045698432) 105 mmol/L 98-108 CO2 TOTAL (test code = 3961696665) 22 mmol/L 23-31 L AGAP (test code = 0906774398) 6 2-16 BUN (test code = 1096033392) 26 mg/dL 7-23 H GLUCOSE (test code = 6578110565) 96 mg/dL 70-110 CREATININE (test code = 2160-0) 1.57 mg/dL 0.50-1.04 H CALCIUM (test code = 8588116289) 8.2 mg/dL 8.6-10.6 L eGFR (test code = 47989-8) 33.4 mL/min/1.73m2 CKD-EPI eGFR (2020). Assuming creatinine has been stable day-to-day for at least three months, the eGFR indicates Category G3b (30 - 44 mL/min/1.73 m2) Lab Interpretation (test code = 64895-9) [facility]normal [facility] [id number] 03:54:52* Test Item Value Reference Range Interpretation Comme nts LACTIC ACID (test code = 3907085259) 2.27 mmol/L 0.50-2.20 H Lab Interpretation (test cod e = 55124-9) [facility]normal [facility] 1 [id number] 23:25:46EXAM: XR CHEST 1 VW COMPARISON: Chest x-ray on 10/23/2023 HISTORY: shortness of breath FINDINGS:Lungs: Decreased aeration of right lung. Elevation of the righthemidiaphragm, unchanged. No focal opacities or pleural abnormality. Heart/Mediastinum: The cardiac silhouette appears normal accounting fortechnique and degree of inspiration. Calcified aortic knob. Bones and soft tissues: No osseous abnormality is visualized. Surgicalstaples are present in the left lateral chest wall.[facility] Blood 2023-12-27 23:11:50* Test Item Value Reference Range Interpretation Comme nts LACTIC ACID (test code = 8412311407) 2.33 mmol/L 0.50-2.20 H Lab Interpretation (test cod e = 45302-1) Abnormal [facility] Whole [id number] 20:20:27* Test Item Value Reference Range Interpretation Comme nts LACTIC ACID (test code = 8454453179) 3.04 mmol/L 0.50-2.20 H Lab Interpretation (test cod e = 10537-4) Abnormal [facility] (TTE)2023-10-24 18:35:55* Test Item Value Reference Range Interpretation Comme nts Height (test code = 1086362749) 63 in Weight (test code = 0383688325) 269 lbs Systolic BP (test code = 8157824803) 114 mmHg Diastolic BP (test code = 4674055432) 47 mmHg Heart Rate (test code = 8214687853) 55 bpm BSA (test code = 1198422301) 2.19 m2 Ao root diam (test code = 7067883950) 3.00 cm Aortic root (test code = 2086619085) 3.0 cm Ao root annulus (test code = 7305557479) 3.0 cm LVOT diameter (test code = 4540206170) 1.96 cm LVOT area (test code = 3988627795) 3.00 cm2 LA size (test code = 1466179777) 4.6 cm Pulmonic Regurgitant End Max Velocity (test code = 1367206441) 107.5 cm/s LAV(MOD-sp4) (test code = 3304598912) 86.20 mL E wave decelartion time (test code = 2823827864) 0.31 s MV Peak E Kenyatta (test code = 2510268253) 96.6 cm/s MV stenosis pressure 1/2 time (test code = 5065268020) 94.5 ms MV Peak A Kenyatta (test code = 6186617892) 114.1 cm/s E/A ratio (test code = 9264435711) 0.85 ratio MV Prop V (test code = 8585623921) 53.90 cm/s MV E/e' septal (test code = 1188359399) 10.2 cm/s TR Peak Kenyatta (test code = 5301717115) 255.1 cm/s Triscuspid Valve Regurgitation Peak Gradient (test code = 4470506993) 26.0 mmHg Tapse (test code = 8373574272) 2.44 cm LVOT stroke volume (test code = 4176965772) 103.40 cm3 LVOT peak kenyatta (test code = 7291201864) 162.7 cm/s LVOT mn grad (test code = 9374532897) 4.9 mmHg AV LVOT peak gradient (test code = 5751787858) 10.6 mmHg LVOT peak VTI (test code = 9067391960) 34.3 cm LV V1 mean (test code = 6311598320) 103.60 cm/s Aortic valve mean velocity (test code = 1873311449) 158.6 cm/s Ao peak kenyatta (test code = 6712526471) 244.8 cm/s Ao VTI (test code = 7902221181) 54.2 cm AV area by cont VTI (test code = 0260907549) 1.9 cm2 AV area peak kenyatta (test code = 1379737978) 2.0 cm2 Ao max PG (test code = 8978242490) 24.00 mm[Hg] AV peak gradient (test code = 8984944462) 24.0 mmHg AV valve area (test code = 8160897343) 1.91 cm2 AV mean gradient (test code = 1675250242) 11.2 mmHg AV regurgitation pressure 1/2 time (test code = 4979965833) 445.3 ms AI dec slope (test code = 1325931932) 235.00 cm/s2 AI max kenyatta (test code = 8066607611) 357.40 cm/s AI max PG (test code = 2200016255) 51.10 mm[Hg] LVIDD (test code = 6209782028) 3.90 cm Left Ventricular End Diastolic Volume by Teichholz Method (test code = 2352556) 66.0 mL IVS (test code = 6176467554) 1.39 cm Interventricular Septum Diastolic Thickness by 2D (test code = 7869987) 1.39 cm LVPWD (test code = 0912996318) 1.37 cm PW (test code = 1348652292) 1.37 cm 0.6-1.1 EF(Teich) (test code = 9975751717) 48.70 % LVIDS (test code = 1074651441) 3.00 cm Left Ventricular End Systolic Volume by Teichholz Method (test code = 8455756) 33.8 mL FS (test code = 1800741689) 24 % EF - 2D (test code = 69753011) 48.70 % Radiology Study observation (narrative) (test code = 90183-2) DARIUS (test code = DARIUS) ?Left?Ventricle: Left [...] apical inferior.Other segments could not be evaluated. [facility] GLUCOSE (AUTOMATED)2023-10-24 17:19:35* Test Item Value Reference Range Interpretation Comme nts POCT GLU (test code = 9876708183) 89 mg/dL 70-110 Lab Interpretation (test cod e = 46475-2) Normal [facility] GLUCOSE (AUTOMATED)2023-10-24 13:56:17* Test Item Value Reference Range Interpretation Comme nts POCT GLU (test code = 6759721809) 89 mg/dL 70-110 Lab Interpretation (test cod e = 01103-3) Normal [facility] ACT LOW [id number] 18:55:03* Test Item Value Reference Range Interpretation Comme nts ACTLR (test code = 7020337034) 230 See_Comment H [Automated messa ge] The system which generated this result transmitted reference range: 89 - 169 Seconds. The reference range was not used to interpret this result as normal/abnormal. Lab Interpretation (test code = 49425-7) Abnormal [facility] ACT LOW [id number] 18:55:03* Test Item Value Reference Range Interpretation Comme nts ACTLR (test code = 5794563144) 230 See_Comment H [Automated messa ge] The system which generated this result transmitted reference range: 89 - 169 Seconds. The reference range was not used to interpret this result as normal/abnormal. Lab Interpretation (test code = 49286-5) Abnormal [facility] ACT LOW [id number] 18:38:28* Test Item Value Reference Range Interpretation Comme nts ACTLR (test code = 9248474888) 239 See_Comment H [Automated messa ge] The system which generated this result transmitted reference range: 89 - 169 Seconds. The reference range was not used to interpret this result as normal/abnormal. Lab Interpretation (test code = 36730-5) Abnormal [facility] ACT LOW [id number] 18:38:28* Test Item Value Reference Range Interpretation Comme nts ACTLR (test code = 0937868836) 239 See_Comment H [Automated messa ge] The system which generated this result transmitted reference range: 89 - 169 Seconds. The reference range was not used to interpret this result as normal/abnormal. Lab Interpretation (test code = 95626-0) Abnormal [facility] ACT LOW [id number] 17:27:45* Test Item Value Reference Range Interpretation Comme nts ACTLR (test code = 4747794657) 327 See_Comment H [Automated messa ge] The system which generated this result transmitted reference range: 89 - 169 Seconds. The reference range was not used to interpret this result as normal/abnormal. Lab Interpretation (test code = 94576-2) [facility] [id number] 17:27:45* Test Item Value Reference Range Interpretation Comme nts ACTLR (test code = 9136073435) 327 See_Comment H [Automated Bibulua ge] The system which generated this result transmitted reference range: 89 - 169 Seconds. The reference range was not used to interpret this result as normal/abnormal. Lab Interpretation (test code = 56193-5) Abnormal [facility]2023-09-07 03:14:47* Test Item Value Reference Range Interpretation Comme nts MAGNESIUM (test code = 1997677416) 1.9 mg/dL 1.7-2.4 Lab Interpretation (test cod e = 74915-3) Normal [facility]2023-09-07 03:14:47* Test Item Value Reference Range Interpretation Comme nts MAGNESIUM (test code = 3736608739) 1.9 mg/dL 1.7-2.4 Lab Interpretation (test cod e = 15243-9) Normal [place] [id number] 00:19:19* Test Item Value Reference Range Interpretation Comme nts TROPONIN I (test code = 5152363080) 0.043 ng/mL <=0.034 H DARIUS (test code [...] of biotin. Lab Interpretation (test code = 60740-6) Abnormal [facility] [id number] 00:19:19* Test Item Value Reference Range Interpretation Comme nts TROPONIN I (test code = 5185279388) 0.043 ng/mL <=0.034 H DARIUS (test code [...] of biotin. Lab Interpretation (test code = 07518-7) Abnormal [facility] WITH [id number] 19:59:28* Test Item Value Reference Range Interpretation [...] g/dL 31.6-35.1 L RDW-SD (test code = 34378-4) 53.0 fL 39.0-49.9 H RDW-CV (test code = 788-0) 14.6 % 12.0-15.5 PLT (test code = 777-3) 201 See_Comment [Automated message] The system which generated this result transmitted reference range: 166 - 358 10*3/?L. The reference range was not used to interpret this result as normal/abnormal. MPV (test code = 75834-4) 9.9 fL 9.5-12.9 NRBC/100 WBC (test code = [id number]) 0.0 See_Comment [Automated message] The system which generated this result transmitted reference range: 0.0 - 10.0 /100 WBCs. The reference range was not used to interpret this result as normal/abnormal. NRBC x10^3 (test code = [id number]) See_Comment [Automated message] The system which generated this result transmitted reference range: 10*3/?L. The reference range was not used to interpret this result as normal/abnormal. GRAN MAT (NEUT) % (test code = 770-8) 96.6 % IMM GRAN % (test code = 3982687418) 0.30 % LYMPH % (test code = 736-9) 1.7 % MONO % (test code = 5905-5) 1.1 % EOS % (test code = 713-8) 0.1 % BASO % (test code = 706-2) 0.2 % GRAN MAT x10^3(ANC) (test code = 6730390679) 10.61 10*3/uL 1.88-7.09 H IMM GRAN x10^3 (test code = 8839258581) 0.03 10*3/uL 0.00-0.06 LYMPH x10^3 (test code = 731-0) 0.19 10*3/uL 1.32-3.29 L MONO x10^3 (test code = 742-7) 0.12 10*3/uL 0.33-0.92 L EOS x10^3 (test code = 711-2) 0.03-0.39 L BASO x10^3 (test code = 704-7) 0.01-0.07 BANDS (test code = [id number]) Increased A TOXIC CHANGES (test code = 803-7) Present A Lab Interpretation (test code = 58769-1) Abnormal [facility] WITH [id number] 19:59:28* Test Item Value Reference Range Interpretation [...] g/dL 31.6-35.1 L RDW-SD (test code = 20799-2) 53.0 fL 39.0-49.9 H RDW-CV (test code = 788-0) 14.6 % 12.0-15.5 PLT (test code = 777-3) 201 See_Comment [Automated message] The system which generated this result transmitted reference range: 166 - 358 10*3/?L. The reference range was not used to interpret this result as normal/abnormal. MPV (test code = 10999-6) 9.9 fL 9.5-12.9 NRBC/100 WBC (test code = 9119496987) 0.0 See_Comment [Automated message] The system which generated this result transmitted reference range: 0.0 - 10.0 /100 WBCs. The reference range was not used to interpret this result as normal/abnormal. NRBC x10^3 (test code = 1711391545) See_Comment [Automated message] The system which generated this result transmitted reference range: 10*3/?L. The reference range was not used to interpret this result as normal/abnormal. GRAN MAT (NEUT) % (test code = 770-8) 96.6 % IMM GRAN % (test code = 9140626775) 0.30 % LYMPH % (test code = 736-9) 1.7 % MONO % (test code = 5905-5) 1.1 % EOS % (test code = 713-8) 0.1 % BASO % (test code = 706-2) 0.2 % GRAN MAT x10^3(ANC) (test code = 9708633778) 10.61 10*3/uL 1.88-7.09 H IMM GRAN x10^3 (test code = 6719613985) 0.03 10*3/uL 0.00-0.06 LYMPH x10^3 (test code = 731-0) 0.19 10*3/uL 1.32-3.29 L MONO x10^3 (test code = 742-7) 0.12 10*3/uL 0.33-0.92 L EOS x10^3 (test code = 711-2) 0.03-0.39 L BASO x10^3 (test code = 704-7) 0.01-0.07 BANDS (test code = 7924099193) Increased A TOXIC CHANGES (test code = 803-7) Present A Lab Interpretation (test code = 91094-2) [facility] [id number] 19:54:19* Test Item Value Reference Range Interpretation Comme [facility] APTT Patient (test code = 3173-2) 25 See_Comment [Automated message] The system which generated this result transmitted reference range: 23 - 38 Seconds. The reference range was not used to interpret this result as normal/abnormal. DARIUS (test code = DARIUS) The [facility] patient population mean normal value for aPTT is 30 seconds. Lab Interpretation (test code = 13821-8) Normal [facility] [id number] 19:54:19* Test Item Value Reference Range Interpretation Comme [facility] APTT Patient (test code = 3173-2) 25 See_Comment [Automated message] The system which generated this result transmitted reference range: 23 - 38 Seconds. The reference range was not used to interpret this result as normal/abnormal. DARIUS (test code = DARIUS) The [facility] patient population mean normal value for aPTT is 30 seconds. Lab Interpretation (test code = 18592-7) Normal [facility] / [id number] 19:52:19* Test Item Value Reference Range Interpretation Comme [facility] PROTIME PATIENT (test code = 5964-2) 13.2 See_Comment [Automated Bibulua ge] The system which generated this result transmitted reference range: 12.0 - 14.7 Seconds. The reference range was not used to interpret this result as normal/abnormal. INR (test code = 6301-6) 1.1 Normal INR <1.1; Warfarin Therapeutic range 2.0 to 3.0 or 2.5 to 3.5, depending upon the indications. Lab Interpretation (test code = 20614-5) Normal [facility] / [id number] 19:52:19* Test Item Value Reference Range Interpretation Comme [facility] PROTIME PATIENT (test code = 5964-2) 13.2 See_Comment [Automated messa ge] The system which generated this result transmitted reference range: 12.0 - 14.7 Seconds. The reference range was not used to interpret this result as normal/abnormal. INR (test code = 6301-6) 1.1 Normal INR <1.1; Warfarin Therapeutic range 2.0 to 3.0 or 2.5 to 3.5, depending upon the indications. Lab Interpretation (test code = 13014-7) [facility] MET[facility]OLIC PANEL (27044)2023-07-20 19:43:31* Test Item Value Reference Range Interpretation Comme [facility] NA (test code = 9138538305) 138 mmol/L 135-145 K (test code = 0548039262) 4.2 mmol/L 3.5-5.0 CL (test code = 8613468383) 104 mmol/L 98-108 CO2 TOTAL (test code = 8087472065) 29 mmol/L 23-31 AGAP (test code = 7529819975) 5 2-16 BUN (test code = 7403051725) 24 mg/dL 7-23 H GLUCOSE (test code = 0801560187) 127 mg/dL 70-110 H CREATININE (test code = 1427034741) 1.30 mg/dL 0.50-1.04 H TOTAL BILI (test code = 3547744741) 0.8 mg/dL 0.1-1.1 CALCIUM (test code = 0617428220) 8.8 mg/dL 8.6-10.6 T PROTEIN (test code = 7639712342) 6.4 g/dL 6.3-8.2 ALBUMIN (test code = 2669435185) 3.3 g/dL 3.5-5.0 L ALK PHOS (test code = 9288599718) 106 U/L 34-122 ALTv (test code = 1742-6) 25 U/L 5-35 AST(SGOT) (test code = 4073693431) 107 U/L 13-40 H eGFR (test code = 2010057890) 39.6 mL/min/1.73m2 DARIUS (test code = DARIUS) [...] imaging tests). Lab Interpretation (test code = 58985-0) Abnormal [facility]. METABOLIC PANEL (70559)2023-07-20 19:43:31* Test Item Value Reference Range Interpretation Comme nts NA (test code = 1196850317) 138 mmol/L 135-145 K (test code = 9386760583) 4.2 mmol/L 3.5-5.0 CL (test code = 1258236776) 104 mmol/L 98-108 CO2 TOTAL (test code = 6556562831) 29 mmol/L 23-31 AGAP (test code = 7610194062) 5 2-16 BUN (test code = 1757849608) 24 mg/dL 7-23 H GLUCOSE (test code = 6746707580) 127 mg/dL 70-110 H CREATININE (test code = 4041268666) 1.30 mg/dL 0.50-1.04 H TOTAL BILI (test code = 9486411104) 0.8 mg/dL 0.1-1.1 CALCIUM (test code = 7525434314) 8.8 mg/dL 8.6-10.6 T PROTEIN (test code = 9042751231) 6.4 g/dL 6.3-8.2 ALBUMIN (test code = 0817093112) 3.3 g/dL 3.5-5.0 L ALK PHOS (test code = 4074040973) 106 U/L 34-122 ALTv (test code = 1742-6) 25 U/L 5-35 AST(SGOT) (test code = 0258108310) 107 U/L 13-40 H eGFR (test code = 3565564210) 39.6 mL/min/1.73m2 DARIUS (test code = DARIUS) [...] imaging tests). Lab Interpretation (test code = 81945-1) Abnormal [facility]2023-09-06 19:43:11* Test Item Value Reference Range Interpretation Comme nts LIPASE (test code = 1586568821) 37 U/L 0-220 Lab Interpretation (test cod e = 90909-3) Normal [facility]2023-09-06 19:43:11* Test Item Value Reference Range Interpretation Comme nts LIPASE (test code = 0288959566) 37 U/L 0-220 Lab Interpretation (test cod e = 13512-8) Normal [facility] [id number] 19:09:29* Test Item Value Reference Range Interpretation Comme nts TROPONIN I (test code = 6926722210) 0.042 ng/mL <=0.034 H DARIUS (test code [...] of biotin. Lab Interpretation (test code = 87262-9) Abnormal [facility] [id number] 19:09:29* Test Item Value Reference Range Interpretation Comme nts TROPONIN I (test code = 9866031618) 0.042 ng/mL <=0.034 H DARIUS (test code [...] of biotin. Lab Interpretation (test code = 85261-1) Abnormal [facility] [id number] 19:07:05* Test Item Value Reference Range Interpretation Comme [facility] NT-proBNP (test code = 58575-4) 70308 pg/mL <=125 H DARIUS (test code = DARIUS) Positive: Heart Failure Likely Lab Interpretation (test code = 39302-0) Abnormal [facility] [id number] 19:07:05* Test Item Value Reference Range Interpretation Comme [facility] NT-proBNP (test code = 90629-9) 36667 pg/mL <=125 H DARIUS (test code = DARIUS) Positive: Heart Failure Likely Lab Interpretation (test code = 41235-9) [facility]normal [facility] ([facility]E)2023-07-07 02:36:18* Test Item Value Reference Range Interpretation Comme nts Height (test code = 8139862659) 64 in Weight (test code = 7710924066) 274 lbs Systolic BP (test code = 3007597656) 108 mmHg Diastolic BP (test code = 9434663847) 66 mmHg Heart Rate (test code = 4940659841) 64 bpm MR max PG (test code = 7762775231) 96.10 mm[Hg] MR max kenyatta (test code = 9307159853) 490.20 cm/s Ao root diam (test code = 2668544070) 2.80 cm Mr max kenyatta (test code = 4937171900) 490.2 m/s Aortic root (test code = 2813720407) 2.8 cm Ao root annulus (test code = 9069237355) 2.8 cm BSA (test code = 2119846446) 2.24 m2 LVOT diameter (test code = 5165369275) 1.95 cm LVOT area (test code = 0733482192) 3.00 cm2 LA size (test code = 1500929972) 4.9 cm ACS (test code = 5412248714) 2.09 cm PV PEAK VELOCITY (test code = 8774287750) 105.3 cm/s PV peak gradient (test code = 8056448889) 4.4 mmHg LAV(MOD-sp4) (test code = 1343589641) 62.60 mL MV E-F slope (test code = 0150845592) 49.80 cm/s MV Peak E Kenyatta (test code = 7655463381) 127.3 cm/s MV valve area p 1/2 method (test code = 3604825806) 2.49 cm2 MV dec slope (test code = 4492885665) 423.50 cm/s2 MV P1/2t max kenyatta (test code = 3017996798) 127.90 cm/s MV Peak A Kenyatta (test code = 0752252287) 63.9 cm/s E/A ratio (test code = 4907789395) 1.99 ratio LVOT stroke volume (test code = 2386114882) 83.10 cm3 LVOT peak kenyatta (test code = 9379660127) 117.4 cm/s LVOT mn grad (test code = 4735601775) 2.6 mmHg AV LVOT peak gradient (test code = 1219563410) 5.5 mmHg LVOT peak VTI (test code = 5841373089) 27.7 cm LV V1 mean (test code = 1627262496) 72.80 cm/s Aortic valve mean velocity (test code = 1993734343) 122.1 cm/s Ao peak kenyatta (test code = 0908774162) 211.6 cm/s Ao VTI (test code = 5968669659) 42.9 cm AV area by cont VTI (test code = 9845090544) 1.9 cm2 AV area peak kenyatta (test code = 7252104294) 1.7 cm2 Ao max PG (test code = 1283103336) 17.90 mm[Hg] AV peak gradient (test code = 9662104612) 17.9 mmHg AV valve area (test code = 4373349910) 1.94 cm2 AV mean gradient (test code = 4834795481) 7.2 mmHg AV regurgitation pressure 1/2 time (test code = 9362857680) 472.1 ms AI dec slope (test code = 1113730810) 208.10 cm/s2 AI max kenyatta (test code = 2944780217) 335.50 cm/s AI max PG (test code = 9112943494) 45.00 mm[Hg] LA Volume Index (BP) (test code = 5478937188) 27.4 mL/m2 LA volume (BP) (test code = 8654061602) 61.3 mL LAV(MOD-sp2) (test code = 8468154957) 57.30 mL LVIDD (test code = 4022371925) 5.80 cm Left Ventricular End Diastolic Volume by Teichholz Method (test code = 4935846) 169.3 mL IVS (test code = 4673876166) 0.96 cm Interventricular Septum Diastolic Thickness by 2D (test code = 9972246) 0.96 cm LVPWD (test code = 1529506490) 0.78 cm PW (test code = 9662045430) 0.78 cm 0.6-1.1 EF(Teich) (test code = 7666761429) 15.80 % LVIDS (test code = 6844364137) 5.40 cm Left Ventricular End Systolic Volume by Teichholz Method (test code = 8051646) 142.6 mL FS (test code = 6383112597) 7 % EF - 2D (test code = 53936204) 15.80 % TR Peak Kenyatta (test code = 6125895141) 405.3 cm/s Triscuspid Valve Regurgitation Peak Gradient (test code = 0035085111) 65.7 mmHg Radiology Study observation (narrative) (test code = 93363-0) DARIUS (test code = DARIUS) ?Left?Ventricle: Left [...] apical lateral.Other segments could not be evaluated. [facility] Whole [id number] 14:34:16* Test Item Value Reference Range Interpretation Comme nts LACTIC ACID (test code = 9271363952) 2.34 mmol/L 0.50-2.20 H Lab Interpretation (test cod e = 24849-3) Abnormal [facility] X[facility] [id number] 08:25:00Name: KERRY SAMUEL [facility] : 1945 Age/S: 74 / F [address] Unit #: [id number] Loc: [place] [address] Phys: Praveena Gacria MD Acct: [id number] Dis Date: Status: REG [facility] PHONE #: [phone] Exam Date: 11/23/2019 8379 FAX #: Reason: ERCP EXAMS: CPT: [id number] XR ERCP 37536 Fluoro Time: 55 SEC DAP (Gy m2): Air Kerma (mGy): ERCP INDICATION: Common bile duct calculiComparison to prior from 07/10/2019 Multiple spot intraoperative fluoroscopic images demonstrate retrograde cannulation of the common duct, which is mildly distended. Tapering of the distal CBD noted.Contrast visualized within small bowel loops. Please refer to operative report for further details. Fluoroscopy time utilized 55.9 seconds at 0825 Reported and signed by: Oliverio Oates M.D. CC: Praveena Garcia MD PAGE 1 Signed Report Name: KERRY SAMUEL [place] : 1945 Age/S: 74 / F [address] Unit #: [id number]: [place] [address] Phys: Praveena Garcia MD Acct: [id number] Dis Date: Status: REG [place] PHONE #: [phone] Exam Date: 11/23/2019 0771 FAX #: Reason: ERCP EXAMS: CPT: [id number] XR ERCP 27061 Fluoro Time: 55 SEC DAP (Gy m2): Air Kerma (mGy): (Continued) Technologist: RT Neda(R) Trnwyb Date/Time: 11/23/2019 (824) [email or web address] Orig Print D/T: S: 11/23/2019 (827) PAGE 2 Signed Report- XR [id number] 15:39:00Name: KERRY SAMUEL [place] : 1945 Age/S: 73 / F [address] Unit #: [id number] Loc: [place] [address] Phys: Praveena Garcia MD Acct: [id number] Dis Date: Status: REG [place] PHONE #: [phone] Exam Date: 07/10/2019 1350 FAX #: Reason: ERCP EXAMS: CPT: [id number] XR ERCP 14575 Fluoro Time: 142 SEC DAP (Gy m2): [...] PAGE 1 Signed Report Name: [place] 1945 Age/S: 73 / F [address] [address] Unit #: [id number] Loc: [place] [address] Phys: Praveena Garcia MD Acct: [id number] Dis Date: Status: [facility] PHONE #: [phone] Exam Date: 0 07/10/2019 1350 FAX #: Reason: ERCP EXAMS: CPT: [id number] XR ERCP 01481 Fluoro Time: 142 SEC DAP (Gy m2): Air Kerma (mGy): (Continued) Technologist: Ifrah Sin RT(R) Trnwyb Date/Time: 07/10/2019 (1539) [email or web address] Orig Print D/T: S: 07/10/2019 (8819) PAGE 2 Signed Report- XR [id number] 09:09:00Name: KERRY SAMUEL [place] : 1945 Age/S: 73 / F [address] [address] Unit #: [id number] Loc: [place] [address] Phys: Praveena Garcia MD Acct: [id number] Dis Date: Status: [facility] PHONE #: [phone] Exam Date: 06/14/2019 0820 FAX #: Reason: ERCP EXAMS: CPT: [id number] XR ERCP 23807 Fluoro Time: 95 SEC DAP (Gy m2): Air Kerma (mGy): ERCP LOCATION: R16 CLINICAL HISTORY: ERCP. COMMENT: The ERCP was performed by Dr. Garcia. Fluoroscopic assistance was provided using a C-armunit. 10 views from the C-arm unit are [...] PAGE 1 Signed Report Name: KERRY SAMUEL [facility] [place] : 1945 Age/S: 73 / F [address] [address] Unit #: [id number] Loc: [place] [address] Phys: Praveena Garcia MD Acct: [id number] Dis Date: Status: REG [facility] PHONE#: [phone] Exam Date: 06/14/2019819 FAX #: Reason: ERCP EXAMS: CPT: [id number] XR ERCP 11586Unlwud Time: 95 SEC DAP (Gy m2): Air Kerma (mGy): (Continued) Technologist: Ifrah Sin, RT(R); Monica Claudio RT(R) Trnscb Date/Time: 06/14/2019 (0909) [email or web address].[email or web address] Orig Print D/T: S: 06/14/2019 (0912) PAGE 2 Signed Report Consult Notes Date/Time [...] Wright MD; Location: Endoscopy ([facility]) [place] Location [place] ANES NERVE MUSC TENDON FASCIA&BURSA KNEE&/POPLT Right [...] Reports taking pain meds COMMUNICATION Primary Language: Ivorian Able to Verbalize needs: Yes Vision:good; no [...] Treatment Time in Minutes: 25 min Cammie Hinkle, PT [place] PT License [id number] [facility] Rehabilitation Services Department (phone) (fax) [facility] History and Physical Notes Date/Time Note Provider Source 2023-12-27 22:24:33 [facility] Hospitalist Admission H&P Date of [...] Wright MD; Location: Endoscopy ([facility]) [place] Location [place] ANES NERVE MUSC TENDON FASCIA&BURSA KNEE&/POPLT Right [...] in a house. His son lives in [place] about 20 miles away, but works at a location about 3 miles from her house. Patient reports worsening of her back pain from spinal stenosis since beginning of March 2020. 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 She's still able to drive to [employer]. She would like a helper [...] given high risk of morbidity and mortality. 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 ALLYN DE LEÓN Admit H&P PCP: PATIENT DOES NOT HAVE A PCP Date of Service: 07/20/2023 CHIEF COMPLAINT: CP HISTORY OF PRESENT ILLNESS Krery Samuel is a 77 year old female with a PMH of RA, OA, Fibromyalgia, PUD, Lymphedema, GERD, Hx Cardiac arrest, with diffuse CAD who presents for chest pain. Transferred from [facility] ED. Patient reports substernal chest pain with radiation to her back starting this morning. EMS was called; patient's pain mildly relieved by nitro x 2. She was loaded with aspirin 324 mg and brought to [facility] ED. At [facility] ED: VS: AF, HR 77, BP 145/70, [...] on heparin gtt. Accepted for transfer to [facility] for further ischemic workup, ACS protocol. Past medical history: has a past medical history of Fibromyalgia, Osteoporosis, Rheumatoid arthritis, Spinal stenosis, and STEMI (ST elevation myocardial infarction) (07/26/2020). Past surgical history: has a past surgical history that includes endoscopic retrograde cholangiopancretography (N/A, 03/31/2020); stent placement (shx); and [address] - [place] ANES NERVE MUSC TENDON FASCIA&BURSA KNEE&/POPLT (Right). [...] Take 1 mg by mouth. Doctor Unassigned, [place] furosemide 20 mg tablet 40 mg daily as needed for leg swelling 01/20/21 Bacilio Deleon MD OMEPRAZOLE, BULK, MISC 40 tablets 2 (two) times daily. Doctor Unassigned, [place] aspirin 81 mg chewable tablet Take 1 tablet by mouth in the morning. 08/01/20 Marvin Mancilla MD URSODIOL ORAL Take by mouth. Doctor Unassigned, [place] gabapentin 800 mg tablet Take 1 tablet by mouth daily. Doctor Unassigned, [place] mirabegron (MYRBETRIQ) 50 mg tablet Take 1 tablet by mouth daily. Doctor Unassigned, [place] zolpidem (AMBIEN CR) 12.5 mg CR tablet Take 12.5 mg by mouth at bedtime as needed for Sleep. Doctor Unassigned, [place] REVIEW OF SYSTEMS (-)=Negative,(+)=Positive General: negative Skin: [...] 23 - 38 Seconds COMP. METABOLIC PANEL (47025) Collection Time: 07/20/23 2:02 PM Result Value [...] of Mid to Proximal RCA with [employer] ASSESSMENT/PLAN Kerry Samuel is a 77 year [...] EF on recent TTE. - Admit to [facility] - C/w heparin gtt - [...] see the resident's note for additional details. [facility] Procedure Notes Date/Time Note Provider Source 2023-07-21 [...] 3.5 RT with finecross able to cross SALES VICE PRESIDENT Intraluminal LAD confirmed with MC injection Predil [...] Complications: none Findings: Right Heart Catheterization: RA /12 RV 55/2/14 PA 55/21/34 PCWP 18//18 RA sat 65% PA sat 61% CO/CI (Mignon): 5.6/2.3 CO/CI (Thermodilution): 4.99/2.21 Coronary dominance: right Left main: MLI LAD: Prox LAD 100% (SALES VICE PRESIDENT vs subacute) s/p PCI Post PCI, mid/distal LAD had severe diffuse athero D1: Mild athero LCX: Mid Lcx 30% diffuse OM2: Small sized OM3: Mild athero RCA: Mid RCA 50% ISR Distal RCA 40-50% diffuse PDA: Mild athero LVEDP: 20 Right External Iliac angiogram: EIA MLI RETAIL STORE MANAGER MLI High bifurcation Impression: Prox LAD 100% calcified (SALES VICE PRESIDENT vs subacute) s/p PCI Mid/distal LAD has [...] MD 07/21/2023 10:41 AM IM-INTERVENTIONAL CARDIOLOGY STAFF [facility] Notes Date/Time Note Provider Source 2024-03-12 14:40:59 Client Coordination Note Report received via fax from [facility], signed by Dr Deleon and faxed back to [facility]. Forms scanned into chart along with fax confirmation. Jalyn Baum MA [facility] 2024-03-12 13:42:[address] Deleon. Furosemide 20 mg refill was sent to patient's pharmacy. Patient needs to follow up with PCP regarding her labs for further refills of furosemide. Or can have lab results sent to Dr. Deleon for review. Suzy Prado RN [facility] 2024-03-09 17:04:04 Addended by: SUZY PRADO RN on: 03/09/2024 05:04 PM Modules accepted: Orders [facility] 2024-03-09 16:58:09 Patient called back stating that Dr. Rice's office is closed today. Unable to get refill of lasix. Spoke with Dr. Deleon and discussed situation. Ok to send one time refill of lasix 20 mg. Patient was advised to call back if swelling does not improve. [facility] 2024-03-09 16:53:49 Copied from [facility] #[id number]. Topic: Clinical - Order >> Mar 09, 2024 4:52 PM Patient Developer Programmer Analyst wrote: Kerry Samuel is a 78 year old female Pt was calling back to see if Dr Deleon could refill her furosemide 40 mg tablet. She said due to her swelling her nurse wants her to take it. Nurse Suzy said she will be asking Dr Deleon for the okay. Abril Overton [facility] 2024-03-09 13:34:39 Spoke with patient and [...] after restarting the lasix. Suzy Prado RN [facility] 2024-03-09 13:20:15 Copied from [facility] #[id number]. Topic: Clinical - Medical Advice >> Mar 09, 2024 1:18 PM Patient Developer Programmer Analyst wrote: Kerry Samuel is a 78 year old female Pt HH nurse with [facility] Alan calling and states she is with pt at this moment and wanting clarification on rx furosemide 40 mg tablet (LASIX) due to pt having swelling in lower extremities and weight gain. Caller states weight last week was 235.8 and now it is 243.4. BP 122/64 HR 70 Please advise Call pt at [phone] (home) Em Baum [facility] 2024-03-06 13:24:48 Spoke with patient. She verbalized understanding via teach back. Will notify her home health nurse of changes. She also purchased a BP monitor last night and will start keeping a home log. She had no further questions or concerns at this time. Suzy Prado RN [facility] 2024-03-06 09:22:[address] Deleon's instructions. Also to call back to verbalize understanding. We also need nurse information to call them with med updates. Stop metoprolol Hold lasix if BP < 90 F/u PCP closely T [facility] 2024-03-05 17:01:47 Stop metoprolol Hold lasix if BP < 90 F/u PCP closely T [facility] 2024-03-05 16:45:49 Spoke with patient. She [...] notified her PCP of symptoms as well. [facility] 2024-03-05 16:24:56 Kerry Samuel is a 78 year old female Pt is calling and stating that her Bp has been low last reading was 81/30 having dizziness and extremely tired Gina Evangelista [facility] 2023-12-30 15:22:56 TRANSITIONAL CARE MANAGEMENT ASSESSMENT 12/30/2023 Keryr Samuel [id number] Kerry Samuel is a 78 year old /White female was admitted on 12/27/23 to [facility], [facility] MED SURG. She was discharged on 12/29/23 with discharge disposition of HR- Routine Discharge. Admitting Physician: Liliana Pérez Discharge Diagnosis: Acute toxic encephalopathy Complicated cystitis Weakness Chronic pain syndrome Linked Episodes Type: Episode: Status: Noted: Resolved: Last update: Updated by: TRANSITION OF CARE TCM Active 12/30/2023 12/30/2023 11:44 AM Belinda Chang RN Comments: SONALI Alk-zwox-kb-face outreach documentation: Discharge Assessment Chart Assessed: 12/30/23 Future Appointments: Future Appointments Provider Department Dept Phone 04/25/2024 11:00 AM Bacilio Deleon MD [facility] [phone] Transition CM attempted to contact patient x2. CM left a discreet voicemail explaining purpose of call and call back information. Belinda Chang RN, MSN, MEDSURG-BC, CCRN, CCM Transitions of Cloth Designer Proficient Food Service Manager Hypoid Gear Generator Management Office: [phone] IDEA Chang RN [facility] 2023-12-30 11:44:56 CM LVM to return call. Will attempt again at a later time. [facility] 2023-12-29 14:05:53 Problem: Falls, Risk of [...] Outcome: Adequate for discharge IDEA Brown RN [facility] 2023-12-29 02:59:31 Problem: Falls, Risk of [...] Outcome: Progressing as expected IDEA Gallardo RN [facility] 2023-12-28 18:08:03 Progressing as expected IDEA Lancaster RN [facility] 2023-12-28 18:06:26 Progressing as expected [facility] [facility] 01:14:24 Patients lactic acid came back at 2.33, pt is a hard stick and refused for us to draw labs again. Dr Sanford notified. IDEA Mckeon RN [facility] 2023-12-28 00:58:08 Problem: Falls, Risk of [...] in pain sensation Outcome: Progressing as expected HANDLER [facility] 2023-12-27 20:14:39 Nurse Report Report given to Nikki FOSTER at [facility]. Chief complaint, assessment findings, infusion verify and orders reviewed. Plan of care discussed with nurse. Yara Moyer RN HANDLER Yara Moyer RN [facility] 2023-12-27 15:07:00 Gave report to Comfort FOSTER. IDEA Salinas RN [facility] 2023-12-27 14:15:41 RT paged for lactic. IDEA Sneed RN [facility] 2023-12-27 13:27:14 Kerry Samuel is a 78 year old female states her home health nurse saw her yesterday and wanted her to go to ER for her urine infection that has not gone away, pt alert in no distress IDEA Robertson RN [facility] 2023-12-27 13:22:00 [facility] Emergency Department Note Patient Name: Kerry Samuel Date of : 1945 78 year old female Treatment Room: [address] [place] [address] Primary Care Physician: Marva Rice Patient Escorted by: Family [5] Mode of Arrival: Personal means [1] EMS Treatment Prior to ED Arrival: [employer]OR [employer]SEMBLER treatment: None Travel and Exposure Screening: Symptoms Does patient have any of these symptoms?: (not recorded) Exposure Screening Has patient had contact with someone with a communicable disease in the last month?: (not recorded) Diseases exposed to:: (not recorded) Is Patient ?: (not recorded) Exposure Date: (not recorded) Chief Complaint: Chief Complaint Patient presents with Other Sent by PCP ED Triage Notes Rasheeda Robertson RN 12/27/2023 13:29 Kerry Samuel is a [...] Wright MD; Location: Endoscopy ([facility]) [place] Location [place] ANES NERVE MUSC TENDON FASCIA&BURSA KNEE&/POPLT Right [...] 0.01 - 0.07 10*3/uL COMP. METABOLIC PANEL (43650) - Abnormal NA 139 135 - 145 [...] Urinalysis Cbc with Diff Comp. Metabolic Panel (33190) Lactic Acid Whole Blood Lactic Acid Whole [...] - Observation Condition -- Comment Treatment Team: [facility] [[id number]] Discharge Medications: Current Discharge Medication List STOP [...] Follow-up: Electronically signed by: Wale Corey DO 12/28/232 [facility] 2023-12-14 10:48:25 With patient's written consent, [...] needing records of hospitalizations. IDEA Prado RN [facility] 2023-11-26 04:16:21 Pt given printed and [...] skin w/d, pt leaving on stretcher with [facility], in no apparent distress, IDEA Quesada RN [facility] 2023-11-26 01:15:00 Shannan care done-Purwick applied. Patient voided clear yellow urine. IDEA Hernandez RN [facility] 2023-11-26 00:56:38 Old bruising scattered across thighs, forearms. Patient states they are not from this fall. Patient takes plavix HANDLER [facility] 2023-11-26 00:25:00 [facility] Emergency Department Note Patient Name: Kerry Samuel Date of : 1945 78 year old female Treatment Room: [facility] Primary Care Physician: PATIENT DOES NOT HAVE A PCP Patient Escorted by: Self [9] Mode of Arrival: EMS - [place] [47] EMS Treatment Prior to ED Arrival: [employer]OR [employer]BLER treatment: None Travel and Exposure Screening: Symptoms [...] Wright MD; Location: Endoscopy ([facility]) [place] Location [place] ANES NERVE MUSC TENDON FASCIA&BURSA KNEE&/POPLT Right [...] severe tricompartmental loss of joint space with [id number] appearance, subchondral sclerosis and marginal osteophytes. The [...] Events None ED COURSE Diagnosis/Impression as of 11/26/23321 Fall, initial encounter Procedures: Procedures MDM: Medical [...] PCP Electronically signed by: Josh Norwood MD 11/26/23321 HANDLER [facility] 2023-11-26 00:18:23 Pt to ER via [place] [facility] from home with c/o fall this morning before 8AM after "bending down beside the toilet to get a maxi pad", family help patient up from the floor. Denies hitting head, denies LOC. Takes Plavix. C/O left hip and knee pain. IDEA Sneed RN [facility] 2023-11-16 13:46:01 Patient has a history of heart failure, CAD, and recent hospitalization in 10/2023. Attempted to contact patient to discuss reason for request to change to telehealth appointment. LVM advising her to return call to clinic. If patient is unable to make tomorrow's appointment, we can assist her to reschedule. HANDLER Suzy Prado RN [facility] 2023-11-16 13:22:23 Kerry Samuel is a 78 year old female Patient is calling and asking if her appointment for tomorrow can be a telehealth appointment. Please call at [phone] HANDLER Em Baum [facility] 2023-07-29 12:47:16 Formatting of this n ote might be different from the original. Received call from patient regarding missing a medication.Stated that she could not find it after she arrived home. She had picked up her prescriptions but could not find that one. Plavix 90 day rx refilled. Sent to [place], [place] - [address] [facility] 2023-07-26 10:19:26 Formatting of this n ote is different from the original. TRANSITIONAL CARE MANAGEMENT ASSESSMENT 07/26/2023 Kerry Samuel [id number] Kerry Samuel is a 77 year old /White female was admitted on 07/20/[address] She was discharged on 07/24/23 with discharge disposition of HR- Routine Discharge. Admitting Physician: Selin Bales Discharge Diagnosis: NSTEMI Type I s/p PCI of LAD (07/21/23) Linked Episodes Type: Episode: Status: Noted: Resolved: Last update: Updated by: TRANSITION OF CARE TCM Active 07/24/2023 07/26/2023 9:56 AM Juancarlos Duncan RN Comments: TCM Wqt-pzdf-wb-face outreach documentation: Discharge Assessment Chart Assessed: 07/26/23 [...] not picked up yet. States she called [facility], and "they had never heard of me". Called pharmacy. Medications are ready to cone picker.) Do you know how to take [...] Phone 08/05/2023 3:40 PM Bacilio Deleon MD [facility] [phone] 04/25/2024 11:00 AM Bacilio Deleon MD [facility] [phone] Your COVID 19 test results were negative. You may return to work or school when you are feeling better and have not had a fever for 24 hours or more without taking fever reducing medications, such as acetaminophen or ibuprofen. Juancarlos Duncan RN [facility] 2023-07-24 13:14:14 Formatting of this n ote might be different from the original. Problem: Procedure Routine Goal: Absence of post-procedure complications 07/24/2023 131 by Shawn Collins RN Outcome: [...] Outcome: Progressing as expected Shawn Collins RN [facility] 2023-07-24 06:58:00 Formatting of this n [...] Effective communication Outcome: Progressing as expected T [facility] 2023-07-23 23:24:10 Formatting of this n [...] Outcome: Progressing as expected Mariana Raya RN [facility] 2023-07-23 12:59:51 Formatting of this n [...] of Oxygen = % Cathie Babcock RN [facility] 2023-07-23 02:43:01 Formatting of this n [...] level of care Outcome: Progressing as expected [facility] 2023-07-22 08:08:48 Formatting of this n ote [...] level of care Outcome: Progressing as expected T [facility] 2023-07-21 19:55:50 Formatting of this n ote might be different from the original. Problem: Procedure Routine Goal: Absence of post-procedure complications Outcome: Progressing as expected Problem: Activity Intolerance Goal: Improved activity tolerance Outcome: Progressing as expected Problem: Falls, Risk of Goal: Absence of falls Outcome: Progressing as expected Problem: Discharge Planning Goal: Adequate for discharge Outcome: Progressing as expected Alejandro Campbell RN [facility] 2023-07-21 14:36:31 Formatting of this n ote might be different from the original. 1800 ambulation time, 1 stent to LAD, right groin site sheath pulled in molder labels Mesha Staley RN [facility] 2023-07-21 08:02:13 Formatting of this n [...] level of care Outcome: Progressing as expected [facility] 2023-07-20 19:35:46 Formatting of this n ote might be different from the original. Patient transferred to [facility] for diagnosis of Chest pain and NSTEMI. Patient agrees to transfer, discussed plan of care with patient and family. Patient is awake, A&Ox 4, RR even and unlabored on RA. Color appropriate for race. PIV intact x 1. No adverse reaction to medications administered while in ED. Belongings with patient to unit. Yara Jorgensen RN [facility] 2023-07-20 19:10:00 Formatting of this n ote might be different from the original. Pt leaving ED, patient care transferred to EMS staff at this time. [facility] 2023-07-20 19:00:00 Formatting of this n ote might be different from the original. Unable to place second IV at this time. EMS attempting to place second line. [facility] 2023-07-20 18:53:07 Formatting of this n ote might be different from the original. [facility] arrived on scene to transport patient to [facility]. Pt report given to EMS staff at this time. [facility] 2023-07-20 18:32:49 Formatting of this n ote might be different from the original. Called [facility] ambulance @1832, new ETA is 25-30 minutes. Myla Daniels [facility] 2023-07-20 17:28:57 Formatting of this n ote might be different from the original. Nurse Report Report given to Evangelina FOSTER. Chief complaint, assessment findings, infusion verify and orders reviewed. Yara Jorgensen RN [facility] 2023-07-20 14:43:56 Formatting of this n ote might be different from the original. Patient mentions to Sathish HERMOSILLO that she does not want to stay and she would like to check out AMA. glass lathe operator at bedside with provider talking to patient about risks of leaving AMA to see if patient changes her mind. Lucero Figueroa RN [facility] 2023-07-20 12:25:00 Formatting of this n [...] of plan of care. Lucero Figueroa RN [facility] 2023-07-20 12:23:31 Formatting of this n ote might be different from the original. Pt arrived via [place] [facility] with c/o chest pain that started this morning when she woke up. She received nirto x2 and asa 324mg by ems. Zee Marcus RN [facility] 2023-07-20 12:17:00 Formatting of this n ote is different from the original. EMERGENCY DEPARTMENT ENCOUNTER [facility] Patient Name: Kerry Samuel Date of : 1945 77 year old Exam Room:8/[facility] Primary Care Physician: PATIENT DOES NOT HAVE A PCP Pre- Hospital Patient Escorted by: Self [9] Mode of Arrival: EMS - [place] [47] EMS Treatment Prior to ED Arrival: SL nitro [employer]SEM[employer]ER treatment: Aspirin;NTG [employer]ER treatment comments: see triage note ED Events Date/Time Event User Comments 07/20/23 1226 Medical Screening Begins GARFIELD BOWER MD -- 07/20/23 1226 First Provider Evaluation GARFIELD BOWER MD -- Chief Complaint Chief Complaint Patient presents with Chest Pain ED Triage Notes Zee Marcus RN 07/20/2023 12:25 Pt arrived via [place] with c/o chest pain that started [...] Wright MD; Location: Endoscopy ([facility] ANES NERVE MUSC TENDON FASCIA&BURSA KNEE&/POPLT Right [...] TOXIC CHANGES Present (*) COMP. METABOLIC PANEL (72765) - Abnormal NA 138 135 - 145 [...] ACTIVATED PARTIAL THRMPLAS VILMA COMP. METABOLIC PANEL (41025) LIPASE N-TERMINAL PRO-BNP TROPONIN I COVID-19 (ID [...] EKG Time 1221 Rate 77 Normal sinus [place] normal Intervals normal ST T wave changes [...] count. Patient was excepted by cardiology in [place]. She was transferred in stable condition. History, [...] Appointments In 2 weeks Bacilio Deleon MD [facility] In 9 months Bacilio Deleon MD [facility] Garfield Bower Jr., MD Clinical [employer] P[employer]her [facility] Emergency Department [employer] is used frequently and may produce errors. Promptly contact for obvious discrepancies. Garfield Bower MD 07/20/231908 [facility] 2023-07-20 12:17:00 Associated Order(s): Critical Care Critical [...] separately billable procedures and treating other patients. [facility] 2023-07-07 11:00:12 Formatting of this n ote might be different from the original. Images from the original note were not included. Results and recommendations shared with Ms Samuel Bacilio Deleon MD P Cardiology Nurse Echocardiogram showed severely reduced ejection fraction and severe pulmonary hypertension. Please make a follow-up appointment to discuss heart cath and heart failure medications. Patient has multiple questions, agrees to follow up visit with Dr Deleon to discuss options Routed to [facility] for scheduling Melina Dorsey RN [facility] 2023-06-28 08:12:13 Formatting of this n ote might be different from the original. Contacted patient and scheduled her for 07/06/2023. Mirta Contreras [facility] 2023-06-27 22:36:35 Formatting of this n ote might be different from the original. Ordered [facility] 2023-06-27 09:49:34 Formatting of this n ote might be different from the original. Patient had an order for an echo but it has . She would like to reschedule it but we would need new orders. Please advise. [facility] 2023-04-25 14:00:00 Addended by: BACILIO DELEON MD on: 06/27/2023 10:36 PM Modules accepted: Orders [facility] 2019-11-26 07:32:00 [id number] [place] [address] PATIENT NAME: KERRY SAMUEL ADMIT DATE: 11/23/19 ACCOUNT NO: [id number] ROOM NO: AGE: 74 REPORT TYPE: OPERATIVE REPORT SEX: F ADMITTING PHYSICIAN: ATTENDING PHYSICIAN: Praveena Garcia MD OPERATION DATE: 11/23/2019 PREOPERATIVE DIAGNOSIS: PROCEDURES: 1. ERCP. 2. Stent removal. 3. Dilation of the papilla. 4. Extension of the papillotomy for stone removal. 5. Multiple stone removal. 6. Intraoperative supervision and interpretation of biliary x-ray fluoroscopy, total fluoroscopic time 55 seconds. SURGEON: Praveena Garcia MD RAIL CAR PAINTER/SANDBLASTER: ANESTHESIA: Administered by department of anesthesia. INDICATION: [...] above. Dictated By: Praveena Garcia MD WT: OP:L.HIM/MEANI/NTS Conf#: [id number]/DID#: [id number] Authenticated by Praveena Garcia MD On 11/29/2019 07:28:29 AM at 0728 PATIENT NAME: KERRY SAMUEL [facility] 2019-11-23 08:49:00 [facility] ([facility]) Post Anesthesia Evaluation REPORT#:[id number] REPORT STATUS: Signed DATE:11/23/19 TIME:0849 PATIENT: KERRY SAMUEL UNIT #: [id number] ROOM/BED: : 44 AGE: 74 SEX: F ATTEND: Praveena Garcia MD ADM AUTHOR: Carmela Mccoy CRNA * ALL edits or amendments must be made on the electronic/computer document * Post Anesthesia Evaluation Anes. changes from pre-op eval ORM Surgeries: Surgery Date and Time: 11/23/2019 07 Primary Procedure: ENDO RETROGRADE CHOLANGIOPANCREATOGRAPHY Anesthetic: TIVA Date: 11/23/19 Level of consciousness: no change, patient awake, able to answer questions, participate in this eval. Vital signs: Vital Signs: Date Time Temp Pulse Resp B/P B/P Pulse O2 O2 Flow FiO2 Mean Ox Delivery Rate 11/23 814 36.2 63 19 131/62 93 Room air 11/23 809 36.2 62 19 159/67 92 Room air 11/23 0708 36.2 70 18 137/62 96 Room air 11/23 799 63 15 140/62 Room air 01/10 0755 65 24 139/74 Room air 11/23 0750 Nasal 2.979363 cannula 11/23 0750 36.3 66 15 Nasal 2.887398 cannula 11/23 0618 36.2 88 18 138/88 98 Room air Cardiovascular: no change, CV system stable, vital signs stable Respiratory/Airway: respiratory system stable, maintains without support Pain: adequately controlled Hydration: adequate Temp status: normothermic Presence of N/V: no Anesthesia complications: no Other changes requiring f/u: none Conclusions: no apparent anes. issues at 0850 RPT #: [id number] END OF REPORT [facility] 2019-07-10 15:28:00 [facility] ([facility]) Post Anesthesia Evaluation REPORT#:[id number] REPORT STATUS: Signed DATE:07/10/19 TIME:1528 PATIENT: KERRY SAMUEL UNIT #: [id number] ROOM/BED: : 44 AGE: 73 SEX: F [...] Resp 15 07/10 1424 O2 Flow Rate 3.623653 07/10 1417 BP: [ ] HR: [ ] bpm RR: [ ] / min SP02: [ ] % Respiratory/Airway: maintains without support Pain: adequately controlled Hydration: euvolemic Presence of N/V: no Anesthesia complications: no Other changes requiring f/u: none Conclusions: no apparent anes. issues at 1529 RPT #: [id number] END OF REPORT [facility] 2019-07-10 14:02:00 [id number] [facility] [address] [address] PATIENT NAME: KERRY SAMUEL ADMIT DATE: 07/10/19 ACCOUNT NO: [id number] ROOM NO: AGE: 73 REPORT TYPE: OPERATIVE REPORT SEX: F ADMITTING PHYSICIAN: ATTENDING PHYSICIAN: Praveena Garcia MD OPERATION DATE: 07/10/2019 PREOPERATIVE DIAGNOSIS: POSTOPERATIVE DIAGNOSIS: PROCEDURES: 1. ERCP. 2. Extension of papillotomy. 3. Dilation of the papilla. 4. Spyglass direct cholangioscopy. 5. Destruction of stone. 6. Removal of stone by using balloon method. 7. Stent placement 8.5-[place] 5 cm long. 8. Intraoperative supervision and interpretation of biliary x-ray fluoroscopy. Total fluoroscopic time 1.42 minutes. 9. Anesthesia by department of anesthesia. SURGEON: Praveena Garcia M.D. RAIL CAR PAINTER/SANDBLASTER: ANESTHESIA: INDICATIONS: 1. Retained and difficult biliary [...] risk of cholangitis, a stent was replaced 8.5-[place] 5 cm leading to very good return [...] minutes. Dictated By: Praveena Garcia MD WT: OP:RODRICK/RAMIREZ/OMID Conf#: [id number]/DID#: [id number] Authenticated by Praveena Garcia MD On 07/11/2019 07:58:34 AM at 0758 PATIENT NAME: KERRY SAMUEL [facility] 2019-06-14 10:04:00 [id number] [facility] [id number] [place] [address] PATIENT NAME: KERRY SAMUEL ADMIT DATE: 06/14/19 ACCOUNT NO: [id number] ROOM NO: AGE: 73 REPORT TYPE: OPERATIVE REPORT SEX: F ADMITTING PHYSICIAN: ATTENDING PHYSICIAN: Praveena Garcia MD OPERATION DATE: 06/14/2019 PROCEDURES: 1. ERCP. 2. Papillotomy of the pancreatic sphincter. 3. Papillotomy of the biliary sphincter. 4. Stent placement 8.5-[place] 5 cm. 5. Intraoperative supervision and interpretation of biliary/pancreatic x-ray. PREOPERATIVE DIAGNOSIS: POSTOPERATIVE DIAGNOSIS: SURGEON: RAIL CAR PAINTER/SANDBLASTER: FLUOROSCOPY: Total fluoroscopic time 1.35 minutes. INDICATION: [...] of that to overcome the blockage an 8.5-[place] Citizen 5 cm stent was placed. Good drainage [...] weeks. Dictated By: Praveena Garcia MD WT: OP:L.HIM/MEANI/NTS Conf#: [id number]/DID#: [id number] Authenticated by Praveena Garcia MD On 06/17/2019 09:36:31 AM at 0936 PATIENT NAME: KERRY SAMUEL [facility] 2019-06-14 08:37:00 [facility] ([facility]) Post Anesthesia Evaluation REPORT#:[id number] REPORT STATUS: Signed DATE:06/14/19 TIME:836 PATIENT: KERRY SAMUEL UNIT #: [id number] ROOM/BED: : 44 AGE: 73 SEX: F [...] 0829 36.7 81 12 113/55 100 Nasal 2.121477 cannula 06/14 617 36.6 53 18 193/88 99 Room air 0.045892 Cardiovascular: no change, CV system stable, vital signs stable Respiratory/Airway: respiratory system stable, maintains without support Pain: adequately controlled Hydration: adequate Temp status: normothermic Presence of N/V: no Anesthesia complications: no Other changes requiring f/u: none Conclusions: no apparent anes. issues at 0838 RPT #: [id number] END OF REPORT [facility]
[2025-04-05] MEDS ORDERED: HYDROCODONE/APAP 5/325 MG TAB ONE (11:22)
[2025-04-05] MEDS ORDERED: DIAZEPAM 5 MG TABLET ONE (11:22)
[2025-04-05 12:20] LABS: Urine Bilirubin NEGATIVE (Negative); Urine Blood Negative (Negative); Urine Clarity Clear (Clear); Urine Color Light-Yellow (Yellow); Urine Glucose NEGATIVE (Negative); Urine Ketones NEGATIVE (Negative); Urine Microscopic Reflex YN NO UMIC; Urine Nitrite NEGATIVE (Negative); Urine Protein NEGATIVE (Negative); Urine Urobilinogen Normal (Normal); Urine pH 5.5 (5.0-7.0)
--- NOTE | 2025-04-05 13:02 | EDPHYS ---
Physician Documentation [facility] Name: Sandra Samuel Age: 79 yrs Sex: Female : 1945 Arrival Date: 04/05/2025 Time: 10:57 Bed 19 Private MD: ED Physician Jaspal العلي HPI: 04/05 11:16 This 79 yrs old Female presents to ER via Wheelchair with complaints of Back Pain. ms3 11:16 79-year-old female past medical history of coronary atherosclerosis, DVT, myocardial ms3 infarction, chronic back pain, spinal stenosis presents to the emergency department for 1 week history of lower back pain after spinal injections last Tuesday. Patient states she was seen in the emergency department last Tuesday and imaging was performed. Patient states her discomfort is a 9/10. She denies any alleviating or inciting factors. She denies bladder or bowel incontinence, saddle anesthesia, weakness, fevers, chills. Historical: - Allergies: 11:13 Codeine; aa5 11:13 PENICILLINS; aa5 - PMHx: 11:13 coronary atherosclerosis; DVT; Myocardial infarction; Chronic back pain; Spinal aa5 stenosis; - PSHx: 11:13 ankle surgery; Gastric Bypass; Ligation of fallopian tube; Operative procedure on knee; aa5 Total abdominal hysterectomy; wrist surgery; - Immunization history:: Adult Immunizations up to date. - Infectious Disease History:: Denies. - Social history:: Smoking status: Patient denies any tobacco usage or history of. ROS: 11:16 Constitutional: Negative for fever, and chills. Cardiovascular: Negative for chest ms3 pain, and palpitations. Respiratory: Negative for shortness of breath, cough, wheezing, and pleuritic chest pain, Abdomen/GI: Negative for abdominal pain, nausea, vomiting, diarrhea, and constipation, 11:16 MS/extremity: Positive for Back pain, Exam: 11:16 Constitutional: This is a well developed, well nourished patient who is awake, alert, ms3 and in no acute distress. Cardiovascular: Regular rate and rhythm with a normal S1 and S2. No gallops, murmurs, or rubs. Normal PMI, no JVD. No pulse deficits. Respiratory: Lungs have equal breath sounds bilaterally, clear to auscultation and percussion. No rales, rhonchi or wheezes noted. No increased work of breathing, no retractions or nasal flaring. Abdomen/GI: Soft, non-tender, with normal bowel sounds. No distension or tympany. No guarding or rebound. No evidence of tenderness throughout. 11:16 Back: pain, that is moderate, ROM is normal, muscle spasm, is appreciated in the right low back, 11:16 Musculoskeletal/extremity: Extremities: Vital Signs: 11:11 BP 157 / 76; Pulse 70; Resp 18 S; Temp 98.3(O); Pulse Ox 99% on R/A; aa5 12:00 BP 183 / 71; Pulse 57; Resp 17; Pulse Ox 100% ; me1 13:00 BP 151 / 72; Pulse 66; Resp 17; Pulse Ox 100% ; me1 MDM: 11:14 Medical Screening Exam initiated ms3 11:16 Differential diagnosis: Muscle spasm versus compression deformity versus sciatica. ms3 11:18 ED course: CT abdomen pelvis performed last Tuesday shows L3 superior endplate deformity.ms3 14:12 Data reviewed: vital signs, nurses notes, lab test result(s), and as a result, I will ms3 discharge patient. I considered the following discharge prescriptions or medication management in the emergency department Medications were administered in the Emergency Department. See MAR. Counseling: I had a detailed discussion with the patient and/or guardian regarding the historical points, exam findings, and any diagnostic results supporting the discharge/admit diagnosis, lab results, the need for outpatient follow up, to return to the emergency department if symptoms worsen or persist or if there are any questions or concerns that arise at home. Special discussion: I discussed with the patient/guardian in detail that at this point there is no indication for admission to the hospital. It is understood, however, that if the symptoms persist or worsen the patient needs to return immediately for re-evaluation. ED course: Discussed urinalysis results with patient. Discussed previous CT abdomen pelvis results from previous ER visit with patient. Patient aware of T3 deformity. All questions were answered. Patient to follow-up with primary care physician in 2 to 3 days. All questions were answered. Patient given prescription for methocarbamol. 04/05 11:14 Order name: UA Rfx Sergio Cult if indicated; Complete Time: 12:52 ms3 Administered Medications: 11:24 Drug: HYDROcodone-acetaminophen PO 5 mg-325 mg 1 tabs PO once Route: PO; me1 12:55 Follow up: Response: No adverse reaction; Pain is decreased me1 11:24 Drug: Diazepam PO 5 mg PO once Route: PO; me1 12:55 Follow up: Response: No adverse reaction; Pain is decreased me1 Disposition Summary: 04/05/25 13:01 Discharge Ordered Notes: Location: Home ms3 Condition: Stable ms3 Diagnosis - Low back pain ms3 Followup: ms3 - With: Abhishek Echevarria DO - When: 2 - 3 days - Reason: Recheck today's complaints Discharge Instructions: - Discharge Summary Sheet ms3 - Acute Back Pain, Adult ms3 Forms: - Medication Reconciliation Form ms3 - Antibiotic Education ms3 - Prescription Opioid Use ms3 - Patient Portal Instructions ms3 - Leadership Thank You Letter ms3 Prescriptions: - methocarbamol 500 mg Oral tablet - take 1 tablet ORAL route 3 times per day; 15 tablet; Refills: 0, Product ms3 Selection Permitted Signatures: Dispatcher [employer] Paola Kent, RN RN aa5 Jaspal العلي, DO DO ms3 Caitlyn Edwards RN RN me1
--- NOTE | 2025-04-05 13:02 | ER ---
Nurse's Notes [facility] Name: Sandra Samuel Age: 79 yrs Sex: Female : 1945 Arrival Date: 04/05/2025 Time: 10:57 Bed 19 Private MD: Diagnosis: Low back pain Presentation: 04/05 11:11 Chief complaint: Patient states: hx chronic back pain and spinal stenosis. Pt c/o back aa5 pain, states "I had back injections last Tuesday". Coronavirus screen: At this time, the client does not indicate any symptoms associated with coronavirus-19. Ebola Screen: Patient denies travel to an Ebola-affected area in the 21 days before illness onset. Initial Sepsis Screen: Does the patient meet any 2 criteria? No. Patient's initial sepsis screen is negative. Does the patient have a suspected source of infection? No. Patient's initial sepsis screen is negative. Risk Assessment: Do you want to hurt yourself or someone else? Patient reports no desire to harm self or others. Onset of symptoms was March 2025. 11:11 Acuity: CLARA 3 aa5 11:11 Method Of Arrival: Wheelchair aa5 Historical: - Allergies: 11:13 Codeine; aa5 11:13 PENICILLINS; aa5 - PMHx: 11:13 coronary atherosclerosis; DVT; Myocardial infarction; Chronic back pain; Spinal aa5 stenosis; - PSHx: 11:13 ankle surgery; Gastric Bypass; Ligation of fallopian tube; Operative procedure on knee; aa5 Total abdominal hysterectomy; wrist surgery; - Immunization history:: Adult Immunizations up to date. - Infectious Disease History:: Denies. - Social history:: Smoking status: Patient denies any tobacco usage or history of. Screenin:14 [facility] ED Fall Risk Assessment (Adult) History of falling in the last 3 months, me1 including since admission No falls in past 3 months (0 pts) Confusion or Disorientation No (0 pts) Intoxicated or Sedated No (0 pts) Impaired Gait Yes (1 pt) Mobility Assist Device Used Yes (1 pt) Altered Elimination No (0 pt) Score/Fall Risk Level 0 - 2 = Low Risk Maintained a safe environment, Provided non-skid footwear, Hourly rounding (assess needs \\T\\ fall precautionary measures) done. Abuse screen: Denies threats or abuse. Nutritional screening: No deficits noted. Tuberculosis screening: No symptoms or risk factors identified. Assessment: 11:14 General: Appears uncomfortable, obese, Behavior is calm, cooperative, appropriate for me1 age, Reports hx chronic back pain and spinal stenosis. Pt c/o back pain, states "I had back injections last Tuesday". Pain: Complains of pain in back and right leg Pain does not radiate. Pain currently is 9 out of 10 on a pain scale. Quality of pain is described as pressure, sharp, Pain began gradually, Is continuous. Neuro: Level of Consciousness is awake, alert, obeys commands, Oriented to person, place, time, situation, Appropriate for age. Cardiovascular: Patient's skin is warm and dry. Respiratory: Airway is patent Respiratory effort is even, unlabored, Respiratory pattern is regular, symmetrical. GI: No signs and/or symptoms were reported involving the gastrointestinal system. : No signs and/or symptoms were reported regarding the genitourinary system. EENT: No signs and/or symptoms were reported regarding the EENT system. Derm: Skin is intact, is healthy with good turgor, Skin is pink, warm \\T\\ dry. Musculoskeletal: Reports pain in back and right leg chronic pain with no relief after injections on Tuesday. Vital Signs: 11:11 BP 157 / 76; Pulse 70; Resp 18 S; Temp 98.3(O); Pulse Ox 99% on R/A; aa5 12:00 BP 183 / 71; Pulse 57; Resp 17; Pulse Ox 100% ; me1 13:00 BP 151 / 72; Pulse 66; Resp 17; Pulse Ox 100% ; me1 ED Course: 11:00 Patient arrived in ED. im 11:03 Jaspal العلي DO is Attending Physician. ms3 11:06 Caitlyn Edwards, CRISTIAN is Primary Nurse. me1 11:10 Arm band placed on Patient placed in an exam room, on a stretcher. aa5 11:13 Triage completed. aa5 11:14 Patient has correct armband on for positive identification. Bed in low position. Call me1 light in reach. Side rails up X 1. Provided Education on: POC. Verbalized understanding.. Client placed on continuous cardiac and pulse oximetry monitoring. NIBP monitoring applied. Pulse ox on. NIBP on. 11:14 No provider procedures requiring assistance completed. me1 13:00 Abhishek Echevarria DO is Referral Physician. ms3 13:13 Patient did not have IV access during this emergency room visit. me1 Administered Medications: 11:24 Drug: HYDROcodone-acetaminophen PO 5 mg-325 mg 1 tabs PO once Route: PO; me1 12:55 Follow up: Response: No adverse reaction; Pain is decreased me1 11:24 Drug: Diazepam PO 5 mg PO once Route: PO; me1 12:55 Follow up: Response: No adverse reaction; Pain is decreased me1 Medication: 11:14 VIS not applicable for this client. me1 Outcome: 13:01 Discharge ordered by MD. ms3 13:13 Discharged to home via wheelchair, with family, me1 13:13 Condition: stable 13:13 Discharge instructions given to patient, Instructed on discharge instructions, follow up and referral plans. medication usage, Demonstrated understanding of instructions, follow-up care, medications, Prescriptions given X 1, 13:14 Patient left the ED. me1 Signatures: Paola Ridley, RN RN aa5 Jaspal العلي DO DO ms3 Keren Randle Michelle, RN RN me1 Corrections: (The following items were deleted from the chart) 11:14 11:11 Chief complaint: Patient states: hx chronic back pain and spinal stenosis. Pt c/o me1 back pain, states "I had back injections last Tuesday" aa5
[2025-04-05 13:19] VITALS: TEMP 98.3
[2025-04-05 13:21] VITALS: O2SAT 100
[2025-04-05 13:23] VITALS: BP 151/72
== END 2025-04-05 13:14 | disposition home or self-care (01) ==
LOC: ER 10:57
DX: M54.50 Low back pain, unspecified (principal)
CPT/HCPCS: 81003; 99284

== ENCOUNTER 2025-06-22 07:24 | Inpatient (IN) | payer OTHER, MEDICARE ==
--- OUTSIDE RECORDS SUMMARY | 2025-06-22 07:35 | XMS REPORT | Continuity of Care Document ---
Author Name Unknown Address [address] [place] [address] [facility] [place] Address [address] [place] [address] Care Team Providers Care Childcare Provider Name Role Phone MARVA RICE Primary Care Physician UnavailPraveena Mo Attending Clinician Unavail Bacilio Markham MD Attending Clinician [phone] BACILIO DELEON Attending Clinician Unavailable Doctor Unassigned, [place] Attending Clinician U JUAN RAMON Butts Attending Clinician UnavailBacilio Flowers MD Attending Clinician [phone] Belinda Chang RN Attending Clinician Unavailable LILIANA PÉREZ Attending Clinician Unavailable Wale Corey DO Attending Clinician [phone] Liliana Pérez DO Attending Clinician [phone] Sydni Perez MD Attending Clinician [phone] SYDNI PEREZ Attending Clinician UnavailSYDNI Carson Attending Clinician Unavailabl e Doctor Unassigned, [place] Attending Clinician U JOSH Iglesias Attending Clinician Unavailable Josh Norwood MD Attending Clinician [phone] CARITO DOYLE Attending Clinician Unavailable Jason ALLEN, Rosie Attending Clinician [phone] Juvenal HERMOSILLO, Mac Pino Attending Clinician [phone] Carito Doyle MD Attending Clinician [phone], [facility] Attending Clinician Unavailable Shanel Jefferson Attending Clinician [phone] Dakota FOSTER, Juancralos Hagan Attending Clinician Unavail able SELIN BALES Attending Clinician Unavailable Garfield Bower MD Attending Clinician [phone] Selin Bales MD Attending Clinician [phone] Asha Tya MD Attending Clinician [phone] SHANEL CANDELARIO Attending Clinician Unavailable ROSELINE GAVIN Attending Clinician Unavailab Roseline Howell Attending Clinician [phone] GHAZALA PENN Attending Clinician Unavailab Ghazala Chavez DO Attending Clinician [phone] Claudia HERMOSILLO, Brandon Attending Clinician [phone] Nicholas HERMOSILLO, Jenn Ornelas Attending Clinician + Jenny HERMOSILLO, Andrey Santoro Attendin g Clinician Osman Casas MD Attending Clinician + Petrona HERMOSILLO, Tello Nova Attending Clinici an Germaine Nagel MD Attending Clinician [phone] Shani Han MD Attending Clinician [phone] Deloris Hoffman MD Attending Clinician [phone] SHANI HAN Attending Clinician Unavailable Physician, No Primary or Family Admitting Clinic marco Unavailable BACILIO DELEON Admitting Clinician Unavailable MARVA RICE Admitting Clinician Unavailable LILIANA PÉREZ Admitting Clinician Unavailable Liliana Pérez DO Admitting Clinician [phone] JOSH NORWOOD Admitting Clinician Unavailable MYRA RO Admitting Clinician Unavailable CARITO DOYLE Admitting Clinician Unavailable Yanira HERMOSILLO, Carito Admitting Clinician SEILN BALES Admitting Clinician Unavailable Amairani HERMOSILLO, Selin Admitting Clinician ROSELINE GAVIN Admitting Clinician Unavailab GHAZALA Chavez Admitting Clinician Unavailab shan Casas MD, Osman Davis Admitting Clinician + Petrona HERMOSILLO, Tello Nova Admitting Clinici an Yasmin HERMOSILLO, Deloris Admitting Clinician [phone] DELORIS HOFFMAN Admitting Clinician Unavailable Payers Payer Name Policy Type Policy Number Effective Date Expirati on Date Source MEDICARE PART A \\T\\ B [id number] 1999 00:00:00 [facility] MEDICARE SUPPLEMENT [id number] 2010 00:00:00 Problems Condition Name Condition Details Condition Category Status Onset Date Resolution Date Last Treatment Date Treating Clinician Comments Source Primary hypertensi on Primary hypertensi on Disease Active 04-25 00:00: 00 [facility] Atrophy of skeletal muscle of [...] Medical Hyperlipid emia Hyperlipid emia Problem Active 605 00:00: 00 [facility] Neuropathy Neuropathy Problem Active 6 00:00: 00 [facility] Myocardial infarction Myocardial Infarction Problem Active 6 00:00: 00 [facility] Gastroesop hageal reflux disease Gastroesop hageal Reflux Disease Problem Active 605 00:00: 00 [facility] UTI (urinary tract infection) UTI (urinary tract infection) Disease Active 2-13 00:00: 00 [facility] Weakness of left lower extremity Weakness of left lower extremity Disease Active 2022-11 2- 00:00: 00 [facility] Troponin I above reference range Troponin I above reference range Disease Active 2022-11- 00:00: 00 [facility] KALYN (acute kidney injury) KALYN (acute kidney injury) Disease Active 2022-11 2 00:00: 00 [facility] KALYN (acute kidney injury) KALYN (acute kidney injury) Disease Active 2022-11 2 00:00: 00 [facility] Syncope and collapse Syncope and collapse Disease Active 2022-11 2 00:00: 00 [facility] LOC (loss of consciousn ess) LOC (loss of consciousn ess) Disease Active 2022-11 2- 00:00: 00 [facility] Pulmonary hypertensi on Pulmonary hypertensi on Disease Active 2022-11 00:00: 00 [facility] HFrEF (heart failure with reduced ejection fraction) HFrEF (heart failure with reduced ejection fraction) Disease Active 2022-11 00:00: 00 [facility] JARRELL (obstructi ve sleep apnea) JARRELL (obstructi ve sleep apnea) Disease Active 2022-11 00:00: 00 [facility] Chest pain, unspecifie d type Chest pain, unspecifie d type Disease Active 07-20 00:00: 00 [facility] NSTEMI (non-ST elevated myocardial infarction ) NSTEMI (non-ST elevated myocardial infarction ) Disease Active 2023-0 9-06 00:00: 00 [facility] Stenosis of left carotid artery Stenosis of left carotid artery Disease Active 2020-11 0-18 00:00: 00 [facility] Weak pulse Weak pulse Disease Active 3-10 00:00: 00 [facility] Morbid obesity Morbid obesity Disease Active 3-10 00:00: 00 [facility] Coronary artery disease involving [place] coronary artery of [place] heart without angina 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 Disease Active 3- 00:00: 00 [facility] Coronary artery disease involving [place] coronary artery of [place] heart without angina 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 Disease Active 3- 00:00: 00 [facility] Chronic heart failure with preserved ejection fraction Chronic heart failure with preserved ejection fraction Disease Active 3- 00:00: 00 [facility] PVT (paroxysma l ventricula r tachycardi a) PVT (paroxysma l ventricula r tachycardi a) Disease Active 3- 00:00: 00 [facility] Chest pain, musculoske letal Chest pain, musculoske letal Disease Active 2019-11 0-24 00:00: 00 [facility] History of myocardial infarction History of myocardial infarction Disease Active 2019-11 0-24 00:00: 00 [facility] 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 Disease Active 2019-11 0-24 00:00: 00 [facility] Chest pain Chest pain Disease Active 2019-11 0- 00:00: 00 [facility] Non-sustai bo ventricula r tachycardi a Non-sustai bo ventricula r tachycardi a Disease Active 2019-11 0-21 00:00: 00 [facility] Edema, unspecifie d Edema, unspecifie d Disease Active 2019-11 0-08 00:00: 00 [facility] Chronic kidney disease, stage 3 unspecifie d Chronic kidney disease, stage 3 unspecifie d Disease Active 2019-11 0 00:00: 00 [facility] Cough Cough Disease Active 2019-11 0 00:00: 00 [facility] Candidiasi s, unspecifie d Candidiasi s, unspecifie d Disease Active 08-11 00:00: 00 [facility] Pain, unspecifie d Pain, unspecifie d Disease Active 08-06 00:00: 00 [facility] Nausea with vomiting, unspecifie d Nausea with vomiting, unspecifie d Disease Active 08-04 00:00: 00 [facility] Allergic rhinitis, unspecifie d Allergic rhinitis, unspecifie d Disease Active 08-01 00:00: 00 [facility] Constipati on, unspecifie d Constipati on, unspecifie d Disease Active 08-01 00:00: 00 [facility] Essential (primary) hypertensi on Essential (primary) hypertensi on Disease Active 08-01 00:00: 00 [facility] Gastro-eso phageal reflux disease without esophagiti s Gastro-eso phageal reflux disease without esophagiti s Disease Active 08-01 00:00: 00 [facility] Hyperlipid emia, unspecifie d Hyperlipid emia, unspecifie d Disease Active 08-01 00:00: 00 [facility] Other specified disorders of bladder Other specified disorders of bladder Disease Active 08-01 00:00: 00 [facility] Urinary tract infection, site not specified Urinary tract infection, site not specified Disease Active 08-01 00:00: 00 [facility] Body mass index (BMI) 45.0-49.9, adult Body mass index (BMI) 45.0-49.9, adult Disease Active 07-31 00:00: 00 [facility] Muscle weakness (generaliz ed) Muscle weakness (generaliz ed) Disease Active 07-31 00:00: 00 [facility] Other abnormalit ies of gait and mobility Other abnormalit ies of gait and mobility Disease Active 07-31 00:00: 00 [facility] Other lack of coordinati on Other lack of coordinati on Disease Active 07-31 00:00: 00 [facility] Age-relate d osteoporos is without current pathologic al fracture Age-relate d osteoporos is without current pathologic al fracture Disease Active 07-26 00:00: 00 [facility] Anemia, unspecifie d Anemia, unspecifie d Disease Active 07-26 00:00: 00 [facility] Cardiac arrest due to underlying cardiac condition Cardiac arrest due to underlying cardiac condition Disease Active 07-26 00:00: 00 [facility] Chronic pain disorder Chronic pain disorder Disease Active 07-26 00:00: 00 [facility] Fibromyalg ia Fibromyalg ia Disease Active 07-26 00:00: 00 [facility] 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 Disease Active 07-26 00:00: 00 [facility] Encounter for surgical aftercare following surgery on the ophthalmic tech y system Encounter for surgical aftercare following surgery on the ophthalmic tech y system Disease Active 07-26 00:00: 00 [facility] Hypertensi ve heart and chronic kidney disease with heart failure and stage 1 through stage 4 chronic kidney disease, or unspecifie d chronic kidney disease Hypertensi ve heart and chronic kidney disease with heart failure and stage 1 through stage 4 chronic kidney disease, or unspecifie d chronic kidney disease Disease Active 07-26 00:00: 00 [facility] Klebsiella pneumoniae (k. pneumoniae ) as the cause of diseases classified elsewhere Klebsiella pneumoniae (k. pneumoniae ) as the cause of diseases classified elsewhere Disease Active 07-26 00:00: 00 [facility] Lymphedema , not elsewhere classified Lymphedema , not elsewhere classified Disease Active 07-26 00:00: 00 [facility] Peptic ulcer, site unspecifie d, unspecifie d as acute or chronic, without hemorrhage or perforatio n Peptic ulcer, site unspecifie d, unspecifie d as acute or chronic, without hemorrhage or perforatio n Disease Active 07-26 00:00: 00 [facility] Rheumatoid arthritis, unspecifie d Rheumatoid arthritis, unspecifie d Disease Active 07-26 00:00: 00 [facility] Secondary osteoarthr itis, right shoulder Secondary osteoarthr itis, right shoulder Disease Active 07-26 00:00: 00 [facility] Spinal stenosis, site unspecifie d Spinal stenosis, site unspecifie d Disease Active 07-26 00:00: 00 [facility] STEMI (ST elevation myocardial infarction ) STEMI (ST elevation myocardial infarction ) Disease Active 07-26 00:00: 00 [facility] Choledocho lithiasis Choledocho lithiasis Disease Active 03-31 00:00: 00 [facility] 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 Disease Active 03-31 00:00: 00 [facility] Deep vein thrombosis Deep vein thrombosis Disease Active 2015-11 0 00:00: 00 [facility] Leg pain Leg pain Disease Active 08-13 00:00: 00 [facility] Allergies, Adverse Reactions, Alerts Allergy Name Allergy Type Status Severity Reaction(s) Onset Date Inactive Date Treating Clinician Comments Source Penicill ins DA Active SV 06-11 00:00: 00 [facility] codeine DA Active SV 06-11 00:00: 00 [facility] Penicill ins DA Active SV RASH 06-11 00:00: 00 [facility] codeine DA Active SV SHORTNESS OF BREATH 06-11 00:00: 00 [facility] CODEINE DRUG INGREDI Active SOB 05-28 00:00: 00 [facility] PENICILL IN DRUG INGREDI Active Rash 05-28 00:00: 00 [facility] Codeine Propensi ty to adverse reaction s Active Shortness of Breath 05-28 00:00: 00 [facility] Penicill in Propensi ty to adverse reaction s Active Rash 05-28 00:00: 00 [facility] PENICILL INS Allergy to substanc e Active [facility] Social History Social Habit Start Date Stop Date Quantity Comments Source [facility] ASSERTION Not [facility] History of Social function 2024-04-25 00:00:00 2024-04-25 00:00:00 [facility] Exposure to SARS-CoV-2 (event) 2023-02-14 00:00:00 2023-02-24 09:06:00 Not sure [facility] Tobacco use and exposure 2016-08-13 00:00:00 2016-08-13 00:00:00 Smokeless tobacco non-user [facility] Sex assigned at 1945 00:00:00 1945 00:00:00 [facility] Smoking Status Start Date Stop Date Source Never smoked tobacco [facility] Medications Ordered Medication Name Filled Medication Name Start Date Stop Date Current Medication? Ordering Clinician Indication Dosage Frequency Signature (SIG) Comments Components Source perflutren protein-A microsphr (OPTISON) injection 3 mL 04-17 20:15: 00 04-17 20:07 :00 No [id number] 3mL 3 mL, IV Push, ONCE, 1 dose, On Tue04/17/25 at 1515, Routine [facility] furosemide 20 mg tablet 03-09 00:00: 00 Yes [id number] 20mg Take 1 tablet by mouth in the morning. [facility] gabapentin 800 mg tablet 12-29 15:27: 11 Yes 800mg Take 1 tablet by mouth in the morning. [facility] mirabegron (MYRBETRIQ) 50 mg tablet 12-29 15:27: 11 Yes 50mg Take 1 tablet by mouth in the morning. [facility] URSODIOL ORAL 12-29 15:27: 11 Yes Take by mouth. [facility] ondansetron (ZOFRAN (PF)) injection 4 mg 12-29 03:08: 13 Yes 4mg 4 mg, Slow IV Push, Q6HPRN, Nausea and Vomiting (N/V), Starting on Tue12/28/23 at 2108
Do ses of ondansetro n 16 mg and above need to be administer ed via IV piggyback. For Dose >=24mg ECG monitoring is advisable.
[facility] atorvastati n (LIPITOR) tablet 40 mg 12-29 03:00: 00 Yes 40mg 40 mg, Oral, QHS, First dose on Tue12/28/23 at 2100, Until Discontinu ed, Routine [facility] NaCl 0.9% (NS) bolus infusion 250 mL 12-28 18:15: 00 12-28 23:15 :00 No 250mL at 50 mL/hr, 250 mL, IV Piggyback, ONCE, 1 dose, On Tue12/28/23 at 1215, STAT [facility] metoprolol succinate XL (TOPROL XL) tablet 50 mg 12-28 15:00: 00 Yes 50mg 50 mg, Oral, DAILY, First dose on Tue12/28/23 at 0900, Until Discontinu ed, Routine [facility] gabapentin (NEURONTIN) tablet 800 mg 12-28 15:00: 00 Yes 800mg 800 mg, Oral, DAILY, First dose on Tue12/28/23 at 0900, Until Discontinu ed, Routine [facility] aspirin chewable tablet 81 mg 12-28 15:00: 00 Yes 81mg 81 mg, Oral, DAILY, First dose on Tue12/28/23 at 0900, Until Discontinu ed, [facility] enoxaparin (LOVENOX) injection 40 mg 12-28 15:00: 00 Yes 40mg 40 mg, Subcutaneo us, DAILY, First dose on Tue12/28/23 at 0900, Until Discontinu ed, Routine [facility] cefTRIAXone (ROCEPHIN) 1,000 mg in [...] Urine
D uration of Therapy: 7 days [facility] temazepam (RESTORIL) capsule 15 mg 12-28 04:36: 03 Yes 15mg 15 mg, Oral, QHSPRN, Starting on Tue12/27/23 at 2236, Until Discontinu ed, Routine, Insomnia [facility] HYDROcodone -acetaminop hen (NORCO) 10-325 mg tablet 1 tablet 12-28 04:27: 13 Yes 1{tbl} 1 tablet, Oral, Q6HPRN, Starting on Tue12/27/23 at 2227, Until Discontinu ed, Pain (scale 4-6) [facility] acetaminoph en (TYLENOL) tablet 650 mg 12-28 00:27: 53 Yes 650mg 650 mg, Oral, Q6HPRN, Starting on Tue12/27/23 at 1827, Until Discontinu ed, Routine, Pain (scale 1-3) [facility] methocarbam oL (ROBAXIN) tablet 500 mg 12-28 00:00: 00 12-27 23:18 :00 No 500mg 500 mg, Oral, ONCE, 1 dose, On Tue12/27/23 at 1800, Routine [facility] HYDROcodone -acetaminop hen (NORCO) 10-325 mg tablet 1 tablet 12-28 00:00: 00 12-27 23:18 :00 No 1{tbl} 1 tablet, Oral, ONCE, 1 dose, On Tue12/27/23 at 1800, Routine [facility] piperacilli n-tazobacta m (ZOSYN) 3.375 g in NaCl 0.9% (NS) 100 mL MINI-BAG 12-27 23:00: 00 12-27 23:51 :00 No 3.375g 3.375 g, IV Piggyback, ONCE, 1 dose, On Tu12/27/23 at 1700, Administer over 30 Minutes, 100 mL
Reas on for Anti-Infec tive: Empiric Therapy for Suspected Infection< br>Empiric Therapy Site: Urine
D uration of therapy: Once (ED) [facility] gabapentin 800 mg tablet 12-27 22:29: 16 Yes 800mg Take 1 tablet by mouth in the morning. [facility] mirabegron (MYRBETRIQ) 50 mg tablet 12-27 22:29: 16 Yes 50mg Take 1 tablet by mouth in the morning. [facility] URSODIOL ORAL 12-27 22:29: 16 Yes Take by mouth. [facility] triamcinolo ne acetonide (KENALOG) injection 40 mg 12-21 21:30: 00 12-21 20:45 :00 No [id number] 40mg [facility] clopidogreL 75 mg tablet 12-14 00:00: 00 Yes [id number] 75mg Take 1 tablet by mouth in the morning. [facility] atorvastati n 40 mg tablet 12-14 00:00: 00 Yes 40mg Take 1 tablet by mouth at bedtime. [facility] HYDROcodone -acetaminop hen 7.5-325 mg per tablet 12-09 00:00: 00 Yes [facility] acetaminoph en (TYLENOL) tablet 650 mg 11-26 06:30: 00 11-26 06:41 :00 No 650mg 650 mg, Oral, ONCE, 1 dose, On 11/26/23 at 0030, MIRNA [facility] LORazepam 0.5 mg tablet 2022-11 00:00: 00 Yes [facility] atorvastati n (LIPITOR) tablet 40 mg 2022-11 03:00: 00 Yes 40mg 40 mg, Oral, QHS, First dose on Tue10/24/23 at 2100, Until Discontinu ed, Routine [facility] enoxaparin (LOVENOX) injection 30 mg 2022-11 23:00: 00 Yes 30mg 30 mg, Subcutaneo us, DAILY, First dose on Tue10/24/23 at 1700, Until Discontinu ed, Routine [facility] gabapentin 800 mg tablet 2022-11 17:16: 48 Yes 800mg Take 1 tablet by mouth in the morning. [facility] mirabegron (MYRBETRIQ) 50 mg tablet 2022-11 17:16: 48 Yes 50mg Take 1 tablet by mouth in the morning. [facility] URSODIOL ORAL 2022-11 17:16: 48 Yes Take by mouth. [facility] sulfur hexafluorid e microsphr (LUMASON) injection 5 mL 2022-11 16:30: 00 10-24 16:30 :00 No [id number] 02 5mL 5 mL, Intravenou s, ONCE, 1 dose, On Tue10/24/23 at 1030, Routine
geosciences faculty member approving Restricted medication : EVANS THOMAS [facility] gabapentin (NEURONTIN) tablet 800 mg 2022-11 15:00: 00 Yes 800mg 800 mg, Oral, DAILY, First dose on Tue10/24/23 at 0900, Until Discontinu ed, Routine [facility] clopidogreL (PLAVIX) 75 mg tablet 75 mg 2022-11 15:00: 00 Yes 75mg 75 mg, Oral, DAILY, First dose on Tue10/24/23 at 0900, Until Discontinu ed, Routine [facility] aspirin chewable tablet 81 mg 2022-11 15:00: 00 Yes 81mg 81 mg, Oral, DAILY, First dose on Tue10/24/23 at 0900, Until Discontinu ed, Routine [facility] docusate (COLACE) capsule 100 mg 2022-11 15:00: 00 Yes 100mg 100 mg, Oral, DAILY, First dose on Tue10/24/23 at 0900, Until Discontinu ed, Routine [facility] ursodioL (ACTIGALL) capsule 300 mg 2022-11 14:00: 00 Yes 300mg 300 mg, Oral, BID, First dose on Tue10/24/23 at 0800, Until Discontinu ed [facility] NaCl 0.9% (NS) IV infusion 1,000 mL 2022-11 07:15: 00 Yes 1000mL at 50 mL/hr, IV Infusion, CONTINUOUS , Starting on Tue10/24/23 at 0115, Until Discontinu ed, Routine [facility] ondansetron (ZOFRAN (PF)) injection 4 mg 2022-11 06:56: 14 Yes 4mg 4 mg, Slow IV Push, Q6HPRN, Starting on Tue10/24/23 at 0056, Until Discontinu ed, Routine, Nausea and Vomiting (N/V) [facility] FENTanyl PF (SUBLIMAZE (PF)) injection 25 mcg 2022-11 06:56: 05 10-25 06:55 :05 No 25ug 25 mcg, Slow IV Push, Q6HPRN, Starting on Tue10/24/23 at 0056, Until Tue10/25/23 at 0055, Routine, Pain (scale 7-10) [facility] HYDROcodone -acetaminop hen (NORCO 5) 5-325 mg tablet 1 tablet 2022-11 06:55: 56 10-26 06:54 :56 No 1{tbl} 1 tablet, Oral, Q6HPRN, Starting on Tue10/24/23 at 0055, Until Tue10/26/23 at 0054, Routine, Pain (scale 4-6) [facility] acetaminoph en (TYLENOL) tablet 650 mg 2022-11 06:55: 47 Yes 650mg 650 mg, Oral, Q6HPRN, Starting on Tue10/24/23 at 0055, Until Discontinu ed, Routine, Pain (scale 1-3) [facility] zolpidem (AMBIEN CR) 12.5 mg CR tablet 2022-11 06:51: 58 10-24 00:00 :00 No 12.5mg Take 12.5 mg by mouth at bedtime as needed for Sleep. [facility] sodium chloride (NS) injection 5 mL 2022-11 03:14: 32 Yes 5mL 5 mL, Intravenou s, PRN, Starting on Tue10/23/23 at 2114, Until Discontinu ed, Routine, IV line flushing [facility] CELECOXIB 200 mg capsule 2022-11 00:00: 00 Yes [id number] 200mg TAKE ONE CAPSULE BY MOUTH IN THE MORNING [facility] clopidogreL 75 mg tablet 07-29 00:00: 00 12-14 00:00 :00 No [id number] 75mg Take 1 tablet by mouth in the morning. [facility] zolpidem (AMBIEN CR) 12.5 mg CR tablet 07-24 15:24: 28 Yes 12.5mg Take 12.5 mg by mouth at bedtime as needed for Sleep. [facility] gabapentin 800 mg tablet 07-24 15:24: 28 Yes 1{tbl} Take 1 tablet by mouth daily. [facility] mirabegron (MYRBETRIQ) 50 mg tablet 07-24 15:24: 28 Yes 1{tbl} Take 1 tablet by mouth daily. [facility] URSODIOL ORAL 07-24 15:24: 28 Yes Take by mouth. [facility] clopidogreL (PLAVIX) 75 mg tablet 75 mg 07-24 14:00: 00 Yes 75mg 75 mg, Oral, DAILY, First dose on Tue07/24/23 at 0900, Until Discontinu ed, Routine [facility] LORazepam 1 mg tablet 07-24 13:21: 57 07-24 00:00 :00 No 1mg Take 1 mg by mouth. [facility] heparin (porcine) injection 5,000 Units 07-24 12:30: 00 Yes 5000U 5,000 Units, Subcutaneo us, Q8H, First dose on 07/24/23 at 0730, Until Discontinu ed, Routine [facility] OMEPRAZOLE, BULK, MISC 07-24 12:24: 45 07-24 00:00 :00 No 40{tbl} 40 tablets 2 (two) times daily. [facility] magnesium sulfate in water 2 gram/50 mL (4 %) infusion 2 g 07-24 12:00: 00 07-24 15:27 :00 No 2g 2 g, IV Piggyback, Administer over 60 Minutes, ONCE, 1 dose, On [place] 07/24/23 at 0700, Routine [facility] KCL (KLOR-CON M20) tablet 40 mEq 07-24 12:00: 00 07-24 13:59 :00 No 40meq 40 mEq, Oral, ONCE, 1 dose, On [place] 07/24/23 at 0700, Routine [facility] atorvastati n 40 mg tablet 07-24 00:00: 00 12-14 00:00 :00 No [id number] 40mg Take 1 tablet by mouth at bedtime. [facility] LORazepam 1 mg tablet 07-24 00:00: 00 10-24 00:00 :00 No 1mg Take 1 tablet by mouth at bedtime as needed for Anxiety or Agitation. [facility] clopidogreL (PLAVIX) 300 mg tablet 300 mg 07-23 22:00: 00 07-23 21:55 :00 No 300mg 300 mg, Oral, ONCE NOW, 1 dose, On 07/23/23 at 1700, Routine [facility] pantoprazol e (PROTONIX) EC tablet 40 mg 07-23 14:00: 00 Yes 40mg 40 mg, Oral, DAILY, First dose on 07/23/23 at 0900, Until Discontinu ed, Routine [facility] KCL (KLOR-CON M20) tablet 20 mEq 07-23 12:30: 00 07-23 13:41 :00 No 20meq 20 mEq, Oral, ONCE, 1 dose, On 07/23/23 at 0730, Routine [facility] atorvastati n (LIPITOR) tablet 40 mg 07-23 02:00: 00 Yes 40mg 40 mg, Oral, QHS, First dose (after last reorder) on Tue07/22/23 at 2100, Until Discontinu ed, Routine [facility] furosemide (LASIX) injection 40 mg 07-23 01:00: 00 Yes 40mg 40 mg, Slow IV Push, Q12H, First dose on Tue07/22/23 at 2000, Until Discontinu ed, Routine [facility] furosemide (LASIX) injection 40 mg 07-22 13:00: 00 07-22 14:51 :07 No 40mg 40 mg, Slow IV Push, TID, First dose on Tue07/22/23 at 0800, Until Discontinu ed, [facility] ticagrelor (BRILINTA) tablet 90 mg 07-22 01:00: 00 Yes 90mg 90 mg, Oral, BID, First dose on Tue07/21/23 at 2000, Until Discontinu ed, Routine [facility] sulfur hexafluorid e microsphr (LUMASON) injection 5 mL 07-21 20:45: 00 07-21 20:45 :00 No [id number] 5mL 5 mL, Intravenou s, ONCE, 1 dose, On Tue07/21/23 at 1545, Routine
geosciences faculty member approving Restricted medication : JOCELYNE DENTON [facility] iodixanol (VISIPAQUE 320-100 mL) injection 07-21 18:49: 28 07-21 19:18 :22 No ONCE INTRA PROCEDURE, Starting on Tue07/21/23 at 1349, Until Tue07/21/23 at 1418, Routine, CV Intraproce dure [facility] adenosine 6 mg/1000 mL INTRACORONA RY injection for TECHNICAL TRAINING SPECIALIST 07-21 18:04: 22 07-21 19:18 :22 No ONCE INTRA PROCEDURE, Starting on [place] 07/21/23 at 1304, Until Jackelyn 07/21/23 at 1418, Routine, CV Intraproce dure [facility] nitroglycer in (TRIDIL) 2 mg in 10 mL D5W for Cardiac Cath 07-21 17:56: 07 07-21 19:18 :22 No ONCE INTRA PROCEDURE, Starting on [place] 07/21/23 at 1256, Until [place] 07/21/23 at 1418, Routine, CV Intraproce dure [facility] ticagrelor (BRILINTA) tablet 07-21 17:38: 42 07-21 19:18 :22 No ONCE INTRA PROCEDURE, Starting on [place] 07/21/23 at 1238, Until [place]elyn 07/21/23 at 1418, Routine, CV Intraproce dure [facility] heparin 1,000 unit/mL injection 07-21 17:18: 00 07-21 19:18 :22 No ONCE INTRA PROCEDURE, Starting on [place] 07/21/23 at 1218, Until [place] 07/21/23 at 1418, Routine, CV Intraproce dure [facility] lidocaine 1% (PF) (XYLOCAINE) injection 07-21 16:18: 46 07-21 19:18 :22 No ONCE INTRA PROCEDURE, Starting on [place] 07/21/23 at 1118, Until [place] 07/21/23 at 1418, Routine, CV Intraproce dure [facility] midazolam (VERSED) injection 07-21 16:05: 12 07-21 19:18 :22 No ONCE INTRA PROCEDURE, Starting on [place] 07/21/23 at 1105, Until Jackeyln 07/21/23 at 1418, Routine, CV Intraproce dure [facility] FENTanyl PF (SUBLIMAZE (PF)) injection 07-21 16:05: 01 07-21 19:18 :22 No ONCE INTRA PROCEDURE, Starting on [place] 07/21/23 at 1105, Until [place] 07/21/23 at 1418, Routine, CV Intraproce dure [facility] Lidocaine (LIDOCARE) 4 % patch 1 Patch 07-21 14:45: 00 07-22 08:00 :00 No 1{patch } 1 Patch, Topical, Administer over 12 Hours, ONCE, 1 dose, On [place] 07/21/23 at 0945, Routine [facility] methocarbam oL (ROBAXIN) tablet 500 mg 07-21 14:15: 00 Yes 500mg 500 mg, Oral, BID, First dose (after last modificati on) on [place] 07/21/23 at 0915, Until Discontinu ed, Routine [facility] docusate (COLACE) capsule 100 mg 07-21 14:00: 00 Yes 100mg 100 mg, Oral, DAILY, First dose on Tue07/21/23 at 0900, Until Discontinu ed, [facility]ennos[facility]- docusate sodium (SENOKOT-S) 8.6-50 mg per tablet 1 tablet 07-21 14:00: 00 Yes 1{tbl} 1 tablet, Oral, DAILY, First dose on Tue07/21/23 at 0900, Until Discontinu ed, Routine [facility] gabapentin 800 mg tablet 07-21 14:00: 00 Yes 800mg Take 1 tablet by mouth in the morning. [facility] aspirin chewable tablet 81 mg 07-21 14:00: 00 Yes 81mg 81 mg, Oral, DAILY, First dose on [place] 07/21/23 at 0900, Until Discontinu ed, Routine [facility] omeprazole (PRILOSEC) capsule 20 mg 07-21 14:00: 00 07-22 14:55 :38 No 20mg 20 mg, Oral, DAILY, First dose on Tue07/21/23 at 0900, Until Discontinu ed, Routine [facility] HYDROcodone -acetaminop hen (NORCO) 10-325 mg tablet 1 tablet 07-21 13:34: 58 Yes 1{tbl} 1 tablet, Oral, Q6HPRN, Starting on Tue07/21/23 at 0834, Until Discontinu ed, Routine, Pain (scale 7-10), Pain (scale 4-6) [facility] atorvastati n (LIPITOR) tablet 40 mg 07-21 13:30: 00 07-21 13:11 :00 No 40mg 40 mg, Oral, ONCE, 1 dose, On Tue07/21/23 at 0830, Routine [facility] mirtazapine (REMERON) tablet 15 mg 07-21 06:17: 35 Yes 15mg 15 mg, Oral, QHSPRN, Starting on Tue07/21/23 at 0117, Until Discontinu ed, Routine, Insomnia, sleeping difficulti es [facility] acetaminoph en-codeine (TYLENOL #3) 300-30 mg tablet 1 tablet 07-21 02:03: 52 07-21 13:35 :18 No 1{tbl} 1 tablet, Oral, Q6HPRN, Starting on Tue07/20/23 at 2103, Until Tue07/21/23 at 0835, Routine, Pain (scale 4-6) [facility] acetaminoph en (TYLENOL) tablet 650 mg 07-21 02:03: 49 Yes 650mg 650 mg, Oral, Q6HPRN, Starting on Tue07/20/23 at 2103, Until Discontinu ed, Routine, Pain (scale 1-3) [facility] FENTanyl PF (SUBLIMAZE (PF)) injection 12.5 mcg 07-21 00:00: 00 07-20 23:06 :00 No 12.5ug 12.5 mcg, Slow IV Push, ONCE, 1 dose, On Tue07/20/23 at 1900, STAT [facility] iopamidol (ISOVUE 370-500 mL) injection 80 mL 07-20 22:15: 00 07-20 22:20 :00 No [id number] 80mL 80 mL, Intravenou s, ONCE, 1 dose, On Tue07/20/23 at 1715, Routine [facility] zolpidem (AMBIEN CR) 12.5 mg CR tablet 07-20 21:05: 26 Yes 12.5mg Take 12.5 mg by mouth at bedtime as needed for Sleep. [facility] gabapentin 800 mg tablet 07-20 21:05: 26 Yes 1{tbl} Take 1 tablet by mouth daily. [facility] mirabegron (MYRBETRIQ) 50 mg tablet 07-20 21:05: 26 Yes 1{tbl} Take 1 tablet by mouth daily. [facility] URSODIOL ORAL 07-20 21:05: 26 Yes Take by mouth. [facility] OMEPRAZOLE, BULK, MISC 07-20 21:05: 26 Yes 40{tbl} 40 tablets 2 (two) times daily. [facility] LORazepam 1 mg tablet 07-20 21:05: 26 Yes 1mg Take 1 mg by mouth. [facility] HEPARIN SODIUM (PORCINE) 1,000 UNIT/ML BOLUS ACS ORDER SET 07-20 20:30: 00 07-20 23:31 :00 No 4000U 4,000 Units, IV Push, ONCE, 1 dose, On Tue07/20/23 at 1530, [facility] heparin 25,000 Units/250 mL (Premixed [...] ADJUST INITIAL BOLUS OR INITIAL INFUSION RATE.
[facility] heparin (1,000 unit/mL, 10 mL vial) for Rebolusing 07-20 20:21: 15 Yes 3000U FOR REBOLUSING , Starting on Tue07/20/23 at 1521, Until Discontinu ed, Routine
Dosing based on aPPT testing parameters (refer to continuous heparin drip order).
[facility] ondansetron (ZOFRAN (PF)) injection 4 mg 07-20 18:45: 00 07-20 18:07 :00 No 4mg 4 mg, Slow IV Push, ONCE, 1 dose, On Tue07/20/23 at 1345, [facility] FENTanyl PF (SUBLIMAZE (PF)) injection 75 mcg 07-20 18:45: 00 07-20 18:07 :00 No 75ug 75 mcg, Slow IV Push, ONCE, 1 dose, On Tue07/20/23 at 1345, STAT [facility] sulfur hexafluorid e microsphr (LUMASON) injection 5 mL 07-06 17:00: 00 07-06 16:53 :00 No [id number] 02 5mL 5 mL, Intravenou s, ONCE, 1 dose, On Tue07/06/23 at 1200, Routine
geosciences faculty member approving Restricted medication : EVANS THOMAS [facility] celecoxib (CELEBREX) 200 mg capsule 06-01 00:00: 00 08-31 04:59 :00 No [id number] 200mg Take 1 capsule by mouth in the morning for 90 days. [facility] HYDROcodone -acetaminop hen (NORCO 5) 5-325 mg tablet 1 tablet 05-17 18:00: 00 05-17 18:03 :00 No 1{tbl} 1 tablet, Oral, ONCE, 1 dose, On Tue05/17/23 at 1300, [facility] HYDROcodone -acetaminop hen (NORCO) 10-325 mg tablet 05-17 13:30: 39 05-17 00:00 :00 No 1{tbl} Take 1 tablet by mouth every 6 (six) hours. [facility] HYDROcodone -acetaminop hen 7.5-325 mg per tablet 05-17 00:00: 00 05-20 04:59 :00 No [id number] 1{tbl} Take 1 tablet by mouth every 8 (eight) hours for 2 days. Indication s: acute pain [facility] HYDROcodone -acetaminop hen 7.5-325 mg per tablet 05-09 00:00: 00 05-17 00:00 :00 No 1{tbl} Take 1 tablet by mouth every 8 (eight) hours. [facility] NaCl 0.9% (NS) bolus infusion 1,000 mL 02-24 15:15: 00 02-24 17:05 :00 No 1000mL at 999 mL/hr, 1,000 mL, IV Infusion, ONCE, 1 dose, On [place] 02/24/23 at 1015, [facility] clopidogreL 75 mg tablet 12-07 00:00: 00 07-29 00:00 :00 No [id number] 75mg Take 1 tablet by mouth in the morning. [facility] zolpidem (AMBIEN CR) 12.5 mg CR tablet 04-22 14:53: 25 Yes 12.5mg Take 12.5 mg by mouth at bedtime as needed for Sleep. [facility] OMEPRAZOLE, BULK, MISC 04-22 14:53: 25 Yes 40{tbl} 40 tablets 2 (two) times daily. [facility] LORazepam 1 mg tablet 04-22 14:53: 25 Yes 1mg Take 1 mg by mouth. [facility] gabapentin 800 mg tablet 2020-11 11:01: 54 Yes 1{tbl} Take 1 tablet by mouth daily. [facility] mirabegron (MYRBETRIQ) 50 mg tablet 2020-11 11:01: 54 Yes 1{tbl} Take 1 tablet by mouth daily. [facility] HYDROcodone -acetaminop hen (NORCO) 10-325 mg tablet 2020-11 11:01: 54 Yes 1{tbl} Take 1 tablet by mouth every 6 (six) hours. [facility] clopidogreL 75 mg tablet 2020-11 00:00: 00 04-22 00:00 :00 No [id number] 75mg Take 1 tablet by mouth daily. [facility] URSODIOL ORAL 01-20 14:09: 48 Yes Take by mouth. [facility] furosemide 20 mg tablet 01-20 00:00: 00 07-24 00:00 :00 No [id number] 40 mg daily as needed for leg swelling [facility] aspirin 81 mg chewable tablet 08-01 00:00: 00 Yes 81mg Take 1 tablet by mouth in the morning. [facility] cefdinir 300 mg capsule cefdinir 300 mg capsule No cefdinir 300 mg capsule [facility] ciprofloxac in 500 mg tablet ciprofloxac in 500 mg tablet No ciprofloxa nba 500 mg tablet [facility] estradiol 0.01% (0.1 mg/gram) vaginal cream Insert [...] vaginal route at bedtime for 90 days. [facility] estradiol 10 mcg vaginal tablet estradiol 10 mcg vaginal tablet No estradiol 10 mcg vaginal tablet [facility] fluconazole 150 mg tablet fluconazole 150 mg tablet No fluconazol e 150 mg tablet [facility] folic acid 1 mg tablet folic acid 1 mg tablet No folic acid 1 mg tablet [facility] furosemide 40 mg tablet furosemide 40 mg tablet No furosemide 40 mg tablet [facility] ketoconazol e 2 % topical cream ketoconazol e 2 % topical cream No ketoconazo le 2 % topical cream [facility] Macrobid 100 mg capsule Take 1 capsule every day by oral route for 90 days. Macrobid 100 mg capsule Take 1 capsule every day by oral route for 90 days. No 1capsul e(s) Q1D Macrobid 100 mg capsule Take 1 capsule every day by oral route for 90 days. [facility] metoprolol succinate ER 25 mg tablet,exte nded release 24 hr metoprolol succinate ER 25 mg tablet,exte nded release 24 hr No metoprolol succinate ER 25 mg tablet,ext ended release 24 hr [facility] Myrbetriq 50 mg tablet,exte nded release Take 1 tablet every day by oral route for 30 days. Myrbetriq 50 mg tablet,exte nded release Take 1 tablet every day by oral route for 30 days. No 1 Q1D Myrbetriq 50 mg tablet,ext ended release Take 1 tablet every day by oral route for 30 days. [facility] omeprazole omeprazole No omeprazole [facility] omeprazole 40 mg capsule,del ayed release omeprazole 40 mg capsule,del ayed release No omeprazole 40 mg capsule,de layed release [facility] prednisone 10 mg tablet prednisone 10 mg tablet No prednisone 10 mg tablet [facility] Restasis 0.05 % eye drops in a dropperette Restasis 0.05 % eye drops in a dropperette No Restasis 0.05 % eye drops in a dropperett e [facility] sulfamethox azole 800 mg-trimetho prim 160 mg tablet sulfamethox azole 800 mg-trimetho prim 160 mg tablet No sulfametho xazole 800 mg-trimeth oprim 160 mg tablet [facility] tazarotene tazarotene No tazarotene [facility] trazodone 50 mg tablet trazodone 50 mg tablet No trazodone 50 mg tablet [facility] triamcinolo ne acetonide 0.1 % topical ointment triamcinolo ne acetonide 0.1 % topical ointment No triamcinol one acetonide 0.1 % topical ointment [facility] Immunizations Ordered Immunization Name Filled Immunization Name Date Status Comments Source Zoster Vaccine Recombinant 2019-11-08 00:00:00 Completed [facility] Zoster Vaccine Recombinant 2019-11-08 00:00:00 Completed [facility] Zoster Vaccine Recombinant 2019-11-08 00:00:00 Completed [facility] Zoster Vaccine Recombinant 2019-11-08 00:00:00 Completed [facility] Zoster Vaccine Recombinant 2019-11-08 00:00:00 Completed [facility] Zoster Vaccine Recombinant 2019-11-08 00:00:00 Completed [facility] Zoster Vaccine Recombinant 2019-11-08 00:00:00 Completed [facility] Zoster Vaccine Recombinant 2019-11-08 00:00:00 Completed [facility] Zoster Vaccine Recombinant 2019-11-08 00:00:00 Completed [facility] Zoster Vaccine Recombinant 2019-11-08 00:00:00 Completed [facility] Zoster Vaccine Recombinant 2019-11-08 00:00:00 Completed [facility] Zoster Vaccine Recombinant 2019-11-08 00:00:00 Completed [facility] Zoster Vaccine Recombinant 2019-11-08 00:00:00 Completed [facility] Zoster Vaccine Recombinant 2019-11-08 00:00:00 Completed [facility] Zoster Vaccine Recombinant 2019-11-08 00:00:00 Completed [facility] Zoster Vaccine Recombinant 2019-11-08 00:00:00 Completed [facility] Zoster Vaccine Recombinant 2019-11-08 00:00:00 Completed [facility] Zoster Vaccine Recombinant 2019-11-08 00:00:00 Completed [facility] Zoster Vaccine Recombinant 2019-11-08 00:00:00 Completed [facility] Zoster Vaccine Recombinant 2019-11-08 00:00:00 Completed Pneumococcal Polysaccharide, PPSV23 (PNEUMOVAX) 2019-08-25 00:00:00 Completed [facility] Zoster Vaccine Recombinant 2019-08-25 00:00:00 Completed [facility] Pneumococcal Polysaccharide, PPSV23 (PNEUMOVAX) 2019-08-25 00:00:00 Completed [facility] Zoster Vaccine Recombinant 2019-08-25 00:00:00 Completed [facility] Pneumococcal Polysaccharide, PPSV23 (PNEUMOVAX) 2019-08-25 00:00:00 Completed [facility] Zoster Vaccine Recombinant 2019-08-25 00:00:00 Completed [facility] Pneumococcal Polysaccharide, PPSV23 (PNEUMOVAX) 2019-08-25 00:00:00 Completed [facility] Zoster Vaccine Recombinant 2019-08-25 00:00:00 Completed [facility] Pneumococcal Polysaccharide, PPSV23 (PNEUMOVAX) 2019-08-25 00:00:00 Completed [facility] Zoster Vaccine Recombinant 2019-08-25 00:00:00 Completed [facility] Pneumococcal Polysaccharide, PPSV23 (PNEUMOVAX) 2019-08-25 00:00:00 Completed [facility] Zoster Vaccine Recombinant 2019-08-25 00:00:00 Completed [facility] Pneumococcal Polysaccharide, PPSV23 (PNEUMOVAX) 2019-08-25 00:00:00 Completed [facility] Zoster Vaccine Recombinant 2019-08-25 00:00:00 Completed [facility] Pneumococcal Polysaccharide, PPSV23 (PNEUMOVAX) 2019-08-25 00:00:00 Completed [facility] Zoster Vaccine Recombinant 2019-08-25 00:00:00 Completed [facility] Pneumococcal Polysaccharide, PPSV23 (PNEUMOVAX) 2019-08-25 00:00:00 Completed [facility] Zoster Vaccine Recombinant 2019-08-25 00:00:00 Completed [facility] Pneumococcal Polysaccharide, PPSV23 (PNEUMOVAX) 2019-08-25 00:00:00 Completed [facility] Zoster Vaccine Recombinant 2019-08-25 00:00:00 Completed [facility] Pneumococcal Polysaccharide, PPSV23 (PNEUMOVAX) 2019-08-25 00:00:00 Completed [facility] Zoster Vaccine Recombinant 2019-08-25 00:00:00 Completed [facility] Pneumococcal Polysaccharide, PPSV23 (PNEUMOVAX) 2019-08-25 00:00:00 Completed [facility] Zoster Vaccine Recombinant 2019-08-25 00:00:00 Completed [facility] Pneumococcal Polysaccharide, PPSV23 (PNEUMOVAX) 2019-08-25 00:00:00 Completed [facility] Zoster Vaccine Recombinant 2019-08-25 00:00:00 Completed [facility] Pneumococcal Polysaccharide, PPSV23 (PNEUMOVAX) 2019-08-25 00:00:00 Completed [facility] Zoster Vaccine Recombinant 2019-08-25 00:00:00 Completed [facility] Pneumococcal Polysaccharide, PPSV23 (PNEUMOVAX) 2019-08-25 00:00:00 Completed [facility] Zoster Vaccine Recombinant 2019-08-25 00:00:00 Completed [facility] Pneumococcal Polysaccharide, PPSV23 (PNEUMOVAX) 2019-08-25 00:00:00 Completed [facility] Zoster Vaccine Recombinant 2019-08-25 00:00:00 Completed [facility] Pneumococcal Polysaccharide, PPSV23 (PNEUMOVAX) 2019-08-25 00:00:00 Completed [facility] Zoster Vaccine Recombinant 2019-08-25 00:00:00 Completed [facility] Pneumococcal Polysaccharide, PPSV23 (PNEUMOVAX) 2019-08-25 00:00:00 Completed [facility] Zoster Vaccine Recombinant 2019-08-25 00:00:00 Completed [facility] Pneumococcal Polysaccharide, PPSV23 (PNEUMOVAX) 2019-08-25 00:00:00 Completed [facility] Zoster Vaccine Recombinant 2019-08-25 00:00:00 Completed [facility] Pneumococcal Polysaccharide, PPSV23 (PNEUMOVAX) 2019-08-25 00:00:00 Completed [facility] Zoster Vaccine Recombinant 2019-08-25 00:00:00 Completed Pneumococcal Polysaccharide, PPSV23 (PNEUMOVAX) Unknown Completed [facility] Zoster Vaccine Recombinant Unknown Completed [facility] Pneumococcal Polysaccharide, PPSV23 (PNEUMOVAX) Unknown Completed [facility] Zoster Vaccine Recombinant Unknown Completed [facility] Pneumococcal Polysaccharide, PPSV23 (PNEUMOVAX) Unknown Completed [facility] Zoster Vaccine Recombinant Unknown Completed [facility] Pneumococcal Polysaccharide, PPSV23 (PNEUMOVAX) Unknown Completed [facility] Zoster Vaccine Recombinant Unknown Completed [facility] Pneumococcal Polysaccharide, PPSV23 (PNEUMOVAX) Unknown Completed [facility] Zoster Vaccine Recombinant Unknown Completed [facility] Pneumococcal Polysaccharide, PPSV23 (PNEUMOVAX) Unknown Completed [facility] Zoster Vaccine Recombinant Unknown Completed [facility] Pneumococcal Polysaccharide, PPSV23 (PNEUMOVAX) Unknown Completed [facility] Zoster Vaccine Recombinant Unknown Completed [facility] Pneumococcal Polysaccharide, PPSV23 (PNEUMOVAX) Unknown Completed [facility] Zoster Vaccine Recombinant Unknown Completed [facility] Pneumococcal Polysaccharide, PPSV23 (PNEUMOVAX) Unknown Completed [facility] Zoster Vaccine Recombinant Unknown Completed [facility] Pneumococcal Polysaccharide, PPSV23 (PNEUMOVAX) Unknown Completed [facility] Zoster Vaccine Recombinant Unknown Completed [facility] Pneumococcal Polysaccharide, PPSV23 (PNEUMOVAX) Unknown Completed [facility] Zoster Vaccine Recombinant Unknown Completed [facility] Pneumococcal Polysaccharide, PPSV23 (PNEUMOVAX) Unknown Completed [facility] Vaccine Recombinant Unknown Completed [facility] Pneumococcal Polysaccharide, PPSV23 (PNEUMOVAX) Unknown Completed [facility] Vaccine Recombinant Unknown Completed [facility] Pneumococcal Polysaccharide, PPSV23 (PNEUMOVAX) Unknown Completed [facility] Vaccine Recombinant Unknown Completed [facility] Pneumococcal Polysaccharide, PPSV23 (PNEUMOVAX) Unknown Completed [facility] Vaccine Recombinant Unknown Completed [facility] Pneumococcal Polysaccharide, PPSV23 (PNEUMOVAX) Unknown Completed [facility] Vaccine Recombinant Unknown Completed [facility] Pneumococcal Polysaccharide, PPSV23 (PNEUMOVAX) Unknown Completed [facility] Vaccine Recombinant Unknown Completed [facility] Pneumococcal Polysaccharide, PPSV23 (PNEUMOVAX) Unknown Completed [facility] Vaccine Recombinant Unknown Completed [facility] Pneumococcal Polysaccharide, PPSV23 (PNEUMOVAX) Unknown Completed [facility] Vaccine Recombinant Unknown Completed [facility] Pneumococcal Polysaccharide, PPSV23 (PNEUMOVAX) Unknown Completed [facility] Vaccine Recombinant Unknown Completed [facility] Pneumococcal Polysaccharide, PPSV23 (PNEUMOVAX) Unknown Completed [facility] Vaccine Recombinant Unknown Completed [facility] Vital Signs Vital Name Observation Time Observation Value Comments S ource Systolic blood pressure 2024-04-25 15:50:00 113 mm[facility]Hg[facility] Diastolic blood [facility] 2024-04-25 15:50:00 63 mm[Hg[facility] Heart rate 2024-04-25 15:50:00 47 /min [facility] Respiratory rate 2024-04-25 15:50:00 17 /min [facility] Body height 2024-04-25 15:50:00 160 cm [facility] Body weight 2024-04-25 15:50:00 99.338 kg [facility] BMI 2024-04-25 15:50:00 38.79 kg/m2 [facility] Oxygen saturation in Arterial blood by Pulse oximetry 2024-04-25 15:50:00 99 /min [facility] BP Systolic 2024-04-18 00:00:00 141 mm[Hg] [facility] Body Weight 2024-04-18 00:00:00 224 [lb_av] [facility] BP Diastolic 2024-04-18 00:00:00 97 mm[Hg] [facility] Systolic blood pressure 2023-12-29 17:25:00 118 mm[Hg] [facility] Diastolic blood pressure 2023-12-29 17:25:00 63 mm[Hg] [facility] Heart rate 2023-12-29 17:25:00 62 /min [facility] Body temperature 2023-12-29 17:25:00 36.28 Ceci [facility] Respiratory rate 2023-12-29 17:25:00 16 /min [facility] Oxygen saturation in Arterial blood by Pulse oximetry 2023-12-29 17:25:00 99 /min [facility] Body weight 2023-12-29 09:12:00 105.461 kg [facility] BMI 2023-12-29 09:12:00 39.89 kg/m2 [facility] Body height 2023-12-28 03:42:00 162.6 cm [facility] Body height 2023-12-21 20:26:00 160 cm [facility] Body weight 2023-12-21 20:26:00 114.76 kg [facility] BMI 2023-12-21 20:26:00 44.82 kg/m2 [facility] Systolic blood pressure 2023-12-14 15:58:00 131 mm[Hg] [facility] Diastolic blood pressure 2023-12-14 15:58:00 76 mm[Hg] [facility] Heart rate 2023-12-14 15:58:00 70 /min [facility] Respiratory rate 2023-12-14 15:58:00 22 /min [facility] Body height 2023-12-14 15:58:00 160 cm [facility] Body weight 2023-12-14 15:58:00 114.76 kg [facility] BMI 2023-12-14 15:58:00 44.82 kg/m2 [facility] Oxygen saturation in Arterial blood by Pulse oximetry 2023-12-14 15:58:00 100 /min [facility] Systolic blood pressure 2023-11-26 09:00:00 116 mm[Hg] [facility] Diastolic blood pressure 2023-11-26 09:00:00 50 mm[Hg] [facility] Heart rate 2023-11-26 09:00:00 70 /min [facility] Respiratory rate 2023-11-26 09:00:00 18 /min [facility] Oxygen saturation in Arterial blood by Pulse oximetry 2023-11-26 09:00:00 91 /min [facility] Body temperature 2023-11-26 06:16:00 36.83 Ceci [facility] Body height 2023-11-26 06:16:00 160 cm [facility] Body weight 2023-11-26 06:16:00 115.214 kg [facility] BMI 2023-11-26 06:16:00 44.99 kg/m2 [facility] Heart rate 2023-10-24 17:27:00 50 /min [facility] Oxygen saturation in Arterial blood by Pulse oximetry 2023-10-24 17:27:00 97 /min [facility] Systolic blood pressure 2023-10-24 17:26:00 109 mm[Hg] [facility] Diastolic blood pressure 2023-10-24 17:26:00 46 mm[Hg] [facility] Body temperature 2023-10-24 17:26:00 36.17 Ceci [facility] Respiratory rate 2023-10-24 13:22:00 18 /min [facility] Body weight 2023-10-24 09:07:00 118.48 kg [facility] BMI 2023-10-24 09:07:00 46.27 kg/m2 [facility] Body height 2023-10-24 06:29:00 160 cm [facility] Systolic blood pressure 2023-09-14 14:52:00 106 mm[Hg] [facility] Diastolic blood pressure 2023-09-14 14:52:00 64 mm[Hg] [facility] Heart rate 2023-09-14 14:52:00 69 /min [facility] Body height 2023-09-14 14:52:00 165.1 cm [facility] Body weight 2023-09-14 14:52:00 116.484 kg [facility] BMI 2023-09-14 14:52:00 42.73 kg/m2 [facility] Oxygen saturation in Arterial blood by Pulse oximetry 2023-09-14 14:52:00 92 /min [facility] Body temperature 2023-07-24 17:14:00 36.44 Ceci [facility] Respiratory rate 2023-07-24 17:14:00 18 /min [facility] Systolic blood pressure 2023-07-24 17:12:00 115 mm[Hg] [facility] Diastolic blood pressure 2023-07-24 17:12:00 67 mm[Hg] [facility] Heart rate 2023-07-24 11:58:00 64 /min [facility] Oxygen saturation in Arterial blood by Pulse oximetry 2023-07-24 11:58:00 96 /min [facility] Body height 2023-07-21 01:54:00 160 cm [facility] Body weight 2023-07-21 01:54:00 130.5 kg [facility] BMI 2023-07-21 01:54:00 50.96 kg/m2 [facility] Systolic blood pressure 2023-07-21 17:30:21 134 mm[Hg] [facility] Diastolic blood pressure 2023-07-21 17:30:21 69 mm[Hg] [facility] Respiratory rate 2023-07-21 17:30:21 16 /min [facility] Oxygen saturation in Arterial blood by Pulse oximetry 2023-07-21 17:30:21 99 /min [facility] Heart rate 2023-07-21 15:59:39 73 /min [facility] Body temperature 2023-07-21 12:27:00 37.17 Ceci [facility] Body height 2023-07-21 01:54:00 160 cm [facility] Body weight 2023-07-21 01:54:00 130.5 kg [facility] BMI 2023-07-21 01:54:00 50.96 kg/m2 [facility] Body height 2023-06-01 18:14:00 162.6 cm [facility] Body weight 2023-06-01 18:14:00 124.286 kg [facility] BMI 2023-06-01 18:14:00 47.03 kg/m2 [facility] Systolic blood pressure 2023-05-17 18:03:51 173 mm[Hg[facility] Diastolic blood pressure 2023-05-17 18:03:51 87 mm[Hg] [facility] Heart rate 2023-05-17 18:03:51 73 /min [facility] Respiratory rate 2023-05-17 18:03:51 15 /min [facility] Oxygen saturation in Arterial blood by Pulse oximetry 2023-05-17 18:03:51 98 /min [facility] Body temperature 2023-05-17 16:30:00 36.17 Ceci [facility] Body height 2023-05-17 16:30:00 162.6 cm [facility] Body weight 2023-05-17 16:30:00 124.286 kg [facility] BMI 2023-05-17 16:30:00 47.03 kg/m2 [facility] Systolic blood pressure 2023-04-25 18:58:00 122 mm[Hg] [facility] Diastolic blood pressure 2023-04-25 18:58:00 76 mm[Hg] [facility] Heart rate 2023-04-25 18:58:00 73 /min [facility] Body temperature 2023-04-25 18:58:00 35.56 Ceci [facility] Respiratory rate 2023-04-25 18:58:00 18 /min [facility] Body height 2023-04-25 18:58:00 160 cm [facility] Body weight 2023-04-25 18:58:00 124.15 kg [facility] BMI 2023-04-25 18:58:00 48.48 kg/m2 [facility] Oxygen saturation in Arterial blood by Pulse oximetry 2023-04-25 18:58:00 96 /min [facility] Respiratory rate 2023-02-24 17:00:00 21 /min [facility] Oxygen saturation in Arterial blood by Pulse oximetry 2023-02-24 17:00:00 95 /min [facility] Systolic blood pressure 2023-02-24 16:22:00 119 mm[Hg[facility] Diastolic blood pressure 2023-02-24 16:22:00 59 mm[Hg] [facility] Heart rate 2023-02-24 16:22:00 74 /min [facility] Body temperature 2023-02-24 14:09:00 36.94 Ceci [facility] Body height 2023-02-24 14:09:00 160 cm [facility] Body weight 2023-02-24 14:09:00 124.286 kg [facility] BMI 2023-02-24 14:09:00 48.54 kg/m2 [facility] Systolic blood pressure 2022-04-22 19:57:00 170 mm[Hg[facility] Diastolic blood pressure 2022-04-22 19:57:00 89 mm[Hg] [facility] Heart rate 2022-04-22 19:57:00 63 /min [facility] Oxygen saturation in Arterial blood by Pulse oximetry 2022-04-22 19:57:00 93 /min [facility] Body temperature 2022-04-22 19:55:00 35.89 Ceci [facility] Respiratory rate 2022-04-22 19:55:00 16 /min [facility] Body height 2022-04-22 19:55:00 162.6 cm [facility] Body weight 2022-04-22 19:55:00 128.141 kg [facility] BMI 2022-04-22 19:55:00 48.49 kg/m2 [facility] Procedures Procedure Date / Time Performed Performing Clinician Source TRANSTHORACIC ECHO (TTE) COMPLETE W/ CONTRAST 2025-04-17 20:01:00 Pancho Bacilio [facility] EKG (SCANNED DOCUMENTS) 2024-12-04 18:22:33 Doct or Unassigned, [place] [facility] US, transvaginal 2024-04-20 00:00:00 [facility] US TRANSVAGINAL 2024-04-20 00:00:[address], abdomen + pelvis, w/wo contrast 2024-04-18 [facility] (SCANNED) DOCUMENTS 2024-03-13 17:48:20 Doctor Unassigned, [place] [facility] MAGNESIUM 2023-12-29 09:43:00 Isabel Tejeda [facility] BASIC METABOLIC PANEL (NA, K, CL, CO2, GLUCOSE, BUN, CREATININE, CA) 2023-12-29 09:43:00 Isabel Tejeda [facility] LACTIC ACID WHOLE BLOOD 2023-12-28 03:43:00 Lillian Sanford mmad [facility] LACTIC ACID WHOLE BLOOD 2023-12-27 23:04:00 [facility] URINE CULTURE 2023-12-27 22:59:00 Singer [facility] XR CHEST 1 VW 2023-12-27 22:09:18 Singer [facility] URINALYSIS 2023-12-27 22:03:00 Singer [facility] LACTIC ACID WHOLE BLOOD 2023-12-27 20:14:00 [facility] COMP. METABOLIC PANEL (94654) 2023-12-27 20:13:00 Singer [facility] CBC WITH DIFF 2023-12-27 20:13:00 Singer [facility] AUTHORIZATION TO RELEASE PHI TO [facility] 2023-12-14 06:01:00 Doctor Unassigned, [place] [facility] BASIC METABOLIC PANEL (NA, K, CL, CO2, GLUCOSE, BUN, CREATININE, CA) 2023-11-26 06:56:00 Josh Norwood [facility] CBC WITH DIFF 2023-11-26 06:56:00 [facility] 2023-11-02 06:01:00 Doctor Keli mancuso, [place] [facility] POCT GLUCOSE (AUTOMATED) 2023-10-24 17:18:00 Cornelius Doyle [facility] TRANSTHORACIC ECHO (TTE) COMPLETE W/ CONTRAST 2023-10-24 15:25:00 Mac Sanford [facility] POCT GLUCOSE (AUTOMATED) 2023-10-24 13:55:00 Rhonda Sanford [facility] PHOSPHORUS 2023-10-24 12:49:00 [facility] 2023-10-24 12:49:00 Mac Sanford [facility] BASIC METABOLIC PANEL (NA, K, CL, CO2, GLUCOSE, BUN, CREATININE, CA) 2023-10-24 12:49:00 Brittnee Vazquez [facility] IRON PANEL 2023-10-24 12:49:00 Mac Sanford [facility] PHOSPHORUS 2023-10-24 12:47:00 Mac Sanford [facility] URIC ACID 2023-10-24 12:47:00 Mac Sanford [facility] MAGNESIUM 2023-10-24 12:47:00 Mac Sanford [facility] FERRITIN SERUM 2023-10-24 12:47:00 [facility] VIT[facility] B12, LEVEL 2023-10-24 12:47:00 Mac Sanford [facility] FOLATE 2023-10-24 12:47:00 Mca Sanford [facility] TROPONIN I 2023-10-24 12:47:00 Mac Sanford [facility] THYROID STIMULATING HORMONE 2023-10-24 12:47:00 Mac Sanford [facility] LIPID PANEL (70043)(TOTAL CHOLESTEROL, TRIGLYCERIDES, HDL) 2023-10-24 12:47:00 Mac Sanford [facility] RETICULOCYTES AUTOMATED 2023-10-24 12:47:00 Lillian Sanford mmad [facility] N-TERMINAL PRO-BNP 2023-10-24 12:47:00 Mac Sanford [facility] CT TRAUMA HEAD WO CONTRAST 2023-10-24 03:59:08 Kary Gomez [facility] XR CHEST 1 VW 2023-10-24 03:49:00 Rosie Gomez [facility] NOTICE OF PRIVACY PRACTICES 2023-10-24 03:30:24 Doctor Unassigned, [place] [facility] CONSENT/REFUSAL FOR DIAGNOSIS AND TREATMENT 2023-10-24 03:28:45 Doctor Unassigned, [place] [facility] LIPASE 2023-10-24 03:19:00 [facility] TROPONIN I 2023-10-24 03:19:00 Jason [facility] COMP. METABOLIC PANEL ([id number]) 2023-10-24 03:19:00 Rosie Gomez [facility] CBC WITH DIFF 2023-10-24 03:19:00 Rosie Gomez [facility] N-TERMINAL PRO-BNP 2023-10-24 03:19:00 Rosie Gomez [facility] CT HEAD WO CONTRAST 2023-07-24 16:59:07 Nubia Philippe [facility] MAGNESIUM 2023-07-24 09:21:00 [facility] PANEL (NA, K, CL, CO2, GLUCOSE, BUN, CREATININE, CA) 2023-07-24 09:21:00 Ann Philippe [facility] CBC WITH DIFF 2023-07-24 09:21:00 Ann Philippe [facility] N-TERMINAL PRO-BNP 2023-07-24 09:21:00 Liliana Keen [facility] MAGNESIUM 2023-07-23 09:01:00 [facility]OLIC PANEL (NA, K, CL, CO2, GLUCOSE, BUN, CREATININE, CA) 2023-07-23 09:01:00 [facility]uekaterin[facility] 2023-07-23 09:01:00 Degjanice[facility] ACTIVATED PARTIAL THRMPLAS VILMA 2023-07-22 15:05:00 Justin [facility] ACTIVATED PARTIAL THRMPLAS VILMA 2023-07-22 15:05:00 Justin [facility] HB ECG ROUTINE & RHYTHM STRIP 2023-07-22 13:39:06 Jenn Santoro [facility] MAGNESIUM 2023-07-22 05:41:00 Jono Morris [facility] BASIC METABOLIC PANEL (NA, K, CL, CO2, GLUCOSE, BUN, CREATININE, CA) 2023-07-22 05:41:00 Leander Morris [facility] CBC WITHOUT DIFF 2023-07-22 05:41:00 Rudy Morris [facility] ACTIVATED PARTIAL THRMPLAS VILMA 2023-07-22 05:41:00 Wili Anderson [facility] MAGNESIUM 2023-07-22 05:41:00 Jono Morris [facility] BASIC METABOLIC PANEL (NA, K, CL, CO2, GLUCOSE, BUN, CREATININE, CA) 2023-07-22 05:41:00 Leander Morris [facility] CBC WITHOUT DIFF 2023-07-22 05:41:00 Rudy Morris [facility] ACTIVATED PARTIAL THRMPLAS VILMA 2023-07-22 05:41:00 Wili Anderson [facility] TRANSTHORACIC ECHO (TTE) LIMITED W/ CONTRAST 2023-07-21 20:43:39 Justin [facility] TRANSTHORACIC ECHO (TTE) LIMITED W/ CONTRAST 2023-07-21 20:43:39 Wili Anderson [facility] CARDIAC CATHETERIZATION 2023-07-21 18:55:36 Bentley Bales [facility] CARDIAC CATHETERIZATION 2023-07-21 18:55:36 Albaeni, [facility] CARDIAC CATHETERIZATION 2023-07-21 18:55:36 Albaeni, [facility] CARDIAC CATHETERIZATION 2023-07-21 18:55:36 Albaeni, [facility] CARDIAC CATHETERIZATION 2023-07-21 18:55:36 Albaeni, [facility] CARDIAC CATHETERIZATION 2023-07-21 18:55:36 Albaeni, [facility] CARDIAC CATHETERIZATION 2023-07-21 18:55:36 Albaeni, [facility] CARDIAC CATHETERIZATION 2023-07-21 18:55:36 Albaeni, [facility] CARDIAC CATHETERIZATION 2023-07-21 18:55:36 Albaeni, [facility] CARDIAC CATHETERIZATION 2023-07-21 18:55:36 Albaeni, [facility] CARDIAC CATHETERIZATION 2023-07-21 18:55:36 Albaeni, [facility] CARDIAC CATHETERIZATION 2023-07-21 18:55:36 Albaeni, [facility] CARDIAC CATHETERIZATION 2023-07-21 18:55:36 Albaeni, [facility] CARDIAC CATHETERIZATION 2023-07-21 18:55:36 Albaeni, [facility] CARDIAC CATHETERIZATION 2023-07-21 18:55:36 Albaeni, [facility] CARDIAC CATHETERIZATION 2023-07-21 18:55:36 Albaeni, [facility] POCT ACT LOW RANGE 2023-07-21 18:46:00 Amairani [facility] POCT ACT LOW RANGE 2023-07-21 18:46:00 Amairani [facility] POCT ACT LOW RANGE 2023-07-21 18:17:00 Amairani [facility] POCT ACT LOW RANGE 2023-07-21 18:17:00 Amairani [facility] POCT ACT LOW RANGE 2023-07-21 17:21:00 Amairani [facility] POCT ACT LOW RANGE 2023-07-21 17:21:00 Selin Bales [facility] HB ECG ROUTINE & RHYTHM STRIP 2023-07-21 13:12:30 AndersonWili [facility] HB ECG ROUTINE & RHYTHM STRIP 2023-07-21 13:12:30 AndersonWili [facility] TROPONIN I 2023-07-21 13:10:00 [facility] ACTIVATED PARTIAL THRMPLAS VILMA 2023-07-21 13:10:00 JustinWili [facility] TROPONIN I 2023-07-21 13:10:00 [facility] ACTIVATED PARTIAL THRMPLAS VILMA 2023-07-21 13:10:00 Justin Wili [facility] MAGNESIUM 2023-07-21 06:05:00 [facility] TROPONIN I 2023-07-21 06:05:00 Justin [facility] BASIC METABOLIC PANEL (NA, K, CL, CO2, GLUCOSE, BUN, CREATININE, CA) 2023-07-21 06:05:00 Justin Wili [facility] CBC WITH DIFF 2023-07-21 06:05:00 JustinWili [facility] ACTIVATED PARTIAL THRMPLAS VILMA 2023-07-21 06:05:00 Justin Wili [facility] MAGNESIUM 2023-07-21 06:05:00 Justin [facility] TROPONIN I 2023-07-21 06:05:00 Justin [facility] BASIC METABOLIC PANEL (NA, K, CL, CO2, GLUCOSE, BUN, CREATININE, CA) 2023-07-21 06:05:00 Justin Wili [facility] CBC WITH DIFF 2023-07-21 06:05:00 Justin Wili [facility] ACTIVATED PARTIAL THRMPLAS VILMA 2023-07-21 06:05:00 Justin Wili [facility] HB ECG ROUTINE & RHYTHM STRIP 2023-07-21 05:50:57 Justin [facility] HB ECG ROUTINE & RHYTHM STRIP 2023-07-21 05:50:57 Justin [facility] MAGNESIUM 2023-07-20 23:04:00 Wili [facility] TROPONIN I 2023-07-20 23:04:00 Garfield Bower [facility] MAGNESIUM 2023-07-20 23:04:00 Wili [facility] TROPONIN I 2023-07-20 23:04:00 Garfield [facility]ower [facility] CT ABDOMEN PELVIS W CONTRAST 2023-07-20 22:44:00 Garfield Bower [facility] CT ABDOMEN PELVIS W CONTRAST 2023-07-20 22:44:00 Garfield Bower [facility] CT ANGIOGRAM CHEST 2023-07-20 22:29:38 Garfield Bower [facility] CT ANGIOGRAM CHEST 2023-07-20 22:29:38 Garfield Bower [facility] COVID-19 (ID NOW RAPID TESTING) 2023-07-20 20:24:00 Garfield Bower [facility] LAB ONLY COVID INTERPRETATION 2023-07-20 20:24:00 Garfield Bower [facility] COVID-19 (ID NOW RAPID TESTING) 2023-07-20 20:24:00 Garfield Bower [facility] LAB ONLY COVID INTERPRETATION 2023-07-20 20:24:00 Garfield Bower [facility] LIPASE 2023-07-20 19:02:00 Garfield Bower [facility] COMP. METABOLIC PANEL ([id number]) 2023-07-20 19:02:00 Garfield Bower [facility] CBC WITH DIFF 2023-07-20 19:02:00 Garfeild Bower [facility] PROTHROMBIN TIME / INR 2023-07-20 19:02:00 Surya Bower [facility] ACTIVATED PARTIAL THRMPLAS VILMA 2023-07-20 19:02:00 Garfeild Bower [facility] LIPASE 2023-07-20 19:02:00 Garfield Bower [facility] COMP. METABOLIC PANEL ([id number]) 2023-07-20 19:02:00 Garfield Bower [facility] CBC WITH DIFF 2023-07-20 19:02:00 Garfield Bower [facility] PROTHROMBIN TIME / INR 2023-07-20 19:02:00 Surya Bower [facility] ACTIVATED PARTIAL THRMPLAS VILMA 2023-07-20 19:02:00 Garfield Bower [facility] TROPONIN I 2023-07-20 18:06:00 Garfield Bower [facility] N-TERMINAL PRO-BNP 2023-07-20 18:06:00 Garfield Bower [facility] TROPONIN I 2023-07-20 18:06:00 Garfield Bower [facility] N-TERMINAL PRO-BNP 2023-07-20 [facility]:06[facility] [facility] XR CHEST 1 VW 2023-07-20 17:47:50 Garfield Bower [facility] XR CHEST 1 VW 2023-07-20 17:47:50 Sathish [facility] HB ECG ROUTINE & RHYTHM STRIP 2023-07-20 17:21:23 Sathish [facility] HB ECG ROUTINE & RHYTHM STRIP 2023-07-20 17:21[facility]23 [facility]-20 17:17:00 Sathish [facility] CRITICAL CARE 2023-07-20 17:17:00 Garfield Bower [facility] HOSPITAL ADMISSION 2023-07-20 05:01:00 Doctor Un assigned, [place] [facility] TRANSTHORACIC ECHO (TTE) COMPLETE W/ CONTRAST 2023-07-06 17:08:00 Bacilio Deleon [facility] XR SHOULDER 2+ VW RIGHT 2023-06-01 18:32:58 Fariha Candelario [facility] CONSENT/REFUSAL FOR DIAGNOSIS AND TREATMENT 2023-04-25 18:48:10 Doctor Unassigned, [place] [facility] EKG-12 LEAD 2023-02-24 15:59:56 [facility] 2023-02-24 15:05:18 Criss Penn ra [facility] CT TRAUMA CERVICAL SPINE WO CONTRAST 2023-02-24 15:05:18 Ghazala Penn [facility] URINALYSIS 2023-02-24 14:49:00 Ghazala Penn Un [facility] TROPONIN I 2023-02-24 14:27:00 Ghazala Penn [facility] COMP. METABOLIC PANEL (70087) 2023-02-24 14:27:00 Ghazala Penn [facility] CBC WITH DIFF 2023-02-24 14:27:00 [facility] WHOLE BLOOD 2023-02-24 14:26:00 Ghazala Penn [facility] Total Hysterectomy with Removal of Both Tubes and Ovaries 1993-02-12 00:00:00 [facility] Stapling of Stomach 1979-11-14 00:00:00 P [facility] Medical Encounters Start Date/Time End Date/Time Encounter Type Admission Type Attending Clinicians Care Facility Care Department Encounter ID Source 2021-09-12 00:16:52 Emergency [facility] [id number] [facility] 2021-09-11 17:12:50 Emergency [facility] [id number] [facility] 2019-11-23 07:00:00 Inpatient Praveena Garcia [facility] ENDO [id number] [facility] 2025-04-18 00:00:00 2025-04-19 15:06:16 [facility] 1..840.114 350.1.13.10 4.2.7.2.686 [id number] [facility] 2025-04-17 13:39:28 2025-04-17 23:59:00 Hospital [facility] 1..840.114 350.1.13.10 4.2.7.2.686 [id number] [facility] 2024-12-04 00:00:00 2024-12-29 06:16:37 Orders Only Doctor Unassigned, [place] Doctor Unassigned, [place] [facility] 1.2.840.114 350.1.13.10 4.2.7.2.686 [id number] [facility] 2024-03-13 00:00:00 2024-12-29 02:08:46 Orders Only Doctor Unassigned, [place] Doctor Unassigned, [place] [facility] 1..840.114 350.1.13.10 4.2.7.2.686 [id number] [facility] 2024-10-25 14:00:00 2024-10-25 14:00:00 [facility] [id number] 2024-05-22 00:00:00 2024-05-22 00:00:00 Outpatient Felicia WELCH JUAN RAMON [facility] [id number] [facility] 2024-04-30 00:00:00 2024-04-30 00:00:00 SACHIN Moya: [facility] [address], [place] [address], [place] [address] , Ph. [facility] - [facility]GCBZ[facility]* [id number] [facility] 2024-04-27 00:00:00 2024-04-27 00:00:00 Outpatient Felicia WELCH JUAN RAMON [facility] [id number] [facility] 2024-04-27 00:00:00 2024-04-27 00:00:00 Outpatient R NOAH JUAN RAMON [facility] [id number] [facility] 2024-04-25 11:00:00 2024-04-25 11:05:28 [facility] [id number] [facility] 2024-04-25 11:00:00 2024-04-25 11:05:28 [facility] 1..840.114 350.1.13.10 4.2.7.2.686 [id number] [facility] 2024-04-20 00:00:00 2024-04-20 00:00:00 Juan Ramon Welch MD: [address], [address], [place] [id number] , Ph. [facility]* [id number] [facility] 2024-04-18 00:00:00 2024-04-18 00:00:00 Juan Ramon Welch MD: [address], [address], [place] [address] , Ph. [facility]* [id number] [facility] 2024-03-26 00:00:00 2024-03-26 00:00:00 Outpatient R [facility] [id number] [facility] 2024-03-22 00:00:00 2024-03-22 00:00:00 Outpatient R [facility] [id number] [facility] 2024-03-12 00:00:00 2024-03-12 00:00:00 Telephone Pancho [facility] 1.2.840.114 350.1.13.10 4.2.7.2.686 [id number] [facility] 2024-03-09 00:00:00 2024-03-09 00:00:00 [facility] 1.2.840.114 350.1.13.10 4.2.7.2.686 [id number] [facility] 2024-03-09 00:00:00 2024-03-09 00:00:00 [facility] 1.2.840.114 350.1.13.10 4.2.7.2.686 [id number] [facility] 2024-03-05 00:00:00 2024-03-05 00:00:00 Telephone Bacilio Deleon [facility] NAL BUILDING 1.84.114 350.1.13.10 4.2.7.2.686 [id number] [facility] 2023-12-30 00:00:00 2023-12-30 00:00:00 Transition of Care Belinda Chang 1..114 350.1.13.10 4.2.7.2.686 [id number] [facility] 2023-12-27 13:30:00 2023-12-29 15:03:00 Outpatient X LILIANA PÉREZ [facility] [id number] [facility] 2023-12-27 13:30:00 2023-12-29 15:03:00 Emergency Wale Corey David [facility] 1.84.114 350.1.13.10 4.2.7.2.686 [id number] [facility] 2023-12-21 14:36:46 2023-12-21 23:59:00 Hospital Encounter Sydni Perez [facility] 1.84.114 350.1.13.10 4.2.7.2.686 [id number] [facility] 2023-12-21 14:30:00 2023-12-21 15:08:25 Outpatient R SYDNI PEREZ CRAIG [facility] [id number] [facility] 2023-12-21 14:30:00 2023-12-21 15:08:25 Office Visit Sydni Perez [facility] 1.840.114 350.1.13.10 4.2.7.2.686 [id number] [facility] 2023-12-14 10:00:00 2023-12-14 10:17:57 [facility] [id number] [facility] 2023-12-14 10:00:00 2023-12-14 10:17:57 Office Visit Pancho [facility] PROFESSIO NAL BUILDING 1.2.840.114 350.1.13.10 4.2.7.2.686 [id number] [facility] 2023-12-14 00:00:00 2023-12-14 00:00:00 Telephone Pancho [facility] NAL BUILDING 1.2.840.114 350.1.13.10 4.2.7.2.686 [id number] [facility] 2023-12-14 00:00:00 2023-12-14 00:00:00 Orders Only Doctor Unassigned, [place] [facility] 1.2840.114 350.1.13.10 4.2.7.2.686 [id number] [facility] 2023-12-08 13:15:00 2023-12-08 13:15:00 Outpatient SYDNI LINARES CRAIG [facility] [id number] [facility] 2023-11-26 00:26:00 2023-11-26 04:18:00 Emergency X JOSH NORWOOD [facility] ERT [id number] [facility] 2023-11-26 00:26:00 2023-11-26 04:18:00 Emergency Josh Norowod [facility] 1.2.840.114 350.1.13.10 4.2.7.2.686 [id number] [facility] 2023-11-26 00:19:00 2023-11-26 00:19:00 Emergency X [facility] ERT [id number] [facility] 2023-11-24 14:00:00 2023-11-24 14:00:00 [facility] [id number] [facility] 2023-11-18 11:00:00 2023-11-18 11:00:00 Outpatient R SYDNI PEREZ [facility] [id number] [facility] 2023-11-17 00:00:00 2023-11-17 00:00:00 Outpatient R PANCHO [facility] [id number] [facility] 2023-11-16 00:00:00 2023-11-16 00:00:00 [facility] 1..840.114 350.1.13.10 4.2.7.2.686 [id number] [facility] 2023-11-02 00:00:00 2023-11-02 00:00:00 Outpatient R [facility] [id number] [facility] 2023-11-02 00:00:00 2023-11-02 00:00:00 Orders Only Doctor Unassigned, [place] [facility] 1.840.114 350.1.13.10 4.2.7.2.686 [id number] [facility] 2023-10-23 21:02:00 2023-10-24 16:30:00 Inpatient X CARITO DOYLE [facility] JOSÉ MIGUEL [id number] [facility] 2023-10-23 21:02:00 2023-10-24 16:30:00 Hospital Encounter Rosie Gomez [facility] [place] [place] 1.840.114 350.1.13.10 4.2.7.2.686 [id number] [facility] 2023-09-15 00:00:00 2023-09-15 00:00:[address] [facility] BUILDING 1.2.840.114 350.1.13.10 4.2.7.2.686 [id number] [facility] 2023-09-14 10:30:00 2023-09-14 10:38:04 Drivability Technician Visit 2, Adc Lab Pancho [facility] BUILDING 1.2.840.114 350.1.13.10 4.2.7.2.686 [id number] [facility] 2023-09-14 10:00:00 2023-09-14 10:09:30 Outpatient R PANCHO [facility] [id number] [facility] 2023-09-14 10:00:00 2023-09-14 10:09:[address] [facility] BUILDING 1.2.840.114 350.1.13.10 4.2.7.2.686 [id number] [facility] 2023-09-09 00:00:00 2023-09-09 00:00:00 Shanel Gamboa [facility]?SYDNIEBentley [facility] 1.2.840.114 350.1.13.10 4.2.7.2.686 [id number] [facility] 2023-08-05 15:40:00 2023-08-05 15:40:00 Outpatient R PANCHO [facility] [id number] [facility] 2023-08-04 00:00:00 2023-08-04 00:00:[address] [facility] BUILDING 1.2.840.114 350.1.13.10 4.2.7.2.686 [id number] [facility] 2023-07-29 00:00:00 2023-07-29 00:00:00 [facility] 1.2.840.114 350.1.13.10 4.2.7.2.686 [id number] [facility] 2023-07-26 00:00:00 2023-07-26 00:00:00 Transition of Care Talib Duncanjosee RICHARDSCheryle [facility] 1.2840.114 350.1.13.10 4.2.7.2.686 [id number] [facility] 2023-07-20 12:20:00 2023-07-24 15:24:00 Inpatient X [facility] [id number] [facility] 2023-07-20 12:20:00 2023-07-24 15:24:00 Hospital [facility] 1.2840.114 350.1.13.10 4.2.7.2.686 [id number] [facility] 2023-07-21 10:35:00 2023-07-21 12:35:00 Surgery Jasvir [facility] 1.2840.114 350.1.13.10 4.2.7.2.686 [id number] [facility] 2023-07-07 00:00:00 2023-07-07 00:00:00 Telephone [facility] 1.2840.114 350.1.13.10 4.2.7.2.686 [id number] [facility] 2023-07-06 11:00:00 2023-07-06 23:59:00 [facility] [id number] [facility] 2023-07-06 11:00:00 2023-07-06 23:59:00 Hospital [facility] 1.2.840.114 350.1.13.10 4.2.7.2.686 [id number] [facility] 2023-06-27 00:00:00 2023-06-27 00:00:00 [facility]phone [facility] 1.2.840.114 350.1.13.10 4.2.7.2.686 [id number] [facility] 2023-06-01 13:22:39 2023-06-01 23:59:00 Outpatient R ANDREE [facility]NOTE 2] [id number] [facility] 2023-06-01 13:22:39 2023-06-01 23:59:00 Hospital Encounter Andree [facility] 1.2.840.114 350.1.13.10 4.2.7.2.686 [id number] [facility] 2023-06-01 13:30:00 2023-06-01 14:00:00 [facility] 1.2.840.114 350.1.13.10 4.2.7.2.686 [id number] [facility] 2023-05-17 11:32:00 2023-05-17 13:55:00 Emergency X ROMAINE ROSELINE [facility] ERT [id number] [facility] 2023-05-17 11:32:00 2023-05-17 13:55:00 Emergency Romaine Roselinetroy Murray [facility] 1.2.840.114 350.1.13.10 4.2.7.2.686 [id number] [facility] 2023-05-12 13:00:00 2023-05-12 13:00:00 [facility] [id number] [facility] 2023-05-12 00:00:00 2023-05-12 00:00:00 Telephone Pancho [facility] 1.2.840.114 350.1.13.10 4.2.7.2.686 [id number] [facility] 2023-04-25 14:00:00 2023-04-25 14:13:34 Outpatient R PANCHO [facility] [id number] [facility] 2023-04-25 14:00:00 2023-04-25 14:13:34 Office Visit Pancho [facility] 1.2.840.114 350.1.13.10 4.2.7.2.686 [id number] [facility] 2023-04-25 00:00:00 2023-04-25 00:00:00 Orders Only Doctor Unassigned, [place] [facility] 1.2.840.114 350.1.13.10 4.2.7.2.686 [id number] [facility] 2023-02-24 09:07:00 2023-02-24 13:04:00 Emergency X GHAZALA PENN [facility] ERT [id number] [facility] 2023-02-24 09:07:00 2023-02-24 13:04:00 Emergency Ghazala Penn [facility] 1.2.840.114 350.1.13.10 4.2.7.2.686 [id number] [facility] 2022-12-09 00:00:00 2022-12-09 00:00:00 Telephone Pancho [facility] 1.2.840.114 350.1.13.10 4.2.7.2.686 [id number] [facility] 2022-12-07 00:00:00 2022-12-07 00:00:00 [facility] 1.2.840.114 350.1.13.10 4.2.7.2.686 [id number] [facility] 2022-12-07 00:00:00 2022-12-07 00:00:00 [facility] 1.2.840.114 350.1.13.10 4.2.7.2.686 [id number] [facility] 2022-11-01 00:00:00 2022-11-01 00:00:00 Telephone Pancho [facility] 1.2.840.114 350.1.13.10 4.2.7.2.686 [id number] [facility] 2022-05-31 11:00:00 2022-05-31 11:00:00 [facility] [id number] [facility] 2022-05-31 11:00:00 2022-05-31 11:00:00 [facility] [id number] [facility] 2022-05-10 14:00:00 2022-05-10 23:59:00 [facility] [id number] [facility] 2022-04-22 14:40:00 2022-04-22 15:00:00 Office [facility] 1.2.840.114 350.1.13.10 4.2.7.2.686 [id number] [facility] 2022-04-22 14:40:00 2022-04-22 14:40:00 [facility] [id number] [facility] 2022-04-22 14:40:00 2022-04-22 14:40:00 [facility] [id number] [facility] 2022-04-22 14:40:00 2022-04-22 14:40:00 [facility] [id number] [facility] 2022-04-22 00:00:00 2022-04-22 00:00:00 Orders Only Doctor Unassigned, [place] [facility] 1.2.840.114 350.1.13.10 4.2.7.2.686 [id number] [facility] 2022-03-18 00:00:00 2022-03-18 00:00:[address] [facility] BUILDING 1.2.840.114 350.1.13.10 4.2.7.2.686 [id number] [facility] 2021-08-31 10:51:10 2021-08-31 11:31:17 Office Visit Pancho [facility] nal Building 1.2.840.114 350.1.13.10 4.2.7.2.686 [id number] [facility] 2021-08-31 11:00:00 2021-08-31 11:00:00 [facility] [id number] [facility] 2021-07-31 00:00:00 2021-07-31 00:00:00 Telephone [facility] 1.2.840.114 350.1.13.10 4.2.7.2.686 [id number] [facility] 2021-03-12 00:00:00 2021-03-12 00:00:00 [facility] 1..840.114 350.1.13.10 4.2.7.2.686 [id number] [facility] 2021-01-23 13:00:00 2021-01-23 13:00:00 [facility] [id number] [facility] 2021-01-21 13:00:00 2021-01-21 13:00:00 [facility] [id number] [facility] 2021-01-20 13:18:39 2021-01-20 14:29:08 Office Visit Pancho [facility] Building 1..840.114 350.1.13.10 4.2.7.2.686 [id number] [facility] 2021-01-20 13:20:00 2021-01-20 13:20:00 [facility] [id number] [facility] 2021-01-20 00:00:00 2021-01-20 00:00:00 Orders Only Doctor Unassigned, [place] [facility] 1..840.114 350.1.13.10 4.2.7.2.686 [id number] [facility] 2020-10-20 10:56:53 2020-10-20 11:45:51 Office Visit Pancho [facility] Building 1..840.114 350.1.13.10 4.2.7.2.686 [id number] [facility] 2020-10-20 11:00:00 2020-10-20 11:00:00 Outpatient R PANCHO [facility] [id number] [facility] 2020-09-26 00:00:00 2020-09-26 00:00:00 Outpatient [facility] [id number] [facility] 2020-09-26 00:00:00 2020-09-26 00:00:00 Orders Only Doctor Unassigned, [place] [facility] 1.2.840.114 350.1.13.10 4.2.7.2.686 [id number] [facility] 2020-09-17 00:00:00 2020-09-17 00:00:00 Orders Only Doctor Unassigned, [place] [facility] 1.2.840.114 350.1.13.10 4.2.7.2.686 [id number] [facility] 2020-09-09 00:00:00 2020-09-09 00:00:00 Transition of Care Belinda Chang 1.2.840.114 350.1.13.10 4.2.7.2.686 [id number] [facility] 2020-09-03 14:15:00 2020-09-07 13:38:00 Hospital Encounter Garfield Bower, Garfield Bryant, Andrey Vasquez, Osman Davis [facility] 1.840.114 350.1.13.10 4.2.7.2.686 [id number] [facility] 2020-09-03 00:00:00 2020-09-03 00:00:00 Telephone [facility] 1.2.840.114 350.1.13.10 4.2.7.2.686 [id number] [facility] 2020-08-28 00:00:00 2020-08-28 00:00:00 Telephone [facility] 1.2.840.114 350.1.13.10 4.2.7.2.686 [id number] [facility] 2020-08-20 13:35:30 2020-08-20 14:32:43 [facility] 1.2840.114 350.1.13.10 4.2.7.2.686 [id number] [facility] 2020-08-20 13:40:00 2020-08-20 13:40:00 Outpatient R PANCHO [facility] [id number] [facility] 2020-08-20 00:00:00 2020-08-20 00:00:00 Telephone Pancho [facility] 1.2840.114 350.1.13.10 4.2.7.2.686 [id number] [facility] 2020-08-14 00:00:00 2020-08-14 00:00:00 Orders Only Doctor Unassigned, [place] [facility] 1.2840.114 350.1.13.10 4.2.7.2.686 [id number] [facility] 2020-07-26 12:05:00 2020-07-31 19:15:00 Hospital En[facility] 1.2840.114 350.1.13.10 4.2.7.2.686 [id number] [facility] 2020-06-19 00:00:00 2020-06-19 00:00:00 Orders Only Doctor Unassigned, [place] [facility] 1.2840.114 350.1.13.10 4.2.7.2.686 [id number] [facility] 2020-04-23 00:00:00 2020-04-23 00:00:00 Orders Only Doctor Unassigned, [place] [facility] 1.2.840.114 350.1.13.10 4.2.7.2.686 [id number] [facility] 2020-04-04 00:00:00 2020-04-04 00:00:00 Transition of Care Belinda Chang 1.2.840.114 350.1.13.10 4.2.7.2.686 [id number] [facility] 2020-03-30 18:29:50 2020-04-03 16:09:00 Hospital Encounter Germaine Nagel Mukail[facility] Cintron, [facility] 1.2.840.114 350.1.13.10 4.2.7.2.686 [id number] [facility] 2020-03-30 18:29:50 2020-04-03 16:09:00 Inpatient X [facility] [id number] [facility] Results Test Description Test Time Test Comments Results Result Co mments Source [facility] ([facility] DOCUM[facility])2024-12-04 18:22:33 Ordered by an unspecified provider.[facility] (SCANNED) [id number] 17:48:20Ordered by an unspecified provider. [facility]24-02-15 11:08:43* Test Item Value Reference Range Interpretation Comme nts MAGNESIUM (test code = 9038739792) 2.0 mg/dL 1.7-2.4 Lab Interpretation (test cod e = 58344-6) Normal [facility] (NA, K, CL, CO2, GLUCOSE, BUN, CREATININE, CA)2023-12-29 11:08:03* Test Item Value Reference Range Interpretation Comme nts NA (test code = 0505432028) 133 mmol/L 135-145 L K (test code = 9569427499) 4.3 mmol/L 3.5-5.0 CL (test code = 4905488087) 105 mmol/L 98-108 CO2 TOTAL (test code = 0957700305) 22 mmol/L 23-31 L AGAP (test code = 6942186339) 6 2-16 BUN (test code = 2694531326) 26 mg/dL 7-23 H GLUCOSE (test code = 0009262367) 96 mg/dL 70-110 CREATININE (test code = 2160-0) 1.57 mg/dL 0.50-1.04 H CALCIUM (test code = 8224806539) 8.2 mg/dL 8.6-10.6 L eGFR (test code = 92963-9) 33.4 mL/min/1.73m2 CKD-EPI eGFR (2020). Assuming creatinine has been stable day-to-day for at least three months, the eGFR indicates Category G3b (30 - 44 mL/min/1.73 m2) Lab Interpretation (test code = 31609-6) Abnormal [facility] Whole Pqcis2913-58-46 03:54:52* Test Item Value Reference Range Interpretation Comme nts LACTIC ACID (test code = 3154277136) 2.27 mmol/L 0.50-2.20 H Lab Interpretation (test cod e = 37555-0) Abnormal [facility] 1 [id number] 23:25:46EXAM: XR CHEST 1 VW COMPARISON: Chest x-ray on 10/23/2023 HISTORY: shortness of breath FINDINGS:Lungs: Decreased aeration of right lung. Elevation of the righthemidiaphragm, unchanged. No focal opacities or pleural abnormality. Heart/Mediastinum: The cardiac silhouette appears normal accounting fortechnique and degree of inspiration. Calcified aortic knob. Bones and soft tissues: No osseous abnormality is visualized. Surgicalstaples are present in the left lateral chest wall.[facility] Blood 2023-12-27 23:11:50* Test Item Value Reference Range Interpretation Comme nts LACTIC ACID (test code = 2795987542) 2.33 mmol/L 0.50-2.20 H Lab Interpretation (test cod e = 92102-7) Abnormal [facility] Marshall[facility] Whole Nasun6462-44-11 20:20:27* Test Item Value Reference Range Interpretation Comme nts LACTIC ACID (test code = 4246540433) 3.04 mmol/L 0.50-2.20 H Lab Interpretation (test cod e = 00262-2) Abnormal [facility]an[facility] (TTE)2023-10-24 18:35:55* Test Item Value Reference Range Interpretation Comme nts Height (test code = 5447898535) 63 in Weight (test code = 5753377215) 269 lbs Systolic BP (test code = 4956953323) 114 mmHg Diastolic BP (test code = 1139660794) 47 mmHg Heart Rate (test code = 2553815943) 55 bpm BSA (test code = 5415203525) 2.19 m2 Ao root diam (test code = 2607111033) 3.00 cm Aortic root (test code = 8770565169) 3.0 cm Ao root annulus (test code = 7438469970) 3.0 cm LVOT diameter (test code = 5562550221) 1.96 cm LVOT area (test code = 4903667439) 3.00 cm2 LA size (test code = 5819721874) 4.6 cm Pulmonic Regurgitant End Max Velocity (test code = 0108140146) 107.5 cm/s LAV(MOD-sp4) (test code = 9526267128) 86.20 mL E wave decelartion time (test code = 0276834230) 0.31 s MV Peak E Kenyatta (test code = 3318874669) 96.6 cm/s MV stenosis pressure 1/2 time (test code = 2842117152) 94.5 ms MV Peak A Kenyatta (test code = 0775885639) 114.1 cm/s E/A ratio (test code = 4292881392) 0.85 ratio MV Prop V (test code = 2660056358) 53.90 cm/s MV E/e' septal (test code = 3061988270) 10.2 cm/s TR Peak Kenyatta (test code = 8602748700) 255.1 cm/s Triscuspid Valve Regurgitation Peak Gradient (test code = 2826494747) 26.0 mmHg Tapse (test code = 4136201360) 2.44 cm LVOT stroke volume (test code = 5572802844) 103.40 cm3 LVOT peak kenyatta (test code = 5652034419) 162.7 cm/s LVOT mn grad (test code = 2518484596) 4.9 mmHg AV LVOT peak gradient (test code = 5470624185) 10.6 mmHg LVOT peak VTI (test code = 0551263308) 34.3 cm LV V1 mean (test code = 4144708595) 103.60 cm/s Aortic valve mean velocity (test code = 7587115561) 158.6 cm/s Ao peak kenyatta (test code = 1379688802) 244.8 cm/s Ao VTI (test code = 6958860631) 54.2 cm AV area by cont VTI (test code = 1040461842) 1.9 cm2 AV area peak kenyatta (test code = 3449862914) 2.0 cm2 Ao max PG (test code = 3361918526) 24.00 mm[Hg] AV peak gradient (test code = 0815066118) 24.0 mmHg AV valve area (test code = 3184117539) 1.91 cm2 AV mean gradient (test code = 4954224468) 11.2 mmHg AV regurgitation pressure 1/2 time (test code = 3204360432) 445.3 ms AI dec slope (test code = 0455942887) 235.00 cm/s2 AI max kenyatta (test code = 7436532849) 357.40 cm/s AI max PG (test code = 5299914490) 51.10 mm[Hg] LVIDD (test code = 0218214170) 3.90 cm Left Ventricular End Diastolic Volume by Teichholz Method (test code = 0336295) 66.0 mL IVS (test code = 2935375760) 1.39 cm Interventricular Septum Diastolic Thickness by 2D (test code = 1008679) 1.39 cm LVPWD (test code = 0912205691) 1.37 cm PW (test code = 5296931081) 1.37 cm 0.6-1.1 EF(Teich) (test code = 4820940917) 48.70 % LVIDS (test code = 3905159827) 3.00 cm Left Ventricular End Systolic Volume by Teichholz Method (test code = 3397537) 33.8 mL FS (test code = 7465296638) 24 % EF - 2D (test code = 69367518) 48.70 % Radiology Study observation (narrative) (test code = 50853-4) DARIUS (test code = DARIUS) ?Left?Ventricle: Left [...] apical inferior.Other segments could not be evaluated. [facility] GLUCOSE (AUTOMATED)2023-10-24 17:19:35* Test Item Value Reference Range Interpretation Comme nts POCT GLU (test code = 2355660485) 89 mg/dL 70-110 Lab Interpretation (test cod e = 90663-6) Normal [facility] GLUCOSE (AUTOMATED)2023-10-24 13:56:17* Test Item Value Reference Range Interpretation Comme nts POCT GLU (test code = 9985854780) 89 mg/dL 70-110 Lab Interpretation (test cod e = 44092-3) Normal [facility] ACT LOW [id number] 18:55:03* Test Item Value Reference Range Interpretation Comme nts ACTLR (test code = 1660885117) 230 See_Comment H [Automated messa ge] The system which generated this result transmitted reference range: 89 - 169 Seconds. The reference range was not used to interpret this result as normal/abnormal. Lab Interpretation (test code = 51794-4) Abnormal [facility] ACT LOW [id number] 18:55:03* Test Item Value Reference Range Interpretation Comme nts ACTLR (test code = 8901598095) 230 See_Comment H [Automated messa ge] The system which generated this result transmitted reference range: 89 - 169 Seconds. The reference range was not used to interpret this result as normal/abnormal. Lab Interpretation (test code = 42195-9) Abnormal [facility] ACT LOW [id number] 18:38:28* Test Item Value Reference Range Interpretation Comme nts ACTLR (test code = 3150706726) 239 See_Comment H [Automated messa ge] The system which generated this result transmitted reference range: 89 - 169 Seconds. The reference range was not used to interpret this result as normal/abnormal. Lab Interpretation (test code = 46358-3) Abnormal [facility] ACT LOW [id number] 18:38:28* Test Item Value Reference Range Interpretation Comme nts ACTLR (test code = 3427736710) 239 See_Comment H [Automated messa ge] The system which generated this result transmitted reference range: 89 - 169 Seconds. The reference range was not used to interpret this result as normal/abnormal. Lab Interpretation (test code = 31576-0) Abnormal [facility] ACT LOW [id number] 17:27:45* Test Item Value Reference Range Interpretation Comme nts ACTLR (test code = 6300000291) 327 See_Comment H [Automated messa ge] The system which generated this result transmitted reference range: 89 - 169 Seconds. The reference range was not used to interpret this result as normal/abnormal. Lab Interpretation (test code = 07586-0) Abnormal [facility] ACT LOW [id number] 17:27:45* Test Item Value Reference Range Interpretation Comme nts ACTLR (test code = 7908027111) 327 See_Comment H [Automated messa ge] The system which generated this result transmitted reference range: 89 - 169 Seconds. The reference range was not used to interpret this result as normal/abnormal. Lab Interpretation (test code = 46168-4) Abnormal [facility]2023-09-07 03:14:47* Test Item Value Reference Range Interpretation Comme nts MAGNESIUM (test code = 0925081497) 1.9 mg/dL 1.7-2.4 Lab Interpretation (test cod e = 93395-3) Normal [facility]2023-09-07 03:14:47* Test Item Value Reference Range Interpretation Comme nts MAGNESIUM (test code = 6422560376) 1.9 mg/dL 1.7-2.4 Lab Interpretation (test cod e = 03548-6) Normal [facility] [id number] 00:19:19* Test Item Value Reference Range Interpretation Comme nts TROPONIN I (test code = 3867986084) 0.043 ng/mL <=0.034 H DARIUS (test code [...] of biotin. Lab Interpretation (test code = 29004-7) Abnormal [facility] [id number] 00:19:19* Test Item Value Reference Range Interpretation Comme nts TROPONIN I (test code = 1360735764) 0.043 ng/mL <=0.034 H DARIUS (test code [...] of biotin. Lab Interpretation (test code = 53329-7) Abnormal [facility] WITH [id number] 19:59:28* Test Item Value Reference Range Interpretation [...] g/dL 31.6-35.1 L RDW-SD (test code = 21406-5) 53.0 fL 39.0-49.9 H RDW-CV (test code = 788-0) 14.6 % 12.0-15.5 PLT (test code = 777-3) 201 See_Comment [Automated message] The system which generated this result transmitted reference range: 166 - 358 10*3/?L. The reference range was not used to interpret this result as normal/abnormal. MPV (test code = 40133-7) 9.9 fL 9.5-12.9 NRBC/100 WBC (test code = 1599162531) 0.0 See_Comment [Automated message] The system which generated this result transmitted reference range: 0.0 - 10.0 /100 WBCs. The reference range was not used to interpret this result as normal/abnormal. NRBC x10^3 (test code = 4029233821) See_Comment [Automated message] The system which generated this result transmitted reference range: 10*3/?L. The reference range was not used to interpret this result as normal/abnormal. GRAN MAT (NEUT) % (test code = 770-8) 96.6 % IMM GRAN % (test code = 5766157340) 0.30 % LYMPH % (test code = 736-9) 1.7 % MONO % (test code = 5905-5) 1.1 % EOS % (test code = 713-8) 0.1 % BASO % (test code = 706-2) 0.2 % GRAN MAT x10^3(ANC) (test code = 1006046315) 10.61 10*3/uL 1.88-7.09 H IMM GRAN x10^3 (test code = 5186763388) 0.03 10*3/uL 0.00-0.06 LYMPH x10^3 (test code = 731-0) 0.19 10*3/uL 1.32-3.29 L MONO x10^3 (test code = 742-7) 0.12 10*3/uL 0.33-0.92 L EOS x10^3 (test code = 711-2) 0.03-0.39 L BASO x10^3 (test code = 704-7) 0.01-0.07 BANDS (test code = 8607612043) Increased A TOXIC CHANGES (test code = 803-7) Present A Lab Interpretation (test code = 55695-8) Abnormal [facility] WITH [id number] 19:59:28* Test Item Value Reference Range Interpretation [...] g/dL 31.6-35.1 L RDW-SD (test code = 13122-0) 53.0 fL 39.0-49.9 H RDW-CV (test code = 788-0) 14.6 % 12.0-15.5 PLT (test code = 777-3) 201 See_Comment [Automated message] The system which generated this result transmitted reference range: 166 - 358 10*3/?L. The reference range was not used to interpret this result as normal/abnormal. MPV (test code = 87964-5) 9.9 fL 9.5-12.9 NRBC/100 WBC (test code = 6959972638) 0.0 See_Comment [Automated message] The system which generated this result transmitted reference range: 0.0 - 10.0 /100 WBCs. The reference range was not used to interpret this result as normal/abnormal. NRBC x10^3 (test code = 8416275427) See_Comment [Automated message] The system which generated this result transmitted reference range: 10*3/?L. The reference range was not used to interpret this result as normal/abnormal. GRAN MAT (NEUT) % (test code = 770-8) 96.6 % IMM GRAN % (test code = 7284497475) 0.30 % LYMPH % (test code = 736-9) 1.7 % MONO % (test code = 5905-5) 1.1 % EOS % (test code = 713-8) 0.1 % BASO % (test code = 706-2) 0.2 % GRAN MAT x10^3(ANC) (test code = 8638933335) 10.61 10*3/uL 1.88-7.09 H IMM GRAN x10^3 (test code = 2495748715) 0.03 10*3/uL 0.00-0.06 LYMPH x10^3 (test code = 731-0) 0.19 10*3/uL 1.32-3.29 L MONO x10^3 (test code = 742-7) 0.12 10*3/uL 0.33-0.92 L EOS x10^3 (test code = 711-2) 0.03-0.39 L BASO x10^3 (test code = 704-7) 0.01-0.07 BANDS (test code = 2716030047) Increased A TOXIC CHANGES (test code = 803-7) Present A Lab Interpretation (test code = 21282-9) [facility]normal [facility] THRM[facility] [id number] 19:54:19* Test Item Value Reference Range Interpretation Comme nts APTT Patient (test code = 3173-2) 25 See_Comment [Automated message] The system which generated this result transmitted reference range: 23 - 38 Seconds. The reference range was not used to interpret this result as normal/abnormal. DARUIS (test code = DARIUS) The [facility] patient population mean normal value for aPTT is 30 seconds. Lab Interpretation (test code = 15981-3) Normal [facility] THRMPLAS [id number] 19:54:19* Test Item Value Reference Range Interpretation Comme nts APTT Patient (test code = 3173-2) 25 See_Comment [Automated message] The system which generated this result transmitted reference range: 23 - 38 Seconds. The reference range was not used to interpret this result as normal/abnormal. DARIUS (test code = DARIUS) The [facility] patient population mean normal value for aPTT is 30 seconds. Lab Interpretation (test code = 78236-4) Normal [facility] MarshallPROTHROMBIN TIME / [id number] 19:52:19* Test Item Value Reference Range Interpretation Comme [facility] PROTIME PATIENT (test code = 5964-2) 13.2 See_Comment [Automated iLumen] The system which generated this result transmitted reference range: 12.0 - 14.7 Seconds. The reference range was not used to interpret this result as normal/abnormal. INR (test code = 6301-6) 1.1 Normal INR <1.1; Warfarin Therapeutic range 2.0 to 3.0 or 2.5 to 3.5, depending upon the indications. Lab Interpretation (test code = 54106-7) Normal [facility] Marshall[facility]OM[facility] / [id number] 19:52:19* Test Item Value Reference Range Interpretation Comme [facility] PROTIME PATIENT (test code = 5964-2) 13.2 See_Comment [Automated iLumen] The system which generated this result transmitted reference range: 12.0 - 14.7 Seconds. The reference range was not used to interpret this result as normal/abnormal. INR (test code = 6301-6) 1.1 Normal INR <1.1; Warfarin Therapeutic range 2.0 to 3.0 or 2.5 to 3.5, depending upon the indications. Lab Interpretation (test code = 47580-4) Normal [facility] METABOLIC PANEL (32742)2023-07-20 19:43:31* Test Item Value Reference Range Interpretation Comme [facility] NA (test code = 9909466202) 138 mmol/L 135-145 K (test code = 6916511552) 4.2 mmol/L 3.5-5.0 CL (test code = 1236110141) 104 mmol/L 98-108 CO2 TOTAL (test code = 8353599115) 29 mmol/L 23-31 AGAP (test code = 8857247974) 5 2-16 BUN (test code = 9788844476) 24 mg/dL 7-23 H GLUCOSE (test code = 4409541106) 127 mg/dL 70-110 H CREATININE (test code = 4524981662) 1.30 mg/dL 0.50-1.04 H TOTAL BILI (test code = 9182102656) 0.8 mg/dL 0.1-1.1 CALCIUM (test code = 5092006282) 8.8 mg/dL 8.6-10.6 T PROTEIN (test code = 5733179919) 6.4 g/dL 6.3-8.2 ALBUMIN (test code = 8165164595) 3.3 g/dL 3.5-5.0 L ALK PHOS (test code = 5571743356) 106 U/L 34-122 ALTv (test code = 1742-6) 25 U/L 5-35 AST(SGOT) (test code = 3906926368) 107 U/L 13-40 H eGFR (test code = 6750643336) 39.6 mL/min/1.73m2 DARIUS (test code = DARIUS) [...] imaging tests). Lab Interpretation (test code = 70299-3) Abnormal [facility]. METABOLIC PANEL (84812)2023-07-20 19:43:31* Test Item Value Reference Range Interpretation Comme nts NA (test code = 6009456705) 138 mmol/L 135-145 K (test code = 0902955745) 4.2 mmol/L 3.5-5.0 CL (test code = 0096599979) 104 mmol/L 98-108 CO2 TOTAL (test code = 0277350246) 29 mmol/L 23-31 AGAP (test code = 3786923426) 5 2-16 BUN (test code = 2832038489) 24 mg/dL 7-23 H GLUCOSE (test code = 1509535860) 127 mg/dL 70-110 H CREATININE (test code = 7779074618) 1.30 mg/dL 0.50-1.04 H TOTAL BILI (test code = 6278610512) 0.8 mg/dL 0.1-1.1 CALCIUM (test code = 3668750590) 8.8 mg/dL 8.6-10.6 T PROTEIN (test code = 5960691296) 6.4 g/dL 6.3-8.2 ALBUMIN (test code = 4971785676) 3.3 g/dL 3.5-5.0 L ALK PHOS (test code = 7430837606) 106 U/L 34-122 ALTv (test code = 1742-6) 25 U/L 5-35 AST(SGOT) (test code = 6428641905) 107 U/L 13-40 H eGFR (test code = 9952264527) 39.6 mL/min/1.73m2 DARIUS (test code = DARIUS) [...] imaging tests). Lab Interpretation (test code = 46030-0) Abnormal [facility]2023-[facility] 19:43:11* Test Item Value Reference Range Interpretation Comme nts LIPASE (test code = 6460257763) 37 U/L 0-220 Lab Interpretation (test cod e = 97587-3) Normal [facility]2023-09-06 19:43:11* Test Item Value Reference Range Interpretation Comme nts LIPASE (test code = 4933182318) 37 U/L 0-220 Lab Interpretation (test cod e = 47752-6) Normal [facility] [id number] 19:09:29* Test Item Value Reference Range Interpretation Comme nts TROPONIN I (test code = 8833001238) 0.042 ng/mL <=0.034 H DARIUS (test code [...] of biotin. Lab Interpretation (test code = 62591-2) Abnormal [facility] [id number] 19:09:29* Test Item Value Reference Range Interpretation Comme nts TROPONIN I (test code = 7169441256) 0.042 ng/mL <=0.034 H DARIUS (test code [...] of biotin. Lab Interpretation (test code = 83542-7) Abnormal [facility] Marshall[facility]-TERMINAL KOP-[id number] 19:07:05* Test Item Value Reference Range Interpretation Comme [facility] NT-proBNP (test code = 01226-5) 21560 pg/mL <=125 H DARIUS (test code = DARIUS) Positive: Heart Failure Likely Lab Interpretation (test code = 68109-7) Abnormal [facility]-TERMINAL IZC-JIS9800-12-06 19:07:05* Test Item Value Reference Range Interpretation Comme nts NT-proBNP (test code = 99029-0) 06175 pg/mL <=125 H DARIUS (test code = DARIUS) Positive: Heart Failure Likely Lab Interpretation (test code = 58319-8) Abnormal [facility]an[facility] (TTE)2023-07-07 02:36:18* Test Item Value Reference Range Interpretation Comme nts Height (test code = 6481229346) 64 in Weight (test code = 8080478177) 274 lbs Systolic BP (test code = 9827938579) 108 mmHg Diastolic BP (test code = 1460856066) 66 mmHg Heart Rate (test code = 8498679555) 64 bpm MR max PG (test code = 5186909896) 96.10 mm[Hg] MR max kenyatta (test code = 5686118092) 490.20 cm/s Ao root diam (test code = 7646024589) 2.80 cm Mr max kenyatta (test code = 0107320535) 490.2 m/s Aortic root (test code = 7126713981) 2.8 cm Ao root annulus (test code = 7249012137) 2.8 cm BSA (test code = 3178537149) 2.24 m2 LVOT diameter (test code = 7781395986) 1.95 cm LVOT area (test code = 6362153327) 3.00 cm2 LA size (test code = 2765358075) 4.9 cm ACS (test code = 4873819301) 2.09 cm PV PEAK VELOCITY (test code = 3765509753) 105.3 cm/s PV peak gradient (test code = 3913628966) 4.4 mmHg LAV(MOD-sp4) (test code = 7129956199) 62.60 mL MV E-F slope (test code = 2256211637) 49.80 cm/s MV Peak E Kenyatta (test code = 4706934421) 127.3 cm/s MV valve area p 1/2 method (test code = 4900218117) 2.49 cm2 MV dec slope (test code = 9339567498) 423.50 cm/s2 MV P1/2t max kenyatta (test code = 0247982741) 127.90 cm/s MV Peak A Kenyatta (test code = 3136586209) 63.9 cm/s E/A ratio (test code = 6449515542) 1.99 ratio LVOT stroke volume (test code = 7483460122) 83.10 cm3 LVOT peak kenyatta (test code = 4629102495) 117.4 cm/s LVOT mn grad (test code = 4759498950) 2.6 mmHg AV LVOT peak gradient (test code = 8828384519) 5.5 mmHg LVOT peak VTI (test code = 3731462808) 27.7 cm LV V1 mean (test code = 7817732759) 72.80 cm/s Aortic valve mean velocity (test code = 5990298869) 122.1 cm/s Ao peak kenyatta (test code = 0242307123) 211.6 cm/s Ao VTI (test code = 9301737126) 42.9 cm AV area by cont VTI (test code = 6116382019) 1.9 cm2 AV area peak kenyatta (test code = 7875214201) 1.7 cm2 Ao max PG (test code = 3873212959) 17.90 mm[Hg] AV peak gradient (test code = 0500243180) 17.9 mmHg AV valve area (test code = 0850887212) 1.94 cm2 AV mean gradient (test code = 0966525869) 7.2 mmHg AV regurgitation pressure 1/2 time (test code = 6164512513) 472.1 ms AI dec slope (test code = 5711757030) 208.10 cm/s2 AI max kenyatta (test code = 7186409183) 335.50 cm/s AI max PG (test code = 8040351846) 45.00 mm[Hg] LA Volume Index (BP) (test code = 6516297187) 27.4 mL/m2 LA volume (BP) (test code = 6824953361) 61.3 mL LAV(MOD-sp2) (test code = 4052501587) 57.30 mL LVIDD (test code = 6237292429) 5.80 cm Left Ventricular End Diastolic Volume by Teichholz Method (test code = 5776597) 169.3 mL IVS (test code = 8387378345) 0.96 cm Interventricular Septum Diastolic Thickness by 2D (test code = 5496397) 0.96 cm LVPWD (test code = 6976204793) 0.78 cm PW (test code = 3886329509) 0.78 cm 0.6-1.1 EF(Teich) (test code = 9480031052) 15.80 % LVIDS (test code = 0705084892) 5.40 cm Left Ventricular End Systolic Volume by Teichholz Method (test code = 0995913) 142.6 mL FS (test code = 9074700641) 7 % EF - 2D (test code = 71756838) 15.80 % TR Peak Kenyatta (test code = 0526865437) 405.3 cm/s Triscuspid Valve Regurgitation Peak Gradient (test code = 3478722586) 65.7 mmHg Radiology Study observation (narrative) (test code = 67167-5) DARIUS (test code = DARIUS) ?Left?Ventricle: Left [...] apical lateral.Other segments could not be evaluated. [facility] Whole Rqgnn7971-65-29 14:34:16* Test Item Value Reference Range Interpretation Comme nts LACTIC ACID (test code = 3214265038) 2.34 mmol/L 0.50-2.20 H Lab Interpretation (test cod e = 96950-4) Abnormal [facility] XR [id number] 08:25:00Name: KERRY SAMUEL [facility] : 1945 Age/S: 74 / F [address] [address] Unit #: [id number] Loc: [place] [address] Phys: Praveena Garcia MD Acct: [id number] Dis Date: Status: REG [facility] PHONE #: [phone] Exam Date: 11/23/2019 6431 FAX #: Reason: ERCP EXAMS: CPT: [id number] XR ERCP 96419 Fluoro Time: 55 SEC DAP (Gy m2): [...] 1 Signed Report Name: KERRY SAMUEL NANCYClint [place] : 1945 Age/S: 74 / F [address] [address] Unit #: [id number]: [place] [address] Phys: Praveena Garcia MD Acct: [id number] Dis Date: Status: REG [facility] PHONE #: [phone] Exam Date: 11/23/2019 1130 FAX #: Reason: ERCP EXAMS: CPT: [id number] XR ERCP 46173 Fluoro Time: 55 SEC DAP (Gy m2): Air Kerma (mGy): (Continued) Technologist: Ifrah Sin RT(R) Trnscb Date/Time: 11/23/2019 (824) [email or web address] Orig Print D/T: S: 11/23/2019 (827) PAGE 2 Signed Report- XR [id number] 15:39:00Name: [facility]ANIKET [facility] 1945 Age/S: 73 / F [address] [address] Unit #: [id number] Loc: [place] [address] Phys: Praveena Garcia MD Acct: [id number] Dis Date: Status: REG S ID PHONE #: [phone] Exam Date: 07/10/2019 1350 FAX #: Reason: ERCP EXAMS: CPT: [id number] XR ERCP 46877 Fluoro Time: 142 SEC DAP (Gy m2): [...] operative report. at 1539 Reported and signed by: Hector Eugene M.D. CC: Praveena Garcia MD PAGE 1 Signed Report Name: KERRY SAMUEL [place]ANC[place]Clint [place] : 1945 Age/S: 73 / F [address] [address] Unit #: [id number] Loc: [place] [address] Phys: Praveena Garcia MD Acct: [id number] Dis Date: Status: REG [employer] PHONE #: [phone] Exam Date: 0 07/10/2019 1350 FAX #: Reason: ERCP EXAMS: CPT: [id number] XR ERCP 29921 Fluoro Time: 142 SEC DAP (Gy m2): Air Kerma (mGy): (Continued) Technologist: Ifrah Sin RT(R) Trnscb Date/Time: 07/10/2019 (1539) [email or web address] Orig Print D/T: S: 07/10/2019 (1584) PAGE 2 Signed Report- XR [id number] 09:09:00Name: KERRY SAMUEL Vivi KARRIE [place] : 1945 Age/S: 73 / F [address] [address] Unit #: [id number] Loc: [place] [address] Phys: Praveena Garcia MD Acct: [id number] Dis Date: Status: REG [employer] PHONE #: [phone] Exam Date: 06/14/2019 0820 FAX #: Reason: ERCP EXAMS: CPT: [id number] XR ERCP 66697 Fluoro Time: 95 SEC DAP (Gy m2): [...] PAGE 1 Signed Report Name: KERRY SAMUEL [facility] : 1945 Age/S: 73 / F [id number] [facility] Unit #: [id number] Loc:[place] [address] Phys: Praveena Garcia MD Acct: [id number] Dis Date: Status: REG [facility] [place] PHONE #: [phone] Exam Date: 06/14/2019819 FAX #: Reason: ERCP EXAMS: CPT: [id number] XR ERCP [id number] Fluoro Time: 95 SEC DAP (Gy m2): Air Kerma (mGy): (Continued) Technologist: Ifrah Sin, RT(R); Monica Claudio RT(R) Trnscb Date/Time: 06/14/2019 (908) [email or web address] Orig Print D/T: S: 06/14/2019 (911) PAGE [...] Wright MD; Location: Endoscopy (CS) OR Location DE ANES NERVE MUSC TENDON FASCIA&BURSA KNEE&/POPLT Right [...] Reports taking pain meds COMMUNICATION Primary Language: Northern Irish Able to Verbalize needs: Yes Vision:good; no [...] min Cammie Hinkle, PT [place] PT License [id number] [facility] Rehabilitation Services Department (phone) (fax) [facility] History and Physical Notes Date/Time Note Provider Source 2023-12-27 22:24:33 [facility] Hospitalist Admission H&P Date of Service: 12/27/2023 [...] Wright MD; Location: Endoscopy (CS) OR Location DE ANES NERVE MUSC TENDON FASCIA&BURSA KNEE&/POPLT Right [...] in a house. His son lives in [place] about 20 miles away, but works at a location about 3 miles from her house. Patient reports worsening of her back pain from spinal stenosis since beginning of March 2020. 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 She would like a helper [...] given high risk of morbidity and mortality. [place] ENGINE RESEARCH ENGINEER was verified during stay Mac Sanford MD [facility] 2023-07-21 10:40:16 Formatting of this n [...] with Dr.Motiwala Srinivas Sheets M.D PGY4 General cripple cutter Associated attestation - Asha Tya MD - 07/21/2023 5:36 PM CDT Agree [...] who presents for chest pain. Transferred from [facility] ED. Patient reports substernal chest pain with radiation to her back starting this morning. EMS was called; patient's pain mildly relieved by nitro x 2. She was loaded with aspirin 324 mg and brought to [facility] ED. At [facility] ED: VS: AF, HR 77, BP [...] on heparin gtt. Accepted for transfer to [facility] for further ischemic workup, ACS protocol. Past medical history: has a past medical history of Fibromyalgia, Osteoporosis, Rheumatoid arthritis, Spinal stenosis, and STEMI (ST elevation myocardial infarction) (07/26/2020). Past surgical history: has a past surgical history that includes endoscopic retrograde cholangiopancretography (N/A, 03/31/2020); stent placement (shx); and 62488 - DE ANES NERVE MUSC TENDON FASCIA&BURSA KNEE&/POPLT (Right). [...] Take 1 mg by mouth. Doctor Unassigned, [place] furosemide 20 mg tablet 40 mg daily as needed for leg swelling 01/20/21 Bacilio Deleon MD OMEPRAZOLE, BULK, MISC 40 tablets 2 (two) times daily. Doctor Unassigned, [place] aspirin 81 mg chewable tablet Take 1 tablet by mouth in the morning. 08/01/20 Marvin Mancilla MD URSODIOL ORAL Take by mouth. Doctor Unassigned, [place] gabapentin 800 mg tablet Take 1 tablet by mouth daily. Doctor Unassigned, [place] mirabegron (MYRBETRIQ) 50 mg tablet Take 1 tablet by mouth daily. Doctor Unassigned, [place] zolpidem (AMBIEN CR) 12.5 mg CR tablet Take 12.5 mg by mouth at bedtime as needed for Sleep. Doctor Unassigned, [place] REVIEW OF SYSTEMS (-)=Negative,(+)=Positive General: negative Skin: [...] 23 - 38 Seconds COMP. METABOLIC PANEL (76679) Collection Time: 07/20/23 2:02 PM Result Value [...] EF on recent TTE. - Admit to [facility] - C/w heparin gtt - [...] see the resident's note for additional details. [facility] [place] Procedure Notes Date/Time Note Provider Source 2023-07-21 [...] 3.5 RT with finecross able to cross BODY TECHNICIAN Intraluminal LAD confirmed with MC injection Predil [...] Complications: none Findings: Right Heart Catheterization: RA / RV 55/2/14 PA 55/21/34 PCWP RA sat 65% PA sat 61% CO/CI (Mignon): 5.6/2.3 CO/CI (Thermodilution): 4.99/2.21 Coronary dominance: right Left main: MLI LAD: Prox LAD 100% (BODY TECHNICIAN vs subacute) s/p PCI Post PCI, mid/distal LAD had severe diffuse athero D1: Mild athero LCX: Mid Lcx 30% diffuse OM2: Small sized OM3: Mild athero RCA: Mid RCA 50% ISR Distal RCA 40-50% diffuse PDA: Mild athero LVEDP: 20 Right External Iliac angiogram: EIA MLI CAR DROPPER MLI High bifurcation Impression: Prox LAD 100% calcified (BODY TECHNICIAN vs subacute) s/p PCI Mid/distal LAD has [...] [facility] Notes Date/Time Note Provider Source 2025-04-19 15:00:47 3rd attempt to contact patient regarding results. LVM and sent letter with results via mail. Chelsy Lara RN [facility] 2025-04-19 08:34:28 Images from the original note were not included. Attempted to contact patient with results/recommendations. LVM for patient to return call to [phone]. Bacilio Deleon MD P Cardiology Nurse ECHO--LVEF improved to 45%. F/u with me 3-6 months. Suzy Prado RN [facility] 2025-04-18 14:17:26 Images from the original note were not included. Attempted to contact patient with results/recommendations. LVM for patient to return call to [phone]. Bacilio Deleon MD P Cardiology Nurse ECHO--LVEF improved to 45%. F/u with me 3-6 months. [facility] 2024-03-12 14:40:59 Client Coordination Note Report received via fax from [facility], signed by Dr Deleon and faxed back to [facility]. Forms scanned into chart along with fax [...] 03/09/2024 05:04 PM Modules accepted: Orders T [facility] 2024-03-09 16:58:09 Patient called back stating that Dr. Rice's office is closed today. Unable to get refill of lasix. Spoke with Dr. Deleon and discussed situation. Ok to send one time refill of lasix 20 mg. Patient was advised to call back if swelling does not improve. [facility] 2024-03-09 16:53:49 Copied from [facility] #[id number]. Topic: Clinical - Order >> Mar 09, 2024 4:52 PM Patient Shearing Supervisor wrote: Kerry Samuel is a 78 year old female Pt was calling back to see if Dr Deleon could refill her furosemide 40 mg tablet. She said due to her swelling her HH nurse wants her to take it. Nurse [...] [facility] 2024-03-09 13:20:15 Copied from [facility] #[id number]. Topic: Clinical - Medical Advice >> Mar 09, 2024 1:18 PM Patient Shearing Supervisor wrote: Kerry Samuel is a 78 year old female Pt HH nurse with [facility] calling and states she is with pt at this moment and wanting clarification on rx furosemide 40 mg tablet (LASIX) due to pt having swelling in lower extremities and weight gain. Caller states weight last week was 235.8 and now it is 243.4. BP 122/64 HR 70 Please advise Call pt at [phone] (home) Em Baum [facility] [...] if BP < 90 F/u PCP closely [facility] 2024-03-05 17:01:47 Stop metoprolol Hold lasix if BP < 90 F/u PCP closely [facility] 2024-03-05 16:45:49 Spoke [...] TRANSITIONAL CARE MANAGEMENT ASSESSMENT 12/30/2023 Kerry Samuel [id number] Kerry Samuel is a 78 year old /White female was admitted on 12/27/23 to [facility]. She was discharged on 12/29/23 with discharge disposition of HR- Routine Discharge. Admitting Physician: Liliana Pérez Discharge Diagnosis: Acute toxic encephalopathy Complicated cystitis Weakness Chronic pain syndrome Linked Episodes Type: Episode: Status: Noted: Resolved: Last update: Updated by: TRANSITION OF CARE TCM Active 12/30/2023 12/30/2023 11:44 AM Belinda Chang, RN Comments: TCM Mvj-lfga-cl-face outreach documentation: Discharge Assessment Chart Assessed: 12/30/23 Future Appointments: Future Appointments Provider Department Dept Phone 04/25/2024 11:00 AM Bacilio Deleon MD [facility] Cardiology, [facility] [phone] Transition CM attempted to contact patient x2. CM left a discreet voicemail explaining purpose of call and call back information. Belinda Chang RN, MSN, MEDSUR-, CCRN, CCM Transitions of Ux Lead Proficient Art Installer Wool Fleece Sorter Management Office: [phone] ER Belinda Chang RN [facility] 2023-12-30 11:44:56 CM LVM to return call. Will attempt again at a later time. ER [facility] 2023-12-29 14:05:53 Problem: Falls, Risk of [...] in pain sensation Outcome: Adequate for discharge ER Blanche Brown RN [facility] 2023-12-29 [...] [facility] 2023-12-28 18:06:26 Progressing as expected [facility] 2023-12-28 01:14:24 Patients lactic acid came [...] in pain sensation Outcome: Progressing as expected [facility] 2023-12-27 20:14:39 Nurse Report Report given to Nikki FOSTER at [facility]. Chief complaint, assessment findings, infusion verify and orders reviewed. Plan of care discussed with nurse. Yara E Comfort, RN ER Yara Moyer RN [facility] 2023-12-27 15:07:00 Gave report to Comfort FOSTER. ER Ramona Salinas RN [facility] 2023-12-27 14:15:41 RT paged for lactic. ER Nancy Sneed RN [facility] 2023-12-27 13:27:14 Kerry Samuel is a 78 year old female states her home health nurse saw her yesterday and wanted her to go to ER for her urine infection that has not gone away, pt alert in no distress ER Rasheeda Robertson RN [facility] 2023-12-27 13:22:00 [facility] Emergency Department Note Patient Name: Kerry Samuel Date of : 1945 78 year old female Treatment Room: [address] [place] [address] Primary Care Physician: Marva Rice Patient Escorted by: Family [5] Mode of Arrival: Personal means [1] EMS Treatment Prior to ED Arrival: BURLAP WORKER treatment: None Travel and Exposure Screening: Symptoms [...] Wright MD; Location: Endoscopy (CS) OR Location DE ANES NERVE MUSC TENDON FASCIA&BURSA KNEE&/POPLT Right [...] 0.01 - 0.07 10*3/uL COMP. METABOLIC PANEL (44245) - Abnormal NA 139 135 - 145 [...] Urinalysis Cbc with Diff Comp. Metabolic Panel (79187) Lactic Acid Whole Blood Lactic Acid Whole [...] [PS] Wale Corey DO Diagnosis/Impression as of 12/28/23 2209 Dysuria Complicated UTI (urinary tract infection) Procedures: [...] - Observation Condition -- Comment Treatment Team: [facility] [[id number]] Discharge Medications: Current Discharge Medication List STOP [...] Electronically signed by: Wale Corey DO 12/28/232211 [facility] 2023-12-14 10:48:25 With patient's written consent, [...] skin w/d, pt leaving on stretcher with [facility], in no apparent distress, IDEA Quesada RN [facility] 2023-11-26 01:15:00 Shannan care done-Purwick applied. Patient voided clear yellow urine. IDEA Hernandez RN [facility] 2023-11-26 00:56:38 Old bruising scattered across thighs, forearms. Patient states they are not from this fall. Patient takes plavix ER [facility] 2023-11-26 00:25:00 [facility] Emergency Department Note Patient Name: Kerry Samuel Date of : 1945 78 year old female Treatment Room: TX5/TX5 Primary Care Physician: PATIENT DOES NOT HAVE A PCP Patient Escorted by: Self [9] Mode of Arrival: EMS - [facility] [47] EMS Treatment Prior to ED Arrival: BURLAP WORKER treatment: None Travel and Exposure Screening: Symptoms [...] Wright MD; Location: Endoscopy (CS) OR Location DE ANES NERVE MUSC TENDON FASCIA&BURSA KNEE&/POPLT Right [...] severe tricompartmental loss of joint space with qvro-df-cmta appearance, subchondral sclerosis and marginal osteophytes. The [...] Electronically signed by: Josh Norwood MD 11/26/23321 [facility] [employer] 2023-11-26 00:18:23 Pt to ER via [facility] from home with c/o fall this [...] appointment, we can assist her to reschedule. ER Suzy Prado RN [facility] 2023-11-16 13:22:23 Kerry Samuel is a 78 year old female Patient is calling and asking if her appointment for tomorrow can be a telehealth appointment. Please call at [phone] ER Em Baum [facility] 2023-07-29 12:47:16 Formatting of this n ote might be different from the original. Received call from patient regarding missing a medication.Stated that she could not find it after she arrived home. She had picked up her prescriptions but could not find that one. Plavix 90 day rx refilled. Sent to [place], [place] - [address] [facility] 2023-07-26 10:19:26 Formatting of this n ote is different from the original. TRANSITIONAL CARE MANAGEMENT ASSESSMENT 07/26/2023 Kerry Samuel [id number] Kerry Samuel is a 77 year old /White female was admitted on 07/20/[address] She was discharged on 07/24/23 with discharge disposition of HR- Routine Discharge. Admitting Physician: Selin Bales Discharge Diagnosis: NSTEMI Type I s/p PCI of LAD (07/21/23) Linked Episodes Type: Episode: Status: Noted: Resolved: Last update: Updated by: TRANSITION OF CARE TCM Active 07/24/2023 07/26/2023 9:56 AM Juancarlos Duncan RN Comments: TCM Fxi-qyfh-lx-face outreach documentation: Discharge Assessment Chart Assessed: 07/26/23 [...] not picked up yet. States she called [facility], and "they had never heard of me". Called pharmacy. Medications are ready to brick picker.) Do you know how to take [...] Phone 08/05/2023 3:40 PM Bacilio Deleon MD [facility] [phone] 04/25/2024 11:00 AM Bacilio Deleon MD [facility] [phone] Your COVID 19 test results were negative. [...] Routine Goal: Absence of post-procedure complications 07/24/2023 1314 by Shawn Collins RN Outcome: Adequate for discharge 07/24/2023 1054 by Shawn Collins RN Outcome: Progressing as expected Goal: Knowledge of procedure 07/24/2023 1314 by Shawn Collins RN Outcome: Adequate for discharge 07/24/2023 1054 by Shawn Collins RN Outcome: Progressing as expected Problem: Activity Intolerance Goal: Improved activity tolerance 07/24/2023 1314 by Shawn Collins RN Outcome: Adequate for discharge 07/24/2023 1054 by Shawn Collins RN Outcome: Progressing as expected Problem: Falls, Risk of Goal: Absence of falls 07/24/2023 1314 by Shawn Collins RN Outcome: Adequate for discharge 07/24/2023 1054 by Shawn Collins RN Outcome: Progressing as expected Problem: Discharge Planning Goal: Adequate for discharge 07/24/2023 1314 by Shawn Collins RN Outcome: Adequate for discharge 07/24/2023 1054 by Shawn Collins RN Outcome: Progressing as expected Goal: Adequate to move to next level of care 07/24/2023 1314 by Shawn Collins RN Outcome: [...] Goal: Effective communication Outcome: Progressing as expected [facility] 2023-07-23 23:24:10 Formatting [...] level of care Outcome: Progressing as expected [facility] 2023-07-22 08:08:48 Formatting of this n ote [...] level of care Outcome: Progressing as expected [facility] 2023-07-21 19:55:50 Formatting of this n ote [...] LAD, right groin site sheath pulled in nursery laborer Mesha Staley RN [facility] [...] different from the original. Patient transferred to [facility] for diagnosis of Chest pain and [...] ote might be different from the original. [facility] arrived on scene to transport patient to [facility]. Pt report given to EMS staff at this time. T [facility] 2023-07-20 18:32:49 Formatting of this n ote might be different from the original. [facility] @1832, new ETA is 25-30 minutes. [...] she would like to check out AMA. sales team member at bedside with provider talking to patient [...] of plan of care. Lucero Figueroa RN [facility] 2023-07-20 12:23:31 Formatting of this n ote might be different from the original. Pt arrived via [facility] with c/o chest pain that started [...] Self [9] Mode of Arrival: EMS - [facility] [47] EMS Treatment Prior to ED Arrival: SL nitro BURLAP WORKER treatment: Aspirin;NTG BURLAP WORKER treatment comments: see triage note ED Events Date/Time Event User Comments 07/20/23 1226 Medical Screening Begins GARFIELD BOWER MD -- 07/20/23 1226 First Provider Evaluation GARFIELD BOWER MD -- Chief Complaint Chief Complaint Patient presents with Chest Pain ED Triage Notes Zee Marcus RN 07/20/2023 12:25 Pt arrived via [facility] ems with c/o chest pain that started [...] Wright MD; Location: Endoscopy (CS) OR Location DE ANES NERVE MUSC TENDON FASCIA&BURSA KNEE&/POPLT Right [...] TOXIC CHANGES Present (*) COMP. METABOLIC PANEL (68226) - Abnormal NA 138 135 - 145 [...] ACTIVATED PARTIAL THRMPLAS VILMA COMP. METABOLIC PANEL (98842) LIPASE N-TERMINAL PRO-BNP TROPONIN I COVID-19 (ID [...] EKG Time 1221 Rate 77 Normal sinus [place] normal Intervals normal ST T wave changes [...] count. Patient was excepted by cardiology in [place]. She was transferred in stable condition. History, [...] Appointments In 2 weeks Bacilio Deleon MD [facility], [facility] In 9 months Bacilio Deleon MD [facility] Garfield Bower Jr., MD Clinical System Support Analyst [facility] Emergency Department [employer] is used frequently and may [...] separately billable procedures and treating other patients. T [facility] 2023-07-07 11:00:12 Formatting of this n ote might be different from the original. Images from the original note were not included. Results and recommendations shared with Bacilio Galan MD P Cardiology Nurse Echocardiogram showed severely reduced ejection fraction and severe pulmonary hypertension. Please make a follow-up appointment to discuss heart cath and heart failure medications. Patient has multiple questions, agrees to follow up visit with Dr Deleon to discuss options Routed to [facility] for scheduling Melina Dorsey RN [facility] 2023-06-28 08:12:13 Formatting of this n ote might be different from the original. Contacted patient and scheduled her for 07/06/2023. Mirta Contreras [facility] 2023-06-27 22:36:35 Formatting of this n ote might be different from the original. Ordered T [facility] 2023-06-27 09:49:34 Formatting of this n ote might be different from the original. Patient had an order for an echo but it has . She would like to reschedule it but we would need new orders. Please advise. [facility] 2023-04-25 14:00:00 Addended by: BACILIO DELEON MD on: 06/27/2023 10:36 PM Modules accepted: Orders [facility] 2019-11-26 07:32:00 [id number] [place] [address] PATIENT NAME: KERRY SAMUEL ADMIT DATE: 11/23/19 ACCOUNT NO: [id number] ROOM NO: AGE: 74 REPORT TYPE: OPERATIVE REPORT SEX: F ADMITTING PHYSICIAN: ATTENDING PHYSICIAN: Praveena Garcia MD OPERATION DATE: 11/23/2019 PREOPERATIVE DIAGNOSIS: PROCEDURES: 1. ERCP. 2. Stent removal. 3. Dilation of the papilla. 4. Extension of the papillotomy for stone removal. 5. Multiple stone removal. 6. Intraoperative supervision and interpretation of biliary x-ray fluoroscopy, total fluoroscopic time 55 seconds. SURGEON: Praveena Garcia MD ADVERTISING STRATEGIST: ANESTHESIA: Administered by department of anesthesia. INDICATION: [...] above. Dictated By: Praveena Garcia MD WT: OP:LLESVIA/RAMIREZ/OMID Conf#: [id number]/DID#: [id number] Authenticated by Praveena Garcia MD On 11/29/2019 07:28:29 AM at 0728 PATIENT NAME: KERRY SAMUEL [facility] 2019-11-23 08:49:00 [facility] ([facility]) Post Anesthesia Evaluation REPORT#:[id number] REPORT STATUS: Signed DATE:11/23/19 TIME:0849 PATIENT: KERRY SAMUEL UNIT #: [id number] ROOM/BED: : 44 AGE: 74 SEX: F [...] Flow FiO2 Mean Ox Delivery Rate 11/23 0815 36.2 63 19 131/62 93 Room air 11/23 0810 36.2 62 19 159/67 92 Room air 11/23 0808 36.2 70 18 137/62 96 Room air 11/23 0800 63 15 140/62 Room air 11/23 0755 65 24 139/74 Room air 11/23 0750 Nasal 2.406357 cannula 11/23 0750 36.3 66 15 Nasal 2.294408 cannula 11/23 0618 36.2 88 18 138/88 98 Room air Cardiovascular: no change, CV system stable, vital signs stable Respiratory/Airway: respiratory system stable, maintains without support Pain: adequately controlled Hydration: adequate Temp status: normothermic Presence of N/V: no Anesthesia complications: no Other changes requiring f/u: none Conclusions: no apparent anes. issues at 0850 RPT #: [id number] END OF REPORT [facility] 2019-07-10 15:28:00 [facility] ([facility]) Post Anesthesia Evaluation REPORT#:[id number] REPORT STATUS: Signed DATE:07/10/19 TIME:1528 PATIENT: KERRY SAMUEL UNIT #: [id number] ROOM/BED: : 44 AGE: 73 SEX: F [...] Resp 15 07/10 1424 O2 Flow Rate 3.042148 07/10 1417 BP: [ ] HR: [ ] bpm RR: [ ] / min SP02: [ ] % Respiratory/Airway: maintains without support Pain: adequately controlled Hydration: euvolemic Presence of N/V: no Anesthesia complications: no Other changes requiring f/u: none Conclusions: no apparent anes. issues at 1529 RPT #: [id number] END OF REPORT [facility] 2019-07-10 14:02:00 [id number] [facility] [address] [place] [address] PATIENT NAME: KERRY SAMUEL ADMIT DATE: 07/10/19 ACCOUNT NO: [id number] ROOM NO: AGE: 73 REPORT TYPE: OPERATIVE REPORT SEX: F ADMITTING PHYSICIAN: ATTENDING PHYSICIAN: Praveena Garcia MD OPERATION DATE: 07/10/2019 PREOPERATIVE DIAGNOSIS: POSTOPERATIVE DIAGNOSIS: PROCEDURES: 1. ERCP. 2. Extension of papillotomy. 3. Dilation of the papilla. 4. Spyglass direct cholangioscopy. 5. Destruction of stone. 6. Removal of stone by using balloon method. 7. Stent placement 8.5-Botswanan 5 cm long. 8. Intraoperative supervision and interpretation of biliary x-ray fluoroscopy. Total fluoroscopic time 1.42 minutes. 9. Anesthesia by department of anesthesia. SURGEON: Praveena Garcia M.D. ADVERTISING STRATEGIST: ANESTHESIA: INDICATIONS: 1. Retained and difficult biliary [...] risk of cholangitis, a stent was replaced 8.5-Botswanan 5 cm leading to very good return [...] minutes. Dictated By: Praveena Garcia MD WT: OP:L.CHEVY/RAMIREZ/OMID Conf#: [id number]/DID#: [id number] Authenticated by Praveena Gracia MD On 07/11/2019 07:58:34 AM at 0758 PATIENT NAME: KERRY SAMUEL [facility] 2019-06-14 10:04:00 [id number] [address] PATIENT NAME: KERRY SAMUEL ADMIT DATE: 06/14/19 ACCOUNT NO: [id number] ROOM NO: AGE: 73 REPORT TYPE: OPERATIVE REPORT SEX: F ADMITTING PHYSICIAN: ATTENDING PHYSICIAN: Praveena Garcia MD OPERATION DATE: 06/14/2019 PROCEDURES: 1. ERCP. 2. Papillotomy of the pancreatic sphincter. 3. Papillotomy of the biliary sphincter. 4. Stent placement 8.5-Botswanan 5 cm. 5. Intraoperative supervision and interpretation of biliary/pancreatic x-ray. PREOPERATIVE DIAGNOSIS: POSTOPERATIVE DIAGNOSIS: SURGEON: ADVERTISING STRATEGIST: FLUOROSCOPY: Total fluoroscopic time 1.35 minutes. INDICATION: [...] of that to overcome the blockage an 8.5-B[place] 5 cm stent was placed. Good drainage [...] weeks. Dictated By: Praveena Garcia MD WT: OP:LLESVIA/RAMIREZ/OMID Conf#: [id number]/DID#: [id number] Authenticated by Praveena Garcia MD On 06/17/2019 09:36:31 AM at 0936 PATIENT NAME: KERRY SAMUEL [facility] 2019-06-14 08:37:00 [facility] ([facility]) Post Anesthesia Evaluation REPORT#:[id number] REPORT STATUS: Signed DATE:06/14/19 TIME:836 PATIENT: KERRY SAMUEL UNIT #: [id number] ROOM/BED: : 44 AGE: 73 SEX: F [...] 0829 36.7 81 12 113/55 100 Nasal 2.605237 cannula 06/14 617 36.6 53 18 193/88 99 Room air 0.640705 Cardiovascular: no change, CV system stable, vital signs stable Respiratory/Airway: respiratory system stable, maintains without support Pain: adequately controlled Hydration: adequate Temp status: normothermic Presence of N/V: no Anesthesia complications: no Other changes requiring f/u: none Conclusions: no apparent anes. issues at 0838 RPT #: [id number] END OF REPORT [facility]
[2025-06-22] MEDS ORDERED: NA CHLORIDE 0.9% 1,000 ML ONE (07:50)
[2025-06-22] MEDS ORDERED: FAMOTIDINE 20 MG/2 ML VIAL IV ONE (07:50)
[2025-06-22] MEDS ORDERED: ONDANSETRON 4 MG/2 ML VIAL ONE (07:50)
[2025-06-22 08:12] LABS: Absolute Lymphocytes (CBC) 1.8 K/uL (0.7-4.9); Hematocrit 39.3 % (36.0-45.0); Hemoglobin 12.9 g/dL (12.0-15.0); MCH 31.7 pg (27.0-35.0); MCHC 32.8 g/dL (32.0-36.0); MCV 96.7 fL (80-100); MPV 7.7 fL (7.6-11.3); Nucleated RBC Absolute Count 0.0 (0-0); Nucleated Red Blood Cells % 0.0 % (0-0); RBC Red Blood Cell Count 4.06 M/uL (3.86-4.86); White Blood Count 20.30 thou/uL (4.3-10.9)
[2025-06-22 08:26] LABS: ALT/SGPT < 14 U/L (13-56); AST/SGOT < 10 U/L (15-37); Albumin 2.4 g/dL (3.4-5.0); Albumin/Globulin Ratio 0.6 (1.1-1.8); Alkaline Phosphatase 83 U/L (45-117); Anion Gap 12.2 mEq/L (5.0-15.0); BUN Blood Urea Nitrogen 15 mg/dL (7-18); Globulin 3.7 g/dL (2.3-3.5); Glucose Level 141 mg/dL (74-106); Lipase 9 U/L (13-75); Potassium 4.2 mEq/L (3.5-5.1)
--- NOTE | 2025-06-22 10:01 | RAD REPORT ---
EXAMINATION: CT Abdomen Pelvis W Contrast CLINICAL INDICATION: Female, 79 years old. ABD PAIN TECHNIQUE: CT abdomen and pelvis was performed, after the administration of IV contrast, as per [facility] protocol. Axial, sagittal and coronal reconstructions were obtained. One or more of the following dose reduction techniques were used: Automated exposure control, adjustment of the mA and k V according to patient size, and iterative reconstruction. Unless otherwise specified, incidental findings do not require dedicated imaging follow-up. COMPARISON: No prior exam. FINDINGS: LOWER CHEST: Pleural-based base right middle lobe opacity. LIVER: Normal in size and contour. No focal lesion. BILIARY SYSTEM: Status post cholecystectomy. Mild central pneumobilia. Prominence of the common bile duct caliber,. SPLEEN: Normal size. No focal lesion. PANCREAS: No mass, ductal dilation, or nolan-pancreatic fluid. ADRENALS: Normal; no mass. KIDNEYS: Normal size and contour. Small right medial cortical 1.3 cm cyst No hydronephrosis. URINARY BLADDER: Unremarkable. GASTROINTESTINAL TRACT: No evidence of free air, significant intra-abdominal free fluid, bowel obstru ction or abscess. APPENDIX: Normal appendix. LYMPH NODES: No lymphadenopathy. MUSCULOSKELETAL: Superior endplate compression deformity at L3, stable. ADDITIONAL FINDINGS: Lobulated filling defect within the upper abdominal aorta extending into the ost ium of the celiac axis, may represent mural thrombus or prominent atherosclerotic plaque. There is opacification of the celiac axis distal to this, which suggests subocclusive nature. 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 IMPRESSION: Right middle lobe posterior pleural-based airspace opacity, concerning for focal pneumonia. Lobulated filling defect within the abdominal aorta extending into the celiac axis ostium, suggests a subocclusive mural thrombus or prominent atherosclerotic plaque. Other incidental findings as above.
[2025-06-22] MEDS ORDERED: METOCLOPRAMIDE 10 MG/2mL INJ ONE (10:24)
[2025-06-22] MEDS ORDERED: FENTANYL CITR 100 MCG/2 ML ONE (10:24)
[2025-06-22] MEDS ORDERED: METRONIDAZOLE 500mg IVPB 500 MG/100 ML BAG IV ONE (10:25)
[2025-06-22] MEDS ORDERED: CIPROFLOXACIN 400mg IV 400 MG/200 ML BAG IV ONE (10:25)
[2025-06-22 10:26] LABS: White Blood Cell Scan OK (OK)
[2025-06-22 10:27] LABS: Blood Morphology Comment NOT SEEN (NOT SEEN)
[2025-06-22] MEDS ORDERED: NA CHLORIDE 0.9% 500 ML ONE ×2 (12:32→14:54)
--- NOTE | 2025-06-22 13:23 | ER ---
Nurse's Notes [facility] Name: Sandra Samuel Age: 79 yrs Sex: Female : 1945 Arrival Date: 06/22/2025 Time: 07:24 Bed 5 Private MD: Diagnosis: Pneumonia, unspecified organism;Sepsis, unspecified organism;Abdominal aortic aneurysm, without rupture-SUBOCCLUSIVE MURAL THROMBUS Presentation: 06/22 07:27 Chief complaint: Patient states: ABD PAIN, NAUSEA/VOMITING/DIARRHEA SINCE YESTERDAY. aa5 Coronavirus screen: diarrhea, nausea, vomiting. Ebola Screen: Patient denies travel to an Ebola-affected area in the 21 days before illness onset. Initial Sepsis Screen: Does the patient meet any 2 criteria? No. Patient's initial sepsis screen is negative. Does the patient have a suspected source of infection? No. Patient's initial sepsis screen is negative. Risk Assessment: Do you want to hurt yourself or someone else? Patient reports no desire to harm self or others. Onset of symptoms was June 21, 2025. 07:27 Method Of Arrival: EMS: [facility] aa5 07:27 Acuity: CLARA 3 aa5 Triage Assessment: 07:30 General: Appears in no apparent distress. obese, Behavior is cooperative, appropriate bp for age, anxious. Pain: Complains of pain in abdomen. EENT: No deficits noted. Neuro: No deficits noted. Cardiovascular: No deficits noted. Respiratory: No deficits noted. GI: Reports lower abdominal pain, upper abdominal pain, diarrhea. : No signs and/or symptoms were reported regarding the genitourinary system. Derm: No deficits noted. Musculoskeletal: No deficits noted. Historical: - Allergies: :27 Codeine; aa5 07:27 PENICILLINS; aa5 - Home Meds: 13:14 omeprazole 40 mg Oral capsule,delayed release (e.c.) 1 cap daily [Active]; tizanidine 4 bp mg oral tablet [Active]; gabapentin 800 mg oral tablet [Active]; amitriptyline 50 mg Oral tablet [Active]; Plavix 75 mg Oral tablet 1 tab daily [Active]; - PMHx: 07:27 chronic back pain; coronary atherosclerosis; DVT; Myocardial infarction; spinal aa5 stenosis; 07: chronic leg pain; aa5 - PSHx: 07:27 ankle surgery; Gastric Bypass; Ligation of fallopian tube; Operative procedure on knee; aa5 Total abdominal hysterectomy; wrist surgery; HEART STENTS (Unknown); - Immunization history:: Adult Immunizations unknown. - Infectious Disease History:: Denies. - Social history:: Smoking status: Patient denies any tobacco usage or history of. - History obtained from: EMS. Screenin:30 [facility] ED Fall Risk Assessment (Adult) History of falling in the last 3 months, aa5 including since admission No falls in past 3 months (0 pts) Confusion or Disorientation No (0 pts) Intoxicated or Sedated No (0 pts) Impaired Gait Yes (1 pt) Mobility Assist Device Used Yes (1 pt) Altered Elimination No (0 pt) Score/Fall Risk Level 0 - 2 = Low Risk Oriented to surroundings, Maintained a safe environment, Educated pt \T\ family on fall prevention, incl call for assistance when getting out of bed, Assessed \T\ reinforced patient's understanding of fall precautions. Abuse screen: Denies threats or abuse. Nutritional screening: No deficits noted. Tuberculosis screening: No symptoms or risk factors identified. Assessment: 07:27 General: Appears comfortable, Behavior is calm, cooperative. Pain: Complains of pain in aa5 right upper quadrant, left upper quadrant, right lower quadrant and left lower quadrant Pain currently is 8 out of 10 on a pain scale. Quality of pain is described as aching, Pain began 1 day ago. Is intermittent. Neuro: Level of Consciousness is awake, alert, obeys commands, Oriented to person, place, time, situation. Cardiovascular: Patient's skin is warm and dry. Respiratory: Airway is patent Respiratory effort is even, unlabored, Respiratory pattern is regular, symmetrical. GI: Abdomen is round non-distended, Bowel sounds present X 4 quads. Abd is soft and non tender X 4 quads. Reports diarrhea, nausea, vomiting. : No signs and/or symptoms were reported regarding the genitourinary system. Denies burning with urination. EENT: No signs and/or symptoms were reported regarding the EENT system. Derm: Skin is pink, warm \T\ dry. Musculoskeletal: Range of motion: intact in all extremities. 08:00 Reassessment: Patient is alert, oriented x 3, equal unlabored respirations, skin aa5 warm/dry/pink. 10:38 Reassessment: No changes from previously documented assessment. Patient is alert, bp oriented x 3, equal unlabored respirations, skin warm/dry/pink. 12:30 Reassessment: Pt assisted to bedside commode, okayed by . Pt voided x 1. . aa5 12:30 Reassessment: Patient is alert, oriented x 3, equal unlabored respirations, skin aa5 warm/dry/pink. 13:54 Reassessment: Patient is alert, oriented x 3, equal unlabored respirations, skin aa5 warm/dry/pink. 14:50 Reassessment: Patient is alert, oriented x 3, equal unlabored respirations, skin aa5 warm/dry/pink. Pt cleaned of urinary incontinence, clean gown, bed sheets changed, clean brief applied. . 15:27 Reassessment: Report faxed to admitting nurse.. aa5 16:10 Reassessment: Patient is alert, oriented x 3, equal unlabored respirations, skin aa5 warm/dry/pink. Vital Signs: 07:27 BP 153 / 79; Pulse 89; Resp 16 S; Temp 98.6(O); Pulse Ox 100% on R/A; Weight 86.64 kg aa5 (R); Height 5 ft. 4 in. (R); Pain 8/10; 08:00 BP 148 / 86; Pulse 87; Resp 17 S; Pulse Ox 100% on R/A; aa5 10:37 BP 151 / 81; Pulse 78; Resp 18; Pulse Ox 97% ; bp 13:30 BP 150 / 81; Pulse 88; Resp 19 S; Pulse Ox 97% on R/A; aa5 14:55 BP 162 / 101; Pulse 93; Resp 18 S; Pulse Ox 96% on R/A; aa5 15:25 BP 158 / 89; Pulse 90; Resp 16; Temp 97.5(TE); Pulse Ox 98% on R/A; aa5 07:27 Body Mass Index 32.78 (86.64 kg, 162.56 cm) aa5 07:27 Pain Scale: Adult aa5 ED Course: 07:26 Patient arrived in ED. [id number] 07:26 Romario Payton is Attending Physician. ci 07:27 Paola Ridley, RN is Primary Nurse. aa5 07:27 Arm band placed on. aa5 07:27 Patient has correct armband on for positive identification. Bed in low position. Call aa5 light in reach. Side rails up X2. Pulse ox on. NIBP on. 07:28 Triage completed. aa5 07:48 Initial lab(s) drawn, by me, sent to lab. Inserted saline lock: 20 gauge in left aa5 antecubital area, using aseptic technique. Blood collected. Flushed with 10 mL NS. 08:37 No provider procedures requiring assistance completed. aa5 08:58 CT Abd/Pelvis - IV Contrast Only In Process Unspecified. EDMS 10:30 IV discontinued, intact, bleeding controlled, No redness/swelling at site. Pressure aa5 dressing applied, 20G to L AC dc'd, unable to flush IV. IV catheter noted to be bent upon inspection. 10:30 Missed attempt(s): 20 gauge in right antecubital area. Bleeding controlled, band aid aa5 applied, catheter tip intact. 10:33 Inserted saline lock: 22 gauge in right forearm, using aseptic technique. Flushed with aa5 10 mL NS. 13:20 Fabiana Dumont MD is Hospitalizing Provider. ci 13:41 Repeat lactate drawn and sent to lab. aa5 14:35 Notified ED physician of a critical lab result(s). lactate 2.3. jl7 16:10 Patient admitted, IV remains in place. aa5 Administered Medications: 08:04 Drug: Famotidine IVP 20 mg IVP once; dilute with 10 mL 0.9% NaCl; give over 2 minutes aa5 Route: IVP; Site: left antecubital; 08:30 Follow up: Response: No adverse reaction aa5 08:04 Drug: NS 0.9% IV 1000 ml IV at 1 bolus Per protocol; to be given as a bolus over 60 aa5 minutes Route: IV; Rate: 1 bolus; Site: left antecubital; 09:04 Follow up: IV Status: Completed infusion; IV Intake: 1000ml aa5 08:04 Drug: Ondansetron IVP 4 mg IVP once; over 2 minutes Route: IVP; Site: left antecubital; aa5 08:30 Follow up: Response: No adverse reaction aa5 10:33 Drug: metroNIDAZOLE IVPB 500 mg 100 ml IVPB at 200 ml/hr once over 30 mins Volume: 100 aa5 ml; Route: IVPB; Rate: 200 ml/hr; Infused Over: 30 mins; Site: right forearm; 11:04 Follow up: Response: No adverse reaction; IV Status: Completed infusion aa5 10:33 Drug: metoCLOPramide IVP 5 mg IVP once; over 1 to 2 minutes Route: IVP; Site: right aa5 forearm; 11:07 Follow up: Response: No adverse reaction aa5 10:35 Drug: fentaNYL (PF) IVP 50 mcg IVP once Route: IVP; Site: right forearm; aa5 11:07 Follow up: Response: No adverse reaction aa5 11:04 Drug: Ciprofloxacin IVPB 400 mg 200 ml IVPB once over 60 mins Volume: 200 ml; Route: aa5 IVPB; Infused Over: 60 mins; Site: right forearm; 12:04 Follow up: IV Status: Completed infusion; IV Intake: 200ml aa5 12:55 Drug: NS 0.9% IV 500 ml 500 ml IV at 1 bolus once; to be given as a bolus over 30 aa5 minutes Volume: 500 ml; Route: IV; Rate: 1 bolus; Site: right forearm; 13:25 Follow up: Response: No adverse reaction; IV Status: Completed infusion aa5 13:54 Drug: Heparin (DE Drip) 12 units/kg/hr - ([place] [address] units, D5W IV 500 ml) IV at aa5 calculated rate Per protocol; Max initial rate 1000 units/hr {Co-Signature: bp (Merrill Patterson RN).} Route: IV; Rate: calculated rate; Site: right forearm; 16:10 Follow up: IV Status: Infusion continued upon admission aa5 14:59 Drug: NS 0.9% IV 500 ml IV at bolus once; to be given as a bolus over 30 minutes Route: aa5 IV; Rate: bolus; Site: right forearm; 15:29 Follow up: IV Status: Completed infusion; IV Intake: 500ml aa5 Medication: 08:36 VIS not applicable for this client. aa5 Intake: 09:04 IV: 1000ml; Total: 1000ml. aa5 12:04 IV: 200ml; Total: 1200ml. aa5 15:29 IV: 500ml; Total: 1700ml. aa5 Outcome: 13:22 Decision to Hospitalize by Provider. ci 16:10 Admitted to Tele accompanied by tech, via stretcher, with chart, aa5 16:10 Condition: stable 16:10 Instructed on the need for admit, Demonstrated understanding of instructions, 16:17 Patient left the ED. aa5 Signatures: Dispatcher [employer] EDPaola Patel, RN RN aa5 Johnna Dominguez RN RN Merrill Felix, RN RN bp Iheonunekwu, Merrill Ruiz RN bp Corrections: (The following items were deleted from the chart) 17:43 17:10 Patient admitted, IV remains in place. aa5 aa5
--- NOTE | 2025-06-22 13:23 | EDPHYS ---
Physician Documentation [facility] Name: Sandra Samuel Age: 79 yrs Sex: Female : 1945 Arrival Date: 06/22/2025 Time: 07:24 Bed 5 Private MD: ED Physician Romario Payton HPI: 06/22 07:49 This 79 yrs old Female presents to ER via EMS with complaints of Abdominal Pain. ci 07:49 Patient is an 79-year-old female with PMH CAD s/p PCI, spinal stenosis, DVT who ci presents to the ED with chief complaint of generalized abdominal pain that began 2 days ago. Pain is associated with nausea/vomiting and diarrhea. No hematemesis, hematochezia or melena. No aggravating or relieving factors. Denies any chest pain, shortness of breath. Patient has had multiple abdominal surgeries.. Historical: - Allergies: 07:27 Codeine; aa5 07:27 PENICILLINS; aa5 - Home Meds: 13:14 omeprazole 40 mg Oral capsule,delayed release (e.c.) 1 cap daily [Active]; tizanidine 4 bp mg oral tablet [Active]; gabapentin 800 mg oral tablet [Active]; amitriptyline 50 mg Oral tablet [Active]; Plavix 75 mg Oral tablet 1 tab daily [Active]; - PMHx: 07:27 chronic back pain; coronary atherosclerosis; DVT; Myocardial infarction; spinal aa5 stenosis; 07:27 chronic leg pain; aa5 - PSHx: 07:27 ankle surgery; Gastric Bypass; Ligation of fallopian tube; Operative procedure on knee; aa5 Total abdominal hysterectomy; wrist surgery; HEART STENTS (Unknown); - Immunization history:: Adult Immunizations unknown. - Infectious Disease History:: Denies. - Social history:: Smoking status: Patient denies any tobacco usage or history of. - History obtained from: EMS. ROS: 09:42 Constitutional: Negative for fever, chills, and weight loss, Cardiovascular: Negative ci for chest pain, palpitations, and edema, Respiratory: Negative for shortness of breath, cough, wheezing, and pleuritic chest pain, 09:42 Neuro: Negative for headache, weakness, numbness, tingling, and seizure, :42 Abdomen/GI: Positive for abdominal pain, nausea, vomiting, and diarrhea, 09:42 : Negative for urinary symptoms, urinary frequency, burning with urination, Exam: 09:42 Constitutional: This is a well developed, well nourished patient who is awake, alert, ci and in no acute distress. Head/Face: Normocephalic, atraumatic. Eyes: Pupils equal round and reactive to light, extra-ocular motions intact. Lids and lashes normal. Conjunctiva and sclera are non-icteric and not injected. Cornea within normal limits. Periorbital areas with no swelling, redness, or edema. ENT: Nares patent. No nasal discharge, no septal abnormalities noted. Tympanic membranes are normal and external auditory canals are clear. Oropharynx with no redness, swelling, or masses, exudates, or evidence of obstruction, uvula midline. Mucous membranes moist. Neck: Trachea midline, no thyromegaly or masses palpated, and no cervical lymphadenopathy. Supple, full range of motion without nuchal rigidity, or vertebral point tenderness. No Meningismus. Chest/axilla: Normal chest wall appearance and motion. Nontender with no deformity. No lesions are appreciated. Cardiovascular: Regular rate and rhythm with a normal S1 and S2. No gallops, murmurs, or rubs. Normal PMI, no JVD. No pulse deficits. Respiratory: Lungs have equal breath sounds bilaterally, clear to auscultation and percussion. No rales, rhonchi or wheezes noted. No increased work of breathing, no retractions or nasal flaring. 09:42 Abdomen/GI: Inspection: abdomen appears normal, Palpation: soft, mild abdominal tenderness, in all quadrants, rebound tenderness, is not appreciated, voluntary guarding, involuntary guarding, Vital Signs: 07:27 BP 153 / 79; Pulse 89; Resp 16 S; Temp 98.6(O); Pulse Ox 100% on R/A; Weight 86.64 kg aa5 (R); Height 5 ft. 4 in. (R); Pain 8/10; 08:00 BP 148 / 86; Pulse 87; Resp 17 S; Pulse Ox 100% on R/A; aa5 10:37 BP 151 / 81; Pulse 78; Resp 18; Pulse Ox 97% ; bp 13:30 BP 150 / 81; Pulse 88; Resp 19 S; Pulse Ox 97% on R/A; aa5 14:55 BP 162 / 101; Pulse 93; Resp 18 S; Pulse Ox 96% on R/A; aa5 15:25 BP 158 / 89; Pulse 90; Resp 16; Temp 97.5(TE); Pulse Ox 98% on R/A; aa5 07:27 Body Mass Index 32.78 (86.64 kg, 162.56 cm) aa5 07:27 Pain Scale: Adult aa5 MDM: 07:26 Medical Screening Exam initiated ci 09:42 Differential Diagnosis Colitis, gastritis, SBO, perforated viscus. Data reviewed: vital ci signs, nurses notes. 10:57 ED course: Patient found to have subocclusive mural thrombus in the abdominal ci aorta/celiac axis. Discussed admission with hospitalist, hospitalist recommends talking to Dr. Dinero, vascular surgery. If patient does not need immediate operative intervention can be kept here. Discussed with Dr. Dinero, vascular surgery to review CT scan and call me back.. 12:50 ED course: Pending vascular surgery recommendations for disposition. ci 13:55 ED course: Vascular surgery reviewed CT, does not need immediate operative management. ci Recommendations to start heparin, will evaluate patient and take to the OR if there is any change in condition. Lactate elevated, concern for sepsis, on Cipro and Flagyl for suspected intra-abdominal pathology, found to have pneumonia on imaging. Will trend lactate. Discussed with hospitalist who accepted patient for admission.. 17:10 ED course: EKG shows sinus rhythm, heart rate 99, QTc 436 ms, no acute ischemic changes.ci 17:10 ED course: Critical Care Procedure Note Authorized and Performed by: Romario Payton Total critical care time: Approximately 60 minutes Due to a high probability of clinically significant, life threatening deterioration, the patient required my highest level of preparedness to intervene emergently and I personally spent this critical care time directly and personally managing the patient. This critical care time included obtaining a history; examining the patient; pulse oximetry; ordering and review of studies; arranging urgent treatment with development of a management plan; evaluation of patient's response to treatment; frequent reassessment; and, discussions with other providers. This critical care time was performed to assess and manage the high probability of imminent, life-threatening deterioration that could result in multi-organ failure. It was exclusive of separately billable procedures and treating other patients and teaching time. Please see MDM section and the rest of the note for further information on patient assessment and treatment.. 06/22 07:34 Order name: CBC with Diff; Complete Time: 10:40 ci 08 09:46 Interpretation: Abnormal: WBC 20.30. ci 08 07:34 Order name: CMP; Complete Time: 09:46 ci 08 09:46 Interpretation: Abnormal: CRE 1.46; GFR 36. ci 08 07:34 Order name: Lipase; Complete Time: 09:46 ci 08 08:15 Order name: CBC Smear Scan; Complete Time: 10:40 EDMS 06/22 09:49 Order name: Blood Culture Adult (2) ci 06/22 09:49 Order name: Lactate w/ 2H reflex if indic.; Complete Time: 11:58 ci 06/22 11:07 Order name: Ghost Lactate-NO COLLECT Timer; Complete Time: 13:10 EDMS 06/22 11:07 Order name: Ptt, Activated; Complete Time: 11:58 aa5 06/22 14:32 Order name: Basic Metabolic Panel EDMS 06/22 14:32 Order name: Basic Metabolic Panel EDMS 06/22 14:32 Order name: Basic Metabolic Panel EDMS 06/22 14:32 Order name: Basic Metabolic Panel EDMS 06/22 14:32 Order name: Basic Metabolic Panel EDMS 06/22 14:32 Order name: Basic Metabolic Panel EDMS 06/22 14:32 Order name: Basic Metabolic Panel EDMS 06/22 14:32 Order name: Basic Metabolic Panel EDMS 06/22 14:32 Order name: CBC with Automated Diff EDMS 06/22 14:32 Order name: CBC with Automated Diff EDMS 06/22 14:32 Order name: CBC with Automated Diff EDMS 06/22 14:32 Order name: CBC with Automated Diff EDMS 06/22 14:32 Order name: CBC with Automated Diff EDMS 06/22 14:32 Order name: CBC with Automated Diff EDMS 06/22 14:32 Order name: CBC with Automated Diff EDMS 06/22 14:32 Order name: CBC with Automated Diff EDMS 06/22 14:32 Order name: Magnesium EDMS 06/22 14:33 Order name: Lactate Sepsis 2 HR Follow-up; Complete Time: 17:07 EDMS 06/22 14:33 Order name: Magnesium EDMS 06/22 14:33 Order name: Magnesium EDMS 06/22 14:33 Order name: Magnesium EDMS 06/22 14:33 Order name: Magnesium EDMS 06/22 14:33 Order name: Magnesium EDMS 06/22 14:33 Order name: Magnesium EDMS 06/22 14:33 Order name: Magnesium EDMS 06/22 14:33 Order name: Phosphorus EDMS 06/22 14:33 Order name: Phosphorus EDMS 06/22 14:33 Order name: Phosphorus EDMS 06/22 14:33 Order name: Phosphorus EDMS 06/22 14:33 Order name: Phosphorus EDMS 06/22 14:33 Order name: Phosphorus EDMS 06/22 14:33 Order name: Phosphorus EDMS 06/22 14:33 Order name: Phosphorus EDMS 06/22 15:10 Order name: Lactate w/ 2H reflex if indic. EDMS 06/22 07:34 Order name: CT Abd/Pelvis - IV Contrast Only; Complete Time: 10:14 ci 06/22 13:16 Interpretation: Abnormal. ci 06/22 07:48 Order name: EKG; Complete Time: 07:49 ci 06/22 14:32 Order name: CONS Physician Consult EDMS 06/22 07:34 Order name: IV Saline Lock; Complete Time: 07:49 ci 06/22 07:34 Order name: Labs collected and sent; Complete Time: 07:49 ci 06/22 07:49 Order name: EKG - Nurse/Tech; Complete Time: 08:06 jl7 06/22 13:18 Order name: Consult Surgery-Francisco Javier Dinero (Vascular surgery) ci Administered Medications: 08:04 Drug: Famotidine IVP 20 mg IVP once; dilute with 10 mL 0.9% NaCl; give over 2 minutes aa5 Route: IVP; Site: left antecubital; 08:30 Follow up: Response: No adverse reaction aa5 08:04 Drug: NS 0.9% IV 1000 ml IV at 1 bolus Per protocol; to be given as a bolus over 60 aa5 minutes Route: IV; Rate: 1 bolus; Site: left antecubital; 09:04 Follow up: IV Status: Completed infusion; IV Intake: 1000ml aa5 08:04 Drug: Ondansetron IVP 4 mg IVP once; over 2 minutes Route: IVP; Site: left antecubital; aa5 08:30 Follow up: Response: No adverse reaction aa5 10:33 Drug: metroNIDAZOLE IVPB 500 mg 100 ml IVPB at 200 ml/hr once over 30 mins Volume: 100 aa5 ml; Route: IVPB; Rate: 200 ml/hr; Infused Over: 30 mins; Site: right forearm; 11:04 Follow up: Response: No adverse reaction; IV Status: Completed infusion aa5 10:33 Drug: metoCLOPramide IVP 5 mg IVP once; over 1 to 2 minutes Route: IVP; Site: right aa5 forearm; 11:07 Follow up: Response: No adverse reaction aa5 10:35 Drug: fentaNYL (PF) IVP 50 mcg IVP once Route: IVP; Site: right forearm; aa5 11:07 Follow up: Response: No adverse reaction aa5 11:04 Drug: Ciprofloxacin IVPB 400 mg 200 ml IVPB once over 60 mins Volume: 200 ml; Route: aa5 IVPB; Infused Over: 60 mins; Site: right forearm; 12:04 Follow up: IV Status: Completed infusion; IV Intake: 200ml aa5 12:55 Drug: NS 0.9% IV 500 ml 500 ml IV at 1 bolus once; to be given as a bolus over 30 aa5 minutes Volume: 500 ml; Route: IV; Rate: 1 bolus; Site: right forearm; 13:25 Follow up: Response: No adverse reaction; IV Status: Completed infusion aa5 13:54 Drug: Heparin (IA Drip) 12 units/kg/hr - ([place] [address] units, D5W IV 500 ml) IV at aa5 calculated rate Per protocol; Max initial rate 1000 units/hr {Co-Signature: bp (Merrill Patterson RN).} Route: IV; Rate: calculated rate; Site: right forearm; 16:10 Follow up: IV Status: Infusion continued upon admission aa5 14:59 Drug: NS 0.9% IV 500 ml IV at bolus once; to be given as a bolus over 30 minutes Route: aa5 IV; Rate: bolus; Site: right forearm; 15:29 Follow up: IV Status: Completed infusion; IV Intake: 500ml aa5 Disposition Summary: 06/22/25 13:22 Hospitalization Ordered Notes: Hospitalization Status: Inpatient Admission ci Provider: Tim, Azfar ci Location: Telemetry/MedSurg (Inpatient) ci Condition: Stable ci Problem: new ci Symptoms: are unchanged ci Bed/Room Type: Standard ci Room Assignment: 230(06/22/25 15:10) sp Diagnosis - Pneumonia, unspecified organism ci - Sepsis, unspecified organism ci - Abdominal aortic aneurysm, without rupture - SUBOCCLUSIVE MURAL THROMBUS ci Forms: - Medication Reconciliation Form ci - SBAR form ci - Leadership Thank You Letter ci Critical care time excluding procedures: 17:10 Critical care time: Bedside Care: 30 minutes, Consultation: 30 minutes. Total time: 60 ci minutes Signatures: Dispatcher [employer] EDMS Christen Tang Audri, RN RN aa5 Johnna Dominguez RN RN jl7 Merrill Patterson, RN RN bp Romario Payton Brian RN bp Corrections: (The following items were deleted from the chart) 07:35 07:35 CBC+H.LAB.BRZ ordered. EDMS EDMS 07:35 07:35 COMPREHENSIVE METABOLIC PANEL+C.LAB.BRZ ordered. EDMS EDMS 07:35 07:35 LIPASE+C.LAB.BRZ ordered. EDMS EDMS 07:35 07:35 Abdomen Pelvis W Con+CT.RAD.BRZ ordered. EDMS EDMS 11:07 11:07 PTT, ACTIVATED+COAG.LAB.BRZ ordered. EDMS EDMS 15:10 13:22 ci sp 17:10 10:57 ED course: Discussed admission with hospitalist, hospitalist called Dr. Dinero, ci vascular surgery. If patient does not need immediate operative intervention can be kept here. Discussed with Dr. Dinero, vascular surgery to review CT scan and call me back.. ci 17:10 13:55 Heparin (IA Drip) 12 units/kg/hr - ([place] [address] units, D5W IV 500 ml) IV at ci calculated rate Per protocol; Max initial rate 1000 units/hr given. aa5 17:14 10:57 ED course: Discussed admission with hospitalist, hospitalist recommends talking ci to Dr. Dinero, vascular surgery. If patient does not need immediate operative intervention can be kept here. Discussed with Dr. Dinero, vascular surgery to review CT scan and call me back.. ci
[2025-06-22] MEDS ORDERED: HEPARIN/D5W 25,000 UNIT/500 ML BAG IV ONE (13:35)
--- NOTE | 2025-06-22 15:14 | P.HP ---
Certification for Inpatient Patient admitted to: Inpatient With expected LOS: >2 Midnights <Petra Cardenas - Last Filed: 06/22/25 15:01> Patient History Date of Service: 06/22/25 Reason for admission: Subocclusive mural thrombus History of Present Illness: Sandra Samuel is an 79 year old female with PMhx CAD/AL status post 2 stents, DVTs, chronic back and leg pain, spinal stenosis who presents to the ED with chief complaints of right lower abdominal pain associated with diarrhea, chills, dry heaves. CT abdomen pelvis reports "Right middle lobe posterior pleural- based airspace opacity, concerning for focal pneumonia. Lobulated filling defect within the abdominal aorta extending into the celiac axis ostium, suggests a subocclusive mural thrombus or prominent atherosclerotic plaque." Laboratory evaluation significant for WBC 20.3, lactic acid 3.1/2.3, BUN/creatinine 15/1.46, GFR 36, glucose 141. Vital signs stable. Sandra will be admitted to hospitalist service for further evaluation and tr eatment for subocclusive mural thrombus and lobulated filling defect within abdominal aorta, Dr. Dinero consulted. - Past Medical/Surgical History Diabetic: No -: DVT -: insomnia -: AL -: Chronic back pain -: R KNEE SX -: L ROTATOR CUFF -: L WRIST SX -: R TOE SX -: APPENDECTOMY - Family History Sister -: Diabetes Brother -: Heart disease, Cancer - Social History Smoking Status: Never smoker Alcohol use: No CD- Drugs: No Caffeine use: Yes <Petra Cardenas - Last Filed: 06/22/25 15:01> Date of Service: 06/22/25 <Fabiana Dumont - Last Filed: 06/22/25 17:03> Allergies codeine [Codeine] Allergy (Severe, Verified 06/23/12 22:21) SOB Penicillins Allergy (Intermediate, Verified 06/23/12 22:21) Rash Home Medications: Cholecalciferol (Vitamin D3) [Vitamin D 10,000 UNIT CAP] 50,000 unit PO DAILY 06/24/12 Folic Acid 2 mg PO DAILY 06/24/12 Zolpidem Tartrate [Ambien Cr] 12.5 mg PO BEDTIME 08/23/16 Gabapentin 800 mg PO BID 03/27/25 Hydrocodone Bit/Acetaminophen [[place] 7.5-325 Tablet] 7.5 mg PO Q5H PRN 03/27/25 Mirabegron [Myrbetriq] 25 mg PO DAILY 03/27/25 Review of Systems Other: Per HPI <Petra Cardenas - Last Filed: 06/22/25 15:01> Physical Examination - Physical Exam General: Alert, In no apparent distress, Oriented x3 HEENT: Atraumatic, Normocephalic Neck: Supple Respiratory: Clear to auscultation bilaterally Cardiovascular: Regular rate/rhythm, Systolic murmur Gastrointestinal: Hypoactive, Tenderness Musculoskeletal: No clubbing Integumentary: No rashes Neurological: Normal speech, Normal tone - Studies Laboratory Data (last 24 hrs) 06/22/25 06/22/25 06/22/25 11:09 07:48 07:48 WBC 20.30 H Hgb 12.9 Hct 39.3 Plt Count 341 APTT 33.0 Sodium 137 Potassium 4.2 BUN 15 Creatinine 1.46 H Glucose 141 H Total Bilirubin 0.9 AST < 10 L ALT < 14 Alkaline Phosphatase 83 Lipase 9 L <Petra Cardenas - Last Filed: 06/22/25 15:01> - Studies Laboratory Data (last 24 hrs) 06/22/25 06/22/25 06/22/25 11:09 07:48 07:48 WBC 20.30 H Hgb 12.9 Hct 39.3 Plt Count 341 APTT 33.0 Sodium 137 Potassium 4.2 BUN 15 Creatinine 1.46 H Glucose 141 H Total Bilirubin 0.9 AST < 10 L ALT < 14 Alkaline Phosphatase 83 Lipase 9 L <aFbiana Dumont - Last Filed: 06/22/25 17:03> Assessment and Plan - Plan Assessment and Plan Lobulated filling defect within abdominal aorta subocclusive mural thrombus or prominent arthrosclerotic plaque History of DVTs Lactic acidosis/leukocytosis likely secondary to thrombus Right lower abdominal pain - Dr. Dinero consulted and agreed with admission -Surgery date pending -Heparin drip -Gentle IV fluids -Physical therapy -repeat lactic KALYN -BUN/creatinine 15/1.46, GFR 36 - Gentle IV fluids same as above Right middle lobe pneumonia - Levaquin - Sandra denies shortness of breath, chest pain, and cough -Currently on room air CAD/AL status post stents x 2 Spinal stenosis Chronic back and leg pain - Continue home medications as appropriate DVT ppx heparin gtt full code LOS 2-3 days Discharge Plan: Home Plan to discharge in: 72 Hours - Advance Directives Does patient have a Living Will: No Does patient have a Durable POA for Healthcare: No Time Spent Managing Pts Care (In Minutes): 60 <Petra Cardenas - Last Filed: 06/22/25 15:01> Physician Review: Patient Assessed, Agree with Above Assessment and Plan <Fabiana Dumont - Last Filed: 06/22/25 17:03>
[2025-06-22 16:35] VITALS: O2SAT 98
[2025-06-22 17:11] VITALS: BMI 32.8
[2025-06-22] MEDS: NA CHLORIDE 0.9% 1,000 ML IV SCH (18:01)
[2025-06-22] MEDS: Levofloxacin 750mg IV 750 MG/150 ML BAG IV SCH (18:01)
[2025-06-22] MEDS: ZOLPIDEM TARTRATE 10 MG TABLET PO SCH (20:37)
[2025-06-22] MEDS: GABAPENTIN 400 MG CAP PO SCH (20:37)
[2025-06-23] MEDS: HYDRALAZINE HCL 20 MG/ML VIAL IV PRN (04:23)
[2025-06-23 05:33] LABS: Absolute Lymphocytes (CBC) 3.0 K/uL (0.7-4.9); Hematocrit 38.8 % (36.0-45.0); Hemoglobin 12.5 g/dL (12.0-15.0); MCH 31.3 pg (27.0-35.0); MCHC 32.1 g/dL (32.0-36.0); MCV 97.3 fL (80-100); MPV 7.7 fL (7.6-11.3); Nucleated RBC Absolute Count 0.0 (0-0); Nucleated Red Blood Cells % 0.1 % (0-0); RBC Red Blood Cell Count 3.98 M/uL (3.86-4.86); White Blood Count 24.70 thou/uL (4.3-10.9)
[2025-06-23 05:48] LABS: Anion Gap 9.9 mEq/L (5.0-15.0); BUN Blood Urea Nitrogen 13.0 mg/dL (7-18); Glucose Level 104.0 mg/dL (74-106); Magnesium 1.6 mg/dL (1.6-2.4); Potassium 3.9 mEq/L (3.5-5.1)
[2025-06-23] MEDS: DOXYCYCLINE 100 MG in NA CHLORIDE 0.9% 100 ML IVPB SCH (07:57)
[2025-06-23] MEDS: HYDROCODONE/APAP 7.5/325 MG TAB PO PRN (10:36)
--- NOTE | 2025-06-23 12:16 | P.PN ---
Date of Service: 06/23/25 Subjective Awake and oriented No new complaints WBC increased, added doxycycline ROS 10 point ROS as noted above, otherwise negative Physical Exam General: Alert and oriented x3, NAD HEENT: Atraumatic, Normocephalic Neck: Supple Respiratory: Clear to auscultation bilaterally, on room air Cardiovascular: RRR, Systolic murmur Gastrointestinal: Hypoactive, Tenderness Musculoskeletal: No clubbing Integumentary: No rashes Neurological: Normal speech, Normal tone Vitals Reviewed Problem list Lobulated filling defect within abdominal aorta subocclusive mural thrombus or prominent arthrosclerotic plaque History of DVTs Lactic acidosis/leukocytosis likely secondary to thrombus Right lower abdominal pain KALYN Right middle lobe pneumonia CAD/MS status post stents x 2 Spinal stenosis Chronic back and leg pain Assessment and Plan Lobulated filling defect within abdominal aorta subocclusive mural thrombus or prominent arthrosclerotic plaque History of DVTs Lactic acidosis/leukocytosis likely secondary to thrombus Right lower abdominal pain - Dr. Dinero consulted and agreed with admission -Surgery date pending - Continue heparin drip -Gentle IV fluids -Physical therapy - Lactic acid resolved - C-reactive protein 139 KALYN-improved -BUN/creatinine 13/1.19, GFR 46 - Gentle IV fluids same as above Right middle lobe pneumonia - Levaquin and doxycycline - Sandra denies shortness of breath, chest pain, and cough -Currently on room air CAD/MS status post stents x 2 Spinal stenosis Chronic back and leg pain - Continue home medications as appropriate DVT ppx heparin gtt full code LOS 2-3 days Discharge Plan: Home Plan to discharge in: 72 Hours Time Spent Managing Pts Care (In Minutes): 35 <Petra Cardenas - Last Filed: 06/23/25 12:11> I have personally seen and evaluated the patient. I have reviewed the history, physical exam findings, and assessment provided by Petra Cardenas [employer]. I agree with the plan of care as documented <Fabiana Dumont - Last Filed: 06/23/25 16:16>
[2025-06-23] MEDS: MORPHINE 2 MG/ML SYR IV PRN (18:03)
[2025-06-23] MEDS: HEPARIN/D5W 25,000 UNIT/500 ML BAG IV SCH (20:40)
[2025-06-24 05:17] LABS: Absolute Lymphocytes (CBC) 3.1 K/uL (0.7-4.9); Hematocrit 32.7 % (36.0-45.0); Hemoglobin 11.1 g/dL (12.0-15.0); MCH 32.4 pg (27.0-35.0); MCHC 33.9 g/dL (32.0-36.0); MCV 95.7 fL (80-100); MPV 7.8 fL (7.6-11.3); Nucleated RBC Absolute Count 0.0 (0-0); Nucleated Red Blood Cells % 0.1 % (0-0); RBC Red Blood Cell Count 3.42 M/uL (3.86-4.86)
[2025-06-24 05:26] LABS: White Blood Count 24.60 thou/uL (4.3-10.9)
[2025-06-24 05:28] LABS: Anion Gap 5.7 mEq/L (5.0-15.0); BUN Blood Urea Nitrogen 12.0 mg/dL (7-18); Glucose Level 101.0 mg/dL (74-106); Magnesium 1.5 mg/dL (1.6-2.4); Potassium 3.7 mEq/L (3.5-5.1)
[2025-06-24] MEDS: SODIUM CHLORIDE 0.9% 10ML INJ IV SCH (09:00)
[2025-06-24] MEDS: PANTOPRAZOLE 40 MG INJ IVP SCH (09:39)
--- NOTE | 2025-06-24 12:55 | P.CNS ---
Date of Consult: 06/24/25 reason for consult: pneumonia with leukocytosis HPI:79 year old female with PMhx CAD/OK status post 2 stents, DVTs, chronic back and leg pain, and spinal stenosis who presents to the ED with chief complaints of right lower abdominal pain associated with diarrhea, chills, dry heaves. CT abdomen pelvis reports "Right middle lobe posterior pleural-based airspace opacity, concerning for focal pneumonia. Lobulated filling defect within the abdominal aorta extending into the celiac axis ostium, suggests a subocclusive mural thrombus or prominent atherosclerotic plaque." Pt is currently on heparin. Pt is on doxycyline and levaquin. wbc is still elevated 24.6 VS stable. blood culture neg. pt denied SOB or chest pain but does complain of lower abdomen pain. ROS: please see hpi Allergies codeine [Codeine] Allergy (Severe, Verified 06/23/12 22:21) SOB Penicillins Allergy (Intermediate, Verified 06/23/12 22:21) Rash Current Medications Hydrocodone Bitart/Acetaminophen (Hydrocodone/[place]ap 7.5/325 Mg Tab) 1 tab PO Q5H PRN PRN Reason: Pain scale 5-7 (Moderate) Gabapentin (Gabapentin 400 Mg Cap) 800 mg PO BID [facility] Last Admin: 06/24/25 09:39 Dose: 800 mg Home Med (Mirabegron [Myrbetriq]) 1 mg PO DAILY [facility] Last Admin: 06/24/25 09:00 Dose: Not Given Hydralazine HCl (Hydralazine Hcl 20 Mg/Ml Vial) 10 mg IV Q6HP PRN PRN Reason: FOR SBP>160 OR DBP>100 [facility] Last Admin: 06/23/25 04:23 Dose: 10 mg Sodium Chloride (Ns 1000 Ml Ivbag) 1,000 mls @ 75 mls/hr IV .[id number] [facility] Last Admin: 06/24/25 03:19 Dose: 1,000 mls Heparin Sodium/Dextrose (Heparin Drip 25,000 Units/5oo Ml Premix) 25,000 unit in 500 mls @ 0 mls/hr IV UD [facility]; Protocol Last Admin: 06/23/25 20:40 Dose: 500 mls Levofloxacin/Dextrose (Levaquin 750 Mg/150 Ml Ivpb (Premix)) 750 mg in 150 mls @ 100 mls/hr IV Q24H [facility]; Protocol Last Admin: 06/23/25 15:56 Dose: 150 mls Doxycycline Hyclate 100 mg/ (Sodium Chloride) 100 mls @ 100 mls/hr IVPB Q12HR [facility]; Protocol Last Admin: 06/24/25 09:39 Dose: 100 mls Morphine Sulfate (Morphine 2 Mg/Ml Syr) 2 mg IV Q4H PRN PRN Reason: Pain scale 8-10 (Severe) Last Admin: 06/23/25 18:03 Dose: 2 mg Pantoprazole Sodium (Pantoprazole 40 Mg Inj) 40 mg IVP DAILY [facility]; Protocol Last Admin: 06/24/25 09:39 Dose: 40 mg Sodium Chloride (Sodium Chloride 0.9% 10ml Inj) 10 ml IV DAILY [facility] Last Admin: 06/24/25 09:00 Dose: 10 ml Zolpidem Tartrate (Zolpidem Tartrate 10 Mg Tablet) 10 mg PO BEDTIME [facility] Last Admin: 06/23/25 20:38 Dose: 10 mg - Past Medical/Surgical History Diabetic: No -: DVT -: insomnia -: OK -: Chronic back pain -: R KNEE SX -: L ROTATOR CUFF -: L WRIST SX -: R TOE SX -: APPENDECTOMY - Family History Sister -: Diabetes Brother -: Heart disease, Cancer - Social History Smoking Status: Never smoker Alcohol use: No CD- Drugs: No Caffeine use: Yes - Physical Exam General: Alert, In no apparent distress, Oriented x3 HEENT: Atraumatic, Normocephalic Neck: Supple Respiratory: CTA Cardiovascular: Regular rate/rhythm, Systolic murmur Gastrointestinal: Hypoactive, ND, Tenderness to lower abdomen Musculoskeletal:no edema Microbiology 06/22/25 10:05 Blood - Blood Aerobic Blood Culture - Preliminary No growth in 24 hours. 06/22/25 10:05 Blood - Blood Anaerobic Blood Culture - Preliminary No growth in 24 hours. 06/22/25 10:13 Blood - Blood Aerobic Blood Culture - Preliminary No growth in 24 hours. 06/22/25 10:13 Blood - Blood Anaerobic Blood Culture - Preliminary No growth in 24 hours. Labs: wbc 24.6, Hgb 11.1, plateket 273, bun 12, cr 1.13, albumin 2.4 assessment and planning 1.Right middle lobe pneumonia 2.Lobulated filling defect within abdominal aorta 3.subocclusive mural thrombus or prominent arthrosclerotic plaque 4.leukocytosis 5.moderate protein calories malnourishment 6.KALYN continue levaquin and doxycyline empirically. recommend 7 days abx duration sputum culture pending UA pending blood culture no growth will continue to monitor wbc and fever trend thank you Dr hadley for the consult case discussed and in agreement with Dr perez
--- NOTE | 2025-06-24 13:13 | P.PN ---
Date of Service: 06/24/25 Subjective More drowsy today, eating lunch on second rounds WBC still increased Dr. Dinero evaluated and believes she has early ischemic bowel, thrombus appears to be an embolus and too new to operate on. Radiology contacted reporting bowel wall thickening which is suspicious of early ischemic bowel. [place] [facility] [place] ROS 10 point ROS as noted above, otherwise negative Physical Exam General: AAO x3, NAD, Drowsy HEENT: Atraumatic, Normocephalic Neck: Supple Respiratory: Clear BBS, on room air Cardiovascular: RRR, Systolic murmur Gastrointestinal: Hypoactive, Tenderness Musculoskeletal: No clubbing Integumentary: No rashes Neurological: Normal speech, Normal tone Vitals Reviewed Problem list Lobulated filling defect within abdominal aorta subocclusive mural thrombus or prominent arthrosclerotic plaque History of DVTs Lactic acidosis/leukocytosis likely secondary to thrombus Right lower abdominal pain KALYN Right middle lobe pneumonia CAD/TN status post stents x 2 Spinal stenosis Chronic back and leg pain Assessment and Plan Lobulated filling defect within abdominal aorta subocclusive mural thrombus or prominent arthrosclerotic plaque History of DVTs Lactic acidosis/leukocytosis likely secondary to thrombus Right lower abdominal pain - Dr. Dinero consulted and agreed with admission -Surgery date pending - Continue heparin drip, will continue during transfer -Gentle IV fluids -Physical therapy - Lactic acid resolved - C-reactive protein 139 -Pending lactic acid and LDH STAT KALYN-improved -BUN/creatinine 10/14.13, GFR 49 - Gentle IV fluids same as above Right middle lobe pneumonia - Levaquin and doxycycline - Sandra denies shortness of breath, chest pain, and cough -Currently on room air CAD/TN status post stents x 2 Spinal stenosis Chronic back and leg pain - Continue home medications as appropriate DVT ppx heparin gtt full code LOS 2-3 days Discharge Plan: Home Plan to discharge in: 72 Hours Time Spent Managing Pts Care (In Minutes): 35 <Petra Cardenas - Last Filed: 06/24/25 13:07> I have personally seen and evaluated the patient. I have reviewed the history, physical exam findings, and assessment provided by Petra Cardenas [employer]. I agree with the plan of care as documented <Fabiana Dumont - Last Filed: 06/24/25 16:57>
--- NOTE | 2025-06-24 14:56 | RAD REPORT ---
EXAM: Chest Single View HISTORY: 79 years Female f/u [facility] COMPARISON: 03/27/2025 FINDINGS: LUNGS/PLEURA: Elevated right hemidiaphragm with some linear opacities at the right lung base. Previou sly noted opacity in the right lung on the CT from 06/22/2025 is nonvisualized. CARDIAC/MEDIASTINUM: Mild cardiomegaly UPPER ABDOMEN: No significant abnormality. BONES: No acute abnormality. Surgical clips in left axilla. LINES/TUBES/OTHER: N/A IMPRESSION: Elevated right hemidiaphragm with residual right basilar atelectasis but no definite residual pneumon ia
[2025-06-24] MEDS: ENSURE MAX PROTEIN 330 ML LIQUID PO SCH (21:00)
[2025-06-24 21:03] VITALS: BP 121/70; TEMP 99.2
== END 2025-06-24 23:32 | disposition short-term general hospital (02) | DRG 871 ==
LOC: ER 07:24 → ERHOLD 14:24 → 2ND 16:04
PROVIDERS: ADMIT Family Medicine; ATTEND Family Medicine
DX: A41.9 Sepsis, unspecified organism (principal); J18.9 Pneumonia, unspecified organism; E87.20 Acidosis, unspecified; N17.9 Acute kidney failure, unspecified; E44.0 Moderate protein-calorie malnutrition; K55.9 Vascular disorder of intestine, unspecified; I74.09 Other arterial embolism and thrombosis of abdominal aorta; G89.29 Other chronic pain; M54.9 Dorsalgia, unspecified; M79.604 Pain in right leg; M48.00 Spinal stenosis, site unspecified; I71.40 Abdominal aortic aneurysm, without rupture, unspecified; I25.10 Atherosclerotic heart disease of native coronary artery without angina pectoris; I25.2 Old myocardial infarction; Z88.0 Allergy status to penicillin; Z88.5 Allergy status to narcotic agent; Z95.1 Presence of aortocoronary bypass graft; Z95.5 Presence of coronary angioplasty implant and graft; Z98.84 Bariatric surgery status; Z79.02 Long term (current) use of antithrombotics/antiplatelets; Z79.899 Other long term (current) drug therapy; Z90.710 Acquired absence of both cervix and uterus; Z68.32 Body mass index [BMI] 32.0-32.9, adult; Z86.718 Personal history of other venous thrombosis and embolism
CPT/HCPCS: 36415; 71045; 74177; 80048; 80053; 83605; 83690; 83735; 84100; 84145; 85025; 85730; 86140; 87040; 93005; 99285; J0360; J0744; J1644; J2270; J2405; J2470; J2765; J3010; J7030; J7040; Q9967